=== PATIENT | female | born 1945 | race Caucasian/White ===

== ENCOUNTER 2017-06-09 19:03 | Emergency (ER) | payer MEDICARE, OTHER ==
[~2017-06-09] VITALS: Ht 162.6 cm; Wt 57.6 kg
[~2017-06-09 19:03] MED LIST: ALBU8.5H6 INH; ASPI325T8 PO; ATOR40TA59 PO; BUSP30TA PO; CLOP75TA PO; FLUT1DIS3 IH; GABA-586 PO; INSU100I11 SQ; INSU100I13 SQ; INSU100V8 SQ; METF-620 PO; SERT100T8 PO; TRAZ100T12 PO
[2017-06-09 19:24] LABS: BASO # 0.1 x10^3/uL (0.0-0.2); BASO % 1 % (0-3); EOS % 1 % (0-3); HEMATOCRIT 37.8 % (36.0-47.0); HEMOGLOBIN 11.9 g/dL (12.0-15.5); LYMPH # 1.3 x10^3/uL (1.0-4.8); LYMPH % 21 % (24-48); MEAN CORPUSCULAR HEMOGLOBIN 24 pg (25-35); MEAN CORPUSCULAR HGB CONC 31 g/dL (31-37); MEAN CORPUSCULAR VOLUME 76 fL (79-100); MONO % 6 % (0-9); NEUT % 72 % (31-73); PLATELET COUNT 207 x10^3/uL (140-400); RED CELL DISTRIBUTION WIDTH 15.9 % (11.5-14.5); WHITE BLOOD COUNT 6.2 x10^3/uL (4.0-11.0)
[2017-06-09 19:35] LABS: BILIRUBIN,URINE NEGATIVE (NEG); GLUCOSE,URINE 100 mg/dL (NEG); NITRITE,URINE NEGATIVE (NEG); PROTEIN,URINE NEGATIVE (NEG-TRACE); UROBILINOGEN,URINE 0.2 mg/dL (0.2 mg/dL)
[2017-06-09 19:42] LABS: BACTERIA,URINE MODERATE /HPF (0-FEW); RBC,URINE 0 /HPF (0-2); SQUAMOUS EPITHELIAL CELL,UR MOD /LPF
[2017-06-09 19:44] LABS: CALCIUM 8.9 mg/dL (8.5-10.1); CREATININE 1.1 mg/dL (0.6-1.0); GFR 49.2; POTASSIUM 4.2 mmol/L (3.5-5.1)
[2017-06-09 19:46] LABS: ALBUMIN 3.6 g/dL (3.4-5.0); ALBUMIN/GLOBULIN RATIO 0.9 (1.0-1.7); TOTAL BILIRUBIN 0.4 mg/dL (0.2-1.0); TOTAL PROTEIN 7.5 g/dL (6.4-8.2)
--- NOTE | 2017-06-09 20:28 | PHYS DOC ---
Past Medical History Past Medical History: Anxiety, COPD, Depression, Diabetes-Type II, High Cholesterol, RI, Migraines, Other Additional Past Medical Histor: neuropathy, and insomnia Past Surgical History: Cholecystectomy, , Hysterectomy, Other Additional Past Surgical Histo: CARDIAC STENTS Alcohol Use: None Drug Use: None Adult General Chief Complaint Chief Complaint: HIP PAIN [facility] HPI Patient is a 71 year old female presents with right pelvic pain 2 weeks. Pain is intermittent dull and cramping. It is worse with ambulation and leg movement. Patient denies repetitive strain injury or trauma. Denies lower abdominal pain. No nausea or vomiting. No fever chills or sweats. No flank pain. No other symptoms or complaints. Patient does ambulate with cane. Patient has not been evaluated for this complaint prior today's ED visit. Review of Systems Review of Systems ROS as per HPI. All other systems were reviewed and found to be within normal limits, except as documented in this note. Current Medications Current Medications Current Medications Medications (Trade) Dose Ordered Sig/Lashay Start Time Stop Time Status Last Admin Dose Admin Fentanyl Citrate (Fentanyl 2ml Vial) 50 mcg 1X ONCE 06/09/17 20:30 06/09/17 20:31 DC 06/09/17 20:38 50 MCG Iohexol (Omnipaque 300 Mg/ml) 75 ml 1X ONCE 06/09/17 20:30 06/09/17 20:31 DC 06/09/17 20:49 75 ML Ondansetron HCl (Zofran) 4 mg 1X ONCE 06/09/17 20:30 06/09/17 20:31 DC 06/09/17 20:38 4 MG Allergies Allergies Allergies Coded Allergies Type Severity Reaction Last Updated Verified Penicillins Allergy Intermediate 10/21/15 Yes Sulfa (Sulfonamide Antibiotics) Allergy Intermediate 10/21/15 Yes Physical Exam Physical Exam Constitutional: Well developed, well nourished, no acute distress, non-toxic appearance. [] HENT: Normocephalic, atraumatic, bilateral external ears normal, oropharynx moist, no oral exudates, nose normal. [] Eyes: PERRLA, EOMI, conjunctiva normal, no discharge. [] Neck: Normal range of motion, no tenderness, supple, no stridor. [] Cardiovascular:Heart rate regular rhythm, no murmur, femoral pulses 2+ and symmetric. [] Lungs & Thorax: Bilateral breath sounds clear to auscultation [] Abdomen: Bowel sounds normal, soft, non-tender, pelvic/thigh pain located over medial inguinal event. No hernias appreciated. [] Skin: Warm, dry, no erythema, no rash. [] Back: No tenderness, no CVA tenderness. [] Extremities: No tenderness, no cyanosis, no clubbing.[] Neurologic: Alert and oriented X 3, normal motor function, normal sensory function, no focal deficits noted. [] Psychologic: Affect normal, judgement normal, mood normal. [] Current Patient Data Vital Signs Vital Signs Date Time Temp Pulse Resp B/P (MAP) Pulse Ox O2 Delivery O2 Flow Rate FiO2 06/09/17 20:41 85 16 147/63 (91) 98 Room Air 06/09/17 19:05 98.2 98.2 Lab Values Laboratory Tests Test 06/09/17 19:15 06/09/17 19:25 White Blood Count 6.2 x10^3/uL (4.0-11.0) Red Blood Count 5.00 x10^6/uL (3.50-5.40) Hemoglobin 11.9 g/dL (12.0-15.5) L Hematocrit 37.8 % (36.0-47.0) Mean Corpuscular Volume 76 fL (79-100) L Mean Corpuscular Hemoglobin 24 pg (25-35) L Mean Corpuscular Hemoglobin Concent 31 g/dL (31-37) Red Cell Distribution Width 15.9 % (11.5-14.5) H Platelet Count 207 x10^3/uL (140-400) Neutrophils (%) (Auto) 72 % (31-73) Lymphocytes (%) (Auto) 21 % (24-48) L Monocytes (%) (Auto) 6 % (0-9) Eosinophils (%) (Auto) 1 % (0-3) Basophils (%) (Auto) 1 % (0-3) Neutrophils # (Auto) 4.5 x10^3uL (1.8-7.7) Lymphocytes # (Auto) 1.3 x10^3/uL (1.0-4.8) Monocytes # (Auto) 0.4 x10^3/uL (0.0-1.1) Eosinophils # (Auto) 0.0 x10^3/uL (0.0-0.7) Basophils # (Auto) 0.1 x10^3/uL (0.0-0.2) D-Dimer ([place]) 0.38 ug/mlFEU (0.00-0.50) Sodium Level 139 mmol/L (136-145) Potassium Level 4.2 mmol/L (3.5-5.1) Chloride Level 102 mmol/L (98-107) Carbon Dioxide Level 26 mmol/L (21-32) Anion Gap 11 (6-14) Blood Urea Nitrogen 13 mg/dL (7-20) Creatinine 1.1 mg/dL (0.6-1.0) H Estimated GFR (Cockcroft-Gault) 49.2 BUN/Creatinine Ratio 12 (6-20) Glucose Level 217 mg/dL (70-99) H Calcium Level 8.9 mg/dL (8.5-10.1) Total Bilirubin 0.4 mg/dL (0.2-1.0) Aspartate Amino Transferase (AST) 20 U/L (15-37) Alanine Aminotransferase (ALT) 14 U/L (14-59) Alkaline Phosphatase 60 U/L (46-116) Total Protein 7.5 g/dL (6.4-8.2) Albumin 3.6 g/dL (3.4-5.0) Albumin/Globulin Ratio 0.9 (1.0-1.7) L Urine Collection Type Unknown Urine Color Yellow Urine Clarity Cloudy Urine pH 6.0 Urine Specific [place] 1.015 Urine Protein Negative mg/dL (NEG-TRACE) Urine Glucose (UA) 100 mg/dL (NEG) Urine Ketones (Stick) Negative mg/dL (NEG) Urine Blood Negative (NEG) Urine Nitrite Negative (NEG) Urine Bilirubin Negative (NEG) Urine Urobilinogen Dipstick 0.2 mg/dL (0.2 mg/dL) Urine Leukocyte Esterase Small (NEG) Urine RBC 0 /HPF (0-2) Urine WBC 5-10 /HPF (0-4) Urine Squamous Epithelial Cells Mod /LPF Urine Bacteria Moderate /HPF (0-FEW) Laboratory Tests 06/09/17 19:15 Laboratory Tests 06/09/17 19:15 EKG EKG [] Radiology/Procedures Radiology/Procedures [CTA abdomen pelvis: No acute findings. Severe peripheral artery disease. R Lower extremity venous Doppler ultrasound: No findings of DVT.] Course & Med Decision Making Course & Med Decision Making Pertinent Labs and Imaging studies reviewed. (See chart for details) [No acute findings to explain patient's right groin pain. Recommend supportive care with PCP follow-up to review pertinent CT findings. This was discussed in detail with the patient understands the importance of reviewing these findings with her PCP for further management.] Dragon Disclaimer Dragon Disclaimer This electronic medical record was generated, in whole or in part, using a voice recognition dictation system. Departure Departure Impression: Primary Impression: Right groin pain Disposition: HOME, SELF-CARE Condition: GOOD Referrals: CARLOS VIDAL MD (PCP) LILLI BRITTON DO Jun 09, 2017 20:28
[2017-06-09] MEDS ORDERED: ONDANSETRON PF 4 MG/2 ML VIAL. IV ONE (20:30)
[2017-06-09] MEDS ORDERED: fentaNYL PF VIAL 100 MCG/2 ML VIAL IV ONE (20:30)
[2017-06-09] MEDS ORDERED: IOHEXOL 300 MG/ML 100ML VIAL. IV ONE (20:30)
[2017-06-09 20:41] VITALS: BP 147/63
--- NOTE | 2017-06-09 22:26 | RAD ---
EXAM: CT ANGIOGRAPHY OF THE ABDOMEN AND PELVIS WITH AND WITHOUT INTRAVENOUS CONTRAST. HISTORY: Right inguinal pain. Concern for aneurysm/dissection. TECHNIQUE: Computed tomographic angiography of the abdomen and pelvis was performed before and after the intravenous administration of 75 mL Omnipaque 300. 3-D maximum intensity projections were also performed. COMPARISON: May 11, 2014. FINDINGS: There is no abdominal aortic aneurysm. There is mild infrarenal abdominal aortic ectasia without aneurysmal dilatation. Maximum diameter is 2.6 cm. There is diffuse calcified and noncalcified plaquing throughout the aortoiliac systems. Stenosis is severe at the origin of the right common iliac artery. It is moderate to severe at the left origin. More distally, both common iliac arteries are patent. Both external iliac arteries are diffusely diseased with multifocal mild to moderate stenoses on the left greater than right. There are moderate to severe stenoses at the origins of both internal iliac arteries appear patent more distally. There is moderate to severe stenosis at the origin of the celiac axis. There is moderate stenosis at the superior mesenteric artery origin. The inferior mesenteric artery is severely stenotic at its origin but patent more distally. There is mild stenosis at the left renal artery origin. Images of the lung bases reveal moderate to severe centrilobular emphysema. There are superimposed interstitial changes in the right greater than left bases. There is a moderate to large hiatal hernia. Distal esophageal wall thickening is noted.. Bone windows reveal no suspicious lesions. The gallbladder is surgically absent. The common duct is mildly dilated at 8 mm. The spleen is mildly enlarged at 13 cm. The pancreas, adrenal glands and kidneys are unremarkable. There are no pathologically enlarged lymph nodes. The uterus is surgically absent. Sigmoid and left colonic diverticulosis are moderate to severe. It is moderate more proximally. There is no superimposed inflammation. The appendix is not inflamed. There is no obstruction. There is no right inguinal hernia. No inflammatory changes or other cause for pain or is seen at that site. IMPRESSION: 1. No cause for acute right inguinal pain is identified. 2. Severe stenosis at the right greater than left common iliac artery origins. 3. Multifocal mild to moderate stenosis within the external iliac arteries on the left greater than right. 4. Moderate to severe stenosis at the origin of the celiac axis. 5. Moderate stenosis at the superior mesenteric artery origin. 6. Severe stenosis at the inferior mesenteric artery origin. 7. Mild stenosis at the left renal artery origin. 8. Mild extrahepatic biliary dilatation status post cholecystectomy. Correlate for cholestasis to assess significance. 9. At least moderate centrilobular emphysema with superimposed interstitial lung disease in the right greater than left bases. 10. Large hiatal hernia. Correlate for distal esophagitis. 11. Mild splenomegaly. *One or more of the following individualized dose reduction techniques were utilized for this examination: 1. Automated exposure control. 2. Adjustment of the mA and/or kV according to patient size. 3. Use of iterative reconstruction technique. Electronically signed by: Nadine Arndt MD (06/09/2017 10:22 PM) [facility]
--- NOTE | 2017-06-09 23:47 | RAD ---
RIGHT LOWER EXTREMITY ULTRASOUND WITH DOPPLER 06/09/2017 11:24 PM Clinical Information: Right groin pain. Comparison: CT angiography 06/09/2017. Technique: Multiple grayscale, color Doppler, and spectral Doppler sonographic images of the lower extremity venous structures were obtained. Findings: The right common femoral, femoral, and popliteal veins exhibit normal compression, respiratory phasicity, and augmentation. No intraluminal thrombi are identified. Color Doppler flow is demonstrated in the right posterior tibial and greater saphenous veins. Impression: 1. No evidence of deep venous thrombosis. Electronically signed by: Gabrielle Bernstein MD (06/09/2017 11:44 PM) [facility]
--- NOTE | 2017-06-10 07:57 | RAD ---
EXAM: Pelvis and right hip, 2 views. HISTORY: Pain. COMPARISON: None. FINDINGS: A frontal view of the pelvis and frog-leg view the right hip are obtained. There is no fracture, dislocation or subluxation. There is minimal subchondral sclerosis involving the right hip. There is degenerative change at the lumbosacral junction. There are vascular calcifications. IMPRESSION: No acute osseous finding.
--- NOTE | 2017-06-11 16:27 | VNOTE ---
CALL BACK NOTE CALL BACK Microbiology 06/09/17 Urine Culture - Final, Complete 06/09/17 Urine Culture Result 1 (LEO) - Final, Complete 06/09/17 Antimicrobic Susceptibility - Final, Complete Patient returning to ED today. Currently on way right now. Plan to treat patient in ED upon arrival. Discussed case with charge nurseElsa. Agrees to pass information along to Doctor caring for patient. (Cipro or Levaquin susceptible). DELMA RICO Jun 11, 2017 16:27
[2017-06-11] MEDS ORDERED: NITR100C62 PO (20:27)
== END 2017-06-10 00:08 | disposition home or self-care (01) ==
LOC: ER 19:03
DX: R10.30 Lower abdominal pain, unspecified (principal); R10.2 Pelvic and perineal pain; E78.00 Pure hypercholesterolemia, unspecified; J44.9 Chronic obstructive pulmonary disease, unspecified; E11.40 Type 2 diabetes mellitus with diabetic neuropathy, unspecified; G43.909 Migraine, unspecified, not intractable, without status migrainosus; G47.00 Insomnia, unspecified; Z90.49 Acquired absence of other specified parts of digestive tract; Z95.5 Presence of coronary angioplasty implant and graft; Z90.710 Acquired absence of both cervix and uterus; I25.2 Old myocardial infarction; Z88.0 Allergy status to penicillin; Z88.2 Allergy status to sulfonamides
CPT/HCPCS: 36415; 73502; 74174; 80053; 81001; 85025; 85379; 87086; 87186; 93971; 96374; 96375; 99285; J2405; J3010; Q9967

== ENCOUNTER 2017-06-11 16:55 | Emergency (ER) | payer MEDICARE, OTHER ==
[~2017-06-11] VITALS: Ht 162.6 cm; Wt 54.4 kg
[2017-06-11 18:27] LABS: BILIRUBIN,URINE MODERATE (NEG); GLUCOSE,URINE >=1000 mg/dL (NEG); NITRITE,URINE POSITIVE (NEG); PROTEIN,URINE 100 mg/dL (NEG-TRACE)
[2017-06-11 18:41] LABS: BACTERIA,URINE MANY /HPF (0-FEW); SQUAMOUS EPITHELIAL CELL,UR MOD /LPF
--- NOTE | 2017-06-11 19:13 | PHYS DOC ---
Past Medical History Past Medical History: Anxiety, COPD, Depression, Diabetes-Type II, [place], Migraines, Other Additional Past Medical Histor: neuropathy, and insomnia Past Surgical History: Cholecystectomy, , Hysterectomy, Other Additional Past Surgical Histo: CARDIAC STENTS Alcohol Use: None Drug Use: None Adult General Chief Complaint Chief Complaint: DIZZY/LIGHT HEADED HPI HPI Patient is a 71 year old female who presents with old small complaints is a rather poor historian but appears to have complaints related to some back pain in the thoracic area she's been falling recently and some vague transient right- sided abdominal discomfort. Patient reports a history of type 2 diabetes some COPD that does not require treatment and coronary artery disease with stent placement. Denies being on blood thinners. Denies currently any chest pain cough or fever. Review of Systems Review of Systems Constitutional: Denies fever or chills [] Eyes: Denies change in visual acuity, redness, or eye pain [] HENT: Denies nasal congestion or sore throat [] Respiratory: Denies cough or shortness of breath [] Cardiovascular: No additional information not addressed in HPI [] GI: Denies abdominal pain, nausea, vomiting, bloody stools or diarrhea [] : Denies dysuria or hematuria [] Musculoskeletal: Denies back pain or joint pain [] Integument: Denies rash or skin lesions [] Neurologic: Denies headache, focal weakness or sensory changes [] Endocrine: Denies polyuria or polydipsia [] All other systems were reviewed and found to be within normal limits, except as documented in this note. Allergies Allergies Allergies Coded Allergies Type Severity Reaction Last Updated Verified Penicillins Allergy Intermediate 10/21/15 Yes Sulfa (Sulfonamide Antibiotics) Allergy Intermediate 10/21/15 Yes Physical Exam Physical Exam Constitutional: Well developed, well nourished, no acute distress, non-toxic appearance. [] HENT: Normocephalic, atraumatic, bilateral external ears normal, oropharynx moist, no oral exudates, nose normal. [] Eyes: PERRLA, EOMI, conjunctiva normal, no discharge. [] Neck: Normal range of motion, no tenderness, supple, no stridor. [] Cardiovascular:Heart rate regular rhythm, no murmur [] Lungs & Thorax: Bilateral breath sounds clear to auscultation [] Abdomen: Bowel sounds normal, soft, no tenderness, no masses, no pulsatile masses. [] Skin: Warm, dry, no erythema, no rash. [] Back: No tenderness, no CVA tenderness. [] Extremities: No tenderness, no cyanosis, no clubbing, ROM intact, no edema. [] Neurologic: Alert and oriented X 3, normal motor function, normal sensory function, no focal deficits noted. [] Psychologic: Affect normal, judgement normal, mood normal. [] Current Patient Data Vital Signs Vital Signs Date Time Temp Pulse Resp B/P (MAP) Pulse Ox O2 Delivery O2 Flow Rate FiO2 06/11/17 19:59 94 16 95 06/11/17 16:59 118/56 (76) Room Air Lab Values Laboratory Tests Test 06/11/17 18:13 06/11/17 19:09 Urine Collection Type Unknown Urine Color [place] Urine Clarity Clear Urine pH 6.0 Urine Specific [place] >=1.030 Urine Protein 100 mg/dL (NEG-TRACE) Urine Glucose (UA) >=1000 mg/dL (NEG) Urine Ketones (Stick) 40 mg/dL (NEG) Urine Blood Moderate (NEG) Urine Nitrite Positive (NEG) Urine Bilirubin Moderate (NEG) Urine Urobilinogen Dipstick 1.0 mg/dL (0.2 mg/dL) Urine Leukocyte Esterase Negative (NEG) Urine RBC 6-10 /HPF (0-2) Urine WBC 11-20 /HPF (0-4) Urine Squamous Epithelial Cells Mod /LPF Urine Bacteria Many /HPF (0-FEW) Urine Hyaline Casts Many /HPF Urine Mucus Marked /LPF White Blood Count 10.1 x10^3/uL (4.0-11.0) Red Blood Count 5.69 x10^6/uL (3.50-5.40) H Hemoglobin 13.5 g/dL (12.0-15.5) Hematocrit 42.0 % (36.0-47.0) Mean Corpuscular Volume 74 fL (79-100) L Mean Corpuscular Hemoglobin 24 pg (25-35) L Mean Corpuscular Hemoglobin Concent 32 g/dL (31-37) Red Cell Distribution Width 16.1 % (11.5-14.5) H Platelet Count 280 x10^3/uL (140-400) Neutrophils (%) (Auto) 78 % (31-73) H Lymphocytes (%) (Auto) 15 % (24-48) L Monocytes (%) (Auto) 7 % (0-9) Eosinophils (%) (Auto) 0 % (0-3) Basophils (%) (Auto) 1 % (0-3) Neutrophils # (Auto) 7.9 x10^3uL (1.8-7.7) H Lymphocytes # (Auto) 1.5 x10^3/uL (1.0-4.8) Monocytes # (Auto) 0.7 x10^3/uL (0.0-1.1) Eosinophils # (Auto) 0.0 x10^3/uL (0.0-0.7) Basophils # (Auto) 0.1 x10^3/uL (0.0-0.2) Sodium Level 135 mmol/L (136-145) L Potassium Level 3.8 mmol/L (3.5-5.1) Chloride Level 97 mmol/L (98-107) L Carbon Dioxide Level 27 mmol/L (21-32) Anion Gap 11 (6-14) Blood Urea Nitrogen 26 mg/dL (7-20) H Creatinine 1.2 mg/dL (0.6-1.0) H Estimated GFR (Cockcroft-Gault) 44.5 BUN/Creatinine Ratio 22 (6-20) H Glucose Level 263 mg/dL (70-99) H Calcium Level 9.5 mg/dL (8.5-10.1) Total Bilirubin 0.6 mg/dL (0.2-1.0) Aspartate Amino Transferase (AST) 27 U/L (15-37) Alanine Aminotransferase (ALT) 15 U/L (14-59) Alkaline Phosphatase 62 U/L (46-116) Troponin I Quantitative < 0.017 ng/mL (0.000-0.055) Total Protein 7.7 g/dL (6.4-8.2) Albumin 3.9 g/dL (3.4-5.0) Albumin/Globulin Ratio 1.0 (1.0-1.7) Laboratory Tests 06/11/17 19:09 Laboratory Tests 06/11/17 19:09 EKG EKG EKG sinus rhythm rate of 95 no STEMI QTC 453 my interpretation[] Radiology/Procedures Radiology/Procedures Chest x-ray and thoracic spine x-ray showed no acute fractures or acute cardiopulmonary disease processes my interpretation.[] Course & Med Decision Making Course & Med Decision Making Pertinent Labs and Imaging studies reviewed. (See chart for details) The patient was given IV fluids and on reexamination at 20 10 PM she feels improved and wants to go home. Labs unremarkable except for a UA which was consistent with UTI. Dragon Disclaimer Dragon Disclaimer This electronic medical record was generated, in whole or in part, using a voice recognition dictation system. Departure Departure Impression: Primary Impression: UTI (urinary tract infection) Additional Impression: Thoracic myofascial strain Disposition: 01 HOME, SELF-CARE Condition: STABLE Referrals: CARLOS VIDAL MD (PCP) Patient Instructions: Thoracic Strain, Knkt-ki-Hkpu, Urinary Tract Infection, Xpls-ob-Ismg Scripts Nitrofurantoin Monohyd/M-Cryst (MACROBID 100 MG CAPSULE) 100 Mg Capsule 1 CAP PO BID, #14 CAP Prov: JODI GIRALDO MD 06/11/17 Problem Qualifiers JODI GIRALDO MD Jun 11, 2017 19:13
[2017-06-11 19:19] LABS: BASO # 0.1 x10^3/uL (0.0-0.2); BASO % 1 % (0-3); EOS % 0 % (0-3); HEMOGLOBIN 13.5 g/dL (12.0-15.5); LYMPH # 1.5 x10^3/uL (1.0-4.8); LYMPH % 15 % (24-48); MEAN CORPUSCULAR HEMOGLOBIN 24 pg (25-35); MEAN CORPUSCULAR HGB CONC 32 g/dL (31-37); MEAN CORPUSCULAR VOLUME 74 fL (79-100); MONO % 7 % (0-9); NEUT % 78 % (31-73); PLATELET COUNT 280 x10^3/uL (140-400); RED BLOOD COUNT 5.69 x10^6/uL (3.50-5.40); RED CELL DISTRIBUTION WIDTH 16.1 % (11.5-14.5); WHITE BLOOD COUNT 10.1 x10^3/uL (4.0-11.0)
[2017-06-11 19:35] LABS: CALCIUM 9.5 mg/dL (8.5-10.1); CREATININE 1.2 mg/dL (0.6-1.0); GFR 44.5; POTASSIUM 3.8 mmol/L (3.5-5.1)
[2017-06-11 19:40] LABS: ALBUMIN 3.9 g/dL (3.4-5.0); TOTAL BILIRUBIN 0.6 mg/dL (0.2-1.0); TOTAL PROTEIN 7.7 g/dL (6.4-8.2)
[2017-06-11 19:59] VITALS: BP 126/58
[2017-06-11] MEDS ORDERED: NITR100C62 PO (20:27)
--- NOTE | 2017-06-12 07:04 | EKG ---
[facility] [address] [place] [id number] Test Date: 2017-06-11 Test Time: 19:11:12 Pat Name: ENRIKE CORNELIUS Department: Room: Gender: F Tobacco Curer: : [id number] Requested By: JODI GIRALDO Order Number: [id number] Reading MD: Ras Felder MD Measurements Intervals [place] Rate: 95 P: 16 [place]: 142 QRS: -51 QRSD: 84 T: 38 QT: 358 QTc: 453 Interpretive Statements SINUS RHYTHM ABNORMAL LEFT AXIS DEVIATION QRS(T) CONTOUR ABNORMALITY CONSISTENT WITH INFERIOR INFARCT PROBABLY OLD Electronically Signed On 06-12-2017 15:23:16 [employer] [facility] by Ras Felder MD
--- NOTE | 2017-06-12 08:23 | RAD ---
Thoracic spine, 3 views, 06/11/2017: History: Cough, back pain The bony structures are demineralized. No fracture or destructive bony lesion is seen. There are moderate scattered marginal spurs. The paraspinous soft tissues are unremarkable. IMPRESSION: 1. Demineralization. 2. Scattered marginal spurring. 3. No acute bony abnormality is detected. AP chest, 06/11/2017: Comparison is made to a study from 10/06/2015. The heart size and pulmonary vascularity are normal. There is calcific plaquing of the aorta. There is minimal basilar scarring. No acute infiltrates are seen. There is no evidence of pleural fluid. IMPRESSION: No acute abnormality is detected.
== END 2017-06-11 20:41 | disposition home or self-care (01) ==
LOC: ER 16:55
DX: S29.012A Strain of muscle and tendon of back wall of thorax, initial encounter (principal); N39.0 Urinary tract infection, site not specified; F41.9 Anxiety disorder, unspecified; J44.9 Chronic obstructive pulmonary disease, unspecified; F32.9 Major depressive disorder, single episode, unspecified; E11.40 Type 2 diabetes mellitus with diabetic neuropathy, unspecified; I25.2 Old myocardial infarction; G47.00 Insomnia, unspecified; G43.909 Migraine, unspecified, not intractable, without status migrainosus; Z88.0 Allergy status to penicillin; Z95.5 Presence of coronary angioplasty implant and graft; Z90.49 Acquired absence of other specified parts of digestive tract; Z90.710 Acquired absence of both cervix and uterus; Z88.2 Allergy status to sulfonamides; W18.39XA Other fall on same level, initial encounter; Y93.89 Activity, other specified; Y92.89 Other specified places as the place of occurrence of the external cause; Y99.8 Other external cause status
CPT/HCPCS: 36415; 71010; 72072; 80053; 81001; 84484; 85025; 87086; 87186; 93005; 99285-25

== ENCOUNTER 2020-06-10 17:27 | Emergency (ER) | payer MEDICARE, MEDICAID ==
[~2020-06-10] VITALS: Ht 162.6 cm; Wt 55.0 kg
[~2020-06-10 17:27] MED LIST changes: +ACET325T9 PO; +BUDE0.5A NEB; +CEPH-264 PO; +DOCU-153 PO; -GABA-586 PO; +GABA300C18 PO; +INSU100V35 SQ; +LACT1CAP19 PO; -METF-620 PO; +METF10007 PO; +MINE454C9 TP; +NITR100C62 PO; +PANT40TA77 PO; +PSYL3.4P PO; +TRAZ-123 PO; -TRAZ100T12 PO
[2020-06-10] MEDS ORDERED: ONDANSETRON PF 4 MG/2 ML VIAL. ONE (17:53)
[2020-06-10 17:57] LABS: BASO % 1 % (0-3); EOS % 0 % (0-3); HEMATOCRIT 37.5 % (36.0-47.0); HEMOGLOBIN 11.8 g/dL (12.0-15.5); LYMPH # 1.1 x10^3/uL (1.0-4.8); LYMPH % 16 % (24-48); MEAN CORPUSCULAR HEMOGLOBIN 23 pg (25-35); MEAN CORPUSCULAR HGB CONC 32 g/dL (31-37); MEAN CORPUSCULAR VOLUME 74 fL (79-100); MONO # 0.3 x10^3/uL (0.0-1.1); MONO % 5 % (0-9); NEUT # 5.2 x10^3/uL (1.8-7.7); NEUT % 78 % (31-73); PLATELET COUNT 237 x10^3/uL (140-400); RED BLOOD COUNT 5.08 x10^6/uL (3.50-5.40); RED CELL DISTRIBUTION WIDTH 17.1 % (11.5-14.5); WHITE BLOOD COUNT 6.6 x10^3/uL (4.0-11.0)
[2020-06-10] MEDS ORDERED: ONDANSETRON PF 4 MG/2 ML VIAL. IVP ONE (18:00)
[2020-06-10 18:08] LABS: CREATININE 1.2 mg/dL (0.6-1.0); GFR 44.2; POTASSIUM 4.4 mmol/L (3.5-5.1)
[2020-06-10 18:14] LABS: ALBUMIN 3.1 g/dL (3.4-5.0); ALBUMIN/GLOBULIN RATIO 0.8 (1.0-1.7); TOTAL BILIRUBIN 0.3 mg/dL (0.2-1.0); TOTAL PROTEIN 7.1 g/dL (6.4-8.2)
[2020-06-10] MEDS ORDERED: fentaNYL PF VIAL 100 MCG/2 ML VIAL ONE (18:23)
[2020-06-10] MEDS ORDERED: fentaNYL PF VIAL 100 MCG/2 ML VIAL IVP ONE (18:30)
--- NOTE | 2020-06-10 18:59 | RAD ---
CT scan of the abdomen and pelvis without contrast 06/10/2020 CLINICAL HISTORY: Abdominal pain. TECHNIQUE: Unenhanced contiguous, 5 mm axial sections were obtained through the abdomen and pelvis. One or more of the following individualized dose reduction techniques were utilized for this study: 1. Automated exposure control. 2. Adjustment of the mA and/or kV according to patient size. 3. Use of iterative reconstruction technique. FINDINGS: Comparison study is dated 05/01/2020. Images through the lung bases demonstrate moderate emphysematous changes bilaterally. There is a moderate sized sliding hiatal hernia. Extensive coronary artery calcifications are seen. The liver, spleen, pancreas, adrenal glands and kidneys are within normal limits. Atherosclerotic calcification abdominal aorta is seen. The abdominal aorta is ectatic, unchanged. Surgical clips are seen within the gallbladder fossa consistent with a cholecystectomy. No free fluid or free air is seen within the abdomen. There is no evidence of bowel obstruction. Multiple diverticula are seen involving the sigmoid colon. No inflammatory changes are in the seen in the adjacent fat. Images through the pelvis demonstrate the urinary bladder distended with urine. No free fluid is seen. 3 large screws are seen within the proximal left femur. The osseous structures are unchanged. IMPRESSION: No acute abnormality is seen. Electronically signed by: Jamaal Wei MD (06/10/2020 6:56 PM) [id number]
[2020-06-10 19:40] LABS: BILIRUBIN,URINE NEGATIVE (NEG); CLARITY,URINE CLEAR; COLOR,URINE YELLOW; NITRITE,URINE NEGATIVE (NEG); PH,URINE 7.5 (<5.0-8.0); PROTEIN,URINE NEGATIVE (NEG-TRACE); UROBILINOGEN,URINE 0.2 mg/dL (0.2 mg/dL)
--- NOTE | 2020-06-10 19:45 | RAD ---
Exam: Left knee 4 views INDICATION: Knee pain TECHNIQUE: Frontal, lateral and oblique views of the left knee Comparisons: None FINDINGS: Bone mineralization is normal. No acute or healed fractures. Joint spaces are well-maintained. Soft tissues are unremarkable. IMPRESSION: No acute osseous abnormality. Electronically signed by: Srikanth Whitehead MD (06/10/2020 7:42 PM) [facility]
[2020-06-10 20:01] LABS: BACTERIA,URINE FEW /HPF (0-FEW); RBC,URINE 0 /HPF (0-2); WBC,URINE OCC /HPF (0-4)
[2020-06-10] MEDS ORDERED: ONDA4TAB12 PO (20:33)
--- NOTE | 2020-06-10 20:34 | PHYS DOC ---
Past Medical History Past Medical History: Anxiety, COPD, Depression, Diabetes-Type II, [place], Migraines, Other Additional Past Medical Histor: neuropathy, and insomnia Past Surgical History: Cholecystectomy, , Hysterectomy, Other Additional Past Surgical Histo: CARDIAC STENTS Smoking Status: Former Smoker Alcohol Use: None Drug Use: None General Adult EDM: Chief Complaint: ABDOMINAL PAIN HPI: HPI: Patient is a 74 year old female with history of diabetes type 2, COPD, depression, possible dementia/chronic confusion, who presents to the ED co mplaining of 8 out of 10 sharp intermittent left lower quadrant abdominal pain with nausea vomiting that began today. Patient denies any diarrhea. Denies any hematemesis or melena. She appears slightly confused though nursing staff that spoke to the states this is normal baseline mentation for her. Patient denies anything specifically exacerbating or relieving the pain. Review of Systems: Review of Systems: Constitutional: Denies fever or chills. [] Eyes: Denies change in visual acuity. [] HENT: Denies nasal congestion or sore throat. [] Respiratory: Denies cough or shortness of breath. [] Cardiovascular: Denies chest pain or edema. [] GI: Reports left lower quadrant abdominal pain with nausea and vomiting, denies bloody stools or diarrhea. [] : Denies dysuria. [] Musculoskeletal: Denies back pain or joint pain. [] Integument: Denies rash. [] Neurologic: Denies headache, focal weakness or sensory changes. [] Psychiatric: Denies depression or anxiety. [] Heart Score: Risk Factors: Risk Factors: DM, Current or recent (<one month) smoker, HTN, HLP, family history of CAD, obesity. Risk Scores: Score 0 - 3: 2.5% MACE over next 6 weeks - Discharge Home Score 4 - 6: 20.3% MACE over next 6 weeks - Admit for Clinical Observation Score 7 - 10: 72.7% MACE over next 6 weeks - Early Invasive Strategies Current Medications: Current Medications Medications (Trade) Dose Ordered Sig/Lashay Start Time Stop Time Status Last Admin Dose Admin Fentanyl Citrate (Fentanyl 2ml Vial) 100 mcg STK-MED ONCE 06/10/20 18:23 06/10/20 18:24 DC Ondansetron HCl (Zofran) 4 mg 1X ONCE 06/10/20 18:00 06/10/20 18:01 DC 11/12/20 17:58 4 MG Allergies: Allergies: Allergies Coded Allergies Type Severity Reaction Last Updated Verified Penicillins Allergy Intermediate 10/21/15 Yes Sulfa (Sulfonamide Antibiotics) Allergy Intermediate 10/21/15 Yes Physical Exam: PE: Constitutional: Well developed, well nourished, no acute distress, non-toxic appearance. [] HENT: Normocephalic, atraumatic, bilateral external ears normal, oropharynx moist, no oral exudates, nose normal. [] Eyes: PERRLA, EOMI, conjunctiva normal, no discharge. [] Neck: Normal range of motion, no tenderness, supple, no stridor. [] Cardiovascular:Heart rate regular rhythm, no murmur [] Lungs & Thorax: Bilateral breath sounds clear to auscultation [] Abdomen: Bowel sounds normal, soft, diffuse tenderness throughout the abdomen, slight point tenderness to the left lower quadrant, no right lower quadrant point tenderness, no masses, no pulsatile masses. Negative psoas sign, negative obturator sign. Skin: Warm, dry, no erythema, no rash. [] Back: No tenderness, no CVA tenderness. [] Extremities: No tenderness, no cyanosis, no clubbing, ROM intact, no edema. [] Neurologic: Alert and oriented X 3, normal motor function, normal sensory function, no focal deficits noted. Cranial nerves II through XII intact Psychologic: Affect normal, judgement normal, mood normal. [] Current Patient Data: Labs: Laboratory Tests Test 06/10/20 17:38 06/10/20 19:20 White Blood Count 6.6 x10^3/uL (4.0-11.0) Red Blood Count 5.08 x10^6/uL (3.50-5.40) Hemoglobin 11.8 g/dL (12.0-15.5) L Hematocrit 37.5 % (36.0-47.0) Mean Corpuscular Volume 74 fL (79-100) L Mean Corpuscular Hemoglobin 23 pg (25-35) L Mean Corpuscular Hemoglobin Concent 32 g/dL (31-37) Red Cell Distribution Width 17.1 % (11.5-14.5) H Platelet Count 237 x10^3/uL (140-400) Neutrophils (%) (Auto) 78 % (31-73) H Lymphocytes (%) (Auto) 16 % (24-48) L Monocytes (%) (Auto) 5 % (0-9) Eosinophils (%) (Auto) 0 % (0-3) Basophils (%) (Auto) 1 % (0-3) Neutrophils # (Auto) 5.2 x10^3/uL (1.8-7.7) Lymphocytes # (Auto) 1.1 x10^3/uL (1.0-4.8) Monocytes # (Auto) 0.3 x10^3/uL (0.0-1.1) Eosinophils # (Auto) 0.0 x10^3/uL (0.0-0.7) Basophils # (Auto) 0.0 x10^3/uL (0.0-0.2) Sodium Level 141 mmol/L (136-145) Potassium Level 4.4 mmol/L (3.5-5.1) Chloride Level 103 mmol/L (98-107) Carbon Dioxide Level 29 mmol/L (21-32) Anion Gap 9 (6-14) Blood Urea Nitrogen 18 mg/dL (7-20) Creatinine 1.2 mg/dL (0.6-1.0) H Estimated GFR (Cockcroft-Gault) 44.2 BUN/Creatinine Ratio 15 (6-20) Glucose Level 195 mg/dL (70-99) H Calcium Level 9.0 mg/dL (8.5-10.1) Total Bilirubin 0.3 mg/dL (0.2-1.0) Aspartate Amino Transferase (AST) 14 U/L (15-37) L Alanine Aminotransferase (ALT) 13 U/L (14-59) L Alkaline Phosphatase 87 U/L (46-116) Total Protein 7.1 g/dL (6.4-8.2) Albumin 3.1 g/dL (3.4-5.0) L Albumin/Globulin Ratio 0.8 (1.0-1.7) L Lipase 96 U/L (73-393) Urine Collection Type U cath Urine Color Yellow Urine Clarity Clear Urine pH 7.5 (<5.0-8.0) Urine Specific [place] 1.015 (1.000-1.030) Urine Protein Negative mg/dL (NEG-TRACE) Urine Glucose (UA) 250 mg/dL (NEG) Urine Ketones (Stick) 40 mg/dL (NEG) Urine Blood Negative (NEG) Urine Nitrite Negative (NEG) Urine Bilirubin Negative (NEG) Urine Urobilinogen Dipstick 0.2 mg/dL (0.2 mg/dL) Urine Leukocyte Esterase Negative (NEG) Urine RBC 0 /HPF (0-2) Urine WBC Occ /HPF (0-4) Urine Squamous Epithelial Cells Few /LPF Urine Bacteria Few /HPF (0-FEW) Laboratory Tests 06/10/20 17:38 Laboratory Tests 06/10/20 17:38 Vital Signs: Vital Signs Date Time Temp Pulse Resp B/P (MAP) Pulse Ox O2 Delivery O2 Flow Rate FiO2 06/10/20 17:28 98.2 87 18 157/67 (97) 98 Room Air 98.2 EKG: EK interpreted by Dr. Sutherland sinus rhythm HR 89 no STEMI[] Radiology/Procedures: Radiology/Procedures: []PROCEDURE: KNEE LEFT 4V Exam: Left knee 4 views INDICATION: Knee pain TECHNIQUE: Frontal, lateral and oblique views of the left knee Comparisons: None FINDINGS: Bone mineralization is normal. No acute or healed fractures. Joint spaces are well-maintained. Soft tissues are unremarkable. IMPRESSION: No acute osseous abnormality. Electronically signed by: Srikanth Gagnon MD (06/10/2020 7:42 PM) [facility] DICTATED and SIGNED BY: SRIKANTH GAGNON MD DATE: 06/10/201941 PROCEDURE: CT ABDOMEN PELVIS WO CONTRAST CT scan of the abdomen and pelvis without contrast 06/10/2020 CLINICAL HISTORY: Abdominal pain. TECHNIQUE: Unenhanced contiguous, 5 mm axial sections were obtained through the abdomen and pelvis. One or more of the following individualized dose reduction techniques were utilized for this study: 1. Automated exposure control. 2. Adjustment of the mA and/or kV according to patient size. 3. Use of iterative reconstruction technique. FINDINGS: Comparison study is dated 05/01/2020. Images through the lung bases demonstrate moderate emphysematous changes bilaterally. There is a moderate sized sliding hiatal hernia. Extensive coronary artery calcifications are seen. The liver, spleen, pancreas, adrenal glands and kidneys are within normal limits. Atherosclerotic calcification abdominal aorta is seen. The abdominal aorta is ectatic, unchanged. Surgical clips are seen within the gallbladder fossa consistent with a cholecystectomy. No free fluid or free air is seen within the abdomen. There is no evidence of bowel obstruction. Multiple diverticula are seen involving the sigmoid colon. No inflammatory changes are in the seen in the adjacent fat. Images through the pelvis demonstrate the urinary bladder distended with urine. No free fluid is seen. 3 large screws are seen within the proximal left femur. The osseous structures are unchanged. IMPRESSION: No acute abnormality is seen. Electronically signed by: Jamaal Wei MD (06/10/2020 6:56 PM) [id number] DICTATED and SIGNED BY: JAMAAL WEI MD DATE: 06/10/201855 Course & Med Decision Making: Course & Med Decision Making Pertinent Labs and Imaging studies reviewed. (See chart for details) This is a 74-year-old female patient presenting to the ED today complaining of left lower quadrant abdominal pain with nausea vomiting that began today. Patient has chronic confusion she appears demented. CBC, CMP, UA-negative for any acute findings. CT of the abdomen and pelvic is negative. Patient complained of left knee pain in the ED. We did left knee x-rays which were negative for any acute findings. She was discharged to home. Follow-up with PCP Cindy Disclaimer: Cindy Disclaimer: This electronic medical record was generated, in whole or in part, using a voice recognition dictation system. Departure Departure Impression: Primary Impression: Abdominal pain Qualified Codes: R10.32 - Left lower quadrant pain Additional Impressions: Left knee pain Qualified Codes: M25.562 - Pain in left knee Nausea & vomiting Qualified Codes: R11.2 - Nausea with vomiting, unspecified Disposition: 01 DC HOME SELF CARE/HOMELESS Condition: STABLE Referrals: CARLOS VIDAL MD (PCP) follow up in one week Patient Instructions: Abdominal Pain, Knee Pain Additional Instructions: You were evaluated in the emergency room for abdominal pain, your CAT scan of the abdomen pelvis are negative for any acute findings, your lab work including urine was negative for any acute findings. Please follow-up with your own doctor in 1 to 2 weeks Scripts Ondansetron (ONDANSETRON ODT) 4 Mg Tab.rapdis 1 TAB PO PRN Q6-8HRS, #16 TAB Prov: VASILE WILSON GERIATRIC NURSE ASSISTANT 06/10/20 VASILE WILSON GERIATRIC NURSE ASSISTANT Jun 10, 2020 20:33
[2020-06-10 22:00] VITALS: BP 158/66
--- NOTE | 2020-06-13 14:02 | EKG ---
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
== END 2020-06-10 22:04 | disposition home or self-care (01) ==
LOC: ER 17:27
DX: R10.32 Left lower quadrant pain (principal); R11.2 Nausea with vomiting, unspecified; M25.562 Pain in left knee; J44.9 Chronic obstructive pulmonary disease, unspecified; F41.9 Anxiety disorder, unspecified; F32.9 Major depressive disorder, single episode, unspecified; G43.909 Migraine, unspecified, not intractable, without status migrainosus; E11.40 Type 2 diabetes mellitus with diabetic neuropathy, unspecified; I25.2 Old myocardial infarction; Z87.891 Personal history of nicotine dependence; Z90.710 Acquired absence of both cervix and uterus; Z90.49 Acquired absence of other specified parts of digestive tract; Z95.5 Presence of coronary angioplasty implant and graft; Z88.0 Allergy status to penicillin; Z88.2 Allergy status to sulfonamides
CPT/HCPCS: 36415; 73564; 74176; 80053; 81001; 83690; 85025; 93005; 96374; 96375; 99285; J2405; J3010; P9612

== ENCOUNTER 2020-11-29 18:22 | Inpatient (IN) | payer MEDICARE, MEDICAID ==
[~2020-11-29] VITALS: Ht 160 cm; Wt 54.8 kg
[~2020-11-29 18:22] MED LIST changes: +ONDA4TAB12 PO; +ONDA4TAB7 PO; +SERT-268 PO; -SERT100T8 PO
[2020-11-29 18:55] LABS: BASO % 1 % (0-3); EOS % 0 % (0-3); HEMATOCRIT 39.6 % (36.0-47.0); HEMOGLOBIN 12.5 g/dL (12.0-15.5); LYMPH # 0.6 x10^3/uL (1.0-4.8); LYMPH % 7 % (24-48); MEAN CORPUSCULAR HEMOGLOBIN 22 pg (25-35); MEAN CORPUSCULAR HGB CONC 32 g/dL (31-37); MEAN CORPUSCULAR VOLUME 71 fL (79-100); MONO # 0.2 x10^3/uL (0.0-1.1); MONO % 2 % (0-9); NEUT # 8.3 x10^3/uL (1.8-7.7); NEUT % 91 % (31-73); PLATELET COUNT 185 x10^3/uL (140-400); RED CELL DISTRIBUTION WIDTH 16.7 % (11.5-14.5); WHITE BLOOD COUNT 9.2 x10^3/uL (4.0-11.0)
[2020-11-29 19:05] LABS: CALCIUM 8.9 mg/dL (8.5-10.1); GFR 54.3; POTASSIUM 4.4 mmol/L (3.5-5.1)
[2020-11-29 19:11] LABS: MAGNESIUM 1.6 mg/dL (1.8-2.4); TOTAL BILIRUBIN 0.5 mg/dL (0.2-1.0); TOTAL PROTEIN 8.1 g/dL (6.4-8.2)
--- NOTE | 2020-11-29 19:18 | PHYS DOC ---
Past Medical History Past Medical History: Anxiety, COPD, Depression, Diabetes-Type II, [place], Migraines, Other Additional Past Medical Histor: neuropathy, and insomnia Past Surgical History: Cholecystectomy, , Hysterectomy, Other Additional Past Surgical Histo: CARDIAC STENTS Smoking Status: Former Smoker Alcohol Use: None Drug Use: None General Adult EDM: Chief Complaint: CHEST PAIN HPI: HPI: Patient is a 75 year old female who presented to ER for evaluation of epigastric abdominal pain for 3 weeks. Patient also complains of nausea and vomiting, no cough, no fever, no trouble breathing. Patient denies any recent travel or operation. Patient also complains of chest pain for a few week. When asked why she decided to come in today, patient said she is in pain but appeared in no discomfort. Patient was brought here by EMS, very poor historian. Patient says he has history of diabetic, hypertension, coronary disease in the past. Review of Systems: Review of Systems: Constitutional: Denies fever or chills. [] Eyes: Denies change in visual acuity. [] HENT: Denies nasal congestion or sore throat. [] Respiratory: Denies cough or shortness of breath. [] Cardiovascular: Positive for chest pain, no edema. [] GI: positive for abdominal pain, nausea, vomiting, no bloody stools or diarrhea. [] : Denies dysuria. [] Musculoskeletal: Denies back pain or joint pain. [] Integument: Denies rash. [] Neurologic: Denies headache, focal weakness or sensory changes. [] Endocrine: Denies polyuria or polydipsia. [] Lymphatic: Denies swollen glands. [] Psychiatric: Denies depression or anxiety. [] Heart Score: C/O Chest Pain: Yes HEART Score for Chest Pain: HEART Score for Chest Pain Response (Comments) Value History Slighlty/Non-Suspicious 0 ECG Normal 0 Age > 65 2 Risk Factors >3 Risk Factors or Hx CAD 2 Troponin < Normal Limit 0 Total 4 Risk Factors: Risk Factors: DM, Current or recent (<one month) smoker, HTN, HLP, family history of CAD, obesity. Risk Scores: Score 0 - 3: 2.5% MACE over next 6 weeks - Discharge Home Score 4 - 6: 20.3% MACE over next 6 weeks - Admit for Clinical Observation Score 7 - 10: 72.7% MACE over next 6 weeks - Early Invasive Strategies Allergies: Allergies: Allergies Coded Allergies Type Severity Reaction Last Updated Verified Penicillins Allergy Intermediate 10/21/15 Yes Sulfa (Sulfonamide Antibiotics) Allergy Intermediate 10/21/15 Yes Physical Exam: PE: Constitutional: Well developed, well nourished, no acute distress, non-toxic appearance. [] HENT: Normocephalic, atraumatic, bilateral external ears normal, oropharynx moist, no oral exudates, nose normal. [] Eyes: PERRLA, EOMI, conjunctiva normal, no discharge. [] Neck: Normal range of motion, no tenderness, supple, no stridor. [] Cardiovascular:Heart rate regular rhythm, no murmur [] Lungs & Thorax: Bilateral breath sounds clear to auscultation [] Abdomen: Bowel sounds normal, soft, There is tenderness to palpation in epigastric area, no masses, no pulsatile masses. [] Skin: Warm, dry, no erythema, no rash. [] Back: No tenderness, no CVA tenderness. [] Extremities: No tenderness, no cyanosis, no clubbing, ROM intact, no edema. [] Neurologic: Alert and oriented X 3, normal motor function, normal sensory function, no focal deficits noted. [] Psychologic: Affect normal, judgement normal, mood normal. [] Current Patient Data: Labs: Laboratory Tests Test 11/29/20 18:45 White Blood Count 9.2 x10^3/uL (4.0-11.0) Red Blood Count 5.60 x10^6/uL (3.50-5.40) H Hemoglobin 12.5 g/dL (12.0-15.5) Hematocrit 39.6 % (36.0-47.0) Mean Corpuscular Volume 71 fL (79-100) L Mean Corpuscular Hemoglobin 22 pg (25-35) L Mean Corpuscular Hemoglobin Concent 32 g/dL (31-37) Red Cell Distribution Width 16.7 % (11.5-14.5) H Platelet Count 185 x10^3/uL (140-400) Neutrophils (%) (Auto) 91 % (31-73) H Lymphocytes (%) (Auto) 7 % (24-48) L Monocytes (%) (Auto) 2 % (0-9) Eosinophils (%) (Auto) 0 % (0-3) Basophils (%) (Auto) 1 % (0-3) Neutrophils # (Auto) 8.3 x10^3/uL (1.8-7.7) H Lymphocytes # (Auto) 0.6 x10^3/uL (1.0-4.8) L Monocytes # (Auto) 0.2 x10^3/uL (0.0-1.1) Eosinophils # (Auto) 0.0 x10^3/uL (0.0-0.7) Basophils # (Auto) 0.0 x10^3/uL (0.0-0.2) Platelet Estimate Pending Sodium Level 135 mmol/L (136-145) L Potassium Level 4.4 mmol/L (3.5-5.1) Chloride Level 97 mmol/L (98-107) L Carbon Dioxide Level 24 mmol/L (21-32) Anion Gap 14 (6-14) Blood Urea Nitrogen 17 mg/dL (7-20) Creatinine 1.0 mg/dL (0.6-1.0) Estimated GFR (Cockcroft-Gault) 54.3 BUN/Creatinine Ratio 17 (6-20) Glucose Level 268 mg/dL (70-99) H Calcium Level 8.9 mg/dL (8.5-10.1) Magnesium Level 1.6 mg/dL (1.8-2.4) L Total Bilirubin 0.5 mg/dL (0.2-1.0) Aspartate Amino Transferase (AST) 20 U/L (15-37) Alanine Aminotransferase (ALT) 13 U/L (14-59) L Alkaline Phosphatase 104 U/L (46-116) Troponin I Quantitative < 0.017 ng/mL (0.000-0.055) Total Protein 8.1 g/dL (6.4-8.2) Albumin 4.0 g/dL (3.4-5.0) Albumin/Globulin Ratio 1.0 (1.0-1.7) Lipase 106 U/L (73-393) Laboratory Tests 11/29/20 18:45 Laboratory Tests 11/29/20 18:45 Vital Signs: Vital Signs Date Time Temp Pulse Resp B/P (MAP) Pulse Ox O2 Delivery O2 Flow Rate FiO2 11/29/20 18:25 88 16 131/61 (84) 94 Room Air EKG: EKG: EKG was done at 1829, heart rate 85 bpm, no ST segment elevation. Left axis deviation. Radiology/Procedures: Radiology/Procedures: [][facility] [address] [place] [address] IMAGING REPORT Signed PATIENT: ENRIKE CORNELIUS ACCOUNT: [id number] : 1945 LOCATION: ER AGE: 75 SEX: F EXAM STATUS: REG ER ORD. PHYSICIAN: JUDIT MATA DO REASON: chest pain PROCEDURE: PORTABLE CHEST 1V Exam: Chest one view INDICATION: Chest pain TECHNIQUE: Frontal view of the chest Comparisons: 05/01/2020 FINDINGS: The cardiomediastinal silhouette and pulmonary vessels are within normal limits. The lung and pleural spaces are clear. IMPRESSION: No acute cardiopulmonary process. Electronically signed by: Srikanth Gagnon MD (11/29/2020 7:50 PM) [facility] DICTATED and SIGNED BY: SRIKANTH GAGNON MD DATE: 11/29/20 [id number] [facility] [address] [place] [address] IMAGING REPORT Signed PATIENT: ENRIKE CORNELIUS ACCOUNT: [id number] : 1945 LOCATION: ER AGE: 75 SEX: F EXAM STATUS: REG ER ORD. PHYSICIAN: JUDIT MATA DO REASON: ABDOMINAL PAIN PROCEDURE: CT ABD PELV W/ IV CONTRST ONLY Exam: CT of abdomen and pelvis with contrast INDICATION: Abdominal pain TECHNIQUE: Sequential axial images through the abdomen and pelvis obtained following the administration of 60 mL of Omni 300 IV contrast. Sagittal and coronal reformatted images were reconstructed from the axial data and reviewed. Exposure: One or more of the following in the visualized dose reduction techniques were utilized for this examination: 1. Automated exposure control 2. Adjustment of the MA and/or KV according to patient size 3. Use of iterative of reconstructive technique Comparisons: 06/20/2020 FINDINGS: Heart size is normal. No pericardial moderate centrilobular emphysematous change noted at the lung bases. No pleural effusion. Liver, spleen, pancreas and adrenals are unremarkable. Gallbladder surgically absent. Kidneys demonstrate symmetric enhancement. No perinephric inflammation or hydronephrosis. Nonobstructing right renal calculi are identified. No ureteral calculi are identified. Bladder is distended and not well evaluated. Uterus is absent. No abnormal adnexal mass. Diverticulosis noted at the colon, with wall thickening at the sigmoid colon. The remainder of the large and small bowel are unremarkable. Appendix is sue dentified. No free intra-abdominal air or fluid. No obstruction. Abdominal aorta has a normal course and caliber. Abdominal vasculature is patent. No enlarged intra-abdominal lymph nodes are identified. No suspicious osseous lesions or acute fractures. IMPRESSION: 1. Extensive diverticulosis, with some mild wall thickening noted at the sigmoid colon, may represent mild diverticulitis. 2. No evidence for perforation or adjacent abscess. Electronically signed by: rSikanth Gagnon MD (11/29/2020 9:27 PM) [facility] DICTATED and SIGNED BY: SRIKANTH GAGNON MD DATE: 11/29/200937IIA5 0 Course & Med Decision Making: Course & Med Decision Making Pertinent Labs and Imaging studies reviewed. (See chart for details) Patient is a 74-year-old female who presented to ER due to abdominal pain and chest pain. Symptom is not very specific, patient is a poor historian. CT scan of her abdomen pelvis show evidence of mild case of diverticulitis. Patient will be admitted to hospital for further evaluation and treatment due to her risk factors. Discussed with Dr. Pan who agrees to admit the patient [place] Disclaimer: Cindy Disclaimer: This electronic medical record was generated, in whole or in part, using a voice recognition dictation system. Departure Departure Impression: Primary Impression: Chest pain Additional Impressions: Hypomagnesemia Diverticulitis Disposition: ADMITTED INPATIENT Admitting Physician: ERICA () Condition: STABLE Referrals: CARLOS VIDAL MD (PCP) JUDIT MATA DO November 29, 2020 19:18
--- NOTE | 2020-11-29 19:27 | EKG ---
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
[2020-11-29 19:29] LABS: % BANDS 9 % (0-9); % LYMPHS 4 % (24-48); % MONOS 1 % (0-10); % SEGS 86 % (35-66)
[2020-11-29 19:30] LABS: HYPOCHROMIA SLIGHT; OVALOCYTES FEW; PLT ESTIMATE ADEQUATE (ADEQUATE)
--- NOTE | 2020-11-29 19:52 | RAD ---
Exam: Chest one view INDICATION: Chest pain TECHNIQUE: Frontal view of the chest Comparisons: 05/01/2020 FINDINGS: The cardiomediastinal silhouette and pulmonary vessels are within normal limits. The lung and pleural spaces are clear. IMPRESSION: No acute cardiopulmonary process. Electronically signed by: Srikanth Whitehead MD (11/29/2020 7:50 PM) [facility]
--- NOTE | 2020-11-29 19:58 | EKG ---
[facility] [address] [place] [address] Test Date: 2020-11-29 Test Time: 19:41:11 Pat Name: ENRIKE CORNELIUS Department: Room: Gender: F Patient Appointment Coordinator: : 1945 Requested By: JUDIT MATA Order Number: [id number] Reading MD: Measurements Intervals [place] Rate: 84 P: 21 IA: 156 QRS: -42 QRSD: 80 T: 9 QT: 392 QTc: 467 Interpretive Statements SINUS RHYTHM ABNORMAL LEFT AXIS DEVIATION QRS(T) CONTOUR ABNORMALITY CONSISTENT WITH INFERIOR INFARCT PROBABLY OLD ABNORMAL ECG RI6.01 No previous ECG available for comparison
[2020-11-29] MEDS ORDERED: MAGNESIUM SULFATE 2GM 50 ML IV ONE (20:30)
[2020-11-29] MEDS ORDERED: IOHEXOL 300 MG/ML 100ML VIAL. IV ONE (21:00)
[2020-11-29] MEDS ORDERED: CONTRAST GIVEN. MC PRN (21:00)
--- NOTE | 2020-11-29 21:29 | RAD ---
Exam: CT of abdomen and pelvis with contrast INDICATION: Abdominal pain TECHNIQUE: Sequential axial images through the abdomen and pelvis obtained following the administrati on of 60 mL of Omni 300 IV contrast. Sagittal and coronal reformatted images were reconstructed from the axial data and reviewed. Exposure: One or more of the following in the visualized dose reduction techniques were utilized for this examination: 1. Automated exposure control 2. Adjustment of the MA and/or KV according to patient size 3. Use of iterative of reconstructive technique Comparisons: 06/20/2020 FINDINGS: Heart size is normal. No pericardial moderate centrilobular emphysematous change noted at the lung ba ses. No pleural effusion. Liver, spleen, pancreas and adrenals are unremarkable. Gallbladder surgically absent. Kidneys demonstrate symmetric enhancement. No perinephric inflammation or hydronephrosis. Nonobstruct ing right renal calculi are identified. No ureteral calculi are identified. Bladder is distended and not well evaluated. Uterus is absent. No abnormal adnexal mass. Diverticulosis noted at the colon, with wall thickening at the sigmoid colon. The remainder of the la rge and small bowel are unremarkable. Appendix is nonidentified. No free intra-abdominal air or fluid . No obstruction. Abdominal aorta has a normal course and caliber. Abdominal vasculature is patent. No enlarged intra-abdominal lymph nodes are identified. No suspicious osseous lesions or acute fractures. IMPRESSION: 1. Extensive diverticulosis, with some mild wall thickening noted at the sigmoid colon, may represen t mild diverticulitis. 2. No evidence for perforation or adjacent abscess. Electronically signed by: Srikanth Whitehead MD (11/29/2020 9:27 PM) [facility]
[2020-11-29] MEDS ORDERED: MORPHINE SULFATE 2 MG/ML VIAL. IV PRN (21:45)
[2020-11-29] MEDS ORDERED: ONDANSETRON PF 4 MG/2 ML VIAL. IV PRN (21:45)
[2020-11-29] MEDS: IV NORMAL SALINE 1000ML BAG 1,000 ML IV SCH (22:47)
[2020-11-29 22:50] VITALS: BP 107/79
--- NOTE | 2020-11-29 22:50 | NUR ---
Pt here from Er. Ambulated to room with 2 assist. Monitor on. VSS. Admission assessment complete. Medications verified with Alexis mcdonald . Bed down, bed alarm on, call light within reach. Will continue to monitor.
[2020-11-29] MEDS ORDERED: ESOM40CA PO (23:10)
[2020-11-29] MEDS ORDERED: GABA600T7 PO (23:10)
[2020-11-29] MEDS ORDERED: SERT100T PO (23:10)
[2020-11-29] MEDS ORDERED: INSU100I13 SQ (23:10)
[2020-11-29] MEDS ORDERED: RISP0.5T62 PO (23:13)
[2020-11-29] MEDS ORDERED: INSU100C4 SQ (23:13)
[2020-11-29] MEDS ORDERED: traZODone 100 MG TABLET. PO ONE (23:45)
[2020-11-29] MEDS ORDERED: risperiDONE 0.25 MG TABLET. PO PRN (23:45)
[2020-11-30 02:40] VITALS: BP 149/56
[2020-11-30 07:41] VITALS: BP 112/41
--- NOTE | 2020-11-30 07:49 | PDOC1 ---
History and Physical Date of Service: DOS: DATE: 11/30/20 TIME: 07:45 Chief Complaint: Chief Complain: Abdominal pain History of Present Illness: HPI: History obtained from chart review 75 year old female who presented to ER for evaluation of epigastric abdominal pain for 3 weeks. Patient also complains of nausea and vomiting, no cough, no fever, no trouble breathing. Patient denies any recent travel or operation. Patient also complains of chest pain for a few week. When asked why she decided to come in today, patient said she is in pain but appeared in no discomfort. Patient was brought here by EMS, very poor historian. Patient says he has history of diabetic, hypertension, coronary disease in the past. Past Medical/Surgical History: PMH/PSH: Past Medical History: Anxiety, COPD, Depression, Diabetes-Type II, NM, Migraines, neuropathy, and insomnia Past Surgical History: Cholecystectomy, , Hysterectomy, CARDIAC STENTS Allergies: Allergies: Coded Allergies: Penicillins (Verified Allergy, Intermediate, tolerates Ancef, Rocephin, 11/30/20) Sulfa (Sulfonamide Antibiotics) (Verified Allergy, Intermediate, 10/21/15) Family History: Family History: Reviewed with no relevant findings Social History: Social History: Smoking Status: Former Smoker Alcohol Use: None Drug Use: None Current Medications: Current Medications Current Medications Magnesium Sulfate 50 ml @ 25 mls/hr 1X ONCE IV Last administered on 11/29/20at 20:53; Start 11/29/20 at 20:30; Stop 11/29/20 at 22:29; Status DC Iohexol (Omnipaque 300 Mg/ml) 60 ml 1X ONCE IV Last administered on 11/29/20at 21:14; Start 11/29/20 at 21:00; Stop 11/29/20 at 21:01; Status DC Info (CONTRAST GIVEN -- Rx MONITORING) 1 each PRN DAILY PRN MC SEE COMMENTS; Start 11/29/20 at 21:00; Stop 12/01/20 at 20:59 Ondansetron HCl (Zofran) 4 mg PRN Q8HRS PRN IV NAUSEA/VOMITING; Start 11/29/20 at 21:45; Stop 11/30/20 at 21:44 Morphine Sulfate (Morphine Sulfate) 2 mg PRN Q2HR PRN IV PAIN; Start 11/29/20 at 21:45; Stop 11/30/20 at 21:44 Sodium Chloride 1,000 ml @ 75 mls/hr [id number] IV Last administered on 11/29/20at 22:47; Start 11/29/20 at 21:45; Stop 11/30/20 at 21:44 Metronidazole 100 ml @ 100 mls/hr Q8HRS IV Last administered on 11/30/20at 05:30; Start 11/30/20 at 06:00 Metronidazole 100 ml @ 100 mls/hr ONCE ONCE IV Last administered on 11/29/20at 22:36; Start 11/29/20 at 21:45; Stop 11/29/20 at 22:44; Status DC Trazodone HCl (Desyrel) 100 mg 1X ONCE PO Last administered on 11/29/20at 23:48; Start 11/29/20 at 23:45; Stop 11/29/20 at 23:46; Status DC Risperidone (RisperDAL) 0.25 mg 1X PRN PO ANXIETY / AGITATION; Start 11/29/20 at 23:45 Active Scripts Active Metamucil Fiber Singles Packet (Psyllium Husk/Aspartame) 3.4 Gm Powd.pack 1 Pkt PO DAILY16 30 Days Dok (Docusate Sodium) 100 Mg Capsule 100 Mg PO PRN BID PRN 30 Days Tylenol (Acetaminophen) 325 Mg Tablet 650 Mg PO PRN Q4HRS PRN 30 Days Reported Risperidone 0.5 Mg Tablet 0.25 Mg PO PRN QHS PRN Novolog (Insulin Aspart) 100 Unit/1 Ml Cartridge 10 Unit SQ TIDWMEALS Zoloft (Sertraline Hcl) 100 Mg Tablet 100 Mg PO DAILY Nexium Capsule (Esomeprazole Magnesium) 40 Mg Capsule.dr 40 Mg PO DAILYAC Lantus Solostar (Insulin Glargine,Hum.rec.anlog) 100 Unit/1 Ml Insuln.pen 25 Unit SQ QAM Gabapentin 600 Mg Tablet 600 Mg PO TID Atorvastatin Calcium 40 Mg Tablet 40 Mg PO HS Clopidogrel (Clopidogrel Bisulfate) 75 Mg Tablet 75 Mg PO DAILY Trazodone Hcl 100 Mg Tablet 200 Mg PO HS ROS: Review of Systems Review of System REVIEW OF SYSTEMS: GENERAL: Denies weakness SKIN: No bruising, hair changes or rashes. EYES: No blurred, double or loss of vision. NOSE AND THROAT: No history of nosebleeds, hoarseness or sore throat. HEART: No history of palpitations, chest pain or shortness of breath on exertion. LUNGS: Denies cough, hemoptysis, wheezing or shortness of breath. GASTROINTESTINAL: Denies changes in appetite, nausea, vomiting, diarrhea or constipation. GENITOURINARY: No history of frequency, urgency, hesitancy or nocturia. NEUROLOGIC: Denies history of numbness, tingling, or tremor. PSYCHIATRIC: No history of panic, anxiety or depression. ENDOCRINE: No history of heat or cold intolerance, polyuria or polydipsia. EXTREMITIES: Denies joint pain, pain on walking or stiffness. Physical Exam: Vital Signs: Vital Signs Date Time Temp Pulse Resp B/P (MAP) Pulse Ox O2 Delivery O2 Flow Rate FiO2 11/30/20 02:40 98.8 82 16 149/56 (87) 93 Room Air 98.8 Physcial Exam: GEN: No apparent distress. Alert and oriented HEENT: Normal cephalic, atraumatic, external auditory canals are patent EYES: Extraocular muscles are intact, pupil are equally round and reactive to light and accommodation MUSCULOSKELETAL: Well developed , well nourished, good range of motion ENDOCRINE: No thyromegaly was palpated LYMPHATICS: No cervical chain or axillary nodes were noted HEMATOPOIETIC: No bruising NECK: Supple, no JVD, no thyromegaly was noted LUNGS: Clear to auscultation in all lung dunlap without rhonchi or wheezing HEART: RRR, S!, S2 present. Peripheral pulses intact, no obvious murmurs not ed ABDOMEN: Soft, nontender. Positive bowel sounds, no organomegaly, normal bowel sounds EXTREMITIES: Without clubbing, cyanosis, or edema. Pedal pulses intact. Negative Homans sign NEUROLOGIC: Normal speech and tone. A&O x 3, moves all extremities, no obvious focal deficits PSYCHIATRIC: Normal affect, normal mood. Stable SKIN: No ulcerations or rashes, good skin turgor, no jaundice VASCULAR: Good capillary refill, neurovascular bundle appears to be intact Labs: Labs: Laboratory Tests Test 11/29/20 18:45 11/29/20 22:28 11/30/20 00:53 White Blood Count 9.2 x10^3/uL (4.0-11.0) Red Blood Count 5.60 x10^6/uL (3.50-5.40) Hemoglobin 12.5 g/dL (12.0-15.5) Hematocrit 39.6 % (36.0-47.0) Mean Corpuscular Volume 71 fL (79-100) Mean Corpuscular Hemoglobin 22 pg (25-35) Mean Corpuscular Hemoglobin Concent 32 g/dL (31-37) Red Cell Distribution Width 16.7 % (11.5-14.5) Platelet Count 185 x10^3/uL (140-400) Neutrophils (%) (Auto) 91 % (31-73) Lymphocytes (%) (Auto) 7 % (24-48) Monocytes (%) (Auto) 2 % (0-9) Eosinophils (%) (Auto) 0 % (0-3) Basophils (%) (Auto) 1 % (0-3) Neutrophils # (Auto) 8.3 x10^3/uL (1.8-7.7) Lymphocytes # (Auto) 0.6 x10^3/uL (1.0-4.8) Monocytes # (Auto) 0.2 x10^3/uL (0.0-1.1) Eosinophils # (Auto) 0.0 x10^3/uL (0.0-0.7) Basophils # (Auto) 0.0 x10^3/uL (0.0-0.2) Segmented Neutrophils % 86 % (35-66) Band Neutrophils % 9 % (0-9) Lymphocytes % 4 % (24-48) Monocytes % 1 % (0-10) Platelet Estimate Adequate (ADEQUATE) Hypochromasia Slight Ovalocytes Few Sodium Level 135 mmol/L (136-145) Potassium Level 4.4 mmol/L (3.5-5.1) Chloride Level 97 mmol/L (98-107) Carbon Dioxide Level 24 mmol/L (21-32) Anion Gap 14 (6-14) Blood Urea Nitrogen 17 mg/dL (7-20) Creatinine 1.0 mg/dL (0.6-1.0) Estimated GFR (Cockcroft-Gault) 54.3 BUN/Creatinine Ratio 17 (6-20) Glucose Level 268 mg/dL (70-99) Calcium Level 8.9 mg/dL (8.5-10.1) Magnesium Level 1.6 mg/dL (1.8-2.4) Total Bilirubin 0.5 mg/dL (0.2-1.0) Aspartate Amino Transf (AST/SGOT) 20 U/L (15-37) Alanine Aminotransferase (ALT/SGPT) 13 U/L (14-59) Alkaline Phosphatase 104 U/L (46-116) Troponin I Quantitative < 0.017 ng/mL (0.000-0.055) < 0.017 ng/mL (0.000-0.055) < 0.017 ng/mL (0.000-0.055) ZS-Mra-Z-Type Natriuretic Peptide 469 pg/mL (0-124) Total Protein 8.1 g/dL (6.4-8.2) Albumin 4.0 g/dL (3.4-5.0) Albumin/Globulin Ratio 1.0 (1.0-1.7) Lipase 106 U/L (73-393) Laboratory Tests Test 11/29/20 18:45 11/29/20 22:28 11/30/20 00:53 White Blood Count 9.2 x10^3/uL (4.0-11.0) Red Blood Count 5.60 x10^6/uL (3.50-5.40) Hemoglobin 12.5 g/dL (12.0-15.5) Hematocrit 39.6 % (36.0-47.0) Mean Corpuscular Volume 71 fL (79-100) Mean Corpuscular Hemoglobin 22 pg (25-35) Mean Corpuscular Hemoglobin Concent 32 g/dL (31-37) Red Cell Distribution Width 16.7 % (11.5-14.5) Platelet Count 185 x10^3/uL (140-400) Neutrophils (%) (Auto) 91 % (31-73) Lymphocytes (%) (Auto) 7 % (24-48) Monocytes (%) (Auto) 2 % (0-9) Eosinophils (%) (Auto) 0 % (0-3) Basophils (%) (Auto) 1 % (0-3) Neutrophils # (Auto) 8.3 x10^3/uL (1.8-7.7) Lymphocytes # (Auto) 0.6 x10^3/uL (1.0-4.8) Monocytes # (Auto) 0.2 x10^3/uL (0.0-1.1) Eosinophils # (Auto) 0.0 x10^3/uL (0.0-0.7) Basophils # (Auto) 0.0 x10^3/uL (0.0-0.2) Segmented Neutrophils % 86 % (35-66) Band Neutrophils % 9 % (0-9) Lymphocytes % 4 % (24-48) Monocytes % 1 % (0-10) Platelet Estimate Adequate (ADEQUATE) Hypochromasia Slight Ovalocytes Few Sodium Level 135 mmol/L (136-145) Potassium Level 4.4 mmol/L (3.5-5.1) Chloride Level 97 mmol/L (98-107) Carbon Dioxide Level 24 mmol/L (21-32) Anion Gap 14 (6-14) Blood Urea Nitrogen 17 mg/dL (7-20) Creatinine 1.0 mg/dL (0.6-1.0) Estimated GFR (Cockcroft-Gault) 54.3 BUN/Creatinine Ratio 17 (6-20) Glucose Level 268 mg/dL (70-99) Calcium Level 8.9 mg/dL (8.5-10.1) Magnesium Level 1.6 mg/dL (1.8-2.4) Total Bilirubin 0.5 mg/dL (0.2-1.0) Aspartate Amino Transf (AST/SGOT) 20 U/L (15-37) Alanine Aminotransferase (ALT/SGPT) 13 U/L (14-59) Alkaline Phosphatase 104 U/L (46-116) Troponin I Quantitative < 0.017 ng/mL (0.000-0.055) < 0.017 ng/mL (0.000-0.055) < 0.017 ng/mL (0.000-0.055) KQ-Dfq-A-Type Natriuretic Peptide 469 pg/mL (0-124) Total Protein 8.1 g/dL (6.4-8.2) Albumin 4.0 g/dL (3.4-5.0) Albumin/Globulin Ratio 1.0 (1.0-1.7) Lipase 106 U/L (73-393) Images: Images CT ABD/PELVIS IMPRESSION: 1. Extensive diverticulosis, with some mild wall thickening noted at the sigmoid colon, may represent mild diverticulitis. 2. No evidence for perforation or adjacent abscess. CXR Impression: 1. No acute cardiopulmonary process. Assessment/Plan Assessment/Plan Acute abdominal pain due to mild colitis Acute electrolyte derangement suggestive of volume depletionhyponatremia, hypochloremia, hypomagnesemia Admit to medicine for further management Continue empiric IV Flagyl Continue IV fluids Electrolyte replacement as needed Lovenox for DVT prophylaxis Protonix GI prophylaxis Advance diet as tolerated Full code Discussed with RN and SW Disposition inpatient management as above Surrogate decision maker is Cass Bennett Justifications for Admission Other Justification UTI, AUNDREA, dehydration CASS LEY MD November 30, 2020 07:49
[2020-11-30 10:08] VITALS: BP 120/58
--- NOTE | 2020-11-30 10:43 | NUR ---
SS following for discharge planning. SS reviewed pt chart and discussed with pt RN. Pt is from home with spouse and is currently on room air. Pt has Diverticulitis and is currently on IV Flagyl Q8HR. SS will continue to follow for discharge planning.
[2020-11-30] MEDS ORDERED: risperiDONE 0.25 MG TABLET. PO PRN (11:00)
[2020-11-30] MEDS: CLOPIDOGREL BISULFATE 75 MG TABLET PO SCH (12:08)
[2020-11-30] MEDS: SERTRALINE 50 MG TABLET. PO SCH (12:08)
[2020-11-30] MEDS: PANTOPRAZOLE 40 MG TABLET.DR. PO SCH (12:08)
[2020-11-30] MEDS: IV NORMAL SALINE 1000ML BAG 1,000 ML IV SCH (12:09)
[2020-11-30] MEDS: INSULIN GLARGINE SYRINGE. SQ SCH (12:13)
[2020-11-30] MEDS: INSULIN LISPRO 300 UNITS/3 ML VIAL. SQ SCH ×2 (12:32→17:12)
[2020-11-30] MEDS: GABAPENTIN 300 MG CAPSULE. PO SCH ×2 (13:25→20:11)
[2020-11-30 14:02] VITALS: BP 136/59
[2020-11-30 19:00] VITALS: BP 105/50
[2020-11-30] MEDS: LACTOBACILLUS RHAMNOSUS GG 1 CAPSULE. PO SCH (20:11)
[2020-11-30] MEDS ORDERED: ATORVASTATIN CALCIUM 40 MG TABLET. PO SCH (21:00)
[2020-11-30] MEDS ORDERED: traZODone 100 MG TABLET. PO SCH (21:00)
[2020-11-30 22:49] VITALS: BP 106/55
[2020-12-01 02:42] VITALS: BP 107/51
[2020-12-01 07:09] VITALS: BP 115/59
[2020-12-01 08:28] LABS: GFR 54.3; MAGNESIUM 2.2 mg/dL (1.8-2.4)
[2020-12-01] MEDS: LACTOBACILLUS RHAMNOSUS GG 1 CAPSULE. PO SCH (09:10)
[2020-12-01] MEDS: SERTRALINE 50 MG TABLET. PO SCH (09:10)
[2020-12-01] MEDS: GABAPENTIN 300 MG CAPSULE. PO SCH ×2 (09:11→14:00)
[2020-12-01] MEDS: CLOPIDOGREL BISULFATE 75 MG TABLET PO SCH (09:11)
[2020-12-01] MEDS: PANTOPRAZOLE 40 MG TABLET.DR. PO SCH (09:11)
[2020-12-01] MEDS: INSULIN GLARGINE SYRINGE. SQ SCH (09:13)
[2020-12-01] MEDS: INSULIN LISPRO 300 UNITS/3 ML VIAL. SQ SCH ×2 (09:13→12:28)
[2020-12-01] MEDS ORDERED: ACETAMINOPHEN 325 MG TABLET. PO PRN (09:45)
[2020-12-01 10:53] VITALS: BP 111/55
--- NOTE | 2020-12-01 11:06 | SNU/HH DC ---
DISCHARGE ORDERS DISCHARGE INFORMATION: DISCHARGE DATE: December 01, 2020 FINAL DIAGNOSIS Problems Medical Problems: (1) Chest pain Status: Acute (2) Diverticulitis Status: Acute CONDITION ON DISCHARGE: Stable CODE STATUS: Code Status: Full POST DISCHARGE ORDERS: ACTIVITY ORDERS: Activity as tolerated WEIGHT BEARING STATUS: No restrictions BATHING ORDERS: Shower-keep dressing dry DIET AFTER DISCHARGE: ADA CHECKS AFTER DISCHARGE: CHECKS AFTER DISCHARGE: Check blood sugar, ac/hs FOLLOW-UP: PHYSICIAN FOLLOW-UP: PCP within 2 weeks of discharge TREATMENT/EQUIPMENT ORDERS: ADAPTIVE EQUIPMENT NEEDED: None Physical Therapy For: Evalulation/Treatment Occupational Therapy For: Evaluation/Treatment Speech Language Pathology For: Evaluation/Treatment DISCHARGE MEDICATIONS: Home Meds Active Scripts Psyllium Husk/Aspartame (METAMUCIL FIBER SINGLES PACKET) 3.4 Gm Powd.pack, 1 PKT PO DAILY16 for STOOLS for 30 Days, #30 PKT Prov:KELLI EMMANUEL MD 05/04/20 Docusate Sodium (DOK) 100 Mg Capsule, 100 MG PO PRN BID PRN for HARD STOOLS for 30 Days, #60 CAP Prov:KELLI EMMANUEL MD 05/04/20 Acetaminophen (TYLENOL) 325 Mg Tablet, 650 MG PO PRN Q4HRS PRN for TEMP OVER 100.4F for 30 Days, #100 TAB Prov:KELLI EMMANUEL MD 05/04/20 Reported Medications Risperidone (RISPERIDONE) 0.5 Mg Tablet, 0.25 MG PO PRN QHS PRN for ANXIETY / AGITATION, TAB 11/29/20 Insulin Aspart (NOVOLOG) 100 Unit/1 Ml Cartridge, 10 UNIT SQ TIDWMEALS for , EACH 11/29/20 Sertraline Hcl (ZOLOFT) 100 Mg Tablet, 100 MG PO DAILY for ANTI-DEPRESSANT, TAB 0 Refills 11/29/20 Esomeprazole Magnesium (NEXIUM CAPSULE) 40 Mg Capsule.dr, 40 MG PO DAILYAC for , #30 CAP 0 Refills 11/29/20 Insulin Glargine,Hum.rec.anlog (LANTUS SOLOSTAR) 100 Unit/1 Ml Insuln.pen, 25 UNIT SQ QAM for , #15 ML 5 Refills 11/29/20 Gabapentin (GABAPENTIN) 600 Mg Tablet, 600 MG PO TID for NEUROGENIC PAIN, TAB 11/29/20 Atorvastatin Calcium (ATORVASTATIN CALCIUM) 40 Mg Tablet, 40 MG PO HS for FOR CHOLESTEROL, #30 TAB 0 Refills 02/28/14 Clopidogrel Bisulfate (CLOPIDOGREL) 75 Mg Tablet, 75 MG PO DAILY for TO PREVENT BLOOD CLOTS, #30 TAB 0 Refills 02/28/14 Trazodone Hcl (TRAZODONE HCL) 100 Mg Tablet, 200 MG PO HS, TAB 02/28/14 Discontinued Reported Medications Albuterol Sulfate (ALBUTEROL SULFATE HFA INHALER) 8.5 Gm Hfa.aer.ad, 2 PUFF INH QID for FOR ASTHMA, INHALER 0 Refills 02/28/14 CASS LEY MD December 01, 2020 11:06
--- NOTE | 2020-12-01 12:54 | NUR ---
SS following up with discharge planning. SS reviewed pt chart and discussed with pt RN. Pt is currently on room air. Discharge order on the chart for home with self care. Pt requesting transportation for home. [facility] transport unavailable at this time. Pt will discharge today and return to home via [email or web address] transportation, , between 1600 and 1630. Pt, pt's spouse, and pt's RN notified.
[2020-12-01 14:17] VITALS: BP 117/62
--- NOTE | 2020-12-01 16:43 | NUR ---
Discharge Note: ENRIKE CORNELIUS [address] Discharge instructions and discharge home medications reviewed with Patient and a copy given. All questions have been answered and understanding verbalized. The following instructions and handouts were given: Dehydration, diverticulitis, abdominal pain Patient discharged to home with via [facility]. IV out, monitor off and placed at nursing station. Phoned Alexis to let him know patient had discharged and was heading home.
--- NOTE | 2020-12-02 18:07 | PDOC3 ---
[facility]-Discharge Summary Date of Admission: Date of Admission: November 29, 2020 Date of Discharge: Date of Discharge: December 01, 2020 Discharge Diagnosis: Discharge Diagnosis: Acute abdominal pain due to mild colitis, possible enteritis Acute electrolyte derangement suggestive of volume depletionhyponatremia, hypochloremia, hypomagnesemia Hospital Course: Hospital Course: 75 year old female who presented to ER for evaluation of epigastric abdominal pain for 3 weeks. Patient also complains of nausea and vomiting, no cough, no fever, no trouble breathing. Patient denies any recent travel or operation. Patient also complains of chest pain for a few week. When asked why she decided to come in today, patient said she is in pain but appeared in no discomfort. Patient was brought here by EMS, very poor historian. Patient says he has history of diabetic, hypertension, coronary disease in the past. By day of discharge, pt was clinically stable and ready for discharge. I suspect she had some dehydration and mild gastroenteritis. Rest of hospital course was uneventful Activity: Activity: Resume previous activity Diet: Diet: Cardiac Medications: Home Meds Active Scripts Psyllium Husk/Aspartame (METAMUCIL FIBER SINGLES PACKET) 3.4 Gm Powd.pack, 1 PKT PO DAILY16 for STOOLS for 30 Days, #30 PKT Prov:KELLI EMMANUEL MD 05/04/20 Docusate Sodium (DOK) 100 Mg Capsule, 100 MG PO PRN BID PRN for HARD STOOLS for 30 Days, #60 CAP Prov:KELLI EMMANUEL MD 05/04/20 Acetaminophen (TYLENOL) 325 Mg Tablet, 650 MG PO PRN Q4HRS PRN for TEMP OVER 100.4F for 30 Days, #100 TAB Prov:KELLI EMMANUEL MD 05/04/20 Reported Medications Risperidone (RISPERIDONE) 0.5 Mg Tablet, 0.25 MG PO PRN QHS PRN for ANXIETY / AGITATION, TAB 11/29/20 Insulin Aspart (NOVOLOG) 100 Unit/1 Ml Cartridge, 10 UNIT SQ TIDWMEALS for , EACH 11/29/20 Sertraline Hcl (ZOLOFT) 100 Mg Tablet, 100 MG PO DAILY for ANTI-DEPRESSANT, TAB 0 Refills 11/29/20 Esomeprazole Magnesium (NEXIUM CAPSULE) 40 Mg Capsule.dr, 40 MG PO DAILYAC for , #30 CAP 0 Refills 11/29/20 Insulin Glargine,Hum.rec.anlog (LANTUS SOLOSTAR) 100 Unit/1 Ml Insuln.pen, 25 UNIT SQ QAM for , #15 ML 5 Refills 11/29/20 Gabapentin (GABAPENTIN) 600 Mg Tablet, 600 MG PO TID for NEUROGENIC PAIN, TAB 11/29/20 Atorvastatin Calcium (ATORVASTATIN CALCIUM) 40 Mg Tablet, 40 MG PO HS for FOR CHOLESTEROL, #30 TAB 0 Refills 02/28/14 Clopidogrel Bisulfate (CLOPIDOGREL) 75 Mg Tablet, 75 MG PO DAILY for TO PREVENT BLOOD CLOTS, #30 TAB 0 Refills 02/28/14 Trazodone Hcl (TRAZODONE HCL) 100 Mg Tablet, 200 MG PO HS, TAB 02/28/14 Discontinued Reported Medications Albuterol Sulfate (ALBUTEROL SULFATE HFA INHALER) 8.5 Gm Hfa.aer.ad, 2 PUFF INH QID for FOR ASTHMA, INHALER 0 Refills 02/28/14 Scheduled Atorvastatin Calcium (Atorvastatin Calcium), 40 MG PO HS, (Reported) Clopidogrel Bisulfate (Clopidogrel), 75 MG PO DAILY, (Reported) Esomeprazole Magnesium (Nexium Capsule), 40 MG PO DAILYAC, (Reported) Gabapentin (Gabapentin), 600 MG PO TID, (Reported) Insulin Aspart (Novolog), 10 UNIT SQ TIDWMEALS, (Reported) Insulin Glargine,Hum.rec.anlog (Lantus Solostar), 25 UNIT SQ QAM, (Reported) Psyllium Husk/Aspartame (Metamucil Fiber Singles Packet), 1 PKT PO DAILY16 Sertraline Hcl (Zoloft), 100 MG PO DAILY, (Reported) Trazodone Hcl (Trazodone Hcl), 200 MG PO HS, (Reported) Scheduled PRN Acetaminophen (Tylenol), 650 MG PO PRN Q4HRS PRN for TEMP OVER 100.4F Docusate Sodium (Dok), 100 MG PO PRN BID PRN for HARD STOOLS Risperidone (Risperidone), 0.25 MG PO PRN QHS PRN for ANXIETY / AGITATION, (Reported) Discontinued Medications Albuterol Sulfate (Albuterol Sulfate Hfa Inhaler), 2 PUFF INH QID, (Reported) Total Time: Total Time: Total time spent was 31 minutes in preparing scripts, discharge planning with SW and RN, and preparing this discharge summary. Patient seen and examined on day of discharge. Justicifation of Admission Dx: Justifications for Admission: Justification of Admission Dx: Yes Acute Renal Failure: 75% Reduction in GFR Altered Mental Status: Altered Mental Status CASS LEY MD December 02, 2020 18:07
== END 2020-12-01 16:27 | disposition home or self-care (01) | DRG 392 ==
LOC: ER 18:22 → 2 NORTH 21:12
PROVIDERS: ADMIT Internal Medicine; ATTEND Internal Medicine
DX: K52.9 Noninfective gastroenteritis and colitis, unspecified (principal); K57.32 Diverticulitis of large intestine without perforation or abscess without bleeding; E11.40 Type 2 diabetes mellitus with diabetic neuropathy, unspecified; E83.42 Hypomagnesemia; E86.0 Dehydration; J44.9 Chronic obstructive pulmonary disease, unspecified; F32.9 Major depressive disorder, single episode, unspecified; R07.9 Chest pain, unspecified; F41.9 Anxiety disorder, unspecified; G43.909 Migraine, unspecified, not intractable, without status migrainosus; G47.00 Insomnia, unspecified; E87.8 Other disorders of electrolyte and fluid balance, not elsewhere classified; E86.9 Volume depletion, unspecified; I10 Essential (primary) hypertension; I25.2 Old myocardial infarction; Z87.891 Personal history of nicotine dependence; Z90.710 Acquired absence of both cervix and uterus; Z95.5 Presence of coronary angioplasty implant and graft; Z90.49 Acquired absence of other specified parts of digestive tract; Z88.0 Allergy status to penicillin; Z88.2 Allergy status to sulfonamides
CPT/HCPCS: 36415; 71045; 74177; 80048; 80053; 82962; 83690; 83735; 83880; 84484; 85007; 85025; 93005; 96365; 96367; J1815; J3475; J3490; J7030; Q9967; 99285-25; G0378

== ENCOUNTER 2020-12-04 09:41 | Emergency (ER) | payer MEDICARE, MEDICAID ==
[~2020-12-04] VITALS: Ht 157.5 cm; Wt 57.7 kg
[~2020-12-04 09:41] MED LIST changes: +ESOM40CA PO; +GABA600T7 PO; +INSU100C4 SQ; +RISP0.5T62 PO; +SERT100T PO
[2020-12-04] MEDS ORDERED: IV NORMAL SALINE 1000ML BAG 1,000 ML IV ONE (10:30)
[2020-12-04] MEDS ORDERED: MORPHINE SULFATE 2 MG/ML VIAL. IV/SQ PRN (10:30)
--- NOTE | 2020-12-04 10:42 | PHYS DOC ---
Past Medical History Past Medical History: Anxiety, COPD, Dementia, Depression, Diabetes-Type II, Diverticulitis, [place], Migraines, Other Additional Past Medical Histor: neuropathy, and insomnia (VASILE WILSON ) Past Surgical History: Cholecystectomy, , Hysterectomy, Other Additional Past Surgical Histo: CARDIAC STENTS (VASILE WILSON ) Smoking Status: Former Smoker Alcohol Use: None Drug Use: None (VASILE WILSON ) General Adult EDM: Chief Complaint: ALTERED MENTAL STATUS HPI: HPI: Patient is a 75 year old female with history of diabetes type 2, COPD, anxiety, dementia who presents to the ED today from home. Patient's reports patient has been confused more than normal for her dementia. He noted symptoms since patient was discharged from the hospital on Sunday. Patient had been admitted for diverticulitis. Patient denies any fever. Denies any nausea vomiting. Reports mild intermittent generalized abdominal pain, denies any diarrhea. (VASILE WILSON ) Review of Systems: Review of Systems: Constitutional: Denies fever or chills. [] Eyes: Denies change in visual acuity. [] HENT: Denies nasal congestion or sore throat. [] Respiratory: Denies cough or shortness of breath. [] Cardiovascular: Denies chest pain or edema. [] GI: Patient reports generalized abdominal pain, denies nausea, vomiting, bloody stools or diarrhea. [] : Denies dysuria. [] Musculoskeletal: Denies back pain or joint pain. [] Integument: Denies rash. [] Neurologic: state patient has altered mental status. Denies headache, focal weakness or sensory changes. [] Psychiatric: Denies depression or anxiety. [] (VASILE WILSON RISK ASSESSMENT ANALYST) Heart Score: C/O Chest Pain: N/A Risk Factors: Risk Factors: DM, Current or recent (<one month) smoker, HTN, HLP, family history of CAD, obesity. Risk Scores: Score 0 - 3: 2.5% MACE over next 6 weeks - Discharge Home Score 4 - 6: 20.3% MACE over next 6 weeks - Admit for Clinical Observation Score 7 - 10: 72.7% MACE over next 6 weeks - Early Invasive Strategies (VASILE WILSON ) Current Medications: Current Medications Medications (Trade) Dose Ordered Sig/Lashay Start Time Stop Time Status Last Admin Dose Admin Morphine Sulfate (Morphine Sulfate) 2 mg PRN Q15MIN PRN 12/04/20 10:30 12/05/20 10:29 Sodium Chloride 1,000 ml @ 1,000 mls/hr 1X ONCE 12/04/20 10:30 12/04/20 11:29 (VASILE WILSON Lucho RISK ASSESSMENT ANALYST) Allergies: Allergies: Allergies Coded Allergies Type Severity Reaction Last Updated Verified Penicillins Allergy Intermediate tolerates Ancef, Rocephin 11/30/20 Yes Sulfa (Sulfonamide Antibiotics) Allergy Intermediate 10/21/15 Yes (KATIEVASILE Lucho RISK ASSESSMENT ANALYST) Physical Exam: PE: Constitutional: Well developed, well nourished, no acute distress, non-toxic appearance. [] HENT: Normocephalic, atraumatic, bilateral external ears normal, oropharynx moist, no oral exudates, nose normal. [] Eyes: PERRLA, EOMI, conjunctiva normal, no discharge. [] Neck: Normal range of motion, no tenderness, supple, no stridor. [] Cardiovascular:Heart rate regular rhythm, no murmur [] Lungs & Thorax: Bilateral breath sounds clear to auscultation [] Abdomen: Bowel sounds normal, soft, no tenderness, no masses, no pulsatile masses. [] Skin: Warm, dry, no erythema, no rash. [] Back: No tenderness, no CVA tenderness. [] Extremities: No tenderness, no cyanosis, no clubbing, ROM intact, no edema. [] Neurologic: Alert and oriented X 3, normal motor function, normal sensory function, no focal deficits noted. Cranial nerves II through XII intact Psychologic: Affect normal, judgement normal, mood normal. [] (KATIEVASILE Lucho RISK ASSESSMENT ANALYST) Current Patient Data: Vital Signs: Vital Signs Date Time Temp Pulse Resp B/P (MAP) Pulse Ox O2 Delivery O2 Flow Rate FiO2 12/04/20 09:41 98.2 79 16 127/58 (81) 99 Room Air 98.2 (VASILE WILSON Lucho RISK ASSESSMENT ANALYST) EKG: EK interpreted by Dr. Mata sinus rhythm heart rate 83 no STEMI [] (KARMENVASILE Herrera RISK ASSESSMENT ANALYST) Radiology/Procedures: Radiology/Procedures: []PROCEDURE: CT HEAD WO CONTRAST EXAM: Head CT without contrast. HISTORY: Altered mental status. TECHNIQUE: Computed tomographic images of the head were obtained without contrast. *One or more of the following individualized dose reduction techniques were u tilized for this examination: 1. Automated exposure control. 2. Adjustment of the mA and/or kV according to patient size. 3. Use of iterative reconstruction technique. COMPARISON: None. FINDINGS: There is no hemorrhage. There is no mass effect or midline shift. There is ventricular enlargement due to cerebral volume loss. There is no hydrocephalus. There are areas of decreased attenuation within the cerebral white matter, nonspecific and likely related to chronic small vessel disease. There is a right mustapha bullosa. There is ethmoid and maxillary sinus mucosal thickening. The orbits are unremarkable. There is fluid within the left mastoid air cells. IMPRESSION: 1. No acute intracranial finding. Note is made that MRI is more sensitive for acute infarction. 2. Bilateral cerebral white matter changes, likely due to chronic small vessel disease. 3. Cerebral volume loss with compensatory enlargement of the ventricles. 4. Left mastoid fluid. Electronically signed by: Denise Stanton MD (12/04/2020 10:59 AM) [facility] DICTATED and SIGNED BY: DENISE STANTON MD DATE: 12/04/20 [id number] 0 PROCEDURE: PORTABLE CHEST 1V EXAM: Chest, single view. HISTORY: Altered mental status. COMPARISON: 11/29/2020. FINDINGS: A frontal view of the chest is obtained. There is emphysema with superimposed chronic interstitial changes and right lower lobe pleural parenchymal scarring. There is no consolidation, protrusion or pneumothorax. The heart is normal in size. IMPRESSION: Emphysema and chronic interstitial changes with right lower lobe pleural parenchymal scarring. Electronically signed by: Denise Stanton MD (12/04/2020 11:06 AM) [facility] DICTATED and SIGNED BY: DENISE STANTON MD DATE: 12/04/20 [id number] 0 (VASILE WILSON APRN) Course & Med Decision Making: Course & Med Decision Making Pertinent Labs and Imaging studies reviewed. (See chart for details) This is a 75-year-old female patient presenting to the ED today with complaints of generalized abdominal pain and altered mental status. Patient was discharged from the hospital on Sunday for diverticulitis. Patient has history of dementia. She is alert oriented x3 in the ED. CT of the head is negative, chest x-ray is negative, EKG is negative, labs are negative for any acute findings. Given IV fluids, discharge to home (VASILE WILSON APRN) Dragon Disclaimer: Dragon Disclaimer: This electronic medical record was generated, in whole or in part, using a voice recognition dictation system. (VASILE WILSON APRN) Departure Departure Impression: Primary Impression: Abdominal pain Qualified Codes: R10.9 - Unspecified abdominal pain Disposition: HOME / SELF CARE / HOMELESS Condition: STABLE Referrals: CARLOS VIDAL MD (PCP) follow up with your doctor next week Patient Instructions: Abdominal Pain (Nonspecific) Additional Instructions: You were evaluated in the emergency room, you had a CT of the head, chest x-ray, and lab work which were negative for any acute findings. We encourage you to push fluids. Follow-up with your doctor next week. Come back to the ED at any point symptoms worsen Attending Signature Attending Signature I have participated in the care of this patient and I have reviewed and agree with all pertinent clinical information above including history, exam, and recommendations. (JUDIT MATA DO) VASILE WILSON APRN December 04, 2020 10:42 JUDIT MATA DO December 04, 2020 17:42
[2020-12-04 10:43] LABS: BASO # 0.1 x10^3/uL (0.0-0.2); BASO % 1 % (0-3); EOS % 1 % (0-3); HEMATOCRIT 33.4 % (36.0-47.0); HEMOGLOBIN 10.3 g/dL (12.0-15.5); LYMPH # 1.3 x10^3/uL (1.0-4.8); LYMPH % 16 % (24-48); MEAN CORPUSCULAR HEMOGLOBIN 22 pg (25-35); MEAN CORPUSCULAR HGB CONC 31 g/dL (31-37); MEAN CORPUSCULAR VOLUME 72 fL (79-100); MONO # 0.5 x10^3/uL (0.0-1.1); MONO % 6 % (0-9); NEUT # 6.7 x10^3/uL (1.8-7.7); NEUT % 77 % (31-73); PLATELET COUNT 201 x10^3/uL (140-400); RED BLOOD COUNT 4.65 x10^6/uL (3.50-5.40); WHITE BLOOD COUNT 8.6 x10^3/uL (4.0-11.0)
--- NOTE | 2020-12-04 10:49 | EKG ---
[facility] [address] [place] [address] Test Date: 2020-12-04 Test Time: 09:43:19 Pat Name: ENRIKE CORNELIUS Department: Room: Gender: F [employer] G[employer]: : 1945 Requested By: VASILE WILSON Order Number: [id number] Reading MD: Measurements Intervals [place] Rate: 83 P: 55 WY: 146 QRS: -47 QRSD: 74 T: 22 QT: 378 QTc: 445 Interpretive Statements SINUS RHYTHM ABNORMAL LEFT AXIS DEVIATION QRS(T) CONTOUR ABNORMALITY CONSISTENT WITH INFERIOR INFARCT PROBABLY OLD ABNORMAL ECG RI6.02 No previous ECG available for comparison
[2020-12-04 10:59] LABS: CALCIUM 8.7 mg/dL (8.5-10.1); GFR 54.3; POTASSIUM 4.4 mmol/L (3.5-5.1)
--- NOTE | 2020-12-04 11:01 | RAD ---
EXAM: Head CT without contrast. HISTORY: Altered mental status. TECHNIQUE: Computed tomographic images of the head were obtained without contrast. *One or more of the following individualized dose reduction techniques were utilized for this examina tion: 1. Automated exposure control. 2. Adjustment of the mA and/or kV according to patient size. 3. Use of iterative reconstruction technique. COMPARISON: None. FINDINGS: There is no hemorrhage. There is no mass effect or midline shift. There is ventricular enla rgement due to cerebral volume loss. There is no hydrocephalus. There are areas of decreased attenuation within the cerebral white matter, nonspecific and likely rel ated to chronic small vessel disease. There is a right mustapha bullosa. There is ethmoid and maxillary sinus mucosal thickening. The orbits are unremarkable. There is fluid within the left mastoid air cells. IMPRESSION: 1. No acute intracranial finding. Note is made that MRI is more sensitive for acute infarction. 2. Bilateral cerebral white matter changes, likely due to chronic small vessel disease. 3. Cerebral volume loss with compensatory enlargement of the ventricles. 4. Left mastoid fluid. Electronically signed by: Kina Mackay MD (12/04/2020 10:59 AM) [facility]
[2020-12-04 11:04] LABS: ALBUMIN 3.2 g/dL (3.4-5.0); ALBUMIN/GLOBULIN RATIO 0.9 (1.0-1.7); TOTAL BILIRUBIN 0.3 mg/dL (0.2-1.0); TOTAL PROTEIN 6.7 g/dL (6.4-8.2)
--- NOTE | 2020-12-04 11:08 | RAD ---
EXAM: Chest, single view. HISTORY: Altered mental status. COMPARISON: 11/29/2020. FINDINGS: A frontal view of the chest is obtained. There is emphysema with superimposed chronic inter stitial changes and right lower lobe pleural parenchymal scarring. There is no consolidation, protrus ion or pneumothorax. The heart is normal in size. IMPRESSION: Emphysema and chronic interstitial changes with right lower lobe pleural parenchymal scar ring. Electronically signed by: Kina Mackay MD (12/04/2020 11:06 AM) [facility]
[2020-12-04 13:40] LABS: BILIRUBIN,URINE NEGATIVE (NEG); CLARITY,URINE CLEAR; COLOR,URINE YELLOW; NITRITE,URINE NEGATIVE (NEG); PH,URINE 6.5 (<5.0-8.0); PROTEIN,URINE NEGATIVE (NEG-TRACE); UROBILINOGEN,URINE 0.2 mg/dL (0.2 mg/dL)
[2020-12-04 13:49] LABS: BARBITURATES NEG (NEG); BENZODIAZEPINES NEG (NEG); CANNABINOIDS NEG (NEG); COCAINE NEG (NEG); METHADONE NEG (NEG); OPIATES POS (NEG); PHENCYCLIDINE NEG (NEG)
[2020-12-04 13:50] LABS: AMPHETAMINE/METHAMPHETAMINE NEG (NEG)
[2020-12-04 13:52] LABS: BACTERIA,URINE 0 /HPF (0-FEW); RBC,URINE 0 /HPF (0-2); WBC,URINE RARE /HPF (0-4)
[2020-12-04 14:30] VITALS: BP 114/53
== END 2020-12-04 14:59 | disposition home or self-care (01) ==
LOC: ER 09:41
DX: R10.84 Generalized abdominal pain (principal); R41.82 Altered mental status, unspecified; F41.9 Anxiety disorder, unspecified; J44.9 Chronic obstructive pulmonary disease, unspecified; F03.90 Unspecified dementia, unspecified severity, without behavioral disturbance, psychotic disturbance, mood disturbance, and anxiety; F32.9 Major depressive disorder, single episode, unspecified; I25.2 Old myocardial infarction; G43.909 Migraine, unspecified, not intractable, without status migrainosus; E11.40 Type 2 diabetes mellitus with diabetic neuropathy, unspecified; Z88.0 Allergy status to penicillin; Z88.2 Allergy status to sulfonamides
CPT/HCPCS: 36415; 70450; 71045; 80053; 80307; 81001; 83605; 83690; 83735; 83880; 84145; 84484; 85025; 87040; 87086; 93005; 96361; 96374; 99285; J2270; J7030

== ENCOUNTER 2021-01-20 18:42 | Observation (INO) | payer MEDICARE, MEDICAID ==
[~2021-01-20] VITALS: Ht 162.6 cm; Wt 57.4 kg
[~2021-01-20 18:42] MED LIST changes: +ASCO100019 PO; +CIPR500T2 PO; +METR-34 PO; +POTA20TA4 PO; +THIA100T22 PO
--- NOTE | 2021-01-20 18:51 | PHYS DOC ---
Past Medical History Past Medical History: Anxiety, COPD, Dementia, Depression, Diabetes-Type II, Diverticulitis, [place], Migraines, Other Additional Past Medical Histor: neuropathy, and insomnia Past Surgical History: Cholecystectomy, , Hysterectomy, Other Additional Past Surgical Histo: CARDIAC STENTS Smoking Status: Former Smoker Alcohol Use: None Drug Use: None General Adult HPI: HPI: Patient is a 75 year old female with history of COPD, diabetes, coronary disease, depression presents emergency department for abdominal pain for 2 days. Pain started gradually yesterday. Located lower and upper abdomen. Is a diffuse cramping constant pain. Has had diverticulitis in the past and feels similar. Patient has had appendectomy. She has had nausea and vomiting. Unable to keep down food and fluids. No diarrhea. No blood in her vomit or stool. Patient denies chest pain shortness of breath cough cold fever chills numbness weakness syncope headache neck pain. Patient denies urinary symptoms. She is a smoker. Denies drugs or alcohol. Lives at home with and son. Review of Systems: Review of Systems: Review of Systems: Constitutional: Denies fever or chills Eyes: Denies redness or eye pain HENT: Denies nasal congestion or sore throat Respiratory: Denies cough or shortness of breath Cardiovascular: Denies chest pain or palpitations GI: Positive abdominal pain and vomiting., denies diarrhea : Denies dysuria or hematuria Musculoskeletal: Denies back pain or joint pain Integument: Denies rash or skin lesions Neurologic: Denies headache, focal weakness or sensory changes Heart Score: C/O Chest Pain: No Allergies: Allergies: Allergies Coded Allergies Type Severity Reaction Last Updated Verified Penicillins Allergy Intermediate tolerates Ancef, Rocephin 11/30/20 Yes Sulfa (Sulfonamide Antibiotics) Allergy Intermediate 10/21/15 Yes Physical Exam: PE: *GENERAL APPEARANCE: Awake and alert. Cooperative. No acute distress. Non toxic appearing. HEAD: Normocephalic. Atraumatic. EYES: EOM's grossly intact. Sclera anicteric. Conjunctiva clear ENT:. Airway patent. Mucous membranes moist. No trismus. Tolerating secretions. NECK: Supple. Trachea midline. HEART: Regular rate and rhythm. Radial pulses 2+. Good capillary refill. LUNGS: Respirations unlabored. Clear to auscultation bilaterally. No rales, rhonchi, wheezing or retractions. ABDOMEN: Soft. Diffuse abdominal tenderness. No guarding or rebound. No CVA tenderness. No palpable or pulsatile mass. EXTREMITIES: No acute deformities. No edema, erythema or calf tenderness. SKIN: Warm and dry. No rash. NEUROLOGICAL: Alert and oriented x3. No gross neurological deficits. Moves all 4 extremities spontaneously. PSYCHIATRIC: Normal mood. EKG: EKG: EKG interpretation shows normal sinus rhythm with ventricular rate of 80 bpm. IL interval 150 ms. QRS duration 82 ms. QTc [address] segment elevations. Radiology/Procedures: Radiology/Procedures: PATIENT: ENRIKE CORNELIUS ACCOUNT: [id number] : 1945 LOCATION: ER AGE: 75 SEX: F EXAM STATUS: REG ER ORD. PHYSICIAN: SHAYE WHITAKER DO REASON: abdominal pain, OMNI 300 60 ML IV PROCEDURE: CT ABD PELV W/ IV CONTRST ONLY CT ABDOMEN+PELVIS W History: Reason: abdominal pain, OMNI 300 60 ML IV / Spl. Instructions: / History: Technique: After the administration of intravenous contrast, CT imaging was performed of the abdomen and pelvis. Multiplanar images are reviewed. Exposure: One or more of the following individualized dose reduction techniques were utilized for this examination: 1. Automated exposure control 2. Adjustment of the mA and/or kV according to patient size 3. Use of iterative reconstruction technique. Comparison: December 14, 2020 Findings: Lower chest: Pulmonary emphysema. Moderate hiatal hernia. Abdomen and pelvis: The liver, spleen, adrenal glands, and pancreas are unremarkable. Prior cholecystectomy. No biliary ductal dilatation. Patent portal vein. Renal vascular calcifications. No hydronephrosis. Small left posterior renal hypodensity, too small to further characterize, unchanged. Normal appearance of the urinary bladder. Extensive colonic diverticulosis. Chronic sigmoid colonic wall thickening. Normal appendix. No evidence of bowel obstruction. No pathologic lymphadenopathy. No ascites. Prior hysterectomy. Extensive atheromatous plaque throughout the aorta and branch vessels. Ectatic infrarenal abdominal aorta measures 2.8 cm, unchanged. Multifocal narrowing of the iliacs, common femoral and superficial femoral arteries. Bones: Internal fixation left proximal femur. Chronic L1 compression fracture. Multilevel lumbar spondylosis most prominent L5-S1. Impression: 1. Extensive colonic diverticulosis with chronic sigmoid colonic wall thickening. 2. Moderate hiatal hernia. 3. Extensive atheromatous plaque with multifocal narrowing. Electronically signed by: Melvin Wiggins DO (01/20/2021 8:10 PM) [facility] DICTATED and SIGNED BY: MELVIN WIGGINS DO DATE: 01/20/[id number] 0 Course & Med Decision Making: Course & Med Decision Making Medical decision making: This is a 75-year-old female presents emergency department for abdominal pain nausea and vomiting for 2 days. Here in the emergency department patient appears nontoxic. Diffuse abdominal tenderness. EKG showed no acute ST segment elevations. Patient's blood pressure was persistently elevated in the emergency department. Does have history of high blood pressure. Patient is not tachycardic. Afebrile. Laboratory evaluation shows no leukocytosis. Glucose elevated 279. Lipase normal. Patient was given fluids slight improvement of glucose. Urine does not appear infected. Patient was given multiple doses of antiemetics as well as pain medication. She did continue to have some vomiting. However on repeat evaluation she was resting comfortably watching TV in bed. She continues to feel nauseous. At this time based on patient's symptoms and findings will admit to the hospital for further observation and evaluation. Spoke with patient. Agreeable to admission. They are aware of all labs and imaging. All questions answered and patient stable at time of admission. I have spoken to the patient and/or caregivers. I have explained the patient's condition, diagnoses and treatment plan based on the information available to me at this time. I have answered the patient's and/or caregiver's questions and addressed my concerns. The patient and/or caregivers has a good understanding of the patient's diagnosis, condition and treatment plan as can be expected at this point. The patient has been stabilized within the capability of the emergency department. The patient will be transported for further care and management or will be moved to an observation or inpatient service. I have communicated with the staff or medical practitioner taking over this patient's care. Admitting physician: Mari Accepts admission: Yes Accepted time: 529 Accepted date: January 21, 2021 Condition: Stable Call information: Will see patient, agrees with evaluation and agrees with plan. Cindy Disclaimer: Cindy Disclaimer: This electronic medical record was generated, in whole or in part, using a voice recognition dictation system. Departure Departure Impression: Primary Impression: Abdominal pain Additional Impressions: Nausea & vomiting Hyperglycemia Disposition: 09 ADMITTED INPATIENT Admitting Physician: ERICA Condition: GOOD Referrals: CARLOS VIDAL MD (PCP) SHAYE WHITAKER DO Jan 20, 2021 18:51
[2021-01-20 19:14] LABS: BASO # 0.1 x10^3/uL (0.0-0.2); BASO % 1 % (0-3); EOS % 0 % (0-3); HEMATOCRIT 36.8 % (36.0-47.0); HEMOGLOBIN 11.5 g/dL (12.0-15.5); LYMPH # 0.6 x10^3/uL (1.0-4.8); LYMPH % 7 % (24-48); MEAN CORPUSCULAR HEMOGLOBIN 21 pg (25-35); MEAN CORPUSCULAR HGB CONC 31 g/dL (31-37); MEAN CORPUSCULAR VOLUME 69 fL (79-100); MONO # 0.1 x10^3/uL (0.0-1.1); MONO % 1 % (0-9); NEUT # 8.1 x10^3/uL (1.8-7.7); NEUT % 91 % (31-73); PLATELET COUNT 221 x10^3/uL (140-400); RED BLOOD COUNT 5.37 x10^6/uL (3.50-5.40); RED CELL DISTRIBUTION WIDTH 17.1 % (11.5-14.5); WHITE BLOOD COUNT 8.9 x10^3/uL (4.0-11.0)
[2021-01-20 19:22] LABS: GFR 54.3; POTASSIUM 4.3 mmol/L (3.5-5.1)
[2021-01-20] MEDS ORDERED: ONDANSETRON PF 4 MG/2 ML VIAL. ONE (19:23)
[2021-01-20 19:28] LABS: ALBUMIN 4.1 g/dL (3.4-5.0); ALBUMIN/GLOBULIN RATIO 0.9 (1.0-1.7); TOTAL BILIRUBIN 0.6 mg/dL (0.2-1.0); TOTAL PROTEIN 8.5 g/dL (6.4-8.2)
[2021-01-20] MEDS ORDERED: IV NORMAL SALINE 500ML BAG 500 ML IV ONE ×2 (19:30→22:45)
[2021-01-20] MEDS ORDERED: METOCLOPRAMIDE HCL 10 MG/2 ML VIAL. IVP ONE (19:30)
[2021-01-20] MEDS ORDERED: CONTRAST GIVEN. MC PRN (19:45)
[2021-01-20] MEDS ORDERED: IOHEXOL 300 MG/ML 100ML VIAL. IV ONE (20:00)
[2021-01-20 20:05] LABS: % LYMPHS 7 % (24-48); % MONOS 1 % (0-10); % SEGS 92 % (35-66)
[2021-01-20 20:07] LABS: MICROCYTOSIS MOD; PLT ESTIMATE ADEQUATE (ADEQUATE)
[2021-01-20 20:08] LABS: HYPOCHROMIA SLIGHT
--- NOTE | 2021-01-20 20:12 | RAD ---
CT ABDOMEN+PELVIS W History: Reason: abdominal pain, OMNI 300 60 ML IV / Spl. Instructions: / History: Technique: After the administration of intravenous contrast, CT imaging was performed of the abdomen and pelvis. Multiplanar images are reviewed. Exposure: One or more of the following individualized dose reduction techniques were utilized for thi s examination: 1. Automated exposure control 2. Adjustment of the mA and/or kV according to patient size 3. Use of iterative reconstruction technique. Comparison: December 14, 2020 Findings: Lower chest: Pulmonary emphysema. Moderate hiatal hernia. Abdomen and pelvis: The liver, spleen, adrenal glands, and pancreas are unremarkable. Prior cholecyst ectomy. No biliary ductal dilatation. Patent portal vein. Renal vascular calcifications. No hydronephrosis. Small left posterior renal hypodensity, too small t o further characterize, unchanged. Normal appearance of the urinary bladder. Extensive colonic diverticulosis. Chronic sigmoid colonic wall thickening. Normal appendix. No eviden ce of bowel obstruction. No pathologic lymphadenopathy. No ascites. Prior hysterectomy. Extensive ath eromatous plaque throughout the aorta and branch vessels. Ectatic infrarenal abdominal aorta measures 2.8 cm, unchanged. Multifocal narrowing of the iliacs, common femoral and superficial femoral arteri es. Bones: Internal fixation left proximal femur. Chronic L1 compression fracture. Multilevel lumbar spon dylosis most prominent L5-S1. Impression: 1. Extensive colonic diverticulosis with chronic sigmoid colonic wall thickening. 2. Moderate hiatal hernia. 3. Extensive atheromatous plaque with multifocal narrowing. Electronically signed by: Melvin Wiggins DO (01/20/2021 8:10 PM) [facility]
[2021-01-20] MEDS ORDERED: ONDANSETRON PF 4 MG/2 ML VIAL. IM ONE (22:00)
[2021-01-20] MEDS ORDERED: MORPHINE SULFATE 2 MG/ML VIAL. IM ONE (22:00)
[2021-01-20 22:41] LABS: BILIRUBIN,URINE NEGATIVE (NEG); CLARITY,URINE CLEAR; COLOR,URINE YELLOW; NITRITE,URINE NEGATIVE (NEG); PH,URINE 7.5 (<5.0-8.0); PROTEIN,URINE >=300 mg/dL (NEG-TRACE); UROBILINOGEN,URINE 0.2 mg/dL (0.2 mg/dL)
[2021-01-20 22:54] LABS: BACTERIA,URINE 0 /HPF (0-FEW)
[2021-01-21 03:00] LABS: CALCIUM 8.4 mg/dL (8.5-10.1); CREATININE 0.8 mg/dL (0.6-1.0); GFR 70.3
[2021-01-21 04:00] VITALS: BP 121/56
[2021-01-21 07:00] VITALS: BP 121/57
--- NOTE | 2021-01-21 09:37 | NUR ---
PO following. Discussed with RN, pt from home with , room air, clear liquid diet. Dr. Guerra plans on discharging pt home today. BRITTANY advised no SW needs. Addendum: 01/21/21 at [address] Guerra ordering home health. PO met with pt, pt agreeable, does not have preference of provider. Choice form signed. Fidelia Daniels RN notified of referral. RN notified. Addendum: 01/21/21 at 1315 by CORNELIUS FONTENOT Pt needed transportation home. Transportation arranged with [facility] for between [id number]. [facility] van is being fixed. RN notified. No further SW needs. Addendum: 01/21/21 at 1320 by CORNELIUS PIERRE SW Pt current with [facility].
--- NOTE | 2021-01-21 10:47 | PDOC1 ---
History and Physical Date of Admission Date of Admission DATE: 01/21/21 TIME: 10:30 Identification/Chief Complaint Chief Complaint Intractable nausea and vomiting Source Source: Chart review, Patient History of Present Illness History of Present Illness Patient is 75-year-old female with past medical history COPD, DM2, CAD, diverticulitis, depression, who presents to the ED with complaints of nausea and vomiting for a "few days". She reports some associated cramping abdominal pain. She denies any associated diarrhea, hematochezia, melena, or hematemesis. She lives at home with her and son. At the time of my evaluation states her nausea is improved, she has had no further vomiting today. Labs on admission showed CBG 279, lipase 58, hemoglobin 11.5, hematocrit 36.8, MCV 69. CT abdomen/pelvis showed extensive colonic diverticulosis with chronic sigmoid colo sonido wall thickening with moderate hiatal hernia. She does admit to some cramping pain in her back or extremities that has been present for weeks, denies any injury.Patient was admitted for observation overnight. Past Medical History Cardiovascular: CAD, HTN, [place], Hyperlipidemia Pulmonary: Asthma, COPD, Pneumonia GI: Diverticulosis, Other Heme/Onc: Cancer Psych: Anxiety, Depression Renal/: Chronic renal failure Endocrine: Diabetes Past Surgical History Past Surgical History: Cholecystectomy, , Hysterectomy, Other Family History Family History: Coronary Artery Disease, Hypertension Social History Smoke: Quit ALCOHOL: none Drugs: None Current Problem List Problem List Problems Medical Problems: (1) Abdominal pain Status: Acute (2) Hyperglycemia Status: Acute (3) Nausea & vomiting Status: Acute Current Medications Current Medications Current Medications Metoclopramide HCl (Reglan Vial) 5 mg 1X ONCE IVP Last administered on 01/20/21at 19:29; Start 01/20/21 at 19:30; Stop 01/20/21 at 19:31; Status DC Sodium Chloride 500 ml @ 500 mls/hr 1X ONCE IV Last administered on 01/20/21at 19:31; Start 01/20/21 at 19:30; Stop 01/20/21 at 20:29; Status DC Iohexol (Omnipaque 300 Mg/ml) 60 ml 1X ONCE IV Last administered on 01/20/21at 19:53; Start 01/20/21 at 20:00; Stop 6/24/21 at 20:01; Status DC Info (CONTRAST GIVEN -- Rx MONITORING) 1 each PRN DAILY PRN MC SEE COMMENTS; Start 01/20/21 at 19:45; Stop 01/22/21 at 19:44 Ondansetron HCl (Zofran) 4 mg 1X ONCE IM Last administered on 01/20/21at 22:27; Start 01/20/21 at 22:00; Stop 01/20/21 at 22:01; Status DC Morphine Sulfate (Morphine Sulfate) 2 mg 1X ONCE IM Last administered on 01/20/21at 22:28; Start 01/20/21 at 22:00; Stop 01/20/21 at 22:01; Status DC Sodium Chloride 500 ml @ 500 mls/hr 1X ONCE IV Last administered on 01/20/21at 22:45; Start 01/20/21 at 22:45; Stop 01/20/21 at 23:44; Status DC Active Scripts Active Vitamin C (Ascorbic Acid) 1,000 Mg Tablet 1,000 Mg PO TIDWMEALS 30 Days Vitamin B-1 (Thiamine Mononitrate) 100 Mg Tablet 100 Mg PO DAILY 30 Days Culturelle (Lactobacillus Rhamnosus Gg) 1 Each Cap.sprink 1 Cap PO BID 30 Days Klor-Con M20 (Potassium Chloride) 20 Meq Tab.er.prt 20 Meq PO DAILYWBKFT 14 Days Metamucil Fiber Singles Packet (Psyllium Husk/Aspartame) 3.4 Gm Powd.pack 1 Pkt PO DAILY16 30 Days Dok (Docusate Sodium) 100 Mg Capsule 100 Mg PO PRN BID PRN 30 Days Tylenol (Acetaminophen) 325 Mg Tablet 650 Mg PO PRN Q4HRS PRN 30 Days Reported Risperidone 0.5 Mg Tablet 0.25 Mg PO PRN QHS PRN Novolog (Insulin Aspart) 100 Unit/1 Ml Cartridge 10 Unit SQ TIDWMEALS Zoloft (Sertraline Hcl) 100 Mg Tablet 100 Mg PO DAILY Nexium Capsule (Esomeprazole Magnesium) 40 Mg Capsule.dr 40 Mg PO DAILYAC Lantus Solostar (Insulin Glargine,Hum.rec.anlog) 100 Unit/1 Ml Insuln.pen 25 Unit SQ QAM Gabapentin 600 Mg Tablet 600 Mg PO TID Atorvastatin Calcium 40 Mg Tablet 40 Mg PO HS Clopidogrel (Clopidogrel Bisulfate) 75 Mg Tablet 75 Mg PO DAILY Trazodone Hcl 100 Mg Tablet 200 Mg PO HS Allergies Allergies: Coded Allergies: Penicillins (Verified Allergy, Intermediate, tolerates Ancef, Rocephin, 11/30/20) Sulfa (Sulfonamide Antibiotics) (Verified Allergy, Intermediate, 10/21/15) ROS Review of System GENERAL: No history of weight change, weakness or fevers. SKIN: No bruising, hair changes or rashes. EYES: No blurred, double or loss of vision. NOSE AND THROAT: No history of nosebleeds, hoarseness or sore throat. HEART: Denies chest pain, denies palpitations. LUNGS: Denies cough, hemoptysis, wheezing or shortness of breath. GASTROINTESTINAL: Nausea, vomiting, abdominal pain. GENITOURINARY: Denies dysuria, frequency, urgency, hematuria. NEUROLOGIC: Denies history of numbness, tingling, tremor or weakness. PSYCHIATRIC: Denies anxiety, denies depression. ENDOCRINE: No history of heat or cold intolerance, polyuria or polydipsia. EXTREMITIES: Bilateral lower extremity muscle stiffness. Denies muscle w eakness, or pain on walking. Physical Exam Physical Exam General: Alert, Oriented X3, Cooperative, No acute distress HEENT: PERRLA, EOMI Lungs: Clear to auscultation, Normal air movement Heart: RRR, no murmurs Cardiovascular: S1, S2 Abdomen: Normal bowel sounds, Soft, No tenderness Extremities: No clubbing, No cyanosis Skin: No rashes, No significant lesion Neuro: Normal speech, Normal tone, Sensation intact Psych/Mental Status: Mental status NL, Mood NL Vitals Vitals Vital Signs Date Time Temp Pulse Resp B/P (MAP) Pulse Ox O2 Delivery O2 Flow Rate FiO2 01/21/21 07:00 97.2 99 18 121/57 (78) 95 97.2 01/21/21 03:05 Room Air Labs Labs Laboratory Tests Test 01/20/21 19:01 01/20/21 22:32 01/21/21 02:40 White Blood Count 8.9 x10^3/uL (4.0-11.0) Red Blood Count 5.37 x10^6/uL (3.50-5.40) Hemoglobin 11.5 g/dL (12.0-15.5) Hematocrit 36.8 % (36.0-47.0) Mean Corpuscular Volume 69 fL (79-100) Mean Corpuscular Hemoglobin 21 pg (25-35) Mean Corpuscular Hemoglobin Concent 31 g/dL (31-37) Red Cell Distribution Width 17.1 % (11.5-14.5) Platelet Count 221 x10^3/uL (140-400) Neutrophils (%) (Auto) 91 % (31-73) Lymphocytes (%) (Auto) 7 % (24-48) Monocytes (%) (Auto) 1 % (0-9) Eosinophils (%) (Auto) 0 % (0-3) Basophils (%) (Auto) 1 % (0-3) Neutrophils # (Auto) 8.1 x10^3/uL (1.8-7.7) Lymphocytes # (Auto) 0.6 x10^3/uL (1.0-4.8) Monocytes # (Auto) 0.1 x10^3/uL (0.0-1.1) Eosinophils # (Auto) 0.0 x10^3/uL (0.0-0.7) Basophils # (Auto) 0.1 x10^3/uL (0.0-0.2) Segmented Neutrophils % 92 % (35-66) Lymphocytes % 7 % (24-48) Monocytes % 1 % (0-10) Platelet Estimate Adequate (ADEQUATE) Hypochromasia Slight Microcytosis Mod Sodium Level 136 mmol/L (136-145) 135 mmol/L (136-145) Potassium Level 4.3 mmol/L (3.5-5.1) 4.0 mmol/L (3.5-5.1) Chloride Level 97 mmol/L (98-107) 99 mmol/L (98-107) Carbon Dioxide Level 23 mmol/L (21-32) 24 mmol/L (21-32) Anion Gap 16 (6-14) 12 (6-14) Blood Urea Nitrogen 12 mg/dL (7-20) 10 mg/dL (7-20) Creatinine 1.0 mg/dL (0.6-1.0) 0.8 mg/dL (0.6-1.0) Estimated GFR (Cockcroft-Gault) 54.3 70.3 BUN/Creatinine Ratio 12 (6-20) Glucose Level 279 mg/dL (70-99) 251 mg/dL (70-99) Calcium Level 9.0 mg/dL (8.5-10.1) 8.4 mg/dL (8.5-10.1) Total Bilirubin 0.6 mg/dL (0.2-1.0) Aspartate Amino Transf (AST/SGOT) 19 U/L (15-37) Alanine Aminotransferase (ALT/SGPT) 12 U/L (14-59) Alkaline Phosphatase 102 U/L (46-116) Total Protein 8.5 g/dL (6.4-8.2) Albumin 4.1 g/dL (3.4-5.0) Albumin/Globulin Ratio 0.9 (1.0-1.7) Lipase 58 U/L (73-393) Urine Collection Type Unknown Urine Color Yellow Urine Clarity Clear Urine pH 7.5 (<5.0-8.0) Urine Specific [place] >=1.030 (1.000-1.030) Urine Protein >=300 mg/dL (NEG-TRACE) Urine Glucose (UA) >=1000 mg/dL (NEG) Urine Ketones (Stick) 40 mg/dL (NEG) Urine Blood Trace (NEG) Urine Nitrite Negative (NEG) Urine Bilirubin Negative (NEG) Urine Urobilinogen Dipstick 0.2 mg/dL (0.2 mg/dL) Urine Leukocyte Esterase Negative (NEG) Urine RBC 3-5 /HPF (0-2) Urine WBC 1-4 /HPF (0-4) Urine Squamous Epithelial Cells Few /LPF Urine Bacteria 0 /HPF (0-FEW) Laboratory Tests Test 01/20/21 19:01 01/20/21 22:32 01/21/21 02:40 White Blood Count 8.9 x10^3/uL (4.0-11.0) Red Blood Count 5.37 x10^6/uL (3.50-5.40) Hemoglobin 11.5 g/dL (12.0-15.5) Hematocrit 36.8 % (36.0-47.0) Mean Corpuscular Volume 69 fL (79-100) Mean Corpuscular Hemoglobin 21 pg (25-35) Mean Corpuscular Hemoglobin Concent 31 g/dL (31-37) Red Cell Distribution Width 17.1 % (11.5-14.5) Platelet Count 221 x10^3/uL (140-400) Neutrophils (%) (Auto) 91 % (31-73) Lymphocytes (%) (Auto) 7 % (24-48) Monocytes (%) (Auto) 1 % (0-9) Eosinophils (%) (Auto) 0 % (0-3) Basophils (%) (Auto) 1 % (0-3) Neutrophils # (Auto) 8.1 x10^3/uL (1.8-7.7) Lymphocytes # (Auto) 0.6 x10^3/uL (1.0-4.8) Monocytes # (Auto) 0.1 x10^3/uL (0.0-1.1) Eosinophils # (Auto) 0.0 x10^3/uL (0.0-0.7) Basophils # (Auto) 0.1 x10^3/uL (0.0-0.2) Segmented Neutrophils % 92 % (35-66) Lymphocytes % 7 % (24-48) Monocytes % 1 % (0-10) Platelet Estimate Adequate (ADEQUATE) Hypochromasia Slight Microcytosis Mod Sodium Level 136 mmol/L (136-145) 135 mmol/L (136-145) Potassium Level 4.3 mmol/L (3.5-5.1) 4.0 mmol/L (3.5-5.1) Chloride Level 97 mmol/L (98-107) 99 mmol/L (98-107) Carbon Dioxide Level 23 mmol/L (21-32) 24 mmol/L (21-32) Anion Gap 16 (6-14) 12 (6-14) Blood Urea Nitrogen 12 mg/dL (7-20) 10 mg/dL (7-20) Creatinine 1.0 mg/dL (0.6-1.0) 0.8 mg/dL (0.6-1.0) Estimated GFR (Cockcroft-Gault) 54.3 70.3 BUN/Creatinine Ratio 12 (6-20) Glucose Level 279 mg/dL (70-99) 251 mg/dL (70-99) Calcium Level 9.0 mg/dL (8.5-10.1) 8.4 mg/dL (8.5-10.1) Total Bilirubin 0.6 mg/dL (0.2-1.0) Aspartate Amino Transf (AST/SGOT) 19 U/L (15-37) Alanine Aminotransferase (ALT/SGPT) 12 U/L (14-59) Alkaline Phosphatase 102 U/L (46-116) Total Protein 8.5 g/dL (6.4-8.2) Albumin 4.1 g/dL (3.4-5.0) Albumin/Globulin Ratio 0.9 (1.0-1.7) Lipase 58 U/L (73-393) Urine Collection Type Unknown Urine Color Yellow Urine Clarity Clear Urine pH 7.5 (<5.0-8.0) Urine Specific [place] >=1.030 (1.000-1.030) Urine Protein >=300 mg/dL (NEG-TRACE) Urine Glucose (UA) >=1000 mg/dL (NEG) Urine Ketones (Stick) 40 mg/dL (NEG) Urine Blood Trace (NEG) Urine Nitrite Negative (NEG) Urine Bilirubin Negative (NEG) Urine Urobilinogen Dipstick 0.2 mg/dL (0.2 mg/dL) Urine Leukocyte Esterase Negative (NEG) Urine RBC 3-5 /HPF (0-2) Urine WBC 1-4 /HPF (0-4) Urine Squamous Epithelial Cells Few /LPF Urine Bacteria 0 /HPF (0-FEW) Images Images PATIENT: ENRIKE CORNELIUS ACCOUNT: [id number] : 1945 LOCATION: ER AGE: 75 SEX: F EXAM STATUS: REG ER ORD. PHYSICIAN: SHAYE WHITAKER DO REASON: abdominal pain, OMNI 300 60 ML IV PROCEDURE: CT ABD PELV W/ IV CONTRST ONLY CT ABDOMEN+PELVIS W History: Reason: abdominal pain, OMNI 300 60 ML IV / Spl. Instructions: / History: Technique: After the administration of intravenous contrast, CT imaging was performed of the abdomen and pelvis. Multiplanar images are reviewed. Exposure: One or more of the following individualized dose reduction techniques were utilized for this examination: 1. Automated exposure control 2. Adjustment of the mA and/or kV according to patient size 3. Use of iterative reconstruction technique. Comparison: December 14, 2020 Findings: Lower chest: Pulmonary emphysema. Moderate hiatal hernia. Abdomen and pelvis: The liver, spleen, adrenal glands, and pancreas are unremarkable. Prior cholecystectomy. No biliary ductal dilatation. Patent portal vein. Renal vascular calcifications. No hydronephrosis. Small left posterior renal hypodensity, too small to further characterize, unchanged. Normal appearance of the urinary bladder. Extensive colonic diverticulosis. Chronic sigmoid colonic wall thickening. Normal appendix. No evidence of bowel obstruction. No pathologic lymphadenopathy. No ascites. Prior hysterectomy. Extensive atheromatous plaque throughout the aorta and branch vessels. Ectatic infrarenal abdominal aorta measures 2.8 cm, unchanged. Multifocal narrowing of the iliacs, common femoral and superficial femoral arteries. Bones: Internal fixation left proximal femur. Chronic L1 compression fracture. Multilevel lumbar spondylosis most prominent L5-S1. Impression: 1. Extensive colonic diverticulosis with chronic sigmoid colonic wall thickening. 2. Moderate hiatal hernia. 3. Extensive atheromatous plaque with multifocal narrowing. VTE Prophylaxis Ordered VTE Prophylaxis Devices: Yes VTE Pharmacological Prophylaxi: No Assessment/Plan Assessment/Plan Intractable nausea and vomiting Diverticulosis with history of diverticulitis CAD HTN DM2 Plan: Resume home medications Nausea and vomiting appears to have resolved Will advance diet to GI soft and tolerating she will discharge today Will have PT ambulate with patient prior to discharge FEN - ADA diet PPX - SCDs FULL CODE Dispo - OBS for above Justifications for Admission Other Justification UTI, AUNDREA, dehydration RYAN AVILEZ MD Jan 21, 2021 10:47
[2021-01-21 11:00] VITALS: BP 141/54
[2021-01-21] MEDS ORDERED: MAG HYDROX/ALUMINUM HYD/SIMETH 30 ML ORAL.SUSP PO PRN (11:00)
[2021-01-21] MEDS ORDERED: CALCIUM CARBONATE 500 MG TAB.CHEW PO PRN (11:00)
[2021-01-21] MEDS ORDERED: ACETAMINOPHEN 325 MG TABLET. PO PRN (11:00)
[2021-01-21] MEDS ORDERED: MAGNESIUM HYDROXIDE 2,400 MG/30 ML ORAL.SUSP. PO PRN (11:00)
[2021-01-21] MEDS ORDERED: IV DEXTROSE 5% 250 ML BAG. IV PRN (11:00)
[2021-01-21] MEDS ORDERED: HYDROcodone/APAP 5/325MG 1 TAB TABLET PO PRN (11:00)
[2021-01-21] MEDS ORDERED: ONDANSETRON PF 4 MG/2 ML VIAL. IVP PRN (11:00)
[2021-01-21] MEDS ORDERED: DEXTROSE 50% 25 GM / 50ML DISP.SYRIN. IV PRN (11:00)
--- NOTE | 2021-01-21 11:00 | PDOC3 ---
Discharge Summary Visit Information Date of Admission: Jan 21, 2021 Date of Discharge: Jan 21, 2021 Final Diagnosis Problems Medical Problems: (1) Abdominal pain Status: Acute (2) Hyperglycemia Status: Acute (3) Nausea & vomiting Status: Acute Brief Hospital Course Allergies Allergies Coded Allergies Type Severity Reaction Last Updated Verified Penicillins Allergy Intermediate tolerates Ancef, Rocephin 11/30/20 Yes Sulfa (Sulfonamide Antibiotics) Allergy Intermediate 10/21/15 Yes Vital Signs Vital Signs Date Time Temp Pulse Resp B/P (MAP) Pulse Ox O2 Delivery O2 Flow Rate FiO2 01/21/21 07:00 97.2 99 18 121/57 (78) 95 97.2 01/21/21 03:05 Room Air Lab Results Laboratory Tests Test 01/20/21 19:01 01/20/21 22:32 01/21/21 02:40 White Blood Count 8.9 x10^3/uL (4.0-11.0) Red Blood Count 5.37 x10^6/uL (3.50-5.40) Hemoglobin 11.5 g/dL (12.0-15.5) Hematocrit 36.8 % (36.0-47.0) Mean Corpuscular Volume 69 fL (79-100) Mean Corpuscular Hemoglobin 21 pg (25-35) Mean Corpuscular Hemoglobin Concent 31 g/dL (31-37) Red Cell Distribution Width 17.1 % (11.5-14.5) Platelet Count 221 x10^3/uL (140-400) Neutrophils (%) (Auto) 91 % (31-73) Lymphocytes (%) (Auto) 7 % (24-48) Monocytes (%) (Auto) 1 % (0-9) Eosinophils (%) (Auto) 0 % (0-3) Basophils (%) (Auto) 1 % (0-3) Neutrophils # (Auto) 8.1 x10^3/uL (1.8-7.7) Lymphocytes # (Auto) 0.6 x10^3/uL (1.0-4.8) Monocytes # (Auto) 0.1 x10^3/uL (0.0-1.1) Eosinophils # (Auto) 0.0 x10^3/uL (0.0-0.7) Basophils # (Auto) 0.1 x10^3/uL (0.0-0.2) Segmented Neutrophils % 92 % (35-66) Lymphocytes % 7 % (24-48) Monocytes % 1 % (0-10) Platelet Estimate Adequate (ADEQUATE) Hypochromasia Slight Microcytosis Mod Sodium Level 136 mmol/L (136-145) 135 mmol/L (136-145) Potassium Level 4.3 mmol/L (3.5-5.1) 4.0 mmol/L (3.5-5.1) Chloride Level 97 mmol/L (98-107) 99 mmol/L (98-107) Carbon Dioxide Level 23 mmol/L (21-32) 24 mmol/L (21-32) Anion Gap 16 (6-14) 12 (6-14) Blood Urea Nitrogen 12 mg/dL (7-20) 10 mg/dL (7-20) Creatinine 1.0 mg/dL (0.6-1.0) 0.8 mg/dL (0.6-1.0) Estimated GFR (Cockcroft-Gault) 54.3 70.3 BUN/Creatinine Ratio 12 (6-20) Glucose Level 279 mg/dL (70-99) 251 mg/dL (70-99) Calcium Level 9.0 mg/dL (8.5-10.1) 8.4 mg/dL (8.5-10.1) Total Bilirubin 0.6 mg/dL (0.2-1.0) Aspartate Amino Transf (AST/SGOT) 19 U/L (15-37) Alanine Aminotransferase (ALT/SGPT) 12 U/L (14-59) Alkaline Phosphatase 102 U/L (46-116) Total Protein 8.5 g/dL (6.4-8.2) Albumin 4.1 g/dL (3.4-5.0) Albumin/Globulin Ratio 0.9 (1.0-1.7) Lipase 58 U/L (73-393) Urine Collection Type Unknown Urine Color Yellow Urine Clarity Clear Urine pH 7.5 (<5.0-8.0) Urine Specific [place] >=1.030 (1.000-1.030) Urine Protein >=300 mg/dL (NEG-TRACE) Urine Glucose (UA) >=1000 mg/dL (NEG) Urine Ketones (Stick) 40 mg/dL (NEG) Urine Blood Trace (NEG) Urine Nitrite Negative (NEG) Urine Bilirubin Negative (NEG) Urine Urobilinogen Dipstick 0.2 mg/dL (0.2 mg/dL) Urine Leukocyte Esterase Negative (NEG) Urine RBC 3-5 /HPF (0-2) Urine WBC 1-4 /HPF (0-4) Urine Squamous Epithelial Cells Few /LPF Urine Bacteria 0 /HPF (0-FEW) Laboratory Tests Test 01/20/21 19:01 01/20/21 22:32 01/21/21 02:40 White Blood Count 8.9 x10^3/uL (4.0-11.0) Red Blood Count 5.37 x10^6/uL (3.50-5.40) Hemoglobin 11.5 g/dL (12.0-15.5) Hematocrit 36.8 % (36.0-47.0) Mean Corpuscular Volume 69 fL (79-100) Mean Corpuscular Hemoglobin 21 pg (25-35) Mean Corpuscular Hemoglobin Concent 31 g/dL (31-37) Red Cell Distribution Width 17.1 % (11.5-14.5) Platelet Count 221 x10^3/uL (140-400) Neutrophils (%) (Auto) 91 % (31-73) Lymphocytes (%) (Auto) 7 % (24-48) Monocytes (%) (Auto) 1 % (0-9) Eosinophils (%) (Auto) 0 % (0-3) Basophils (%) (Auto) 1 % (0-3) Neutrophils # (Auto) 8.1 x10^3/uL (1.8-7.7) Lymphocytes # (Auto) 0.6 x10^3/uL (1.0-4.8) Monocytes # (Auto) 0.1 x10^3/uL (0.0-1.1) Eosinophils # (Auto) 0.0 x10^3/uL (0.0-0.7) Basophils # (Auto) 0.1 x10^3/uL (0.0-0.2) Segmented Neutrophils % 92 % (35-66) Lymphocytes % 7 % (24-48) Monocytes % 1 % (0-10) Platelet Estimate Adequate (ADEQUATE) Hypochromasia Slight Microcytosis Mod Sodium Level 136 mmol/L (136-145) 135 mmol/L (136-145) Potassium Level 4.3 mmol/L (3.5-5.1) 4.0 mmol/L (3.5-5.1) Chloride Level 97 mmol/L (98-107) 99 mmol/L (98-107) Carbon Dioxide Level 23 mmol/L (21-32) 24 mmol/L (21-32) Anion Gap 16 (6-14) 12 (6-14) Blood Urea Nitrogen 12 mg/dL (7-20) 10 mg/dL (7-20) Creatinine 1.0 mg/dL (0.6-1.0) 0.8 mg/dL (0.6-1.0) Estimated GFR (Cockcroft-Gault) 54.3 70.3 BUN/Creatinine Ratio 12 (6-20) Glucose Level 279 mg/dL (70-99) 251 mg/dL (70-99) Calcium Level 9.0 mg/dL (8.5-10.1) 8.4 mg/dL (8.5-10.1) Total Bilirubin 0.6 mg/dL (0.2-1.0) Aspartate Amino Transf (AST/SGOT) 19 U/L (15-37) Alanine Aminotransferase (ALT/SGPT) 12 U/L (14-59) Alkaline Phosphatase 102 U/L (46-116) Total Protein 8.5 g/dL (6.4-8.2) Albumin 4.1 g/dL (3.4-5.0) Albumin/Globulin Ratio 0.9 (1.0-1.7) Lipase 58 U/L (73-393) Urine Collection Type Unknown Urine Color Yellow Urine Clarity Clear Urine pH 7.5 (<5.0-8.0) Urine Specific [place] >=1.030 (1.000-1.030) Urine Protein >=300 mg/dL (NEG-TRACE) Urine Glucose (UA) >=1000 mg/dL (NEG) Urine Ketones (Stick) 40 mg/dL (NEG) Urine Blood Trace (NEG) Urine Nitrite Negative (NEG) Urine Bilirubin Negative (NEG) Urine Urobilinogen Dipstick 0.2 mg/dL (0.2 mg/dL) Urine Leukocyte Esterase Negative (NEG) Urine RBC 3-5 /HPF (0-2) Urine WBC 1-4 /HPF (0-4) Urine Squamous Epithelial Cells Few /LPF Urine Bacteria 0 /HPF (0-FEW) Brief Hospital Course Ms. Bennett is a 75 old female who presented with intractable nausea and vomiting. Associate abdominal pain. She had CT abdomen/pelvis that showed extensive colonic diverticulosis with chronic sigmoid colonic wall thickening and moderate hiatal hernia. She was treated with IV fluids, Reglan, and morphine. Patient notes improvement in her symptoms. She tolerated GI soft diet. She walked with physical therapy and was stable for discharge home with family care. Discharge Information Condition at Discharge: Improved Disposition/Orders: D/C to Home Scheduled Ascorbic Acid (Vitamin C) 1,000 Mg Tablet, 1,000 MG PO TIDWMEALS for SUPPLEMENT for 30 Days, #90 Prescribed by: KELLI EMMANUEL MD on 12/17/201357 Last Action: Continued on 01/21/211051 by RYAN AVILEZ MD Atorvastatin Calcium (Atorvastatin Calcium) 40 Mg Tablet, 40 MG PO HS for FOR CHOLESTEROL, #30 Ref 0 (Reported) Entered as Reported by: TOMMY ARRIOLA on 02/28/141355 Last Action: Continued on 01/21/211051 by RYAN AVILEZ MD Clopidogrel Bisulfate (Clopidogrel) 75 Mg Tablet, 75 MG PO DAILY for TO PREVENT BLOOD CLOTS, #30 Ref 0 (Reported) Entered as Reported by: TOMMY ARRIOLA on 02/28/141355 Last Action: Continued on 01/21/211051 by RYAN AVILEZ MD Esomeprazole Magnesium (Nexium Capsule) 40 Mg Capsule.dr, 40 MG PO DAILYAC for , #30 Ref 0 (Reported) Entered as Reported by: MYRIAM PETERSON RN on 11/29/202309 Last Action: Converted on 01/21/211051 by RYAN AVILEZ MD Gabapentin (Gabapentin) 600 Mg Tablet, 600 MG PO TID for NEUROGENIC PAIN, (Reported) Entered as Reported by: MYRIAM PETERSON RN on 11/29/202309 Last Action: Converted on 01/21/211051 by RYAN AVILEZ MD Insulin Aspart (Novolog) 100 Unit/1 Ml Cartridge, 10 UNIT SQ TIDWMEALS for , (Reported) Entered as Reported by: MYRIAM PETERSON RN on 11/29/202312 Last Action: Reviewed on 01/21/21742 by SHERRIE ENAMORADO Insulin Glargine,Hum.rec.anlog (Lantus Solostar) 100 Unit/1 Ml Insuln.pen, 25 UNIT SQ QAM for , #15 Ref 5 (Reported) Entered as Reported by: MYRIAM PETERSON RN on 11/29/202309 Last Action: Reviewed on 01/21/21742 by SHERRIE ENAMORADO Lactobacillus Rhamnosus Gg (Culturelle) 1 Each Cap.sprink, 1 CAP PO BID for SUPPLEMENT for 30 Days, #60 Prescribed by: KELLI EMMANUEL MD on 12/17/201357 Last Action: Continued on 01/21/211051 by RYAN AVILEZ MD Potassium Chloride (Klor-Con M20) 20 Meq Tab.er.prt, 20 MEQ PO DAILYWBKFT for SUPPLEMENT for 14 Days, #14 Prescribed by: KELLI EMMANUEL MD on 12/17/201357 Last Action: Reviewed on 01/21/21742 by SHERRIE ENAMORADO Psyllium Husk/Aspartame (Metamucil Fiber Singles Packet) 3.4 Gm Powd.pack, 1 PKT PO DAILY16 for STOOLS for 30 Days, #30 Prescribed by: KELLI EMMANUEL MD on 05/04/201041 Last Action: Reviewed on 01/21/21742 by SHERRIE ENAMORADO Sertraline Hcl (Zoloft) 100 Mg Tablet, 100 MG PO DAILY for ANTI-DEPRESSANT, Ref 0 (Reported) Entered as Reported by: MYRIAM PETERSON RN on 11/29/202309 Last Action: Converted on 01/21/211051 by RYAN AVILEZ MD Thiamine Mononitrate (Vitamin B-1) 100 Mg Tablet, 100 MG PO DAILY for SUPPLEMENT for 30 Days, #30 Prescribed by: KELLI EMMANUEL MD on 12/17/201357 Last Action: Continued on 01/21/211051 by RYAN AVILEZ MD Trazodone Hcl (Trazodone Hcl) 100 Mg Tablet, 200 MG PO HS, (Reported) Entered as Reported by: TOMMY ARRIOLA on 02/28/14 1347 Last Action: Continued on 01/21/211051 by RYAN AVILEZ MD Scheduled PRN Acetaminophen (Tylenol) 325 Mg Tablet, 650 MG PO PRN Q4HRS PRN for TEMP OVER 100.4F for 30 Days, #100 Prescribed by: KELLI EMMANUEL MD on 05/04/20 104 Last Action: HELD on 01/21/21 105 by RYAN AVILEZ MD Docusate Sodium (Dok) 100 Mg Capsule, 100 MG PO PRN BID PRN for HARD STOOLS for 30 Days, #60 Prescribed by: KELLI EMMANUEL MD on 05/04/20 104 Last Action: HELD on 01/21/21 105 by RYAN AVILEZ MD Risperidone (Risperidone) 0.5 Mg Tablet, 0.25 MG PO PRN QHS PRN for ANXIETY / AGITATION, (Reported) Entered as Reported by: MYRIAM PETERSON RN on 11/29/202312 Last Action: Converted on 01/21/211051 by RYAN AVILEZ MD Justicifation of Admission Dx: Justifications for Admission: Justification of Admission Dx: Yes Acute Renal Failure: 75% Reduction in GFR Altered Mental Status: Altered Mental Status RYAN AVILEZ MD Jan 21, 2021 11:00
[2021-01-21] MEDS ORDERED: HEPARIN for SUB-Q USE 5,000 UNIT/ML VIAL. SQ SCH (11:15)
[2021-01-21] MEDS ORDERED: risperiDONE 0.25 MG TABLET. PO PRN (11:30)
[2021-01-21] MEDS ORDERED: PANTOPRAZOLE 40 MG TABLET.DR. PO SCH (11:30)
[2021-01-21] MEDS ORDERED: SERTRALINE 50 MG TABLET. PO SCH (12:00)
[2021-01-21] MEDS ORDERED: INSULIN LISPRO 300 UNITS/3 ML VIAL. SQ SCH (12:00)
[2021-01-21] MEDS ORDERED: CLOPIDOGREL BISULFATE 75 MG TABLET PO SCH (12:00)
[2021-01-21] MEDS ORDERED: THIAMINE 100 MG TABLET. PO SCH (12:00)
[2021-01-21] MEDS ORDERED: ASCORBIC ACID 1,000 MG TABLET PO SCH (12:00)
[2021-01-21] MEDS ORDERED: LACTOBACILLUS RHAMNOSUS GG 1 CAPSULE. PO SCH (12:00)
[2021-01-21] MEDS ORDERED: GABAPENTIN 300 MG CAPSULE. PO SCH (14:00)
--- NOTE | 2021-01-21 14:08 | NUR ---
Discharge Note: Patient was discharged home with self care. Patients lives with spouse. Patient took out her own IV without any complications. Patients spouse aware of discharge plans and was aware of discharge instructions. Patient was given discharge summary/instructions, follow-ups, and educational material. Patient and spouse did not have any further questions or concerns. patient was transported home via wheelchair van with all personal belongings. Spouse awaiting for at home.
[2021-01-21] MEDS ORDERED: ATORVASTATIN CALCIUM 40 MG TABLET. PO SCH (21:00)
[2021-01-21] MEDS ORDERED: INSULIN GLARGINE SYRINGE. SQ SCH (21:00)
[2021-01-21] MEDS ORDERED: traZODone 100 MG TABLET. PO SCH (21:00)
== END 2021-01-21 14:11 | disposition home or self-care (01) ==
LOC: ER 18:42 → 6 SOUTH 01-21 02:00
PROVIDERS: ADMIT Family Medicine; ATTEND Family Medicine
DX: R10.9 Unspecified abdominal pain (principal); E11.65 Type 2 diabetes mellitus with hyperglycemia; R11.2 Nausea with vomiting, unspecified; I12.9 Hypertensive chronic kidney disease with stage 1 through stage 4 chronic kidney disease, or unspecified chronic kidney disease; N18.9 Chronic kidney disease, unspecified; E78.5 Hyperlipidemia, unspecified; F03.90 Unspecified dementia, unspecified severity, without behavioral disturbance, psychotic disturbance, mood disturbance, and anxiety; F41.9 Anxiety disorder, unspecified; I25.10 Atherosclerotic heart disease of native coronary artery without angina pectoris; J43.9 Emphysema, unspecified; K44.9 Diaphragmatic hernia without obstruction or gangrene; K57.30 Diverticulosis of large intestine without perforation or abscess without bleeding; M47.816 Spondylosis without myelopathy or radiculopathy, lumbar region; M48.56XA Collapsed vertebra, not elsewhere classified, lumbar region, initial encounter for fracture; N17.9 Acute kidney failure, unspecified; I25.2 Old myocardial infarction; F32.9 Major depressive disorder, single episode, unspecified; Z79.02 Long term (current) use of antithrombotics/antiplatelets; Z79.4 Long term (current) use of insulin; Z79.899 Other long term (current) drug therapy; Z87.891 Personal history of nicotine dependence; Z90.49 Acquired absence of other specified parts of digestive tract; Z90.710 Acquired absence of both cervix and uterus; Z95.5 Presence of coronary angioplasty implant and graft; Z98.891 History of uterine scar from previous surgery
CPT/HCPCS: 36415; 74177; 80048; 80053; 81001; 82962; 83690; 85007; 85025; 96372; 96374; 97162; 99285; G0378; J1815; J2270; J2405; J2765; J7040; Q9967; G0379

== ENCOUNTER 2021-02-15 11:27 | Emergency (ER) | payer MEDICARE, MEDICAID ==
[~2021-02-15] VITALS: Ht 165.1 cm; Wt 60.0 kg
[2021-02-15 12:20] LABS: BASO % 0 % (0-3); EOS # 0.1 x10^3/uL (0.0-0.7); EOS % 1 % (0-3); HEMATOCRIT 35.4 % (36.0-47.0); LYMPH # 1.3 x10^3/uL (1.0-4.8); LYMPH % 22 % (24-48); MEAN CORPUSCULAR HEMOGLOBIN 22 pg (25-35); MEAN CORPUSCULAR HGB CONC 31 g/dL (31-37); MEAN CORPUSCULAR VOLUME 69 fL (79-100); MONO # 0.3 x10^3/uL (0.0-1.1); MONO % 5 % (0-9); NEUT # 4.3 x10^3/uL (1.8-7.7); NEUT % 72 % (31-73); PLATELET COUNT 208 x10^3/uL (140-400); RED BLOOD COUNT 5.11 x10^6/uL (3.50-5.40); RED CELL DISTRIBUTION WIDTH 17.7 % (11.5-14.5)
--- NOTE | 2021-02-15 13:06 | RAD ---
XR CHEST 1V History: Reason: abd pain, shortness of breath, vomiting / Spl. Instructions: / History: Comparison: December 04, 2020 Findings: Patchy left basilar opacities. No pleural effusion. No pneumothorax. Hyperinflation with emphysematou s changes. Normal heart size. Impression: 1. Patchy bibasilar opacity, may represent atelectasis or developing consolidation. Electronically signed by: Melvin Wiggins DO (02/15/2021 1:04 PM) [id number]
[2021-02-15 13:24] LABS: BILIRUBIN,URINE NEGATIVE (NEG); CLARITY,URINE CLEAR; COLOR,URINE YELLOW; NITRITE,URINE NEGATIVE (NEG); PH,URINE 6.5 (<5.0-8.0); PROTEIN,URINE NEGATIVE (NEG-TRACE)
[2021-02-15 13:25] LABS: ANISOCYTOSIS SLIGHT; MICROCYTOSIS PRESENT; PLT ESTIMATE ADEQUATE (ADEQUATE)
[2021-02-15 13:35] LABS: BACTERIA,URINE 0 /HPF (0-FEW); RBC,URINE 0 /HPF (0-2)
[2021-02-15 13:47] LABS: CALCIUM 9.3 mg/dL (8.5-10.1); CREATININE 1.1 mg/dL (0.6-1.0); GFR 48.7; POTASSIUM 4.6 mmol/L (3.5-5.1)
[2021-02-15 13:53] LABS: ALBUMIN 3.5 g/dL (3.4-5.0); ALBUMIN/GLOBULIN RATIO 0.9 (1.0-1.7); TOTAL BILIRUBIN 0.4 mg/dL (0.2-1.0); TOTAL PROTEIN 7.6 g/dL (6.4-8.2)
--- NOTE | 2021-02-15 15:14 | ED.ADGEN ---
Past Medical History Past Medical History: Anxiety, COPD, Dementia, Depression, Diabetes-Type II, Diverticulitis, PR, Migraines, Other Additional Past Medical Histor: neuropathy, and insomnia Past Surgical History: Cholecystectomy, , Hysterectomy, Other Additional Past Surgical Histo: CARDIAC STENTS Smoking Status: Never Smoker Alcohol Use: None Drug Use: None General Adult EDM: Chief Complaint: NAUSEA/VOMITING/DIARRHEA HPI: HPI: Patient is a 75 year old [f__sex] who presents with [] Review of Systems: Review of Systems: Constitutional: Denies fever or chills. [] Eyes: Denies change in visual acuity. [] HENT: Denies nasal congestion or sore throat. [] Respiratory: Denies cough or shortness of breath. [] Cardiovascular: Denies chest pain or edema. [] GI: Denies abdominal pain, nausea, vomiting, bloody stools or diarrhea. [] : Denies dysuria. [] Musculoskeletal: Denies back pain or joint pain. [] Integument: Denies rash. [] Neurologic: Denies headache, focal weakness or sensory changes. [] Endocrine: Denies polyuria or polydipsia. [] Lymphatic: Denies swollen glands. [] Psychiatric: Denies depression or anxiety. [] Allergies: Allergies: Allergies Coded Allergies Type Severity Reaction Last Updated Verified Penicillins Allergy Intermediate tolerates Ancef, Rocephin 11/30/20 Yes Sulfa (Sulfonamide Antibiotics) Allergy Intermediate 10/21/15 Yes Physical Exam: PE: Constitutional: Well developed, well nourished, no acute distress, non-toxic appearance. [] HENT: Normocephalic, atraumatic, bilateral external ears normal, oropharynx moist, no oral exudates, nose normal. [] Eyes: PERRLA, EOMI, conjunctiva normal, no discharge. [] Neck: Normal range of motion, no tenderness, supple, no stridor. [] Cardiovascular:Heart rate regular rhythm, no murmur [] Lungs & Thorax: Bilateral breath sounds clear to auscultation [] Abdomen: Bowel sounds normal, soft, no tenderness, no masses, no pulsatile masses. [] Skin: Warm, dry, no erythema, no rash. [] Back: No tenderness, no CVA tenderness. [] Extremities: No tenderness, no cyanosis, no clubbing, ROM intact, no edema. [] Neurologic: Alert and oriented X 3, normal motor function, normal sensory function, no focal deficits noted. [] Psychologic: Affect normal, judgement normal, mood normal. [] Current Patient Data: Labs: Laboratory Tests Test 02/15/21 10:25 02/15/21 12:02 02/15/21 13:11 Sodium Level 141 mmol/L (136-145) Potassium Level 4.6 mmol/L (3.5-5.1) Chloride Level 104 mmol/L (98-107) Carbon Dioxide Level 29 mmol/L (21-32) Anion Gap 8 (6-14) Blood Urea Nitrogen 13 mg/dL (7-20) Creatinine 1.1 mg/dL (0.6-1.0) H Estimated GFR (Cockcroft-Gault) 48.7 BUN/Creatinine Ratio 12 (6-20) Glucose Level 142 mg/dL (70-99) H Calcium Level 9.3 mg/dL (8.5-10.1) Total Bilirubin 0.4 mg/dL (0.2-1.0) Aspartate Amino Transferase (AST) 14 U/L (15-37) L Alanine Aminotransferase (ALT) 14 U/L (14-59) Alkaline Phosphatase 93 U/L (46-116) Total Protein 7.6 g/dL (6.4-8.2) Albumin 3.5 g/dL (3.4-5.0) Albumin/Globulin Ratio 0.9 (1.0-1.7) L Lipase 93 U/L (73-393) White Blood Count 6.0 x10^3/uL (4.0-11.0) Red Blood Count 5.11 x10^6/uL (3.50-5.40) Hemoglobin 11.0 g/dL (12.0-15.5) L Hematocrit 35.4 % (36.0-47.0) L Mean Corpuscular Volume 69 fL (79-100) L Mean Corpuscular Hemoglobin 22 pg (25-35) L Mean Corpuscular Hemoglobin Concent 31 g/dL (31-37) Red Cell Distribution Width 17.7 % (11.5-14.5) H Platelet Count 208 x10^3/uL (140-400) Neutrophils (%) (Auto) 72 % (31-73) Lymphocytes (%) (Auto) 22 % (24-48) L Monocytes (%) (Auto) 5 % (0-9) Eosinophils (%) (Auto) 1 % (0-3) Basophils (%) (Auto) 0 % (0-3) Neutrophils # (Auto) 4.3 x10^3/uL (1.8-7.7) Lymphocytes # (Auto) 1.3 x10^3/uL (1.0-4.8) Monocytes # (Auto) 0.3 x10^3/uL (0.0-1.1) Eosinophils # (Auto) 0.1 x10^3/uL (0.0-0.7) Basophils # (Auto) 0.0 x10^3/uL (0.0-0.2) Platelet Estimate Adequate (ADEQUATE) Anisocytosis Slight Microcytosis Present Urine Collection Type U cath Urine Color Yellow Urine Clarity Clear Urine pH 6.5 (<5.0-8.0) Urine Specific Tower 1.015 (1.000-1.030) Urine Protein Negative mg/dL (NEG-TRACE) Urine Glucose (UA) Negative mg/dL (NEG) Urine Ketones (Stick) Negative mg/dL (NEG) Urine Blood Negative (NEG) Urine Nitrite Negative (NEG) Urine Bilirubin Negative (NEG) Urine Urobilinogen Dipstick 1.0 mg/dL (0.2 mg/dL) Urine Leukocyte Esterase Trace (NEG) Urine RBC 0 /HPF (0-2) Urine WBC 1-4 /HPF (0-4) Urine Squamous Epithelial Cells Occ /LPF Urine Bacteria 0 /HPF (0-FEW) Laboratory Tests 02/15/21 12:02 Laboratory Tests 02/15/21 10:25 Vital Signs: Vital Signs Date Time Temp Pulse Resp B/P (MAP) Pulse Ox O2 Delivery O2 Flow Rate FiO2 02/15/21 11:27 98.3 80 10 124/58 (83) 97 98.3 EKG: EKG: [] Heart Score: Risk Factors: Risk Factors: DM, Current or recent (<one month) smoker, HTN, HLP, family history of CAD, obesity. Risk Scores: Score 0 - 3: 2.5% MACE over next 6 weeks - Discharge Home Score 4 - 6: 20.3% MACE over next 6 weeks - Admit for Clinical Observation Score 7 - 10: 72.7% MACE over next 6 weeks - Early Invasive Strategies Radiology/Procedures: Radiology/Procedures: [] Course & Med Decision Making: Course & Med Decision Making Pertinent Labs and Imaging studies reviewed. (See chart for details) [] Dragon Disclaimer: Dragon Disclaimer: This electronic medical record was generated, in whole or in part, using a voice recognition dictation system. Departure Departure Impression: Primary Impression: Nausea & vomiting Additional Impression: Dementia Disposition: 01 HOME / SELF CARE / HOMELESS Condition: STABLE Referrals: CARLOS VIDAL MD (PCP) Patient Instructions: Nausea and Vomiting Problem Qualifiers MAUDE HIGGINS MD Feb 15, 2021 15:14
[2021-02-15 16:42] VITALS: BP 116/57
== END 2021-02-15 18:50 | disposition home or self-care (01) ==
LOC: ER 11:27
DX: R11.2 Nausea with vomiting, unspecified (principal); Z20.822 Contact with and (suspected) exposure to COVID-19; F03.90 Unspecified dementia, unspecified severity, without behavioral disturbance, psychotic disturbance, mood disturbance, and anxiety; J44.9 Chronic obstructive pulmonary disease, unspecified; E11.40 Type 2 diabetes mellitus with diabetic neuropathy, unspecified; I25.2 Old myocardial infarction; G43.909 Migraine, unspecified, not intractable, without status migrainosus; Z95.5 Presence of coronary angioplasty implant and graft; Z88.0 Allergy status to penicillin; Z88.2 Allergy status to sulfonamides
CPT/HCPCS: 36415; 71045; 80053; 81001; 83690; 85025; 87426; 99285-25

== ENCOUNTER 2021-03-09 03:33 | Inpatient (IN) | payer MEDICARE, MEDICAID ==
[~2021-03-09] VITALS: Ht 162.6 cm; Wt 59.0 kg
[~2021-03-09 03:33] MED LIST changes: +DOCU-148 PO; -DOCU-153 PO; +ENOX40DI3 SQ; +FLUC200T PO
[2021-03-09] MEDS ORDERED: ACETAMINOPHEN 325 MG TABLET. PO ONE (03:45)
[2021-03-09 04:03] LABS: BASO % 0 % (0-3); EOS % 0 % (0-3); HEMATOCRIT 28.4 % (36.0-47.0); HEMOGLOBIN 8.8 g/dL (12.0-15.5); LYMPH # 0.8 x10^3/uL (1.0-4.8); LYMPH % 6 % (24-48); MEAN CORPUSCULAR HEMOGLOBIN 22 pg (25-35); MEAN CORPUSCULAR HGB CONC 31 g/dL (31-37); MEAN CORPUSCULAR VOLUME 71 fL (79-100); MONO # 0.7 x10^3/uL (0.0-1.1); MONO % 5 % (0-9); NEUT # 11.2 x10^3/uL (1.8-7.7); NEUT % 88 % (31-73); PLATELET COUNT 277 x10^3/uL (140-400); RED BLOOD COUNT 4.01 x10^6/uL (3.50-5.40); RED CELL DISTRIBUTION WIDTH 20.3 % (11.5-14.5); WHITE BLOOD COUNT 12.8 x10^3/uL (4.0-11.0)
[2021-03-09 04:08] LABS: BILIRUBIN,URINE SMALL (NEG); CLARITY,URINE CLEAR; COLOR,URINE YELLOW; NITRITE,URINE NEGATIVE (NEG); PH,URINE 5.5 (<5.0-8.0); PROTEIN,URINE NEGATIVE (NEG-TRACE)
--- NOTE | 2021-03-09 04:10 | PHYS DOC ---
Past Medical History Past Medical History: Anxiety, COPD, Dementia, Depression, Diabetes-Type II, Diverticulitis, AR, Migraines, Other Additional Past Medical Histor: neuropathy, and insomnia Past Surgical History: Cholecystectomy, , Hysterectomy, Other Additional Past Surgical Histo: CARDIAC STENTS Smoking Status: Former Smoker Alcohol Use: None Drug Use: None General Adult EDM: Chief Complaint: HIP PAIN HPI: HPI: Patient is a 75 year old female with a past medical history of diabetes, copd, dementia presents via ems for evaluation of increased confusion and hip pain. On exam patient is alert but confused. Patient is unable to provide history. Per EMS report patient is post-operative hip. She is unable to states where the surgery was performed. On exam on right hip-- 3 small incision wounds. Dressing is clean and dry. Area is not work to the touch. Patients moves her left lower extremity without grimace. Patients vital signs are all stable. called 911--- unable to get ahold of him for more information. He did not present to the ER. Number on file is incorrect. Review of Systems: Review of Systems: Unable to obtain due to confusion Heart Score: C/O Chest Pain: N/A Risk Factors: Risk Factors: DM, Current or recent (<one month) smoker, HTN, HLP, family history of CAD, obesity. Risk Scores: Score 0 - 3: 2.5% MACE over next 6 weeks - Discharge Home Score 4 - 6: 20.3% MACE over next 6 weeks - Admit for Clinical Observation Score 7 - 10: 72.7% MACE over next 6 weeks - Early Invasive Strategies Current Medications: Current Medications Medications (Trade) Dose Ordered Sig/Lashay Start Time Stop Time Status Last Admin Dose Admin Acetaminophen (Tylenol) 650 mg 1X ONCE 03/09/21 03:45 03/09/21 03:46 DC Sodium Chloride 1,000 ml @ 1,000 mls/hr 1X ONCE 03/09/21 04:15 03/09/21 05:14 UNV Allergies: Allergies: Allergies Coded Allergies Type Severity Reaction Last Updated Verified Penicillins Allergy Intermediate tolerates Ancef, Rocephin 11/30/20 Yes Sulfa (Sulfonamide Antibiotics) Allergy Intermediate 10/21/15 Yes Physical Exam: PE: Constitutional: Well developed, well nourished, no acute distress, non-toxic appearance. [] HENT: Normocephalic, atraumatic, bilateral external ears normal, oropharynx moist, no oral exudates, nose normal. [] Eyes: PERRLA, EOMI, conjunctiva normal, no discharge. [] Neck: Normal range of motion, no tenderness, supple, no stridor. [] Cardiovascular:Heart rate regular rhythm, no murmur [] Lungs & Thorax: Bilateral breath sounds clear to auscultation [] Abdomen: Bowel sounds normal, soft, no tenderness, no masses, no pulsatile masses. [] Skin: Warm, dry, no erythema, no rash. [] Back: No tenderness, no CVA tenderness. [] Extremities: No tenderness, no cyanosis, no clubbing, ROM intact, no edema. [] Neurologic: Alert but confused, normal motor function, normal sensory function, no focal deficits noted. [] Psychologic: Affect normal, judgement normal, mood normal. [] Current Patient Data: Labs: Laboratory Tests Test 03/09/21 03:50 White Blood Count 12.8 x10^3/uL (4.0-11.0) H Red Blood Count 4.01 x10^6/uL (3.50-5.40) Hemoglobin 8.8 g/dL (12.0-15.5) L Hematocrit 28.4 % (36.0-47.0) L Mean Corpuscular Volume 71 fL (79-100) L Mean Corpuscular Hemoglobin 22 pg (25-35) L Mean Corpuscular Hemoglobin Concent 31 g/dL (31-37) Red Cell Distribution Width 20.3 % (11.5-14.5) H Platelet Count 277 x10^3/uL (140-400) Neutrophils (%) (Auto) 88 % (31-73) H Lymphocytes (%) (Auto) 6 % (24-48) L Monocytes (%) (Auto) 5 % (0-9) Eosinophils (%) (Auto) 0 % (0-3) Basophils (%) (Auto) 0 % (0-3) Neutrophils # (Auto) 11.2 x10^3/uL (1.8-7.7) H Lymphocytes # (Auto) 0.8 x10^3/uL (1.0-4.8) L Monocytes # (Auto) 0.7 x10^3/uL (0.0-1.1) Eosinophils # (Auto) 0.0 x10^3/uL (0.0-0.7) Basophils # (Auto) 0.0 x10^3/uL (0.0-0.2) Platelet Estimate Pending Laboratory Tests 03/09/21 03:50 EKG: EKG: [] Radiology/Procedures: Radiology/Procedures: [] Course & Med Decision Making: Course & Med Decision Making Pertinent Labs and Imaging studies reviewed. (See chart for details) []Urine with LE and WBC. will treated for UTI. Started on rocephin. Admitted to hospital. Dragon Disclaimer: Dragon Disclaimer: This electronic medical record was generated, in whole or in part, using a voice recognition dictation system. Departure Departure Impression: Primary Impression: Confusion Additional Impression: UTI (urinary tract infection) Referrals: CARLOS VIDAL MD (PCP) EVELYN ELI DO Mar 09, 2021 04:10
[2021-03-09 04:12] LABS: CALCIUM 8.5 mg/dL (8.5-10.1); CREATININE 1.1 mg/dL (0.6-1.0); GFR 48.7; POTASSIUM 4.3 mmol/L (3.5-5.1)
[2021-03-09 04:15] LABS: BACTERIA,URINE MODERATE /HPF (0-FEW); RBC,URINE OCC /HPF (0-2)
[2021-03-09] MEDS ORDERED: IV NORMAL SALINE 1000ML BAG 1,000 ML IV ONE (04:15)
[2021-03-09 04:18] LABS: ALBUMIN 2.1 g/dL (3.4-5.0); ALBUMIN/GLOBULIN RATIO 0.5 (1.0-1.7); TOTAL BILIRUBIN 0.4 mg/dL (0.2-1.0); TOTAL PROTEIN 6.2 g/dL (6.4-8.2)
[2021-03-09 04:28] LABS: % BANDS 1 % (0-9); % LYMPHS 7 % (24-48); % MONOS 1 % (0-10); % SEGS 91 % (35-66); PLT ESTIMATE ADEQUATE (ADEQUATE)
[2021-03-09 04:29] LABS: ANISOCYTOSIS MOD; HYPOCHROMIA MOD; MICROCYTOSIS MOD
--- NOTE | 2021-03-09 05:25 | RAD ---
Study: XR CHEST 1V Indication: Fever. Comparison: 02/25/2021 Findings: Emphysematous changes of the lungs. Localized reticulonodular densities at the right lung base are un changed. Favored summation artifact at the lateral aspect the left lung base and pleural thickening a s opposed to trace fluid at the left costophrenic angle. No lobar consolidation or pneumothorax. Unch anged cardiomediastinal silhouette and lani. Osteopenia. Vascular calcifications. Moderate-sized hiatal hernia. Impression: No acute radiographic abnormality of the chest. Multiple chronic observations as above. Electronically signed by: AMEENA WISDOM MD (03/09/2021 5:23 AM) [facility]
[2021-03-09] MEDS ORDERED: cefTRIAXone IV Push 1 GM VIAL. IVP ONE (05:30)
[2021-03-09 05:34] LABS: AMPHETAMINE/METHAMPHETAMINE NEG (NEG); BARBITURATES NEG (NEG); BENZODIAZEPINES NEG (NEG); CANNABINOIDS NEG (NEG); COCAINE NEG (NEG); METHADONE NEG (NEG); OPIATES POS (NEG); PHENCYCLIDINE NEG (NEG)
[2021-03-09 08:00] VITALS: BP 126/41
--- NOTE | 2021-03-09 09:17 | HP ---
ADMIT DATE: 03/09/2021 CHIEF COMPLAINT: Mental status change. HISTORY OF PRESENT ILLNESS: The patient is a pleasant elderly female well known to our service. She presents with mental status change. While in the ER, we noticed that she has a UTI. I discussed the case with ER physician. We are going to admit the patient, give her IV antibiotics and fluids. PAST MEDICAL HISTORY: Dementia, previous UTIs, depression, COPD, anxiety, diabetes, diverticulitis, migraines, myocardial infarction, neuropathy, insomnia, cholecystectomy, , hysterectomy, cardiac stents, previous tobacco abuse. ALLERGIES: PENICILLIN AND SULFA. FAMILY HISTORY: Hypertension. SOCIAL HISTORY: She quit smoking. No drinking. She is retired. MEDICATIONS: Reviewed, please refer to the MRAD. REVIEW OF SYSTEMS: Unable to obtain, she is too confused. PHYSICAL EXAMINATION: VITALS: Within normal limits and are stable. GENERAL: She is pleasantly confused. HEENT: Normal cephalic atraumatic, external auditory canals are patent. EYES: Extraocular muscles are intact, pupils are equally round and reactive to light and accommodation. MUSCULOSKELETAL: Well developed, well nourished, good range of motion. ENDOCRINE: No thyromegaly was palpated. LYMPHATICS: No cervical chain or axillary nodes were noted. HEMATOPOIETIC: No bruising. NECK: Supple, no JVD, no thyromegaly was noted. LUNGS: Clear to auscultation in all lung dunlap without rhonchi or wheezing. HEART: RRR, S1, S2 present. Peripheral pulses intact, no obvious murmurs were noted. ABDOMEN: Soft, nontender. Positive bowel sounds no organomegaly, normal bowel sounds. EXTREMITIES: Without any cyanosis, clubbing, or edema. Pedal pulses intact, Homans sign is negative. NEUROLOGIC: She is pleasantly confused. PSYCHIATRIC: She is pleasantly confused. SKIN: No ulcerations or rashes, good skin turgor, no jaundice. VASCULAR: Good capillary refill, neurovascular bundle appears to be intact. LABORATORY DATA: Urinalysis shows leukocyte esterase and white cells. ASSESSMENT AND PLAN: Metabolic encephalopathy secondary to urinary tract infection with leukocytosis with a white count of 12.8. The patient will be admitted. We will start IV antibiotics, IV fluids, home meds. DVT prophylaxis. Full code. Trend labs. ELENA/GENESIS DR: ELENA/aj TID: [id number]
[2021-03-09 11:00] VITALS: BP 96/26
[2021-03-09] MEDS: IV NORMAL SALINE 1000ML BAG 1,000 ML IV SCH ×2 (14:29→23:20)
[2021-03-09 15:00] VITALS: BP 113/35
--- NOTE | 2021-03-09 15:51 | NUR ---
Patient arrived to the floor around 0806 by the ED. She was oriented to the hospital and her room. , Alexis, spoken with over the phone in regards to the patients admission status. IV in RW present upon admission but patient pulled it out around 1100 stating she did not want it there anymore. Patient with very small/frail veins. IV finally started by monorail charger operatorBRITTANY Shearer around 1420 in which fluids were started and her antibiotic. Patient often reoriented to the hospital due to confusion/forgetfullness. Patient noncombative but does holler out at times. Oxygen running at 2L NC at this present time. Will continue to monitor.
[2021-03-09] MEDS: MORPHINE SULFATE 2 MG/ML INJ. IVP PRN ×2 (17:00→17:26)
--- NOTE | 2021-03-09 17:13 | NUR ---
During assessment patient was noted to have a wound on her right heel, boggy left heel, right upper buttock, and left upper buttock. Patient has refused this nurse multiple times from taking pictures of them. Wound assessment done. WC team consulted.
[2021-03-09 19:00] VITALS: BP 116/37
[2021-03-09] MEDS: LACTOBACILLUS RHAMNOSUS GG 1 CAPSULE. PO SCH (21:00)
[2021-03-09 23:00] VITALS: BP 112/35
[2021-03-10 03:00] VITALS: BP 120/43
[2021-03-10] MEDS: MORPHINE SULFATE 2 MG/ML INJ. IVP PRN ×5 (03:27→18:33)
[2021-03-10 07:00] VITALS: BP 125/34
[2021-03-10] MEDS: LACTOBACILLUS RHAMNOSUS GG 1 CAPSULE. PO SCH ×2 (08:04→20:23)
[2021-03-10 11:00] VITALS: BP 111/31
[2021-03-10] MEDS: IV NORMAL SALINE 1000ML BAG 1,000 ML IV SCH ×2 (12:00→23:41)
--- NOTE | 2021-03-10 12:43 | CONS ---
DATE OF CONSULTATION: 03/10/2021 REFERRING PHYSICIAN: Dr. Pan. REASON FOR CONSULTATION: Fever, UTI. HISTORY OF PRESENT ILLNESS: A 75-year-old female with history of dementia, recently discharged from [facility] after undergoing ORIF of right femoral fracture, was brought in because of mental status changes. She was febrile, white count was 12 K. UA showed 1-4 wbc's, trace leukocyte esterase. She was empirically started on Levaquin for possible UTI. Chest x-ray revealed no acute abnormality. Creatinine was 1.1, with lactate of 1.3, albumin of 2.3. SARS-COVID PCR was negative. ID consultation has been requested for antibiotic management. PAST MEDICAL HISTORY: Dementia, previous UTI with Proteus, depression, COPD, anxiety, diabetes, diverticulosis, migraine, myocardial infarction, neuropathy, insomnia, cholecystectomy, , hysterectomy, cardiac stent, previous tobacco use, right ORIF. ALLERGIES: PENICILLIN, has tolerated ceftriaxone. ALSO SULFA ALLERGY. FAMILY HISTORY: As per HPI. SOCIAL HISTORY: No smoking, no alcohol, retired. CURRENT MEDICATIONS: Reviewed in MRAD. REVIEW OF SYSTEMS: Unable to obtain. PHYSICAL EXAMINATION: VITAL SIGNS: Temperature 98.4, pulse 73, respiratory rate 18, blood pressure 125/34, oxygen saturation 94% on 2 liters O2 by nasal cannula. GENERAL: Alert, oriented, pleasantly confused female, lying in bed comfortably on room air. HEENT: Normocephalic, atraumatic. No thrush. Oral mucosa moist. NECK: Supple. LUNGS: Clear. HEART: S1, S2. ABDOMEN: Soft, nontender. No rebound or guarding. EXTREMITIES: No edema, no cyanosis. NEUROLOGIC: Pleasantly confused. PSYCHIATRIC: Pleasantly confused. DERMATOLOGIC: Warm, dry, no generalized rash. LABORATORY DATA: CBC reviewed. CMP reviewed. Lactate 1.3. UA 1-4 wbc's, leukocyte esterase trace. SARS COVID screen negative. DIAGNOSTIC STUDIES: Chest x-ray reviewed. IMPRESSION: 1. Fever. 2. Leukocytosis. 3. Altered mental status, encephalopathy, likely metabolic with underlying dementia. 4. History of dementia. 5. History of recent open reduction internal fixation for right hip fracture. 6. Anemia. 7. History of diverticulosis. RECOMMENDATIONS: 1. Discontinue Levaquin. 2. Start ceftriaxone. The patient has tolerated that well in the past. 3. Monitor labs and cultures. 4. Continue supportive care. Maintain aspiration precaution. Thank you, Dr. Pan, for consulting Infectious Disease to participate in this patient's care. If you have any questions, do not hesitate to contact me. ELLY EVANS: Brisa TID: [id number] JULIANNA
[2021-03-10] MEDS: cefTRIAXone IV Push 1 GM VIAL. IVP SCH (13:37)
[2021-03-10 15:00] VITALS: BP 135/51
--- NOTE | 2021-03-10 15:25 | NUR ---
Wound/Ostomy Care Wound Type/Assessment: Wound Care consult for multiple wounds. Pt has stage II PU on left buttock, Right buttock is red but blanchable, Right heel has large blood-filled blister/DFU, Left heel has small DTI/DFU. Cleansed, pictured, measured, assessed and redressed wounds. Treatment Recommendations/Plan: Left buttock- calazime BID and PRN, Right and left heels- skin prep and foam dressings change every 3 days. Education provided: WC POC and PU prevention Offloading surface/device: bilateral heel medix boots, P500, wedge, TQ2H Recommended Referrals/Tests: none Discharge Recommendations for dressings: see above
--- NOTE | 2021-03-10 15:27 | PDOC ---
[employer] PROGRESS NOTE Date of Service DOS: DATE: 03/10/21 TIME: 15:25 Chief Complaint Chief Complaint Acute metabolic encephalopathy Acute cystitis Dementia Multiple falls AUNDREA due to vasomotor nephropathy Severe protein malnutrition Anemia of chronic disease History of Present Illness History of Present Illness The patient is a pleasant elderly female well known to our service. She presents with mental status change. While in the ER, we noticed that she has a UTI. I discussed the case with ER physician. We are going to admit the patient, give her IV antibiotics and fluids. PAST MEDICAL HISTORY: Dementia, previous UTIs, depression, COPD, anxiety, diabetes, diverticulitis, migraines, myocardial infarction, neuropathy, insomnia, cholecystectomy, C-s 03/10/2021 No acute events overnight. Seen and examined bedside. No concerns nursing at this time. ID is consulted and recommended to continue with IV ceftriaxone. Pending urine cultures. Patient's chart, labs, images were reviewed and discussed with RN Vitals/I&O Vitals/I&O: Vital Signs Date Time Temp Pulse Resp B/P (MAP) Pulse Ox O2 Delivery O2 Flow Rate FiO2 03/10/21 14:33 Nasal Cannula 2.0 03/10/21 11:00 99.1 74 18 111/31 (57 88 99.1 Physical Exam General: Alert, Cooperative, No acute distress Heart: Regular rate Lungs: Clear Abdomen: Normal bowel sounds Extremities: No clubbing Skin: No significant lesion Assessment and Plan Assessmemt and Plan Problems Medical Problems: (1) Confusion Status: Acute Comment Review of Relevant I have reviewed the following items tammie (where applicable) has been applied. Medications: Current Medications Medications (Trade) Dose Ordered Sig/Lashay Route PRN Reason Start Time Stop Time Status Last Admin Dose Admin Lactobacillus Rhamnosus (Culturelle) 1 cap BID PO 03/09/21 21:00 03/10/21 08:04 Lorazepam (Ativan Inj) 0.5 mg PRN Q4HRS PRN IVP ANXIETY / AGITATION 03/09/21 17:00 03/09/21 17:43 Morphine Sulfate (Morphine Sulfate) 2 mg PRN Q2HR PRN IVP PAIN 03/09/21 17:00 03/10/21 13:36 Ceftriaxone Sodium (Rocephin) 1 gm Q24H IVP 03/10/21 13:00 03/10/21 13:37 Justifications for Admission Other Justification Femur fracture CASS LEY MD Mar 10, 2021 15:27
[2021-03-10] MEDS ORDERED: risperiDONE 0.25 MG TABLET. PO PRN (17:30)
[2021-03-10] MEDS ORDERED: DOCUSATE SODIUM 100 MG CAPSULE. PO PRN (17:30)
[2021-03-10] MEDS ORDERED: ACETAMINOPHEN 325 MG TABLET. PO PRN (17:30)
[2021-03-10] MEDS ORDERED: DEXTROSE 50% 25 GM / 50ML DISP.SYRIN. IV PRN (17:30)
[2021-03-10] MEDS: CLOPIDOGREL BISULFATE 75 MG TABLET PO SCH (18:32)
[2021-03-10] MEDS: THIAMINE 100 MG TABLET. PO SCH (18:32)
[2021-03-10] MEDS: SERTRALINE 50 MG TABLET. PO SCH (18:33)
[2021-03-10] MEDS: MULTIVITAMIN with MINERAL TABLET. PO SCH (18:33)
[2021-03-10] MEDS: PSYLLIUM HUSK (SUGAR FREE) 1 PKT PACKET PO SCH (18:33)
[2021-03-10] MEDS: ASCORBIC ACID 1,000 MG TABLET PO SCH (18:33)
[2021-03-10 19:00] VITALS: BP 132/48
[2021-03-10] MEDS: ATORVASTATIN CALCIUM 40 MG TABLET. PO SCH (20:23)
[2021-03-10] MEDS: GABAPENTIN 300 MG CAPSULE. PO SCH (20:23)
[2021-03-10] MEDS: traZODone 100 MG TABLET. PO SCH (20:23)
[2021-03-10] MEDS: INSULIN GLARGINE SYRINGE. SQ SCH (20:28)
[2021-03-10] MEDS ORDERED: LACTOBACILLUS RHAMNOSUS GG 1 CAPSULE. PO SCH (21:00)
[2021-03-10 23:00] VITALS: BP 134/54
[2021-03-11 03:00] VITALS: BP 142/48
[2021-03-11 06:10] VITALS: BP 117/57
--- NOTE | 2021-03-11 08:35 | PDOC ---
Infectious Disease Note Subjective: Subjective Pt says feels fine denies any complaints now on O2 by NC Vital Signs: Vital Signs Vital Signs Date Time Temp Pulse Resp B/P (MAP) Pulse Ox O2 Delivery O2 Flow Rate FiO2 03/11/21 06:10 77 16 117/57 (77) 97 Nasal Cannula 2.0 03/11/21 03:00 97.8 97.8 Physical Exam: PHYSICAL EXAM GENERAL: Alert, oriented, pleasantly confused female, lying in bed comfortably HEENT: Normocephalic, atraumatic. No thrush. Oral mucosa moist. NECK: Supple. LUNGS: Clear. HEART: S1, S2. ABDOMEN: Soft, nontender. No rebound or guarding. EXTREMITIES: No edema, no cyanosis. NEUROLOGIC: Pleasantly confused. PSYCHIATRIC: Pleasantly confused. DERMATOLOGIC: Warm, dry, no generalized rash. Medications: Inpatient Meds: Medications reviewed. Labs: Lab Laboratory Tests Test 03/10/21 20:25 03/11/21 08:05 Glucose (Fingerstick) 342 mg/dL (70-99) 170 mg/dL (70-99) Objective: Assessment: 1. Fever. Improved 2. Leukocytosis. 3. Altered mental status, encephalopathy, likely metabolic with underlying dementia. 4. History of dementia. 5. History of recent open reduction internal fixation for right hip fracture. 6. Anemia. 7. History of diverticulosis. Plan: Plan of Care cont ceftriaxone. Monitor labs and cultures. . Maintain aspiration precaution. Continue supportive care PERFECTO GAGNON MD Mar 11, 2021 08:35
[2021-03-11] MEDS: MULTIVITAMIN with MINERAL TABLET. PO SCH (09:25)
[2021-03-11] MEDS: CLOPIDOGREL BISULFATE 75 MG TABLET PO SCH (09:25)
[2021-03-11] MEDS: SERTRALINE 50 MG TABLET. PO SCH (09:25)
[2021-03-11] MEDS: THIAMINE 100 MG TABLET. PO SCH (09:25)
[2021-03-11] MEDS: LACTOBACILLUS RHAMNOSUS GG 1 CAPSULE. PO SCH ×2 (09:25→21:19)
[2021-03-11] MEDS: INSULIN LISPRO 300 UNITS/3 ML VIAL. SQ SCH ×4 (09:32→18:20)
[2021-03-11] MEDS: INSULIN GLARGINE SYRINGE. SQ SCH ×2 (09:33→21:23)
[2021-03-11] MEDS: ASCORBIC ACID 1,000 MG TABLET PO SCH ×3 (09:34→18:05)
[2021-03-11 11:00] VITALS: BP 130/43
--- NOTE | 2021-03-11 11:35 | PDOC ---
[facility] PROGRESS NOTE Date of Service DOS: DATE: 03/11/21 TIME: 11:34 Chief Complaint Chief Complaint Acute metabolic encephalopathy Acute cystitis Dementia Multiple falls AUNDREA due to vasomotor nephropathy Severe protein malnutrition Anemia of chronic disease History of Present Illness History of Present Illness The patient is a pleasant elderly female well known to our service. She presents with mental status change. While in the ER, we noticed that she has a UTI. I discussed the case with ER physician. We are going to admit the patient, give her IV antibiotics and fluids. PAST MEDICAL HISTORY: Dementia, previous UTIs, depression, COPD, anxiety, diabetes, diverticulitis, migraines, myocardial infarction, neuropathy, insomnia, cholecystectomy, C-s 03/10/2021 No acute events overnight. Seen and examined bedside. No concerns nursing at this time. ID is consulted and recommended to continue with IV ceftriaxone. Pending urine cultures. Patient's chart, labs, images were reviewed and discussed with RN 03/11/2021 No acute events overnight. Patient seen and examined bedside. Patient appears to be doing better without any acute agitative episodes. Some slight confusion with her baseline dementia. Tolerating breakfast. PT OT evaluation ordered. Patient's chart, labs, images were reviewed and discussed with RN In addition to my E/M visit, advance care planning done with A total time of 20 minutes was spent from 1050 to 1110 face to face in discussion with the regarding their goals of care, CODE STATUS. Vitals/I&O Vitals/I&O: Vital Signs Date Time Temp Pulse Resp B/P (MAP) Pulse Ox O2 Delivery O2 Flow Rate FiO2 03/11/21 06:10 77 16 117/57 (77) 97 Nasal Cannula 2.0 03/11/21 03:00 97.8 97.8 I & O 03/10/21 03/10/21 03/11/21 15:00 23:00 07:00 Intake Total 60 ml 1378 ml Balance 60 ml 1378 ml Physical Exam Physical Exam: GENERAL: Alert, oriented, pleasantly confused female, lying in bed comfortably HEENT: Normocephalic, atraumatic. No thrush. Oral mucosa moist. NECK: Supple. LUNGS: Clear. HEART: S1, S2. ABDOMEN: Soft, nontender. No rebound or guarding. EXTREMITIES: No edema, no cyanosis. NEUROLOGIC: Pleasantly confused. PSYCHIATRIC: Pleasantly confused. DERMATOLOGIC: Warm, dry, no generalized rash. General: Alert, Cooperative, No acute distress Heart: Regular rate Lungs: Clear Abdomen: Normal bowel sounds Extremities: No clubbing Skin: No significant lesion Labs Labs: Laboratory Tests Test 03/10/21 20:25 03/11/21 08:05 Glucose (Fingerstick) 342 mg/dL (70-99) 170 mg/dL (70-99) Assessment and Plan Assessmemt and Plan Problems Medical Problems: (1) Confusion Status: Acute Comment Review of Relevant I have reviewed the following items tammie (where applicable) has been applied. Medications: Current Medications Medications (Trade) Dose Ordered Sig/Lashay Route PRN Reason Start Time Stop Time Status Last Admin Dose Admin Ceftriaxone Sodium (Rocephin) 1 gm Q24H IVP 03/10/21 13:00 03/10/21 13:37 Insulin Human Lispro (HumaLOG) 0-7 UNITS TIDWMEALS SQ 03/11/21 08:00 03/11/21 09:32 Insulin Glargine (Lantus Syringe) 10 unit BID SQ 03/10/21 21:00 03/11/21 09:33 Ascorbic Acid (Vitamin C) 1,000 mg TIDWMEALS PO 03/10/21 17:00 03/11/21 09:34 Atorvastatin Calcium (Lipitor) 40 mg HS PO 03/10/21 21:00 03/10/21 20:23 Clopidogrel Bisulfate (Plavix) 75 mg DAILY PO 03/10/21 18:00 03/11/21 09:25 Gabapentin (Neurontin) 300 mg QHS PO 03/10/21 21:00 03/10/21 20:23 Thiamine Mononitrate (Vitamin B-1) 100 mg DAILY PO 03/10/21 18:00 03/11/21 09:25 Trazodone HCl (Desyrel) 200 mg HS PO 03/10/21 21:00 03/10/21 20:23 Sertraline HCl (Zoloft) 100 mg DAILY PO 03/10/21 18:00 03/11/21 09:25 Multivitamins (Thera M Plus) 1 tab DAILY PO 03/10/21 18:00 03/11/21 09:25 Justifications for Admission Other Justification Femur fracture CASS LEY MD Mar 11, 2021 11:35
[2021-03-11] MEDS: cefTRIAXone IV Push 1 GM VIAL. IVP SCH (13:14)
[2021-03-11] MEDS: IV NORMAL SALINE 1000ML BAG 1,000 ML IV SCH (13:14)
[2021-03-11 15:00] VITALS: BP 143/52
[2021-03-11] MEDS: PSYLLIUM HUSK (SUGAR FREE) 1 PKT PACKET PO SCH (18:05)
[2021-03-11 19:00] VITALS: BP 139/45
[2021-03-11] MEDS: GABAPENTIN 300 MG CAPSULE. PO SCH (21:19)
[2021-03-11] MEDS: traZODone 100 MG TABLET. PO SCH (21:19)
[2021-03-11] MEDS: ATORVASTATIN CALCIUM 40 MG TABLET. PO SCH (21:19)
[2021-03-11] MEDS: MORPHINE SULFATE 2 MG/ML INJ. IVP PRN (21:25)
[2021-03-11 23:00] VITALS: BP 133/50
[2021-03-12] MEDS: IV NORMAL SALINE 1000ML BAG 1,000 ML IV SCH ×2 (02:01→17:55)
[2021-03-12 03:00] VITALS: BP 123/47
[2021-03-12 07:00] VITALS: BP 142/45
[2021-03-12] MEDS: INSULIN LISPRO 300 UNITS/3 ML VIAL. SQ SCH ×6 (08:00→17:00)
[2021-03-12] MEDS: THIAMINE 100 MG TABLET. PO SCH (10:00)
[2021-03-12] MEDS: CLOPIDOGREL BISULFATE 75 MG TABLET PO SCH (10:00)
[2021-03-12] MEDS: ASCORBIC ACID 1,000 MG TABLET PO SCH ×3 (10:01→16:51)
[2021-03-12] MEDS: SERTRALINE 50 MG TABLET. PO SCH (10:01)
[2021-03-12] MEDS: MULTIVITAMIN with MINERAL TABLET. PO SCH (10:01)
[2021-03-12] MEDS: LACTOBACILLUS RHAMNOSUS GG 1 CAPSULE. PO SCH ×2 (10:01→20:56)
[2021-03-12] MEDS: INSULIN GLARGINE SYRINGE. SQ SCH ×2 (10:06→22:00)
--- NOTE | 2021-03-12 10:56 | PDOC ---
Infectious Disease Note Subjective: Subjective Pt denies any complaints on O2 by NC Says feels' hungry' Vital Signs: Vital Signs Vital Signs Date Time Temp Pulse Resp B/P (MAP) Pulse Ox O2 Delivery O2 Flow Rate FiO2 03/12/21 07:00 98.4 65 20 142/45 (77) 97 Nasal Cannula 2.0 98.4 Physical Exam: PHYSICAL EXAM GENERAL: Alert, oriented, pleasantly confused female, lying in bed comfortably HEENT: Normocephalic, atraumatic. No thrush. Oral mucosa moist. NECK: Supple. LUNGS: Clear. HEART: S1, S2. ABDOMEN: Soft, nontender. No rebound or guarding. EXTREMITIES: No edema, no cyanosis. NEUROLOGIC: Pleasantly confused. PSYCHIATRIC: Pleasantly confused. DERMATOLOGIC: Warm, dry, no generalized rash. Medications: Inpatient Meds: Medications reviewed. Labs: Lab Laboratory Tests Test 03/11/21 11:54 03/11/21 17:19 03/11/21 20:14 03/12/21 07:19 Glucose (Fingerstick) 301 mg/dL (70-99) 128 mg/dL (70-99) 90 mg/dL (70-99) 116 mg/dL (70-99) Objective: Assessment: 1. Fever. Improved 2. Leukocytosis. 3. Altered mental status, encephalopathy, likely metabolic with underlying dementia. 4. History of dementia. 5. History of recent open reduction internal fixation for right hip fracture. 6. Anemia. 7. History of diverticulosis. Plan: Plan of Care DC ceftriaxone Cefdinir for 5 days Monitor labs and cultures. . Maintain aspiration precaution. Continue supportive care PT T and OT as tolerated Discussed with nursing staff PERFECTO GAGNON MD Mar 12, 2021 10:56
[2021-03-12] MEDS: MORPHINE SULFATE 2 MG/ML INJ. IVP PRN (10:58)
[2021-03-12 11:00] VITALS: BP 140/58
[2021-03-12 11:49] LABS: BASO % 1 % (0-3); CALCIUM 7.9 mg/dL (8.5-10.1); CREATININE 0.7 mg/dL (0.6-1.0); EOS # 0.1 x10^3/uL (0.0-0.7); EOS % 1 % (0-3); HEMATOCRIT 26.6 % (36.0-47.0); HEMOGLOBIN 8.2 g/dL (12.0-15.5); LYMPH # 1.3 x10^3/uL (1.0-4.8); LYMPH % 21 % (24-48); MAGNESIUM 1.9 mg/dL (1.8-2.4); MEAN CORPUSCULAR HEMOGLOBIN 22 pg (25-35); MEAN CORPUSCULAR HGB CONC 31 g/dL (31-37); MEAN CORPUSCULAR VOLUME 71 fL (79-100); MONO # 0.3 x10^3/uL (0.0-1.1); MONO % 4 % (0-9); NEUT # 4.3 x10^3/uL (1.8-7.7); NEUT % 72 % (31-73); PHOSPHORUS 2.6 mg/dL (2.6-4.7); PLATELET COUNT 303 x10^3/uL (140-400); RED BLOOD COUNT 3.74 x10^6/uL (3.50-5.40); RED CELL DISTRIBUTION WIDTH 19.8 % (11.5-14.5); WHITE BLOOD COUNT 5.9 x10^3/uL (4.0-11.0)
[2021-03-12] MEDS: cefTRIAXone IV Push 1 GM VIAL. IVP SCH (12:27)
--- NOTE | 2021-03-12 13:57 | PDOC ---
[facility] PROGRESS NOTE Date of Service DOS: DATE: 03/12/21 TIME: 13:57 Chief Complaint Chief Complaint Acute metabolic encephalopathy Acute cystitis Dementia Multiple falls AUNDREA due to vasomotor nephropathy Severe protein malnutrition Anemia of chronic disease History of Present Illness History of Present Illness The patient is a pleasant elderly female well known to our service. She presents with mental status change. While in the ER, we noticed that she has a UTI. I discussed the case with ER physician. We are going to admit the patient, give her IV antibiotics and fluids. PAST MEDICAL HISTORY: Dementia, previous UTIs, depression, COPD, anxiety, diabetes, diverticulitis, migraines, myocardial infarction, neuropathy, insomnia, cholecystectomy, C-s 03/10/2021 No acute events overnight. Seen and examined bedside. No concerns nursing at this time. ID is consulted and recommended to continue with IV ceftriaxone. Pending urine cultures. Patient's chart, labs, images were reviewed and discussed with RN 03/11/2021 No acute events overnight. Patient seen and examined bedside. Patient appears to be doing better without any acute agitative episodes. Some slight confusion with her baseline dementia. Tolerating breakfast. PT OT evaluation ordered. Patient's chart, labs, images were reviewed and discussed with RN In addition to my E/M visit, advance care planning done with A total time of 20 minutes was spent from 1050 to 1110 face to face in discussion with the regarding their goals of care, CODE STATUS. 03/12/2021 No acute events overnight. Patient seen and examined bedside. Patient is at her baseline with her dementia. PT OT evaluated and recommended long-term facility. IV antibiotics wishes to p.o. cefdinir for 5 days. Per ID and appreciate the recommendations. Patient's chart, labs, images were reviewed and discussed with RN Vitals/I&O Vitals/I&O: Vital Signs Date Time Temp Pulse Resp B/P (MAP) Pulse Ox O2 Delivery O2 Flow Rate FiO2 03/12/21 11:30 19 93 Nasal Cannula 03/12/21 11:00 98.1 60 140/58 (85) 2.0 98.1 I & O 03/11/21 03/11/21 03/12/21 15:00 23:00 07:00 Intake Total 200 ml 100 ml 1268 ml Balance 200 ml 100 ml 1268 ml Physical Exam Physical Exam: GENERAL: Alert, oriented, pleasantly confused female, lying in bed comfortably HEENT: Normocephalic, atraumatic. No thrush. Oral mucosa moist. NECK: Supple. LUNGS: Clear. HEART: S1, S2. ABDOMEN: Soft, nontender. No rebound or guarding. EXTREMITIES: No edema, no cyanosis. NEUROLOGIC: Pleasantly confused. PSYCHIATRIC: Pleasantly confused. DERMATOLOGIC: Warm, dry, no generalized rash. General: Alert, Cooperative, No acute distress Heart: Regular rate Lungs: Clear Abdomen: Normal bowel sounds Extremities: No clubbing Skin: No significant lesion Labs Labs: Laboratory Tests Test 03/11/21 17:19 03/11/21 20:14 03/12/21 07:19 03/12/21 10:50 Glucose (Fingerstick) 128 mg/dL (70-99) 90 mg/dL (70-99) 116 mg/dL (70-99) White Blood Count 5.9 x10^3/uL (4.0-11.0) Red Blood Count 3.74 x10^6/uL (3.50-5.40) Hemoglobin 8.2 g/dL (12.0-15.5) Hematocrit 26.6 % (36.0-47.0) Mean Corpuscular Volume 71 fL (79-100) Mean Corpuscular Hemoglobin 22 pg (25-35) Mean Corpuscular Hemoglobin Concent 31 g/dL (31-37) Red Cell Distribution Width 19.8 % (11.5-14.5) Platelet Count 303 x10^3/uL (140-400) Neutrophils (%) (Auto) 72 % (31-73) Lymphocytes (%) (Auto) 21 % (24-48) Monocytes (%) (Auto) 4 % (0-9) Eosinophils (%) (Auto) 1 % (0-3) Basophils (%) (Auto) 1 % (0-3) Neutrophils # (Auto) 4.3 x10^3/uL (1.8-7.7) Lymphocytes # (Auto) 1.3 x10^3/uL (1.0-4.8) Monocytes # (Auto) 0.3 x10^3/uL (0.0-1.1) Eosinophils # (Auto) 0.1 x10^3/uL (0.0-0.7) Basophils # (Auto) 0.0 x10^3/uL (0.0-0.2) Sodium Level 143 mmol/L (136-145) Potassium Level 3.0 mmol/L (3.5-5.1) Chloride Level 108 mmol/L (98-107) Carbon Dioxide Level 24 mmol/L (21-32) Anion Gap 11 (6-14) Blood Urea Nitrogen 4 mg/dL (7-20) Creatinine 0.7 mg/dL (0.6-1.0) Estimated GFR (Cockcroft-Gault) 82.0 Glucose Level 172 mg/dL (70-99) Calcium Level 7.9 mg/dL (8.5-10.1) Phosphorus Level 2.6 mg/dL (2.6-4.7) Magnesium Level 1.9 mg/dL (1.8-2.4) Test 03/12/21 11:40 Glucose (Fingerstick) 102 mg/dL (70-99) Assessment and Plan Assessmemt and Plan Problems Medical Problems: (1) Confusion Status: Acute Comment Review of Relevant I have reviewed the following items tammie (where applicable) has been applied. Medications: Current Medications Medications (Trade) Dose Ordered Sig/Lashay Route PRN Reason Start Time Stop Time Status Last Admin Dose Admin Insulin Human Lispro (HumaLOG) 10 units TIDWMEALS SQ 03/11/21 17:00 03/12/21 12:38 Justifications for Admission Other Justification Femur fracture CASS LEY MD Mar 12, 2021 13:57
[2021-03-12 15:00] VITALS: BP 157/59
[2021-03-12] MEDS ORDERED: POTASSIUM CHLORIDE 20 MEQ TABLET.ER. PO ONE (16:30)
[2021-03-12] MEDS: PSYLLIUM HUSK (SUGAR FREE) 1 PKT PACKET PO SCH (16:52)
[2021-03-12 19:00] VITALS: BP 149/53
[2021-03-12] MEDS: traZODone 100 MG TABLET. PO SCH (20:56)
[2021-03-12] MEDS: ATORVASTATIN CALCIUM 40 MG TABLET. PO SCH (20:56)
[2021-03-12] MEDS: CEFDINIR 300 MG CAPSULE PO SCH (20:56)
[2021-03-12] MEDS: GABAPENTIN 300 MG CAPSULE. PO SCH (20:56)
[2021-03-12 23:00] VITALS: BP 152/46
[2021-03-13 03:00] VITALS: BP 137/45
[2021-03-13 06:51] VITALS: BP 143/43
[2021-03-13] MEDS: INSULIN LISPRO 300 UNITS/3 ML VIAL. SQ SCH ×6 (08:00→17:35)
[2021-03-13] MEDS: IV NORMAL SALINE 1000ML BAG 1,000 ML IV SCH ×2 (08:28→21:20)
[2021-03-13] MEDS: CEFDINIR 300 MG CAPSULE PO SCH ×2 (08:28→21:20)
[2021-03-13] MEDS: MULTIVITAMIN with MINERAL TABLET. PO SCH (08:29)
[2021-03-13] MEDS: THIAMINE 100 MG TABLET. PO SCH (08:29)
[2021-03-13] MEDS: SERTRALINE 50 MG TABLET. PO SCH (08:29)
[2021-03-13] MEDS: CLOPIDOGREL BISULFATE 75 MG TABLET PO SCH (08:29)
[2021-03-13] MEDS: LACTOBACILLUS RHAMNOSUS GG 1 CAPSULE. PO SCH ×2 (08:29→21:20)
[2021-03-13] MEDS: ASCORBIC ACID 1,000 MG TABLET PO SCH ×3 (09:08→17:28)
[2021-03-13] MEDS: INSULIN GLARGINE SYRINGE. SQ SCH ×2 (09:10→21:00)
[2021-03-13] MEDS: MORPHINE SULFATE 2 MG/ML INJ. IVP PRN (09:38)
[2021-03-13 11:00] VITALS: BP 132/42
--- NOTE | 2021-03-13 11:34 | PDOC ---
[facility] PROGRESS NOTE Date of Service DOS: DATE: 03/13/21 TIME: 11:32 Chief Complaint Chief Complaint Acute metabolic encephalopathy Acute cystitis Dementia Multiple falls AUNDREA due to vasomotor nephropathy Severe protein malnutrition Anemia of chronic disease History of Present Illness History of Present Illness The patient is a pleasant elderly female well known to our service. She presents with mental status change. While in the ER, we noticed that she has a UTI. I discussed the case with ER physician. We are going to admit the patient, give her IV antibiotics and fluids. PAST MEDICAL HISTORY: Dementia, previous UTIs, depression, COPD, anxiety, diabetes, diverticulitis, migraines, myocardial infarction, neuropathy, insomnia, cholecystectomy, C-s 03/10/2021 No acute events overnight. Seen and examined bedside. No concerns nursing at this time. ID is consulted and recommended to continue with IV ceftriaxone. Pending urine cultures. Patient's chart, labs, images were reviewed and discussed with RN 03/11/2021 No acute events overnight. Patient seen and examined bedside. Patient appears to be doing better without any acute agitative episodes. Some slight confusion with her baseline dementia. Tolerating breakfast. PT OT evaluation ordered. Patient's chart, labs, images were reviewed and discussed with RN In addition to my E/M visit, advance care planning done with A total time of 20 minutes was spent from 1050 to 1110 face to face in discussion with the regarding their goals of care, CODE STATUS. 03/12/2021 No acute events overnight. Patient seen and examined bedside. Patient is at her baseline with her dementia. PT OT evaluated and [facility]. IV antibiotics wishes to p.o. cefdinir for 5 days. Per ID and appreciate the recommendations. Patient's chart, labs, images were reviewed and discussed with RN 03/13/2021 No acute events overnight. Patient seen examined bedside. Pleasantly confused. Pending SNF placement. Continue cefdinir. Patient's chart, labs, images were reviewed and discussed with RN Vitals/I&O Vitals/I&O: Vital Signs Date Time Temp Pulse Resp B/P (MAP) Pulse Ox O2 Delivery O2 Flow Rate FiO2 03/13/21 10:08 16 97 Nasal Cannula 2.0 03/13/21 06:51 98.5 67 143/43 (76) 98.5 I & O 803/12/21 03/13/21 15:00 23:00 07:00 Intake Total 400 ml 200 ml 900 ml Output Total 1 ml Balance 400 ml 200 ml 899 ml Physical Exam Physical Exam: GENERAL: Alert, oriented, pleasantly confused female, lying in bed comfortably HEENT: Normocephalic, atraumatic. No thrush. Oral mucosa moist. NECK: Supple. LUNGS: Clear. HEART: S1, S2. ABDOMEN: Soft, nontender. No rebound or guarding. EXTREMITIES: No edema, no cyanosis. NEUROLOGIC: Pleasantly confused. PSYCHIATRIC: Pleasantly confused. DERMATOLOGIC: Warm, dry, no generalized rash. General: Alert, Cooperative, No acute distress Heart: Regular rate Lungs: Clear Abdomen: Normal bowel sounds Extremities: No clubbing Skin: No significant lesion Labs Labs: Laboratory Tests Test 03/12/21 11:40 03/12/21 16:36 03/12/21 20:21 03/13/21 07:41 Glucose (Fingerstick) 102 mg/dL (70-99) 79 mg/dL (70-99) 158 mg/dL (70-99) 108 mg/dL (70-99) Assessment and Plan Assessmemt and Plan Problems Medical Problems: (1) Confusion Status: Acute Comment Review of Relevant I have reviewed the following items tammie (where applicable) has been applied. Medications: Current Medications Medications (Trade) Dose Ordered Sig/Lashay Route PRN Reason Start Time Stop Time Status Last Admin Dose Admin Cefdinir (Omnicef) 300 mg BID PO 03/12/21 21:00 03/13/21 08:28 Potassium Chloride (Klor-Con) 40 meq 1X ONCE PO 03/12/21 16:30 03/12/21 16:31 DC 03/12/21 16:52 Justifications for Admission Other Justification Femur fracture CASS LEY MD Mar 13, 2021 11:34
--- NOTE | 2021-03-13 12:23 | PDOC ---
Infectious Disease Note Subjective: Subjective Pt denies any complaints Vital Signs: Vital Signs Vital Signs Date Time Temp Pulse Resp B/P (MAP) Pulse Ox O2 Delivery O2 Flow Rate FiO2 03/13/21 11:00 97.8 71 18 132/42 (72) 92 Nasal Cannula 2.0 97.8 Physical Exam: PHYSICAL EXAM GENERAL: Alert, oriented, pleasantly confused female, lying in bed comfortably HEENT: Normocephalic, atraumatic. No thrush. Oral mucosa moist. NECK: Supple. LUNGS: Clear. HEART: S1, S2. ABDOMEN: Soft, nontender. No rebound or guarding. EXTREMITIES: No edema, no cyanosis. NEUROLOGIC: Pleasantly confused. PSYCHIATRIC: Pleasantly confused. DERMATOLOGIC: Warm, dry, no generalized rash. Medications: Inpatient Meds: Medications reviewed. Labs: Lab Laboratory Tests Test 03/12/21 16:36 03/12/21 20:21 03/13/21 07:41 03/13/21 11:28 Glucose (Fingerstick) 79 mg/dL (70-99) 158 mg/dL (70-99) 108 mg/dL (70-99) 86 mg/dL (70-99) Objective: Assessment: 1. Fever. Improved 2. Leukocytosis. Resolved 3. Altered mental status, encephalopathy, likely metabolic with underlying dementia. 4. History of dementia. 5. History of recent open reduction internal fixation for right hip fracture. 6. Anemia. 7. History of diverticulosis. Plan: Plan of Care Cefdinir for total of 5 days Monitor labs and cultures. Maintain aspiration precaution. Continue supportive care PT and OT as tolerated PERFECTO GAGNON MD Mar 13, 2021 12:23
[2021-03-13 15:00] VITALS: BP 140/46
[2021-03-13] MEDS: PSYLLIUM HUSK (SUGAR FREE) 1 PKT PACKET PO SCH (17:28)
[2021-03-13 19:00] VITALS: BP 152/45
[2021-03-13] MEDS: ATORVASTATIN CALCIUM 40 MG TABLET. PO SCH (21:20)
[2021-03-13] MEDS: GABAPENTIN 300 MG CAPSULE. PO SCH (21:20)
[2021-03-13] MEDS: traZODone 100 MG TABLET. PO SCH (21:20)
[2021-03-13 23:00] VITALS: BP 149/53
[2021-03-14 03:20] VITALS: BP 154/60
[2021-03-14] MEDS: MORPHINE SULFATE 2 MG/ML INJ. IVP PRN (04:48)
[2021-03-14 05:34] LABS: CREATININE 0.8 mg/dL (0.6-1.0); GFR 70.3; MAGNESIUM 1.7 mg/dL (1.8-2.4); PHOSPHORUS 3.8 mg/dL (2.6-4.7); POTASSIUM 3.1 mmol/L (3.5-5.1)
[2021-03-14 07:00] VITALS: BP 139/39
[2021-03-14] MEDS: INSULIN LISPRO 300 UNITS/3 ML VIAL. SQ SCH ×3 (08:00→12:35)
--- NOTE | 2021-03-14 09:02 | PDOC ---
Infectious Disease Note Subjective: Subjective Pt denies any complaints Vital Signs: Vital Signs Vital Signs Date Time Temp Pulse Resp B/P (MAP) Pulse Ox O2 Delivery O2 Flow Rate FiO2 03/14/21 05:35 18 92 Nasal Cannula 2.0 03/14/21 03:20 97.9 72 154/60 (91) 97.9 Physical Exam: PHYSICAL EXAM GENERAL: Alert, oriented, pleasantly confused female, lying in bed comfortably HEENT: Normocephalic, atraumatic. No thrush. Oral mucosa moist. NECK: Supple. LUNGS: Clear. HEART: S1, S2. ABDOMEN: Soft, nontender. No rebound or guarding. EXTREMITIES: No edema, no cyanosis. NEUROLOGIC: Pleasantly confused. PSYCHIATRIC: Pleasantly confused. DERMATOLOGIC: Warm, dry, no generalized rash. Medications: Inpatient Meds: Medications reviewed. Labs: Lab Laboratory Tests Test 03/13/21 11:28 03/13/21 16:40 03/13/21 20:45 03/14/21 04:20 Glucose (Fingerstick) 86 mg/dL (70-99) 161 mg/dL (70-99) 65 mg/dL (70-99) Sodium Level 149 mmol/L (136-145) Potassium Level 3.1 mmol/L (3.5-5.1) Chloride Level 111 mmol/L (98-107) Carbon Dioxide Level 28 mmol/L (21-32) Anion Gap 10 (6-14) Blood Urea Nitrogen 3 mg/dL (7-20) Creatinine 0.8 mg/dL (0.6-1.0) Estimated GFR (Cockcroft-Gault) 70.3 Glucose Level 77 mg/dL (70-99) Calcium Level 8.0 mg/dL (8.5-10.1) Phosphorus Level 3.8 mg/dL (2.6-4.7) Magnesium Level 1.7 mg/dL (1.8-2.4) Test 03/14/21 08:20 Glucose (Fingerstick) 89 mg/dL (70-99) Objective: Assessment: 1. Fever. Improved 2. Leukocytosis. Resolved 3. Altered mental status, encephalopathy, likely metabolic with underlying dementia. 4. History of dementia. 5. History of recent open reduction internal fixation for right hip fracture. 6. Anemia. 7. History of diverticulosis. Plan: Plan of Care Complete cefdinir as planned for a total of 5 days Monitor labs and cultures. Maintain aspiration precaution. Continue supportive care PT and OT as tolerated PERFECTO GAGNON MD Mar 14, 2021 09:02
[2021-03-14] MEDS: SERTRALINE 50 MG TABLET. PO SCH (09:03)
[2021-03-14] MEDS: CLOPIDOGREL BISULFATE 75 MG TABLET PO SCH (09:03)
[2021-03-14] MEDS: LACTOBACILLUS RHAMNOSUS GG 1 CAPSULE. PO SCH (09:03)
[2021-03-14] MEDS: CEFDINIR 300 MG CAPSULE PO SCH (09:03)
[2021-03-14] MEDS: ASCORBIC ACID 1,000 MG TABLET PO SCH ×2 (09:03→12:28)
[2021-03-14] MEDS: THIAMINE 100 MG TABLET. PO SCH (09:03)
[2021-03-14] MEDS: MULTIVITAMIN with MINERAL TABLET. PO SCH (09:03)
[2021-03-14] MEDS: INSULIN GLARGINE SYRINGE. SQ SCH (09:04)
[2021-03-14] MEDS ORDERED: POTASSIUM BICARB 20 MEQ EFFERVESCENT TABLET. PO ONE ×2 (10:15→12:15)
[2021-03-14] MEDS ORDERED: traMADol 50 MG TABLET PO PRN (10:15)
--- NOTE | 2021-03-14 10:17 | PDOC ---
[facility] PROGRESS NOTE Date of Service DOS: DATE: 03/14/21 TIME: 10:14 Chief Complaint Chief Complaint Acute metabolic encephalopathy Acute cystitis Dementia Multiple falls AUNDREA due to vasomotor nephropathy Severe protein malnutrition Anemia of chronic disease Multiple wounds -left buttock stage II, right buttock stage I, right heel blister.. Left heel small ulcer. History of Present Illness History of Present Illness Ms Bennett is a 75yo F w/ PMHx depression, dementia, COPD, anxiety, DM2, migraines who presents from home with mental status change. Found with abnormal UA, admitted the patient, give her IV antibiotics and fluids. 03/10: No acute events overnight. Seen and examined bedside. No concerns nursing at this time. ID is consulted and recommended to continue with IV ceftriaxone. Pending urine cultures. Patient's chart, labs, images were reviewed and discussed with RN 03/11: No acute events overnight. Patient seen and examined bedside. Patient appears to be doing better without any acute agitative episodes. Some slight confusion with her baseline dementia. Tolerating breakfast. PT OT evaluation ordered. 03/12: No acute events overnight. Patient seen and examined bedside. Patient is at her baseline with her dementia. PT OT evaluated and recommended skilled n ursing facility. IV antibiotics wishes to p.o. cefdinir for 5 days. Per ID and appreciate the recommendations. 03/13: No acute events overnight. Patient seen examined bedside. Pleasantly confused. Pending SNF placement. Continue cefdinir. Patient's chart, labs, images were reviewed and discussed with RN Complain of some pain in her right heel today otherwise tolerating therapy reasonably well on p.o. antibiotics. Family wishes for patient to come home with home health. Vitals/I&O Vitals/I&O: Vital Signs Date Time Temp Pulse Resp B/P (MAP) Pulse Ox O2 Delivery O2 Flow Rate FiO2 03/14/21 08:30 Nasal Cannula 2.0 03/14/21 07:00 98.0 65 18 139/39 (72) 94 98.0 I & O 03/13/21 03/13/21 03/14/21 15:00 23:00 07:00 Intake Total 640 ml 240 ml Balance 640 ml 240 ml Physical Exam Physical Exam: GENERAL: Alert, oriented, pleasantly confused female, lying in bed comfortably HEENT: Normocephalic, atraumatic. No thrush. Oral mucosa moist. NECK: Supple. LUNGS: Clear. HEART: S1, S2. ABDOMEN: Soft, nontender. No rebound or guarding. EXTREMITIES: No edema, no cyanosis. NEUROLOGIC: Pleasantly confused. PSYCHIATRIC: Pleasantly confused. DERMATOLOGIC: Warm, dry, no generalized rash. General: Alert, Cooperative, No acute distress Heart: Regular rate Lungs: Clear Abdomen: Normal bowel sounds Extremities: No clubbing Skin: No significant lesion Labs Labs: Laboratory Tests Test 03/13/21 11:28 03/13/21 16:40 03/13/21 20:45 03/14/21 04:20 Glucose (Fingerstick) 86 mg/dL (70-99) 161 mg/dL (70-99) 65 mg/dL (70-99) Sodium Level 149 mmol/L (136-145) Potassium Level 3.1 mmol/L (3.5-5.1) Chloride Level 111 mmol/L (98-107) Carbon Dioxide Level 28 mmol/L (21-32) Anion Gap 10 (6-14) Blood Urea Nitrogen 3 mg/dL (7-20) Creatinine 0.8 mg/dL (0.6-1.0) Estimated GFR (Cockcroft-Gault) 70.3 Glucose Level 77 mg/dL (70-99) Calcium Level 8.0 mg/dL (8.5-10.1) Phosphorus Level 3.8 mg/dL (2.6-4.7) Magnesium Level 1.7 mg/dL (1.8-2.4) Test 03/14/21 08:20 Glucose (Fingerstick) 89 mg/dL (70-99) Assessment and Plan Assessmemt and Plan Problems Medical Problems: (1) Confusion Status: Acute Comment Review of Relevant I have reviewed the following items tammie (where applicable) has been applied. Justifications for Admission Other Justification Femur fracture AWAIS PLEITEZ MD Mar 14, 2021 10:17
[2021-03-14] MEDS ORDERED: MAGNESIUM SULFATE 2GM 50 ML IV ONE (10:30)
[2021-03-14 11:00] VITALS: BP 135/45
[2021-03-14] MEDS ORDERED: INSULIN LISPRO 300 UNITS/3 ML VIAL. SQ SCH (12:00)
[2021-03-14] MEDS ORDERED: INSU100I13 SQ (13:30)
[2021-03-14] MEDS ORDERED: TRAM50TA PO (13:30)
[2021-03-14] MEDS ORDERED: CEFD300C PO (13:30)
--- NOTE | 2021-03-14 13:35 | SNU/HH DC ---
DISCHARGE WITH HOME HEALTH DISCHARGE INFORMATION: Discharge Date: Mar 14, 2021 Final Diagnosis: Problems Medical Problems: (1) Confusion Status: Acute Condition on Discharge: Stable CODE STATUS: Code Status: Full HOME HEALTH: Face to Face: I certify this patient is under my care and that I, or a nurse practitioner or physician's assistant finance director working with me, had a face to face encounter that meets the physician face to face encounter requirements with this patient on 03/14/2021. Medical Complications: Dementia, Falls, FX, HTN Usp For: Medication Management, Pain Management, certified caregiver For Eval/Treatment: Yes Physical Therapy For: Evalulation/Treatment Occupational Therapy For: Evaluation/Treatment Home Health Aide For: Self-care Pt Meets Homebound Status: Unsteady balance w/ amb,, Frequent falls w/ injury, Limited distance walking, Poor cognition POST DISCHARGE ORDERS: Activity Instructions for Disc: Activity as tolerated, Progressive ambulation Weight Bearing Status after Di: As tolerated Bathing Instructions: Shower-keep dressing dry DIET AFTER DISCHARGE: ADA Wound/Incision Care: Do not change dressing CHECKS AFTER DISCHARGE: Checks after discharge: Check blood press - daily, Check blood sugar, ac/hs FOLLOW-UP: PCP to follow Home Health: Dr. Sammy Crawley DC TO SNF LABS: CBC, CMP weekly TREATMENT/EQUIPMENT ORDERS: Adaptive Equipment Issued: None Discharge Respiratory Equipmen: Oxygen CERTIFICATION STATEMENT: Certification Statement: Certification Statement: Based on the above finding, I certify that this patient is confined to the home and needs intermittent intermediate care, physical therapy and/or speech therapy, or continues to need occupational therapy.~ This patient is under my care, and I have initiated the establishment of the plan of care.~ This patient will be followed by myself or a community physician who will periodically review the plan of care. Home Meds Active Scripts Cefdinir (CEFDINIR) 300 Mg Capsule, 300 MG PO BID for UTI for 5 Days, #10 CAP Prov:AWAIS PLEITEZ MD 03/14/21 Insulin Glargine,Hum.rec.anlog (LANTUS SOLOSTAR) 100 Unit/1 Ml Insuln.pen, 25 UNIT SQ QHS for DM2 for 30 Days, #15 ML 5 Refills Prov:AWAIS PLEITEZ MD 03/14/21 Enoxaparin Sodium (ENOXAPARIN SODIUM) 40 Mg/0.4 Ml Disp.syrin, 40 MG SQ Q24H for Hip fracture for 14 Days, #14 DIS.SYR 0 Refills Prov:RYAN AVILEZ MD 03/01/21 Gabapentin (GABAPENTIN) 300 Mg Capsule, 300 MG PO QHS for Neuropathy, #30 CAP 2 Refills Prov:RYAN AVILEZ MD 03/01/21 Ascorbic Acid (VITAMIN C) 1,000 Mg Tablet, 1000 MG PO TIDWMEALS for SUPPLEMENT for 30 Days, #90 TAB Prov:KELLI EMMANUEL MD 12/17/20 Thiamine Mononitrate (VITAMIN B-1) 100 Mg Tablet, 100 MG PO DAILY for SUPPLEMENT for 30 Days, #30 TAB Prov:KELLI EMMANUEL MD 12/17/20 Lactobacillus Rhamnosus Gg (CULTURELLE) 1 Each Cap.sprink, 1 CAP PO BID for SUPPLEMENT for 30 Days, #60 CAP Prov:KELLI EMMANUEL MD 12/17/20 Psyllium Husk/Aspartame (METAMUCIL FIBER SINGLES PACKET) 3.4 Gm Powd.pack, 1 PKT PO DAILY16 for STOOLS for 30 Days, #30 PKT Prov:KELLI EMMANUEL MD 05/04/20 Docusate Sodium (DOK) 100 Mg Capsule, 100 MG PO PRN BID PRN for HARD STOOLS for 30 Days, #60 CAP Prov:KELLI EMMANUEL MD 05/04/20 Acetaminophen (TYLENOL) 325 Mg Tablet, 650 MG PO PRN Q4HRS PRN for TEMP OVER 100.4F for 30 Days, #100 TAB Prov:KELLI EMMANUEL MD 05/04/20 Reported Medications Risperidone (RISPERIDONE) 0.5 Mg Tablet, 0.25 MG PO PRN QHS PRN for ANXIETY / AGITATION, TAB 11/29/20 Insulin Aspart (NOVOLOG) 100 Unit/1 Ml Cartridge, 10 UNIT SQ TIDWMEALS for , EACH 11/29/20 Sertraline Hcl (ZOLOFT) 100 Mg Tablet, 100 MG PO DAILY for ANTI-DEPRESSANT, TAB 0 Refills 11/29/20 Esomeprazole Magnesium (NEXIUM CAPSULE) 40 Mg Capsule.dr, 40 MG PO DAILYAC for , #30 CAP 0 Refills 11/29/20 Atorvastatin Calcium (ATORVASTATIN CALCIUM) 40 Mg Tablet, 40 MG PO HS for FOR CHOLESTEROL, #30 TAB 0 Refills 02/28/14 Clopidogrel Bisulfate (CLOPIDOGREL) 75 Mg Tablet, 75 MG PO DAILY for TO PREVENT BLOOD CLOTS, #30 TAB 0 Refills 02/28/14 Trazodone Hcl (TRAZODONE HCL) 100 Mg Tablet, 200 MG PO HS, TAB 02/28/14 Discontinued Scripts Fluconazole (DIFLUCAN) 200 Mg Tablet, 1 TAB PO DAILY for yeast UTI, #7 TAB Prov:CASS LEY MD 02/24/21 AWAIS PLEITEZ MD Mar 14, 2021 13:35
--- NOTE | 2021-03-14 13:36 | PDOC3 ---
Discharge Summary Visit Information Date of Admission: Mar 09, 2021 Date of Discharge: Mar 14, 2021 Final Diagnosis Problems Medical Problems: (1) Confusion Status: Acute Brief Hospital Course Allergies Allergies Coded Allergies Type Severity Reaction Last Updated Verified Penicillins Allergy Intermediate tolerates Ancef, Rocephin 11/30/20 Yes Sulfa (Sulfonamide Antibiotics) Allergy Intermediate 10/21/15 Yes Vital Signs Vital Signs Date Time Temp Pulse Resp B/P (MAP) Pulse Ox O2 Delivery O2 Flow Rate FiO2 03/14/21 08:30 Nasal Cannula 2.0 03/14/21 07:00 98.0 65 18 139/39 (72) 94 98.0 Lab Results Laboratory Tests Test 03/12/21 16:36 03/12/21 20:21 03/13/21 07:41 03/13/21 11:28 Glucose (Fingerstick) 79 mg/dL (70-99) 158 mg/dL (70-99) 108 mg/dL (70-99) 86 mg/dL (70-99) Test 03/13/21 16:40 03/13/21 20:45 03/14/21 04:20 03/14/21 08:20 Glucose (Fingerstick) 161 mg/dL (70-99) 65 mg/dL (70-99) 89 mg/dL (70-99) Sodium Level 149 mmol/L (136-145) Potassium Level 3.1 mmol/L (3.5-5.1) Chloride Level 111 mmol/L (98-107) Carbon Dioxide Level 28 mmol/L (21-32) Anion Gap 10 (6-14) Blood Urea Nitrogen 3 mg/dL (7-20) Creatinine 0.8 mg/dL (0.6-1.0) Estimated GFR (Cockcroft-Gault) 70.3 Glucose Level 77 mg/dL (70-99) Calcium Level 8.0 mg/dL (8.5-10.1) Phosphorus Level 3.8 mg/dL (2.6-4.7) Magnesium Level 1.7 mg/dL (1.8-2.4) Test 03/14/21 12:09 Glucose (Fingerstick) 179 mg/dL (70-99) Laboratory Tests Test 03/13/21 16:40 03/13/21 20:45 03/14/21 04:20 03/14/21 08:20 Glucose (Fingerstick) 161 mg/dL (70-99) 65 mg/dL (70-99) 89 mg/dL (70-99) Sodium Level 149 mmol/L (136-145) Potassium Level 3.1 mmol/L (3.5-5.1) Chloride Level 111 mmol/L (98-107) Carbon Dioxide Level 28 mmol/L (21-32) Anion Gap 10 (6-14) Blood Urea Nitrogen 3 mg/dL (7-20) Creatinine 0.8 mg/dL (0.6-1.0) Estimated GFR (Cockcroft-Gault) 70.3 Glucose Level 77 mg/dL (70-99) Calcium Level 8.0 mg/dL (8.5-10.1) Phosphorus Level 3.8 mg/dL (2.6-4.7) Magnesium Level 1.7 mg/dL (1.8-2.4) Test 03/14/21 12:09 Glucose (Fingerstick) 179 mg/dL (70-99) Brief Hospital Course Ms. Bennett is a 75 old [sex] who presented with [ ] Discharge Information Scheduled Ascorbic Acid (Vitamin C) 1,000 Mg Tablet, 1,000 MG PO TIDWMEALS for SUPPLEMENT for 30 Days, #90 Prescribed by: KELLI EMMANUEL MD on 12/17/20 1358 Last Action: Continued on 03/10/211719 by SHERRIE ENAMORADO Atorvastatin Calcium (Atorvastatin Calcium) 40 Mg Tablet, 40 MG PO HS for FOR CHOLESTEROL, #30 Ref 0 (Reported) Entered as Reported by: TOMMY ARRIOLA on 02/28/14 1356 Last Action: Continued on 03/10/211719 by SHERRIE ENAMORADO Cefdinir (Cefdinir) 300 Mg Capsule, 300 MG PO BID for UTI for 5 Days, #10 Prescribed by: AWAIS PLEITEZ MD on 03/14/21 1330 Clopidogrel Bisulfate (Clopidogrel) 75 Mg Tablet, 75 MG PO DAILY for TO PREVENT BLOOD CLOTS, #30 Ref 0 (Reported) Entered as Reported by: TOMMY ARRIOLA on 02/28/14 1356 Last Action: Continued on 03/10/211719 by SHERRIE ENAMORADO Enoxaparin Sodium (Enoxaparin Sodium) 40 Mg/0.4 Ml Disp.syrin, 40 MG SQ Q24H for Hip fracture for 14 Days, #14 Ref 0 Prescribed by: RYAN AVILEZ MD on 03/01/211104 Esomeprazole Magnesium (Nexium Capsule) 40 Mg Capsule.dr, 40 MG PO DAILYAC for , #30 Ref 0 (Reported) Entered as Reported by: MYRIAM PETERSON RN on 11/29/202309 Gabapentin (Gabapentin) 300 Mg Capsule, 300 MG PO QHS for Neuropathy, #30 Ref 2 Prescribed by: RYAN AVILEZ MD on 03/01/211102 Last Action: Continued on 03/10/211719 by SHERRIE ENAMORADO Insulin Aspart (Novolog) 100 Unit/1 Ml Cartridge, 10 UNIT SQ TIDWMEALS for , (Reported) Entered as Reported by: MYRIAM PETERSON RN on 11/29/202312 Insulin Glargine,Hum.rec.anlog (Lantus Solostar) 100 Unit/1 Ml Insuln.pen, 25 UNIT SQ QHS for DM2 for 30 Days, #15 Ref 5 Prescribed by: AWAIS PLEITEZ MD on 03/14/21 1330 Lactobacillus Rhamnosus Gg (Culturelle) 1 Each Cap.sprink, 1 CAP PO BID for SUPPLEMENT for 30 Days, #60 Prescribed by: KELLI EMMANUEL MD on 12/17/20 2530 Last Action: Continued on 03/10/211719 by SHERRIE ENAMORADO Psyllium Husk/Aspartame (Metamucil Fiber Singles Packet) 3.4 Gm Powd.pack, 1 PKT PO DAILY16 for STOOLS for 30 Days, #30 Prescribed by: KELLI EMMANUEL MD on 05/04/20 1042 Last Action: Continued on 03/10/211719 by SHERRIE ENAMORADO Sertraline Hcl (Zoloft) 100 Mg Tablet, 100 MG PO DAILY for ANTI-DEPRESSANT, Ref 0 (Reported) Entered as Reported by: MYRIAM PETERSON RN on 11/29/202309 Last Action: Converted on 03/10/211719 by SHERRIE ENAMORADO Thiamine Mononitrate (Vitamin B-1) 100 Mg Tablet, 100 MG PO DAILY for SUPPLEMENT for 30 Days, #30 Prescribed by: KELLI EMMANUEL MD on 12/17/20 1358 Last Action: Continued on 03/10/211719 by SHERRIE ENAMORADO Trazodone Hcl (Trazodone Hcl) 100 Mg Tablet, 200 MG PO HS, (Reported) Entered as Reported by: TOMMY ARRIOLA on 02/28/14 1347 Last Action: Continued on 03/10/211719 by SHERRIE ENAMORADO Scheduled PRN Acetaminophen (Tylenol) 325 Mg Tablet, 650 MG PO PRN Q4HRS PRN for TEMP OVER 100.4F for 30 Days, #100 Prescribed by: KELLI EMMANUEL MD on 05/04/20 1042 Last Action: Continued on 03/10/211719 by SHERRIE ENAMORADO Docusate Sodium (Dok) 100 Mg Capsule, 100 MG PO PRN BID PRN for HARD STOOLS for 30 Days, #60 Prescribed by: KELLI EMMANUEL MD on 05/04/20 1042 Last Action: Continued on 03/10/211719 by SHERRIE ENAMORADO Risperidone (Risperidone) 0.5 Mg Tablet, 0.25 MG PO PRN QHS PRN for ANXIETY / AGITATION, (Reported) Entered as Reported by: MYRIAM PETERSON RN on 11/29/20 2313 Last Action: Converted on 03/10/211719 by SHERRIE ENAMORADO Discontinued Medications Fluconazole (Diflucan) 200 Mg Tablet, 1 TAB PO DAILY for yeast UTI, #7 Prescribed by: CASS LEY MD on 02/24/21 0832 Justicifation of Admission Dx: Justifications for Admission: Justification of Admission Dx: Yes Acute Renal Failure: 75% Reduction in GFR Altered Mental Status: Altered Mental Status AWAIS PLEITEZ MD Mar 14, 2021 13:36
[2021-03-14 15:00] VITALS: BP 133/40
--- NOTE | 2021-03-14 15:37 | NUR ---
Pt refused this RN to change wound dressings or picture wounds.
[2021-03-14] MEDS: PSYLLIUM HUSK (SUGAR FREE) 1 PKT PACKET PO SCH (16:18)
--- NOTE | 2021-03-14 16:53 | NUR ---
Pt left unit by stretcher at approx 1650 via transportation. Pt's VSS, IV previously removed by the pt. Discharge paperwork and belongings sent with pt.
[2021-03-14] MEDS ORDERED: INSULIN GLARGINE SYRINGE. SQ SCH (21:00)
== END 2021-03-14 16:57 | disposition home health service (06) | DRG 871 ==
LOC: ER 03:33 → ED HOLD 05:27 → 5 NORTH 08:06 → OBSVTOIN 15:12
PROVIDERS: ADMIT Internal Medicine; ATTEND Internal Medicine
DX: A41.9 Sepsis, unspecified organism (principal); N17.0 Acute kidney failure with tubular necrosis; G93.41 Metabolic encephalopathy; E43 Unspecified severe protein-calorie malnutrition; B37.49 Other urogenital candidiasis; N30.00 Acute cystitis without hematuria; D53.9 Nutritional anemia, unspecified; D63.8 Anemia in other chronic diseases classified elsewhere; E11.40 Type 2 diabetes mellitus with diabetic neuropathy, unspecified; F03.90 Unspecified dementia, unspecified severity, without behavioral disturbance, psychotic disturbance, mood disturbance, and anxiety; F41.9 Anxiety disorder, unspecified; I25.2 Old myocardial infarction; J44.9 Chronic obstructive pulmonary disease, unspecified; R29.6 Repeated falls; S90.821A Blister (nonthermal), right foot, initial encounter; Z20.822 Contact with and (suspected) exposure to COVID-19; Z79.02 Long term (current) use of antithrombotics/antiplatelets; Z79.4 Long term (current) use of insulin; Z79.899 Other long term (current) drug therapy; Z82.49 Family history of ischemic heart disease and other diseases of the circulatory system; Z87.440 Personal history of urinary (tract) infections; Z87.891 Personal history of nicotine dependence; Z90.710 Acquired absence of both cervix and uterus; Z95.5 Presence of coronary angioplasty implant and graft; F32.9 Major depressive disorder, single episode, unspecified; G43.909 Migraine, unspecified, not intractable, without status migrainosus; Z88.0 Allergy status to penicillin; Z88.2 Allergy status to sulfonamides; Z68.22 Body mass index [BMI] 22.0-22.9, adult
CPT/HCPCS: 36415; 71045; 80048; 80053; 80307; 81001; 82962; 83605; 83735; 84100; 84484; 85007; 85025; 87040; 87086; 87426; 96360; 96361; 99284; G0378; G0379; G0480; J0696; J1815; J1956; J2060; J2270; J3475; J7030; U0003; U0005; 97110-GP; 97530-GP; 97535-GO

== ENCOUNTER 2021-05-07 13:14 | Inpatient (IN) | payer MEDICARE, MEDICAID ==
[~2021-05-07] VITALS: Ht 162.6 cm; Wt 51.6 kg
[~2021-05-07 13:14] MED LIST changes: +CEFD300C PO; +POTA-121 PO; +TRAM50TA PO
[2021-05-07] MEDS ORDERED: IV NORMAL SALINE 1000ML BAG 1,000 ML IV ONE (13:30)
[2021-05-07] MEDS ORDERED: PANTOPRAZOLE IV PUSH 40 MG VIAL. IVP ONE (13:30)
--- NOTE | 2021-05-07 13:34 | PHYS DOC ---
Past Medical History Past Medical History: Anxiety, CAD, COPD, Dementia, Depression, Diabetes-Type II, Diverticulitis, NV, Migraines, Other Additional Past Medical Histor: neuropathy/insomnia Past Surgical History: Cholecystectomy, , Hysterectomy, Other Additional Past Surgical Histo: CARDIAC STENTS,RIGHT HIP "SCREWS" PLACED Smoking Status: Former Smoker Alcohol Use: None Drug Use: None General Adult HPI: HPI: Patient is a 75 year old female history of DM, HTN, HLD, COPD, dementia, CAD s/p stents placed on Plavix who presents with fatigue and GI bleed. Has been feeling generally fatigued for several days. States that she has had epigastric pain for weeksmonths. Yesterday began having vomiting with bright red blood. States it was "a lot." She has difficulty further quantifying. She states that she has had at least 5 episodes of vomiting that have blood since then. Per EMS, stated that she had had black/tarry stool as well. Patient denies black/tarry stool. She states that her last stool was yesterday. She denies history of GI bleeding. Denies anticoagulants. Denies history of EGD. Denies history of liver disease. Review of Systems: Review of Systems: Constitutional: Reports generalized fatigue. Denies fever or chills. [] Eyes: Denies change in visual acuity. [] HENT: Denies nasal congestion or sore throat. [] Respiratory: Denies cough or shortness of breath. [] Cardiovascular: Denies chest pain or edema. [] GI: Reports abdominal pain, nausea, vomiting, hematemesis. ? Melena. : Denies dysuria. [] Musculoskeletal: Denies back pain or joint pain. [] Integument: Reports chronic heel wound Neurologic: Denies headache, focal weakness or sensory changes. [] Endocrine: Denies polyuria or polydipsia. [] Lymphatic: Denies swollen glands. [] Psychiatric: Denies depression or anxiety. [] Heart Score: C/O Chest Pain: No Risk Factors: Risk Factors: DM, Current or recent (<one month) smoker, HTN, HLP, family history of CAD, obesity. Risk Scores: Score 0 - 3: 2.5% MACE over next 6 weeks - Discharge Home Score 4 - 6: 20.3% MACE over next 6 weeks - Admit for Clinical Observation Score 7 - 10: 72.7% MACE over next 6 weeks - Early Invasive Strategies Allergies: Allergies: Allergies Coded Allergies Type Severity Reaction Last Updated Verified Penicillins Allergy Intermediate tolerates Ancef, Rocephin 11/30/20 Yes Sulfa (Sulfonamide Antibiotics) Allergy Intermediate 10/21/15 Yes Physical Exam: PE: Constitutional: Pale appearing. No acute distress. HENT: Normocephalic, atraumatic, bilateral external ears normal, oropharynx moist, no oral exudates, nose normal. [] Eyes: PERRLA, EOMI, conjunctiva normal, no discharge. [] Neck: Normal range of motion, no tenderness, supple, no stridor. [] Cardiovascular:Heart rate regular rhythm, no murmur [] Lungs & Thorax: Bilateral breath sounds clear to auscultation [] Abdomen: localized epigastric tenderness to palpation Rectal: Tried black stool around the rectum. No bright red blood return. Hemoccult sent. Skin: Warm, dry, no erythema, no rash. [] Back: No tenderness, no CVA tenderness. [] Extremities: No tenderness, no cyanosis, no clubbing, ROM intact, no edema. [] Neurologic: Alert and oriented X 3, normal motor function, normal sensory function, no focal deficits noted. [] Psychologic: Affect normal, judgement normal, mood normal. [] EKG: EKG: [] Radiology/Procedures: Radiology/Procedures: [] Course & Med Decision Making: Course & Med Decision Making Pertinent Labs and Imaging studies reviewed. (See chart for details) Patient is 75-year-old female with complex past medical history on Plavix who presents with upper GI bleeding/hematemesis. Epigastric tenderness to palpation on examination, which she states has been present for weeks to months. Denies liver history. This seems most consistent with peptic ulcer disease. Protonix 40 mg IV given. Attempted to place 2 large-bore peripheral IVs. Type and screen sent. We will hold off on ceftriaxone or octreotide, as she does not have history of liver disease or varices to my knowledge. Will require admission. Hemodynamically stable at this time, but appears dehydrated. Will give saline for now, but will have a low threshold to switch to blood for volume resuscitation. 1334 Hemoglobin stable. Vitals have remained stable. No further bleeding here in the ED. GI consultation order placed. We will discuss admission with hospitalist. [id number] Cindy Disclaimer: Cindy Disclaimer: This electronic medical record was generated, in whole or in part, using a voice recognition dictation system. Departure Departure Impression: Primary Impression: Upper GI bleed Additional Impression: Nonhealing wound of heel Disposition: ADMITTED INPATIENT Admitting Physician: ERICA MICHAUD) Condition: STABLE Referrals: CARLOS VIDAL MD (PCP) NILSON SHOOK MD May 07, 2021 13:34
[2021-05-07 13:43] LABS: FECAL OB PT POSITIVE (NEG)
[2021-05-07] MEDS ORDERED: ONDANSETRON PF 4 MG/2 ML VIAL. IVP ONE (13:45)
[2021-05-07 14:09] LABS: BASO % 1 % (0-3); EOS % 0 % (0-3); HEMATOCRIT 37.5 % (36.0-47.0); HEMOGLOBIN 11.7 g/dL (12.0-15.5); LYMPH # 1.2 x10^3/uL (1.0-4.8); LYMPH % 19 % (24-48); MEAN CORPUSCULAR HEMOGLOBIN 22 pg (25-35); MEAN CORPUSCULAR HGB CONC 31 g/dL (31-37); MEAN CORPUSCULAR VOLUME 69 fL (79-100); MONO # 0.2 x10^3/uL (0.0-1.1); MONO % 4 % (0-9); NEUT # 4.8 x10^3/uL (1.8-7.7); NEUT % 76 % (31-73); PLATELET COUNT 344 x10^3/uL (140-400); RED BLOOD COUNT 5.43 x10^6/uL (3.50-5.40); RED CELL DISTRIBUTION WIDTH 17.7 % (11.5-14.5); WHITE BLOOD COUNT 6.3 x10^3/uL (4.0-11.0)
[2021-05-07 14:16] LABS: CALCIUM 8.3 mg/dL (8.5-10.1); CREATININE 0.9 mg/dL (0.6-1.0); GFR 61.4; POTASSIUM 3.4 mmol/L (3.5-5.1)
[2021-05-07 14:22] LABS: ALBUMIN 2.9 g/dL (3.4-5.0); ALBUMIN/GLOBULIN RATIO 0.6 (1.0-1.7); TOTAL BILIRUBIN 0.3 mg/dL (0.2-1.0); TOTAL PROTEIN 7.6 g/dL (6.4-8.2)
[2021-05-07 14:32] LABS: PLT ESTIMATE ADEQUATE (ADEQUATE)
[2021-05-07 14:33] LABS: ANISOCYTOSIS SLIGHT; MICROCYTOSIS MOD; POLYCHROMASIA SLIGHT
--- NOTE | 2021-05-07 15:22 | PDOC1 ---
History and Physical Date of Service: DOS: DATE: 05/07/21 TIME: 15:21 Chief Complaint: Chief Complain: Abdominal pain History of Present Illness: HPI: History obtained from discussion with the ED physician and chart review: 75-year-old female with past medical history of diabetes mellitus type 2, hypertension, dyslipidemia, COPD, mild dementia, CAD status post stents currently on Plavix who presents with hematemesis that started today. She was actually admitted here 1 month ago for the same problem. For the past several days she has been fatigued she also has been having epigastric pain for the past weeks. She states that her vomiting of blood was quite a lot. Is been having 5 episodes of blood since then. also states that patient has black tarry stool as well.She states that her last stool was yesterday. Patient was actually admitted recently in March for the same issue. Her dis charge hemoglobin at that time was 10 Past Medical/Surgical History: PMH/PSH: Past Medical History: Anxiety, CAD, COPD, Dementia, Depression, Diabetes-Type II, Diverticulitis, CA, Migraines, neuropathy/insomnia Past Surgical History: Cholecystectomy, , Hysterectomy, CARDIAC ST ENTS,RIGHT HIP Arthoplasty Allergies: Allergies: Coded Allergies: Penicillins (Verified Allergy, Intermediate, tolerates Ancef, Rocephin, 11/30/20) Sulfa (Sulfonamide Antibiotics) (Verified Allergy, Intermediate, 10/21/15) Family History: Family History: Reviewed with no relevant findings Social History: Social History: Smoking Status: Former Smoker Alcohol Use: None Drug Use: None Current Medications: Current Medications Current Medications Pantoprazole Sodium (PROTONIX VIAL for IV PUSH) 40 mg 1X ONCE IVP Last administered on 05/07/21at 14:06; Start 05/07/21 at 13:30; Stop 05/07/21 at 13:31; Status DC Sodium Chloride 1,000 ml @ 1,000 mls/hr 1X ONCE IV Last administered on 05/07/21at 14:04; Start 05/07/21 at 13:30; Stop 05/07/21 at 14:29; Status DC Ondansetron HCl (Zofran) 4 mg 1X ONCE IVP Last administered on 05/07/21at 14:06; Start 05/07/21 at 13:45; Stop 10/9/21 at 13:46; Status DC Active Scripts Active Potassium Chloride (Potassium Chloride) 20 Meq Tablet.er 20 Meq PO DAILY 30 Days Cefdinir 300 Mg Capsule 300 Mg PO BID 5 Days Lantus Solostar (Insulin Glargine,Hum.rec.anlog) 100 Unit/1 Ml Insuln.pen 25 Unit SQ QHS 30 Days Enoxaparin Sodium 40 Mg/0.4 Ml Disp.syrin 40 Mg SQ Q24H 14 Days Gabapentin 300 Mg Capsule 300 Mg PO QHS Vitamin C (Ascorbic Acid) 1,000 Mg Tablet 1,000 Mg PO TIDWMEALS 30 Days Vitamin B-1 (Thiamine Mononitrate) 100 Mg Tablet 100 Mg PO DAILY 30 Days Culturelle (Lactobacillus Rhamnosus Gg) 1 Each Cap.sprink 1 Cap PO BID 30 Days Metamucil Fiber Singles Packet (Psyllium Husk/Aspartame) 3.4 Gm Powd.pack 1 Pkt PO DAILY16 30 Days Dok (Docusate Sodium) 100 Mg Capsule 100 Mg PO PRN BID PRN 30 Days Tylenol (Acetaminophen) 325 Mg Tablet 650 Mg PO PRN Q4HRS PRN 30 Days Reported Risperidone 0.5 Mg Tablet 0.25 Mg PO PRN QHS PRN Novolog (Insulin Aspart) 100 Unit/1 Ml Cartridge 10 Unit SQ TIDWMEALS Zoloft (Sertraline Hcl) 100 Mg Tablet 100 Mg PO DAILY Nexium Capsule (Esomeprazole Magnesium) 40 Mg Capsule.dr 40 Mg PO DAILYAC Atorvastatin Calcium 40 Mg Tablet 40 Mg PO HS Clopidogrel (Clopidogrel Bisulfate) 75 Mg Tablet 75 Mg PO DAILY Trazodone Hcl 100 Mg Tablet 200 Mg PO HS ROS: Review of Systems Review of System REVIEW OF SYSTEMS: GENERAL: Denies weakness SKIN: No bruising, hair changes or rashes. EYES: No blurred, double or loss of vision. NOSE AND THROAT: No history of nosebleeds, hoarseness or sore throat. HEART: No history of palpitations, chest pain or shortness of breath on exertion. LUNGS: Denies cough, hemoptysis, wheezing or shortness of breath. GASTROINTESTINAL: Positive for abdominal pain GENITOURINARY: No history of frequency, urgency, hesitancy or nocturia. NEUROLOGIC: Denies history of numbness, tingling, or tremor. PSYCHIATRIC: No history of panic, anxiety or depression. ENDOCRINE: No history of heat or cold intolerance, polyuria or polydipsia. EXTREMITIES: Denies joint pain, pain on walking or stiffness. Physical Exam: Vital Signs: Vital Signs Date Time Temp Pulse Resp B/P (MAP) Pulse Ox O2 Delivery O2 Flow Rate FiO2 05/07/21 13:15 98.6 71 18 196/82 (120) 98 Room Air 98.6 Physcial Exam: General: Well developed, well nourished, no acute distress, well appearing HEENT: Pupils equally round and reactive to light, EOMI, no discharge, normal conjunctiva Neck: Supple, no nuchal rigidity, no JVD, trachea midline, no tenderness Cardiac: RRR, no murmurs, no gallops, no rubs Chest/Lungs: CTAB, no wheeze, no rhonchi, no crackles Abdomen: soft, non-distended, no guarding, no peritoneal signs, epigastric tenderness Back: No tenderness Extremities: no edema, pulses intact, non-tender,capillary refill <3 sec bilateral upper and lower extremities, Neuro: Alert and oriented x 4, no focal deficits, normal speech Labs: Labs: Laboratory Tests Test 05/07/21 13:25 05/07/21 13:53 Stool Occult Blood Positive (NEG) White Blood Count 6.3 x10^3/uL (4.0-11.0) Red Blood Count 5.43 x10^6/uL (3.50-5.40) Hemoglobin 11.7 g/dL (12.0-15.5) Hematocrit 37.5 % (36.0-47.0) Mean Corpuscular Volume 69 fL (79-100) Mean Corpuscular Hemoglobin 22 pg (25-35) Mean Corpuscular Hemoglobin Concent 31 g/dL (31-37) Red Cell Distribution Width 17.7 % (11.5-14.5) Platelet Count 344 x10^3/uL (140-400) Neutrophils (%) (Auto) 76 % (31-73) Lymphocytes (%) (Auto) 19 % (24-48) Monocytes (%) (Auto) 4 % (0-9) Eosinophils (%) (Auto) 0 % (0-3) Basophils (%) (Auto) 1 % (0-3) Neutrophils # (Auto) 4.8 x10^3/uL (1.8-7.7) Lymphocytes # (Auto) 1.2 x10^3/uL (1.0-4.8) Monocytes # (Auto) 0.2 x10^3/uL (0.0-1.1) Eosinophils # (Auto) 0.0 x10^3/uL (0.0-0.7) Basophils # (Auto) 0.0 x10^3/uL (0.0-0.2) Platelet Estimate Adequate (ADEQUATE) Polychromasia Slight Anisocytosis Slight Microcytosis Mod Sodium Level 139 mmol/L (136-145) Potassium Level 3.4 mmol/L (3.5-5.1) Chloride Level 100 mmol/L (98-107) Carbon Dioxide Level 31 mmol/L (21-32) Anion Gap 8 (6-14) Blood Urea Nitrogen 9 mg/dL (7-20) Creatinine 0.9 mg/dL (0.6-1.0) Estimated GFR (Cockcroft-Gault) 61.4 BUN/Creatinine Ratio 10 (6-20) Glucose Level 224 mg/dL (70-99) Calcium Level 8.3 mg/dL (8.5-10.1) Total Bilirubin 0.3 mg/dL (0.2-1.0) Aspartate Amino Transf (AST/SGOT) 15 U/L (15-37) Alanine Aminotransferase (ALT/SGPT) 9 U/L (14-59) Alkaline Phosphatase 103 U/L (46-116) Total Protein 7.6 g/dL (6.4-8.2) Albumin 2.9 g/dL (3.4-5.0) Albumin/Globulin Ratio 0.6 (1.0-1.7) Laboratory Tests Test 05/07/21 13:25 05/07/21 13:53 Stool Occult Blood Positive (NEG) White Blood Count 6.3 x10^3/uL (4.0-11.0) Red Blood Count 5.43 x10^6/uL (3.50-5.40) Hemoglobin 11.7 g/dL (12.0-15.5) Hematocrit 37.5 % (36.0-47.0) Mean Corpuscular Volume 69 fL (79-100) Mean Corpuscular Hemoglobin 22 pg (25-35) Mean Corpuscular Hemoglobin Concent 31 g/dL (31-37) Red Cell Distribution Width 17.7 % (11.5-14.5) Platelet Count 344 x10^3/uL (140-400) Neutrophils (%) (Auto) 76 % (31-73) Lymphocytes (%) (Auto) 19 % (24-48) Monocytes (%) (Auto) 4 % (0-9) Eosinophils (%) (Auto) 0 % (0-3) Basophils (%) (Auto) 1 % (0-3) Neutrophils # (Auto) 4.8 x10^3/uL (1.8-7.7) Lymphocytes # (Auto) 1.2 x10^3/uL (1.0-4.8) Monocytes # (Auto) 0.2 x10^3/uL (0.0-1.1) Eosinophils # (Auto) 0.0 x10^3/uL (0.0-0.7) Basophils # (Auto) 0.0 x10^3/uL (0.0-0.2) Platelet Estimate Adequate (ADEQUATE) Polychromasia Slight Anisocytosis Slight Microcytosis Mod Sodium Level 139 mmol/L (136-145) Potassium Level 3.4 mmol/L (3.5-5.1) Chloride Level 100 mmol/L (98-107) Carbon Dioxide Level 31 mmol/L (21-32) Anion Gap 8 (6-14) Blood Urea Nitrogen 9 mg/dL (7-20) Creatinine 0.9 mg/dL (0.6-1.0) Estimated GFR (Cockcroft-Gault) 61.4 BUN/Creatinine Ratio 10 (6-20) Glucose Level 224 mg/dL (70-99) Calcium Level 8.3 mg/dL (8.5-10.1) Total Bilirubin 0.3 mg/dL (0.2-1.0) Aspartate Amino Transf (AST/SGOT) 15 U/L (15-37) Alanine Aminotransferase (ALT/SGPT) 9 U/L (14-59) Alkaline Phosphatase 103 U/L (46-116) Total Protein 7.6 g/dL (6.4-8.2) Albumin 2.9 g/dL (3.4-5.0) Albumin/Globulin Ratio 0.6 (1.0-1.7) Images: Images No recent images to review Assessment/Plan Assessment/Plan Acute abdominal pain secondary to GI bleed Anemia due to acute GI blood loss Microcytic anemia, likely due to combination of blood loss and iron deficiency anemia Mild hypokalemia Severe protein malnutrition History of diabetes mellitus type 2 History of diverticulosis History of COPD History of CAD on Plavix Admit to hospitalist service for further management GI consult Continue IV fluids Continue IV Protonix Hold aspirin and Plavix and other anticoagulants Contraindicated at this time for DVT prophylaxis Protonix GI prophylaxis ADA diet CODE STATUS full Discussed with RN and SW Disposition inpatient management as above DPOA: Justifications for Admission Other Justification Femur fracture CASS LEY MD May 07, 2021 15:22
[2021-05-07] MEDS ORDERED: DOCUSATE SODIUM 100 MG CAPSULE. PO PRN (15:45)
[2021-05-07] MEDS ORDERED: PROCHLORPERAZINE 10 MG/2 ML VIAL. IV PRN (15:45)
[2021-05-07] MEDS ORDERED: LORazepam 0.5 MG TABLET PO PRN (15:45)
[2021-05-07] MEDS ORDERED: risperiDONE 0.25 MG TABLET. PO PRN (15:45)
[2021-05-07] MEDS ORDERED: SENNOSIDES 8.6 MG TABLET PO PRN (15:45)
[2021-05-07] MEDS ORDERED: ONDANSETRON PF 4 MG/2 ML VIAL. IVP PRN (15:45)
[2021-05-07] MEDS ORDERED: DEXTROSE 50% 25 GM / 50ML DISP.SYRIN. IV PRN (15:45)
[2021-05-07] MEDS: PANTOPRAZOLE IV PUSH 40 MG VIAL. IVP SCH (16:00)
[2021-05-07 16:50] VITALS: BP 187/77
[2021-05-07] MEDS: IV NORMAL SALINE 1000ML BAG 1,000 ML IV SCH (19:20)
[2021-05-07 19:44] VITALS: BP 190/70
[2021-05-07] MEDS: GABAPENTIN 300 MG CAPSULE. PO SCH (23:12)
[2021-05-07] MEDS: ZOLPIDEM 5 MG TABLET. PO PRN (23:12)
[2021-05-07] MEDS: traZODone 100 MG TABLET. PO SCH (23:12)
[2021-05-07 23:48] VITALS: BP 180/67
[2021-05-08] MEDS ORDERED: LABETALOL 20 MG/4 ML DISP.SYRIN. IVP PRN (01:45)
[2021-05-08 03:38] VITALS: BP 137/62
[2021-05-08] MEDS: IV NORMAL SALINE 1000ML BAG 1,000 ML IV SCH ×2 (04:30→11:45)
[2021-05-08 07:00] VITALS: BP 100/35
[2021-05-08 09:06] LABS: BASO # 0.1 x10^3/uL (0.0-0.2); BASO % 1 % (0-3); EOS # 0.1 x10^3/uL (0.0-0.7); EOS % 1 % (0-3); HEMOGLOBIN 10.4 g/dL (12.0-15.5); LYMPH # 2.1 x10^3/uL (1.0-4.8); LYMPH % 28 % (24-48); MEAN CORPUSCULAR HEMOGLOBIN 21 pg (25-35); MEAN CORPUSCULAR HGB CONC 31 g/dL (31-37); MEAN CORPUSCULAR VOLUME 69 fL (79-100); MONO # 0.6 x10^3/uL (0.0-1.1); MONO % 8 % (0-9); NEUT # 4.8 x10^3/uL (1.8-7.7); NEUT % 63 % (31-73); PLATELET COUNT 334 x10^3/uL (140-400); RED BLOOD COUNT 4.93 x10^6/uL (3.50-5.40); RED CELL DISTRIBUTION WIDTH 17.5 % (11.5-14.5); WHITE BLOOD COUNT 7.6 x10^3/uL (4.0-11.0)
[2021-05-08 09:28] LABS: CREATININE 0.9 mg/dL (0.6-1.0); GFR 61.4; MAGNESIUM 1.9 mg/dL (1.8-2.4); PHOSPHORUS 3.8 mg/dL (2.6-4.7)
[2021-05-08 09:36] LABS: POTASSIUM 2.7 mmol/L (3.5-5.1)
[2021-05-08] MEDS: SERTRALINE 50 MG TABLET. PO SCH (10:18)
[2021-05-08] MEDS: THIAMINE 100 MG TABLET. PO SCH (10:18)
[2021-05-08] MEDS: PANTOPRAZOLE IV PUSH 40 MG VIAL. IVP SCH (10:19)
[2021-05-08] MEDS ORDERED: POTASSIUM BICARB 20 MEQ EFFERVESCENT TABLET. PO ONE ×3 (10:30→17:00)
[2021-05-08 11:00] VITALS: BP 108/49
--- NOTE | 2021-05-08 11:15 | PDOC ---
[facility] PROGRESS NOTE Date of Service DOS: DATE: 05/08/21 TIME: 11:14 Chief Complaint Chief Complaint Assessment/Plan Acute abdominal pain secondary to GI bleed Anemia due to acute GI blood loss Microcytic anemia, likely due to combination of blood loss and iron deficiency anemia Moderate acute hypokalemia Severe protein malnutrition History of diabetes mellitus type 2 History of diverticulosis History of COPD History of CAD on Plavix IV and p.o. electrolyte replacement for low potassium GI consult Continue IV fluids Continue IV Protonix Hold aspirin and Plavix and other anticoagulants Contraindicated at this time for DVT prophylaxis Protonix GI prophylaxis ADA diet CODE STATUS full Discussed with RN and SW Disposition inpatient management as above DPOA: History of Present Illness History of Present Illness 75-year-old female with past medical history of diabetes mellitus type 2, hyper tension, dyslipidemia, COPD, mild dementia, CAD status post stents currently on Plavix who presents with hematemesis that started today. She was actually admitted here 1 month ago for the same problem. For the past several days she has been fatigued she also has been having epigastric pain for the past weeks. She states that her vomiting of blood was quite a lot. Is been having 5 episodes of blood since then. also states that patient has black tarry stool as well.She states that her last stool was yesterday. Patient was actually admitted recently in March for the same issue. Her discharge hemoglobin at that time was 10 05/08/2021 No acute events overnight. Patient seen examined bedside. Resting comfortably. No more hematemesis since time of discharge. Tolerating diet. Pending GI evaluation. Continue IV fluids and IV Protonix. Hold all anticoagulants and antiplatelet medications still. Hemoglobin stable at 10.4. Patient's chart, labs, images were reviewed and discussed with RN Vitals/I&O Vitals/I&O: Vital Signs Date Time Temp Pulse Resp B/P (MAP) Pulse Ox O2 Delivery O2 Flow Rate FiO2 05/08/21 07:00 98.0 74 16 100/35 (56) 92 Room Air 98.0 I & O 05/07/21 05/07/21 05/08/21 15:00 23:00 07:00 Intake Total 903 ml Output Total 90 ml Balance -90 ml 903 ml Physical Exam General: Alert, Oriented X3, Cooperative Heart: Regular rate Lungs: Clear Abdomen: Normal bowel sounds Extremities: No clubbing Skin: No rashes Labs Labs: Laboratory Tests Test 05/07/21 13:25 05/07/21 13:53 05/07/21 16:55 05/07/21 20:21 Stool Occult Blood Positive (NEG) White Blood Count 6.3 x10^3/uL (4.0-11.0) Red Blood Count 5.43 x10^6/uL (3.50-5.40) Hemoglobin 11.7 g/dL (12.0-15.5) Hematocrit 37.5 % (36.0-47.0) Mean Corpuscular Volume 69 fL (79-100) Mean Corpuscular Hemoglobin 22 pg (25-35) Mean Corpuscular Hemoglobin Concent 31 g/dL (31-37) Red Cell Distribution Width 17.7 % (11.5-14.5) Platelet Count 344 x10^3/uL (140-400) Neutrophils (%) (Auto) 76 % (31-73) Lymphocytes (%) (Auto) 19 % (24-48) Monocytes (%) (Auto) 4 % (0-9) Eosinophils (%) (Auto) 0 % (0-3) Basophils (%) (Auto) 1 % (0-3) Neutrophils # (Auto) 4.8 x10^3/uL (1.8-7.7) Lymphocytes # (Auto) 1.2 x10^3/uL (1.0-4.8) Monocytes # (Auto) 0.2 x10^3/uL (0.0-1.1) Eosinophils # (Auto) 0.0 x10^3/uL (0.0-0.7) Basophils # (Auto) 0.0 x10^3/uL (0.0-0.2) Platelet Estimate Adequate (ADEQUATE) Polychromasia Slight Anisocytosis Slight Microcytosis Mod Sodium Level 139 mmol/L (136-145) Potassium Level 3.4 mmol/L (3.5-5.1) Chloride Level 100 mmol/L (98-107) Carbon Dioxide Level 31 mmol/L (21-32) Anion Gap 8 (6-14) Blood Urea Nitrogen 9 mg/dL (7-20) Creatinine 0.9 mg/dL (0.6-1.0) Estimated GFR (Cockcroft-Gault) 61.4 BUN/Creatinine Ratio 10 (6-20) Glucose Level 224 mg/dL (70-99) Calcium Level 8.3 mg/dL (8.5-10.1) Total Bilirubin 0.3 mg/dL (0.2-1.0) Aspartate Amino Transf (AST/SGOT) 15 U/L (15-37) Alanine Aminotransferase (ALT/SGPT) 9 U/L (14-59) Alkaline Phosphatase 103 U/L (46-116) Total Protein 7.6 g/dL (6.4-8.2) Albumin 2.9 g/dL (3.4-5.0) Albumin/Globulin Ratio 0.6 (1.0-1.7) Glucose (Fingerstick) 209 mg/dL (70-99) 246 mg/dL (70-99) Test 05/08/21 07:45 05/08/21 08:10 Glucose (Fingerstick) 148 mg/dL (70-99) White Blood Count 7.6 x10^3/uL (4.0-11.0) Red Blood Count 4.93 x10^6/uL (3.50-5.40) Hemoglobin 10.4 g/dL (12.0-15.5) Hematocrit 34.0 % (36.0-47.0) Mean Corpuscular Volume 69 fL (79-100) Mean Corpuscular Hemoglobin 21 pg (25-35) Mean Corpuscular Hemoglobin Concent 31 g/dL (31-37) Red Cell Distribution Width 17.5 % (11.5-14.5) Platelet Count 334 x10^3/uL (140-400) Neutrophils (%) (Auto) 63 % (31-73) Lymphocytes (%) (Auto) 28 % (24-48) Monocytes (%) (Auto) 8 % (0-9) Eosinophils (%) (Auto) 1 % (0-3) Basophils (%) (Auto) 1 % (0-3) Neutrophils # (Auto) 4.8 x10^3/uL (1.8-7.7) Lymphocytes # (Auto) 2.1 x10^3/uL (1.0-4.8) Monocytes # (Auto) 0.6 x10^3/uL (0.0-1.1) Eosinophils # (Auto) 0.1 x10^3/uL (0.0-0.7) Basophils # (Auto) 0.1 x10^3/uL (0.0-0.2) Sodium Level 141 mmol/L (136-145) Potassium Level 2.7 mmol/L (3.5-5.1) Chloride Level 102 mmol/L (98-107) Carbon Dioxide Level 34 mmol/L (21-32) Anion Gap 5 (6-14) Blood Urea Nitrogen 8 mg/dL (7-20) Creatinine 0.9 mg/dL (0.6-1.0) Estimated GFR (Cockcroft-Gault) 61.4 Glucose Level 137 mg/dL (70-99) Calcium Level 8.0 mg/dL (8.5-10.1) Phosphorus Level 3.8 mg/dL (2.6-4.7) Magnesium Level 1.9 mg/dL (1.8-2.4) Assessment and Plan Assessmemt and Plan Problems Medical Problems: (1) Nonhealing wound of heel Status: Acute (2) Upper GI bleed Status: Acute Comment Review of Relevant I have reviewed the following items tammie (where applicable) has been applied. Medications: Current Medications Medications (Trade) Dose Ordered Sig/Lashay Route PRN Reason Start Time Stop Time Status Last Admin Dose Admin Pantoprazole Sodium (PROTONIX VIAL for IV PUSH) 40 mg 1X ONCE IVP 05/07/21 13:30 05/07/21 13:31 DC 05/07/21 14:06 Sodium Chloride 1,000 ml @ 1,000 mls/hr 1X ONCE IV 05/07/21 13:30 05/07/21 14:29 DC 05/07/21 14:04 Ondansetron HCl (Zofran) 4 mg 1X ONCE IVP 05/07/21 13:45 05/07/21 13:46 DC 05/07/21 14:06 Gabapentin (Neurontin) 300 mg QHS PO 05/07/21 21:00 05/07/21 23:12 Thiamine Mononitrate (Vitamin B-1) 100 mg DAILY PO 05/08/21 09:00 05/08/21 10:18 Trazodone HCl (Desyrel) 200 mg HS PO 05/07/21 21:00 05/07/21 23:12 Sertraline HCl (Zoloft) 100 mg DAILY PO 05/08/21 09:00 05/08/21 10:18 Sodium Chloride 1,000 ml @ 100 mls/hr Q10H IV 05/07/21 15:45 05/08/21 04:30 Pantoprazole Sodium (PROTONIX VIAL for IV PUSH) 40 mg DAILYAC IVP 05/07/21 16:00 05/08/21 10:19 Prochlorperazine Edisylate (Compazine) 10 mg PRN Q6HRS PRN IV NAUSEA/VOMITING, 2ND CHOICE 05/07/21 15:45 05/07/21 16:16 Zolpidem Tartrate (Ambien) 2.5 mg PRN QHS PRN PO INSOMNIA 05/07/21 15:45 05/07/21 23:12 Potassium Bicarbonate (Potassium Effervescent Tablet) 40 meq 1X ONCE PO 05/08/21 10:30 05/08/21 10:31 DC 05/08/21 10:18 Justifications for Admission Other Justification Upper GI bleed CASS LEY MD May 08, 2021 11:15
[2021-05-08] MEDS ORDERED: DEXTROSE 50% 25 GM / 50ML DISP.SYRIN. IV ONE (12:15)
--- NOTE | 2021-05-08 13:22 | PDOC2 ---
CONSULT Date of Consult Date of Consult DATE: 05/08/21 TIME: 13:19 Reason for Consult Reason for Consult: ecurrent GI bleed Past Medical History Cardiovascular: CAD, HTN, IN, Hyperlipidemia Pulmonary: Asthma, COPD, Pneumonia CENTRAL NERVOUS SYSTEM: CVA, Dementia, Migraine, Periperal neuropathy GI: Diverticulosis, GERD, Hemorrhoids, Irritable bowel disease, Other Heme/Onc: Cancer Hepatobiliary: Cirrhosis Psych: Anxiety, Depression Musculoskeletal: Osteoarthritis Renal/: Chronic renal failure Endocrine: Diabetes Past Surgical History Past Surgical History: Cholecystectomy, , Hysterectomy Family History Family History: Chronic Bronchitis, Coronary Artery Disease, Heart Disease, Hypertension Social History ALCOHOL: none Drugs: None Lives: with Family Current Problem List Problem List Problems Medical Problems: (1) Nonhealing wound of heel Status: Acute (2) Upper GI bleed Status: Acute Current Medications Current Medications Current Medications Pantoprazole Sodium (PROTONIX VIAL for IV PUSH) 40 mg 1X ONCE IVP Last administered on 05/07/21at 14:06; Start 05/07/21 at 13:30; Stop 05/07/21 at 13:31; Status DC Sodium Chloride 1,000 ml @ 1,000 mls/hr 1X ONCE IV Last administered on 05/07/21at 14:04; Start 05/07/21 at 13:30; Stop 05/07/21 at 14:29; Status DC Ondansetron HCl (Zofran) 4 mg 1X ONCE IVP Last administered on 05/07/21at 14:06; Start 05/07/21 at 13:45; Stop 05/07/21 at 13:46; Status DC Gabapentin (Neurontin) 300 mg QHS PO Last administered on 05/07/21at 23:12; Start 05/07/21 at 21:00 Thiamine Mononitrate (Vitamin B-1) 100 mg DAILY PO Last administered on 05/08/21at 10:18; Start 05/08/21 at 09:00 Trazodone HCl (Desyrel) 200 mg HS PO Last administered on 05/07/21at 23:12; Start 05/07/21 at 21:00 Risperidone (RisperDAL) 0.25 mg PRN QHS PRN PO AGITATION; Start 05/07/21 at 15:45 Sertraline HCl (Zoloft) 100 mg DAILY PO Last administered on 05/08/21at 10:18; Start 05/08/21 at 09:00 Sennosides (Senna) 17.2 mg PRN BID PRN PO CONSTIPATION; Start 05/07/21 at 15:45 Docusate Sodium (Colace) 100 mg PRN DAILY PRN PO HARD STOOLS; Start 05/07/21 at 15:45 Ondansetron HCl (Zofran) 4 mg PRN Q6HRS PRN IVP NAUSEA/VOMITING, 1ST CHOICE; Start 05/07/21 at 15:45 Dextrose (Dextrose 50%-Water Syringe) 12.5 gm PRN Q15MIN PRN IV SEE COMMENTS; Start 05/07/21 at 15:45 Sodium Chloride 1,000 ml @ 100 mls/hr Q10H IV Last administered on 05/08/21at 04:30; Start 05/07/21 at 15:45 Acetaminophen (Tylenol) 650 mg PRN Q4HRS PRN PO TEMP OVER 100.4F OR MILD PAIN; Start 05/07/21 at 15:45 Lorazepam (Ativan) 0.5 mg PRN Q6HRS PRN PO ANXIETY; Start 05/07/21 at 15:45 Lorazepam (Ativan Inj) 0.25 mg PRN Q4HRS PRN IV ANXIETY / AGITATION; Start 05/07/21 at 15:45 Pantoprazole Sodium (PROTONIX VIAL for IV PUSH) 40 mg DAILYAC IVP Last administered on 05/08/21at 10:19; Start 05/07/21 at 16:00 Prochlorperazine Edisylate (Compazine) 10 mg PRN Q6HRS PRN IV NAUSEA/VOMITING, 2ND CHOICE Last administered on 05/07/21at 16:16; Start 05/07/21 at 15:45 Zolpidem Tartrate (Ambien) 2.5 mg PRN QHS PRN PO INSOMNIA Last administered on 05/07/21at 23:12; Start 05/07/21 at 15:45 Amlodipine Besylate (Norvasc) 5 mg QHS PO ; Start 05/08/21 at 21:00 Labetalol HCl (Normodyne Iv Push) 10 mg PRN Q2HRS PRN IVP HYPERTENSION; Start 05/08/21 at 01:45 Potassium Bicarbonate (Potassium Effervescent Tablet) 40 meq 1X ONCE PO Last administered on 05/08/21at 10:18; Start 05/08/21 at 10:30; Stop 05/08/21 at 10:31; Status DC Potassium Bicarbonate (Potassium Effervescent Tablet) 40 meq 1X ONCE PO ; Start 05/08/21 at 12:00; Stop 05/08/21 at 12:01; Status DC Potassium Bicarbonate (Potassium Effervescent Tablet) 40 meq 1X ONCE PO ; Start 05/08/21 at 17:00; Stop 05/08/21 at 17:01 Active Scripts Active Potassium Chloride (Potassium Chloride) 20 Meq Tablet.er 20 Meq PO DAILY 30 Days Cefdinir 300 Mg Capsule 300 Mg PO BID 5 Days Lantus Solostar (Insulin Glargine,Hum.rec.anlog) 100 Unit/1 Ml Insuln.pen 25 Unit SQ QHS 30 Days Enoxaparin Sodium 40 Mg/0.4 Ml Disp.syrin 40 Mg SQ Q24H 14 Days Gabapentin 300 Mg Capsule 300 Mg PO QHS Vitamin C (Ascorbic Acid) 1,000 Mg Tablet 1,000 Mg PO TIDWMEALS 30 Days Vitamin B-1 (Thiamine Mononitrate) 100 Mg Tablet 100 Mg PO DAILY 30 Days Culturelle (Lactobacillus Rhamnosus Gg) 1 Each Cap.sprink 1 Cap PO BID 30 Days Metamucil Fiber Singles Packet (Psyllium Husk/Aspartame) 3.4 Gm Powd.pack 1 Pkt PO DAILY16 30 Days Dok (Docusate Sodium) 100 Mg Capsule 100 Mg PO PRN BID PRN 30 Days Tylenol (Acetaminophen) 325 Mg Tablet 650 Mg PO PRN Q4HRS PRN 30 Days Reported Risperidone 0.5 Mg Tablet 0.25 Mg PO PRN QHS PRN Novolog (Insulin Aspart) 100 Unit/1 Ml Cartridge 10 Unit SQ TIDWMEALS Zoloft (Sertraline Hcl) 100 Mg Tablet 100 Mg PO DAILY Nexium Capsule (Esomeprazole Magnesium) 40 Mg Capsule.dr 40 Mg PO DAILYAC Atorvastatin Calcium 40 Mg Tablet 40 Mg PO HS Clopidogrel (Clopidogrel Bisulfate) 75 Mg Tablet 75 Mg PO DAILY Trazodone Hcl 100 Mg Tablet 200 Mg PO HS Allergies Allergies: Coded Allergies: Penicillins (Verified Allergy, Intermediate, tolerates Ancef, Rocephin, 11/30/20) Sulfa (Sulfonamide Antibiotics) (Verified Allergy, Intermediate, 10/21/15) Vitals VITALS Vital Signs Date Time Temp Pulse Resp B/P (MAP) Pulse Ox O2 Delivery O2 Flow Rate FiO2 05/08/21 07:00 98.0 74 16 100/35 (56) 92 Room Air 98.0 Labs Labs Laboratory Tests Test 05/07/21 13:25 05/07/21 13:53 05/07/21 16:55 05/07/21 20:21 Stool Occult Blood Positive (NEG) White Blood Count 6.3 x10^3/uL (4.0-11.0) Red Blood Count 5.43 x10^6/uL (3.50-5.40) Hemoglobin 11.7 g/dL (12.0-15.5) Hematocrit 37.5 % (36.0-47.0) Mean Corpuscular Volume 69 fL (79-100) Mean Corpuscular Hemoglobin 22 pg (25-35) Mean Corpuscular Hemoglobin Concent 31 g/dL (31-37) Red Cell Distribution Width 17.7 % (11.5-14.5) Platelet Count 344 x10^3/uL (140-400) Neutrophils (%) (Auto) 76 % (31-73) Lymphocytes (%) (Auto) 19 % (24-48) Monocytes (%) (Auto) 4 % (0-9) Eosinophils (%) (Auto) 0 % (0-3) Basophils (%) (Auto) 1 % (0-3) Neutrophils # (Auto) 4.8 x10^3/uL (1.8-7.7) Lymphocytes # (Auto) 1.2 x10^3/uL (1.0-4.8) Monocytes # (Auto) 0.2 x10^3/uL (0.0-1.1) Eosinophils # (Auto) 0.0 x10^3/uL (0.0-0.7) Basophils # (Auto) 0.0 x10^3/uL (0.0-0.2) Platelet Estimate Adequate (ADEQUATE) Polychromasia Slight Anisocytosis Slight Microcytosis Mod Sodium Level 139 mmol/L (136-145) Potassium Level 3.4 mmol/L (3.5-5.1) Chloride Level 100 mmol/L (98-107) Carbon Dioxide Level 31 mmol/L (21-32) Anion Gap 8 (6-14) Blood Urea Nitrogen 9 mg/dL (7-20) Creatinine 0.9 mg/dL (0.6-1.0) Estimated GFR (Cockcroft-Gault) 61.4 BUN/Creatinine Ratio 10 (6-20) Glucose Level 224 mg/dL (70-99) Calcium Level 8.3 mg/dL (8.5-10.1) Total Bilirubin 0.3 mg/dL (0.2-1.0) Aspartate Amino Transf (AST/SGOT) 15 U/L (15-37) Alanine Aminotransferase (ALT/SGPT) 9 U/L (14-59) Alkaline Phosphatase 103 U/L (46-116) Total Protein 7.6 g/dL (6.4-8.2) Albumin 2.9 g/dL (3.4-5.0) Albumin/Globulin Ratio 0.6 (1.0-1.7) Glucose (Fingerstick) 209 mg/dL (70-99) 246 mg/dL (70-99) Test 05/08/21 07:45 05/08/21 08:10 05/08/21 11:33 Glucose (Fingerstick) 148 mg/dL (70-99) 186 mg/dL (70-99) White Blood Count 7.6 x10^3/uL (4.0-11.0) Red Blood Count 4.93 x10^6/uL (3.50-5.40) Hemoglobin 10.4 g/dL (12.0-15.5) Hematocrit 34.0 % (36.0-47.0) Mean Corpuscular Volume 69 fL (79-100) Mean Corpuscular Hemoglobin 21 pg (25-35) Mean Corpuscular Hemoglobin Concent 31 g/dL (31-37) Red Cell Distribution Width 17.5 % (11.5-14.5) Platelet Count 334 x10^3/uL (140-400) Neutrophils (%) (Auto) 63 % (31-73) Lymphocytes (%) (Auto) 28 % (24-48) Monocytes (%) (Auto) 8 % (0-9) Eosinophils (%) (Auto) 1 % (0-3) Basophils (%) (Auto) 1 % (0-3) Neutrophils # (Auto) 4.8 x10^3/uL (1.8-7.7) Lymphocytes # (Auto) 2.1 x10^3/uL (1.0-4.8) Monocytes # (Auto) 0.6 x10^3/uL (0.0-1.1) Eosinophils # (Auto) 0.1 x10^3/uL (0.0-0.7) Basophils # (Auto) 0.1 x10^3/uL (0.0-0.2) Sodium Level 141 mmol/L (136-145) Potassium Level 2.7 mmol/L (3.5-5.1) Chloride Level 102 mmol/L (98-107) Carbon Dioxide Level 34 mmol/L (21-32) Anion Gap 5 (6-14) Blood Urea Nitrogen 8 mg/dL (7-20) Creatinine 0.9 mg/dL (0.6-1.0) Estimated GFR (Cockcroft-Gault) 61.4 Glucose Level 137 mg/dL (70-99) Calcium Level 8.0 mg/dL (8.5-10.1) Phosphorus Level 3.8 mg/dL (2.6-4.7) Magnesium Level 1.9 mg/dL (1.8-2.4) Laboratory Tests Test 05/07/21 13:25 05/07/21 13:53 05/07/21 16:55 05/07/21 20:21 Stool Occult Blood Positive (NEG) White Blood Count 6.3 x10^3/uL (4.0-11.0) Red Blood Count 5.43 x10^6/uL (3.50-5.40) Hemoglobin 11.7 g/dL (12.0-15.5) Hematocrit 37.5 % (36.0-47.0) Mean Corpuscular Volume 69 fL (79-100) Mean Corpuscular Hemoglobin 22 pg (25-35) Mean Corpuscular Hemoglobin Concent 31 g/dL (31-37) Red Cell Distribution Width 17.7 % (11.5-14.5) Platelet Count 344 x10^3/uL (140-400) Neutrophils (%) (Auto) 76 % (31-73) Lymphocytes (%) (Auto) 19 % (24-48) Monocytes (%) (Auto) 4 % (0-9) Eosinophils (%) (Auto) 0 % (0-3) Basophils (%) (Auto) 1 % (0-3) Neutrophils # (Auto) 4.8 x10^3/uL (1.8-7.7) Lymphocytes # (Auto) 1.2 x10^3/uL (1.0-4.8) Monocytes # (Auto) 0.2 x10^3/uL (0.0-1.1) Eosinophils # (Auto) 0.0 x10^3/uL (0.0-0.7) Basophils # (Auto) 0.0 x10^3/uL (0.0-0.2) Platelet Estimate Adequate (ADEQUATE) Polychromasia Slight Anisocytosis Slight Microcytosis Mod Sodium Level 139 mmol/L (136-145) Potassium Level 3.4 mmol/L (3.5-5.1) Chloride Level 100 mmol/L (98-107) Carbon Dioxide Level 31 mmol/L (21-32) Anion Gap 8 (6-14) Blood Urea Nitrogen 9 mg/dL (7-20) Creatinine 0.9 mg/dL (0.6-1.0) Estimated GFR (Cockcroft-Gault) 61.4 BUN/Creatinine Ratio 10 (6-20) Glucose Level 224 mg/dL (70-99) Calcium Level 8.3 mg/dL (8.5-10.1) Total Bilirubin 0.3 mg/dL (0.2-1.0) Aspartate Amino Transf (AST/SGOT) 15 U/L (15-37) Alanine Aminotransferase (ALT/SGPT) 9 U/L (14-59) Alkaline Phosphatase 103 U/L (46-116) Total Protein 7.6 g/dL (6.4-8.2) Albumin 2.9 g/dL (3.4-5.0) Albumin/Globulin Ratio 0.6 (1.0-1.7) Glucose (Fingerstick) 209 mg/dL (70-99) 246 mg/dL (70-99) Test 05/08/21 07:45 05/08/21 08:10 05/08/21 11:33 Glucose (Fingerstick) 148 mg/dL (70-99) 186 mg/dL (70-99) White Blood Count 7.6 x10^3/uL (4.0-11.0) Red Blood Count 4.93 x10^6/uL (3.50-5.40) Hemoglobin 10.4 g/dL (12.0-15.5) Hematocrit 34.0 % (36.0-47.0) Mean Corpuscular Volume 69 fL (79-100) Mean Corpuscular Hemoglobin 21 pg (25-35) Mean Corpuscular Hemoglobin Concent 31 g/dL (31-37) Red Cell Distribution Width 17.5 % (11.5-14.5) Platelet Count 334 x10^3/uL (140-400) Neutrophils (%) (Auto) 63 % (31-73) Lymphocytes (%) (Auto) 28 % (24-48) Monocytes (%) (Auto) 8 % (0-9) Eosinophils (%) (Auto) 1 % (0-3) Basophils (%) (Auto) 1 % (0-3) Neutrophils # (Auto) 4.8 x10^3/uL (1.8-7.7) Lymphocytes # (Auto) 2.1 x10^3/uL (1.0-4.8) Monocytes # (Auto) 0.6 x10^3/uL (0.0-1.1) Eosinophils # (Auto) 0.1 x10^3/uL (0.0-0.7) Basophils # (Auto) 0.1 x10^3/uL (0.0-0.2) Sodium Level 141 mmol/L (136-145) Potassium Level 2.7 mmol/L (3.5-5.1) Chloride Level 102 mmol/L (98-107) Carbon Dioxide Level 34 mmol/L (21-32) Anion Gap 5 (6-14) Blood Urea Nitrogen 8 mg/dL (7-20) Creatinine 0.9 mg/dL (0.6-1.0) Estimated GFR (Cockcroft-Gault) 61.4 Glucose Level 137 mg/dL (70-99) Calcium Level 8.0 mg/dL (8.5-10.1) Phosphorus Level 3.8 mg/dL (2.6-4.7) Magnesium Level 1.9 mg/dL (1.8-2.4) Assessment/Plan Assessment/Plan Acute blood loss anemia- with anticoagulation and hematemesis. UGI source likely. Plavix induced PUD leads differential. Malignancy, varices, [place]- so tear, and/or erosive GERD possible as well Plan serial CBC PPI therapy discusssion with family/POA to determine extent of further work-up with continued issues-i.e. endoscopy, imaging, and/or surgery pending findings inview of dementia Full note dictated LETICIA DANIELS MD May 08, 2021 13:22
[2021-05-08 15:00] VITALS: BP 128/47
[2021-05-08 19:50] VITALS: BP 99/40
[2021-05-08] MEDS: GABAPENTIN 300 MG CAPSULE. PO SCH (20:47)
[2021-05-08] MEDS: traZODone 100 MG TABLET. PO SCH (20:47)
[2021-05-08] MEDS: ZOLPIDEM 5 MG TABLET. PO PRN (20:47)
--- NOTE | 2021-05-08 23:17 | CONS ---
DATE OF CONSULTATION: 05/08/2021 REASON FOR CONSULTATION: Recurrent upper GI bleeding. HISTORY OF PRESENT ILLNESS: A 75-year-old female with past medical history significant for organic heart disease, CAD, COPD, dementia, depression, diabetes, diverticulitis, history of migraines, who is seen for recurrent anemia. She apparently has had hematemesis and is on Plavix. She otherwise can relate no additional information at this time. Denies any dysphagia or odynophagia. Denies any pain. She states that she has had ulcers in the past and is here shortly more than a month out with similar symptoms. The patient is otherwise unable to give additional history. No family is present to discuss further. PAST MEDICAL HISTORY: Anxiety, CAD, COPD, dementia, depression, diabetes, diverticulitis, migraines. ALLERGIES: PENICILLIN, SULFA. PAST SURGICAL HISTORY: Status post cholecystectomy, , hysterectomy. She is also status post cardiac stenting. SOCIAL HISTORY: Former smoker and drinker. MEDICATIONS ON ADMISSION: Included amlodipine, potassium, sertraline, thiamine, labetalol, trazodone, gabapentin, pantoprazole, Plavix. REVIEW OF SYSTEMS: Per records, not obtainable due to dementia. PHYSICAL EXAMINATION: GENERAL: Reveals a thin, pale female. VITAL SIGNS: Temperature 98, pulse 74, respiratory rate 16, blood pressure 100/75. HEENT: Reveals normocephalic, atraumatic head. Pupils and extraocular muscles not tested. Sclerae are anicteric. NECK: Supple. LUNGS: Clear. CARDIOVASCULAR: Reveals an S1, S2, without S3, S4 or appreciable murmur. ABDOMEN: Reveals a soft abdomen, normal bowel sounds, no appreciable hepatosplenomegaly. EXTREMITIES: Reveal no cyanosis, clubbing or edema. LABORATORY STUDIES: Sodium 141, potassium 3.7, chloride 102, bicarbonate is 34, BUN is 8, creatinine 0.9, glucose 137, phosphorus is 3.8, calcium is 8.0, magnesium is 1.9, total bilirubin is 0.3. Hemoglobin on admission is 11.7, now is 10.4, white count is 7.6, platelet count is 334. IMPRESSION: Recurrent upper gastrointestinal bleed with acute blood loss anemia, hematemesis, most likely secondary to Plavix-induced ulcer. Recommend PPI therapy, serial blood counts. We will have further discussions with the patient's family and power of attorney lawyer to determine extent evaluation including endoscopy imaging or possibly surgery depending on the findings in view of the patient's dementia. I would like to thank Dr. Wells for allowing us to consult and participate in this patient's care. ELIZABETH/YARED/MARGE DR: Haritha TID: [id number] CC: AWAIS WELLS MD
[2021-05-08 23:23] VITALS: BP 112/93
[2021-05-09] MEDS: IV NORMAL SALINE 1000ML BAG 1,000 ML IV SCH ×3 (00:36→22:34)
[2021-05-09 03:53] VITALS: BP 145/49
[2021-05-09 07:00] VITALS: BP 149/56
[2021-05-09 09:00] LABS: BASO # 0.1 x10^3/uL (0.0-0.2); BASO % 1 % (0-3); EOS # 0.1 x10^3/uL (0.0-0.7); EOS % 1 % (0-3); HEMOGLOBIN 10.8 g/dL (12.0-15.5); LYMPH # 1.9 x10^3/uL (1.0-4.8); LYMPH % 30 % (24-48); MEAN CORPUSCULAR HEMOGLOBIN 21 pg (25-35); MEAN CORPUSCULAR HGB CONC 31 g/dL (31-37); MEAN CORPUSCULAR VOLUME 70 fL (79-100); MONO # 0.3 x10^3/uL (0.0-1.1); MONO % 5 % (0-9); NEUT % 64 % (31-73); PLATELET COUNT 341 x10^3/uL (140-400); RED BLOOD COUNT 5.03 x10^6/uL (3.50-5.40); RED CELL DISTRIBUTION WIDTH 17.5 % (11.5-14.5); WHITE BLOOD COUNT 6.3 x10^3/uL (4.0-11.0)
[2021-05-09 09:18] LABS: CALCIUM 7.7 mg/dL (8.5-10.1); CREATININE 0.8 mg/dL (0.6-1.0); GFR 70.3; MAGNESIUM 1.8 mg/dL (1.8-2.4); POTASSIUM 3.7 mmol/L (3.5-5.1)
[2021-05-09] MEDS: THIAMINE 100 MG TABLET. PO SCH (09:54)
[2021-05-09] MEDS: SERTRALINE 50 MG TABLET. PO SCH (09:55)
[2021-05-09] MEDS: PANTOPRAZOLE IV PUSH 40 MG VIAL. IVP SCH (09:55)
--- NOTE | 2021-05-09 12:21 | PDOC ---
Date of Service: DATE: 05/09/21 TIME: 12:04 Subjective: Subjective: I saw her earlier this morning - she was on the commode and had some retching into trashcan - spit out some saliva. Told me she didn't know how she was doing. Objective: Objective: Has clear liquid diet ordered, also IV PPI. D/w nurse - NO BLEEDING. Nausea w/o vomiting, better w/ anti-emetic. Tolerated clears yesterday. From past GI encounter: Eight A/P CTs here since 2013 - 7 of these performed since 04/2020 (and last done in 01/2021). Have noted hiatal hernia, mild splenomegaly, diverticulosis, diverticulitis (on 11/29 and 12/14/20),chronic sigmoid thickening, and possible early cirrhosis (mentioned last in 11/2020). Vital Signs: Vital Signs Date Time Temp Pulse Resp B/P (MAP) Pulse Ox O2 Delivery O2 Flow Rate FiO2 05/09/21 07:00 98.0 82 16 149/56 (87) 94 Room Air 98.0 Labs: Laboratory Tests Test 05/08/21 16:37 05/08/21 20:56 05/09/21 07:57 05/09/21 08:15 Glucose (Fingerstick) 174 mg/dL 210 mg/dL 158 mg/dL White Blood Count 6.3 x10^3/uL Red Blood Count 5.03 x10^6/uL Hemoglobin 10.8 g/dL Hematocrit 35.0 % Mean Corpuscular Volume 70 fL Mean Corpuscular Hemoglobin 21 pg Mean Corpuscular Hemoglobin Concent 31 g/dL Red Cell Distribution Width 17.5 % Platelet Count 341 x10^3/uL Neutrophils (%) (Auto) 64 % Lymphocytes (%) (Auto) 30 % Monocytes (%) (Auto) 5 % Eosinophils (%) (Auto) 1 % Basophils (%) (Auto) 1 % Neutrophils # (Auto) 4.0 x10^3/uL Lymphocytes # (Auto) 1.9 x10^3/uL Monocytes # (Auto) 0.3 x10^3/uL Eosinophils # (Auto) 0.1 x10^3/uL Basophils # (Auto) 0.1 x10^3/uL Sodium Level 140 mmol/L Potassium Level 3.7 mmol/L Chloride Level 105 mmol/L Carbon Dioxide Level 28 mmol/L Anion Gap 7 Blood Urea Nitrogen 6 mg/dL Creatinine 0.8 mg/dL Estimated GFR (Cockcroft-Gault) 70.3 Glucose Level 165 mg/dL Calcium Level 7.7 mg/dL Magnesium Level 1.8 mg/dL Test 05/09/21 11:48 Glucose (Fingerstick) 200 mg/dL Imaging: no imaging this admission PE: GEN: on commode, retching, alone in room LUNGS: room air HEART: RRR ABD: non-distended NEURO/PSYCH: awake and alert, forgetful A/P: ?hematemesis ?melena Chronic WICHO - Hgb stable ?GERD, hiatal hernia, h/o diverticular stricture (last BE 2015), s/p cholecystectomy - previously recommended GES, UGI, and/or EGD for what seems to be a recurrent vomiting issue H/o constipation 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 Continue PPI - IV for now. We've seen her several times recently. She's unable to provide meaningful history. Per Dr. Beckett's recommendations yesterday: "...further discussions with the patient's family and power of senior trial attorney to determine extent evaluation including endoscopy imaging or possibly surgery depending on the findings in view of the patient's dementia." Nurse provided number for Alexis who I will attempt to reach at some point - have been unable to call due to hospital phone glitch today. Justicifation of Admission Dx: Justifications for Admission: Justification of Admission Dx: Yes Acute Renal Failure: 75% Reduction in GFR Altered Mental Status: Altered Mental Status RENETTA SCHAFER May 09, 2021 12:21
--- NOTE | 2021-05-09 12:44 | PDOC ---
[employer] PROGRESS NOTE Date of Service DOS: DATE: 05/09/21 TIME: 12:42 Chief Complaint Chief Complaint Assessment/Plan Acute abdominal pain secondary to GI bleed Anemia due to acute GI blood loss Microcytic anemia, likely due to combination of blood loss and iron deficiency anemia Moderate acute hypokalemia Severe protein malnutrition History of diabetes mellitus type 2 History of diverticulosis History of COPD History of CAD on Plavix IV and p.o. electrolyte replacement for low potassium GI consult Continue IV fluids Continue IV Protonix Hold aspirin and Plavix and other anticoagulants Contraindicated at this time for DVT prophylaxis Protonix GI prophylaxis ADA diet CODE STATUS full Discussed with RN and SW Disposition inpatient management as above DPOA: History of Present Illness History of Present Illness 75-year-old female with past medical history of diabetes mellitus type 2, hyper tension, dyslipidemia, COPD, mild dementia, CAD status post stents currently on Plavix who presents with hematemesis that started today. She was actually admitted here 1 month ago for the same problem. For the past several days she has been fatigued she also has been having epigastric pain for the past weeks. She states that her vomiting of blood was quite a lot. Is been having 5 episodes of blood since then. also states that patient has black tarry stool as well.She states that her last stool was yesterday. Patient was actually admitted recently in March for the same issue. Her discharge hemoglobin at that time was 10 10/10: No acute events overnight. Patient seen examined bedside. Resting comfortably. No more hematemesis since time of discharge. Tolerating diet. Pending GI evaluation. Continue IV fluids and IV Protonix. Hold all anticoagulants and antiplatelet medications still. Hemoglobin stable at 10.4. Hb 10.8. Had some nausea and dry heaves this morning. Hemoccult positive. Acute abdominal series with no obstruction, moderate stool content. Vitals/I&O Vitals/I&O: Vital Signs Date Time Temp Pulse Resp B/P (MAP) Pulse Ox O2 Delivery O2 Flow Rate FiO2 05/09/21 07:00 98.0 82 16 149/56 (87) 94 Room Air 98.0 I & O 05/08/21 05/08/21 05/09/21 15:00 23:00 07:00 Intake Total 180 ml 0 ml Balance 180 ml 0 ml Physical Exam General: Alert, Oriented X3, Cooperative Heart: Regular rate Lungs: Clear Abdomen: Normal bowel sounds Extremities: No clubbing Skin: No rashes Labs Labs: Laboratory Tests Test 05/08/21 16:37 05/08/21 20:56 05/09/21 07:57 05/09/21 08:15 Glucose (Fingerstick) 174 mg/dL (70-99) 210 mg/dL (70-99) 158 mg/dL (70-99) White Blood Count 6.3 x10^3/uL (4.0-11.0) Red Blood Count 5.03 x10^6/uL (3.50-5.40) Hemoglobin 10.8 g/dL (12.0-15.5) Hematocrit 35.0 % (36.0-47.0) Mean Corpuscular Volume 70 fL (79-100) Mean Corpuscular Hemoglobin 21 pg (25-35) Mean Corpuscular Hemoglobin Concent 31 g/dL (31-37) Red Cell Distribution Width 17.5 % (11.5-14.5) Platelet Count 341 x10^3/uL (140-400) Neutrophils (%) (Auto) 64 % (31-73) Lymphocytes (%) (Auto) 30 % (24-48) Monocytes (%) (Auto) 5 % (0-9) Eosinophils (%) (Auto) 1 % (0-3) Basophils (%) (Auto) 1 % (0-3) Neutrophils # (Auto) 4.0 x10^3/uL (1.8-7.7) Lymphocytes # (Auto) 1.9 x10^3/uL (1.0-4.8) Monocytes # (Auto) 0.3 x10^3/uL (0.0-1.1) Eosinophils # (Auto) 0.1 x10^3/uL (0.0-0.7) Basophils # (Auto) 0.1 x10^3/uL (0.0-0.2) Sodium Level 140 mmol/L (136-145) Potassium Level 3.7 mmol/L (3.5-5.1) Chloride Level 105 mmol/L (98-107) Carbon Dioxide Level 28 mmol/L (21-32) Anion Gap 7 (6-14) Blood Urea Nitrogen 6 mg/dL (7-20) Creatinine 0.8 mg/dL (0.6-1.0) Estimated GFR (Cockcroft-Gault) 70.3 Glucose Level 165 mg/dL (70-99) Calcium Level 7.7 mg/dL (8.5-10.1) Magnesium Level 1.8 mg/dL (1.8-2.4) Test 05/09/21 11:48 Glucose (Fingerstick) 200 mg/dL (70-99) Assessment and Plan Assessmemt and Plan Problems Medical Problems: (1) Nonhealing wound of heel Status: Acute (2) Upper GI bleed Status: Acute Comment Review of Relevant I have reviewed the following items tammie (where applicable) has been applied. Medications: Current Medications Medications (Trade) Dose Ordered Sig/Lashay Route PRN Reason Start Time Stop Time Status Last Admin Dose Admin Potassium Bicarbonate (Potassium Effervescent Tablet) 40 meq 1X ONCE PO 05/08/21 17:00 05/08/21 17:01 DC 05/08/21 17:00 Images: Historic admission information Ms Bennett is a 75yo F w/ PMHx depression, dementia, COPD, anxiety, DM2, migraines who presents from home with GI bleed. She was recently discharged from [facility] after undergoing ORIF of right femoral fracture on 03/01 to SNF and apparently left SNF early per due to concerns for her memory, was brought in because of mental status changes.: Acute metabolic encephalopathy Acute cystitis Dementia Multiple falls AUNDREA due to vasomotor nephropathy Severe protein malnutrition Anemia of chronic disease Multiple wounds -left buttock stage II, right buttock stage I, right heel blister.. Left heel small ulcer. Justifications for Admission Other Justification Upper GI bleed AWAIS PLEITEZ MD May 09, 2021 12:44
[2021-05-09] MEDS ORDERED: MAGNESIUM SULFATE 2GM 50 ML IV ONE (13:00)
--- NOTE | 2021-05-09 13:04 | NUR ---
SW following. Discussed with RN, pt from home with , room air, clear liquid diet. Discharged home last admission with [facility]. Pt's consistently declines SNF. GI following. SW will continue to follow.
--- NOTE | 2021-05-09 14:50 | RAD ---
EXAM: Frontal view of the chest, AP views of the abdomen in upright and supine positions. CLINICAL INDICATION: Reason: vomiting, h/o constipation / Spl. Instructions: / History: COMPARISON: None. FINDINGS and IMPRESSION: The heart is not enlarged. Mediastinal and hilar contours are normal. Interstitial prominence bilater al lung bases, possibly chronic interstitial lung disease although atypical infectious or inflammator y process could have this appearance. No pleural effusion or pneumothorax. Vascular calcifications ar e seen. Cholecystectomy clips are seen. No abnormal small or large bowel dilatation. Moderate colonic stool content. No abnormal soft tissu e mass effect. No suspicious calcifications are seen. No free intraperitoneal gas. Electronically signed by: Casey Garrison MD (05/09/2021 2:48 PM) [id number]
[2021-05-09 15:00] VITALS: BP 137/61
[2021-05-09] MEDS ORDERED: ONDANSETRON ODT 4 MG TAB.RAPDIS. PO PRN (15:00)
[2021-05-09] MEDS: POLYETHYLENE GLYCOL 3350 17 GM PACKET. PO SCH (15:00)
[2021-05-09 19:00] VITALS: BP 157/67
[2021-05-09] MEDS: PSYLLIUM HUSK (SUGAR FREE) 1 PKT PACKET PO SCH (21:00)
[2021-05-09] MEDS: GABAPENTIN 300 MG CAPSULE. PO SCH (21:27)
[2021-05-09] MEDS: traZODone 100 MG TABLET. PO SCH (21:27)
[2021-05-09 23:00] VITALS: BP 147/51
[2021-05-10 01:08] LABS: HEMOGLOBIN A1C 7.7 % (4.8-5.6)
[2021-05-10 03:00] VITALS: BP_SYST 137; BP_SYST 145; BP_DIAS 56; BP_DIAS 80
[2021-05-10] MEDS: IV NORMAL SALINE 1000ML BAG 1,000 ML IV SCH ×3 (03:45→17:54)
[2021-05-10 07:00] VITALS: BP 172/59
--- NOTE | 2021-05-10 07:25 | PDOC ---
[facility] PROGRESS NOTE Date of Service DOS: DATE: 05/10/21 TIME: 07:25 Chief Complaint Chief Complaint Assessment/Plan Acute abdominal pain secondary to GI bleed Anemia due to acute GI blood loss Microcytic anemia, likely due to combination of blood loss and iron deficiency anemia Moderate acute hypokalemia Severe protein malnutrition History of diabetes mellitus type 2 - A1c 7.7 History of diverticulosis History of COPD History of CAD on Plavix IV and p.o. electrolyte replacement for low potassium GI consult Continue IV fluids Continue IV Protonix Hold aspirin and Plavix and other anticoagulants Contraindicated at this time for DVT prophylaxis Protonix GI prophylaxis ADA diet CODE STATUS full Discussed with RN and SW Disposition inpatient management as above DPOA: Alexis 32 MIN PT exam, chart review, > 50% of time spent with exam, chart review, pt care coordination. History of Present Illness History of Present Illness 75-year-old female with past medical history of diabetes mellitus type 2, hypertension, dyslipidemia, COPD, mild dementia, CAD status post stents currently on Plavix who presents with hematemesis that started today. She was actually admitted here 1 month ago for the same problem. For the past several days she has been fatigued she also has been having epigastric pain for the past weeks. She states that her vomiting of blood was quite a lot. Is been having 5 episodes of blood since then. also states that patient has black tarry stool as well.She states that her last stool was yesterday. On colonoscopy in 2015 had Patient was actually admitted recently in March for the same issue. Her discharge hemoglobin at that time was 10 10/10: No acute events overnight. Patient seen examined bedside. Resting comfortably. No more hematemesis since time of discharge. Tolerating diet. Pending GI evaluation. Continue IV fluids and IV Protonix. Hold all anticoagulants and antiplatelet medications still. Hb stable at 10.4. 05/09: Hb 10.8. Had some nausea and dry heaves this morning. Hemoccult positive. Acute abdominal series with no obstruction, moderate stool content. Hb 10. Nausea improved back pain improved. Had 2 BMs yesterday. PT recommending SNF. D/w , he consents to EGD. He says he is unable to bring her outpatient for colonoscopy and previously strictures prevented complete colonoscopy and he cannot bring her in for capsule endoscopy. Vitals/I&O Vitals/I&O: Vital Signs Date Time Temp Pulse Resp B/P (MAP) Pulse Ox O2 Delivery O2 Flow Rate FiO2 05/10/21 03:00 98.2 83 16 137/56 (83) 97 Room Air 98.2 I & O 05/09/21 05/09/21 05/10/21 15:00 23:00 07:00 Intake Total 100 ml 100 ml 0 ml Balance 100 ml 100 ml 0 ml Physical Exam General: Alert, Oriented X3, Cooperative Heart: Regular rate Lungs: Clear Abdomen: Normal bowel sounds Extremities: No clubbing Skin: No rashes Labs Labs: Laboratory Tests Test 05/09/21 07:57 05/09/21 08:15 05/09/21 11:48 05/09/21 17:02 Glucose (Fingerstick) 158 mg/dL (70-99) 200 mg/dL (70-99) 222 mg/dL (70-99) White Blood Count 6.3 x10^3/uL (4.0-11.0) Red Blood Count 5.03 x10^6/uL (3.50-5.40) Hemoglobin 10.8 g/dL (12.0-15.5) Hematocrit 35.0 % (36.0-47.0) Mean Corpuscular Volume 70 fL (79-100) Mean Corpuscular Hemoglobin 21 pg (25-35) Mean Corpuscular Hemoglobin Concent 31 g/dL (31-37) Red Cell Distribution Width 17.5 % (11.5-14.5) Platelet Count 341 x10^3/uL (140-400) Neutrophils (%) (Auto) 64 % (31-73) Lymphocytes (%) (Auto) 30 % (24-48) Monocytes (%) (Auto) 5 % (0-9) Eosinophils (%) (Auto) 1 % (0-3) Basophils (%) (Auto) 1 % (0-3) Neutrophils # (Auto) 4.0 x10^3/uL (1.8-7.7) Lymphocytes # (Auto) 1.9 x10^3/uL (1.0-4.8) Monocytes # (Auto) 0.3 x10^3/uL (0.0-1.1) Eosinophils # (Auto) 0.1 x10^3/uL (0.0-0.7) Basophils # (Auto) 0.1 x10^3/uL (0.0-0.2) Sodium Level 140 mmol/L (136-145) Potassium Level 3.7 mmol/L (3.5-5.1) Chloride Level 105 mmol/L (98-107) Carbon Dioxide Level 28 mmol/L (21-32) Anion Gap 7 (6-14) Blood Urea Nitrogen 6 mg/dL (7-20) Creatinine 0.8 mg/dL (0.6-1.0) Estimated GFR (Cockcroft-Gault) 70.3 Glucose Level 165 mg/dL (70-99) Hemoglobin A1c 7.7 % (4.8-5.6) Calcium Level 7.7 mg/dL (8.5-10.1) Magnesium Level 1.8 mg/dL (1.8-2.4) Iron Level 17 ug/dL (50-170) Total Iron Binding Capacity 311 ug/dL (250-450) Iron Saturation 5 % (15-34) Test 05/09/21 21:05 Glucose (Fingerstick) 224 mg/dL (70-99) Assessment and Plan Assessmemt and Plan Problems Medical Problems: (1) Nonhealing wound of heel Status: Acute (2) Upper GI bleed Status: Acute Comment Review of Relevant I have reviewed the following items tammie (where applicable) has been applied. Medications: Current Medications Medications (Trade) Dose Ordered Sig/Lashay Route PRN Reason Start Time Stop Time Status Last Admin Dose Admin Magnesium Sulfate 50 ml @ 25 mls/hr 1X ONCE IV 05/09/21 13:00 05/09/21 14:59 DC 05/09/21 13:00 Ondansetron HCl (Zofran Odt) 4 mg PRN Q4HRS PRN PO NAUSEA 05/09/21 15:00 05/09/21 21:28 Justifications for Admission Other Justification Upper GI bleed AWAIS PLEITEZ MD May 10, 2021 07:25
[2021-05-10 08:25] LABS: BASO # 0.1 x10^3/uL (0.0-0.2); BASO % 1 % (0-3); EOS % 0 % (0-3); HEMATOCRIT 32.4 % (36.0-47.0); LYMPH # 1.5 x10^3/uL (1.0-4.8); LYMPH % 22 % (24-48); MEAN CORPUSCULAR HEMOGLOBIN 21 pg (25-35); MEAN CORPUSCULAR HGB CONC 31 g/dL (31-37); MEAN CORPUSCULAR VOLUME 69 fL (79-100); MONO # 0.4 x10^3/uL (0.0-1.1); MONO % 6 % (0-9); NEUT # 4.9 x10^3/uL (1.8-7.7); NEUT % 70 % (31-73); PLATELET COUNT 352 x10^3/uL (140-400); RED BLOOD COUNT 4.71 x10^6/uL (3.50-5.40); RED CELL DISTRIBUTION WIDTH 17.4 % (11.5-14.5); WHITE BLOOD COUNT 6.9 x10^3/uL (4.0-11.0)
[2021-05-10] MEDS: PANTOPRAZOLE IV PUSH 40 MG VIAL. IVP SCH (08:36)
[2021-05-10 09:16] LABS: CALCIUM 7.8 mg/dL (8.5-10.1); CREATININE 0.7 mg/dL (0.6-1.0); MAGNESIUM 2.3 mg/dL (1.8-2.4); POTASSIUM 3.2 mmol/L (3.5-5.1)
[2021-05-10 10:41] VITALS: BP 116/41
--- NOTE | 2021-05-10 12:34 | PDOC ---
Date of Service: DATE: 05/10/21 TIME: 12:27 Subjective: Subjective: "I guess I'm okay." Objective: Objective: D/w nurse - c/o nausea, no bleeding. Has had COVID vaccines x 2. D/w Dr. Albarran and pt's Alexis via phone who would like to proceed w/ EGD. Describes recurrent "brown-black" vomiting episodes at home. She's not taking Plavix - he stopped that himself awhile ago because she was vomiting blood. Takes Nexium. Mentions how difficult it is to get her anywhere to follow-up w/ a doctor in a clinic. Vital Signs: Vital Signs Date Time Temp Pulse Resp B/P (MAP) Pulse Ox O2 Delivery O2 Flow Rate FiO2 05/10/21 10:41 98.2 84 18 116/41 (66) 95 Room Air 98.2 05/10/21 03:00 Labs: Laboratory Tests Test 05/09/21 17:02 05/09/21 21:05 05/10/21 07:25 05/10/21 08:03 Glucose (Fingerstick) 222 mg/dL 224 mg/dL 153 mg/dL White Blood Count 6.9 x10^3/uL Red Blood Count 4.71 x10^6/uL Hemoglobin 10.0 g/dL Hematocrit 32.4 % Mean Corpuscular Volume 69 fL Mean Corpuscular Hemoglobin 21 pg Mean Corpuscular Hemoglobin Concent 31 g/dL Red Cell Distribution Width 17.4 % Platelet Count 352 x10^3/uL Neutrophils (%) (Auto) 70 % Lymphocytes (%) (Auto) 22 % Monocytes (%) (Auto) 6 % Eosinophils (%) (Auto) 0 % Basophils (%) (Auto) 1 % Neutrophils # (Auto) 4.9 x10^3/uL Lymphocytes # (Auto) 1.5 x10^3/uL Monocytes # (Auto) 0.4 x10^3/uL Eosinophils # (Auto) 0.0 x10^3/uL Basophils # (Auto) 0.1 x10^3/uL Sodium Level 137 mmol/L Potassium Level 3.2 mmol/L Chloride Level 101 mmol/L Carbon Dioxide Level 27 mmol/L Anion Gap 9 Blood Urea Nitrogen 5 mg/dL Creatinine 0.7 mg/dL Estimated GFR (Cockcroft-Gault) 82.0 Glucose Level 151 mg/dL Calcium Level 7.8 mg/dL Magnesium Level 2.3 mg/dL Test 05/10/21 11:40 Glucose (Fingerstick) 173 mg/dL Imaging: AAS 05/09 The heart is not enlarged. Mediastinal and hilar contours are normal. Interstitial prominence bilateral lung bases, possibly chronic interstitial lung disease although atypical infectious or inflammatory process could have this appearance. No pleural effusion or pneumothorax. Vascular calcifications are seen. Cholecystectomy clips are seen. No abnormal small or large bowel dilatation. Moderate colonic stool content. No abnormal soft tissue mass effect. No suspicious calcifications are seen. No free intraperitoneal gas. 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 Justicifation of Admission Dx: Justifications for Admission: Justification of Admission Dx: Yes Acute Renal Failure: 75% Reduction in GFR Altered Mental Status: Altered Mental Status RENETTA SCHAFER May 10, 2021 12:34
[2021-05-10 15:00] VITALS: BP 134/57
[2021-05-10] MEDS: SERTRALINE 50 MG TABLET. PO SCH (15:22)
[2021-05-10] MEDS: THIAMINE 100 MG TABLET. PO SCH (15:23)
[2021-05-10] MEDS: POLYETHYLENE GLYCOL 3350 17 GM PACKET. PO SCH (15:23)
[2021-05-10] MEDS: POTASSIUM CHLORIDE 10MEQ 100 ML IV SCH ×4 (15:31→19:53)
[2021-05-10 19:00] VITALS: BP 126/53
[2021-05-10] MEDS: GABAPENTIN 300 MG CAPSULE. PO SCH (19:56)
[2021-05-10] MEDS: ACETAMINOPHEN 325 MG TABLET. PO PRN (19:56)
[2021-05-10] MEDS: traZODone 100 MG TABLET. PO SCH (19:58)
[2021-05-10] MEDS: PSYLLIUM HUSK (SUGAR FREE) 1 PKT PACKET PO SCH (21:00)
[2021-05-10 23:07] VITALS: BP 117/46
[2021-05-11] VITALS (7 sets, daily range): BP systolic 116–158; BP diastolic 36–72
[2021-05-11] MEDS: IV NORMAL SALINE 1000ML BAG 1,000 ML IV SCH ×2 (04:03→21:02)
--- NOTE | 2021-05-11 04:38 | NUR ---
Pt complaining of pain in right heel during the noc. Pt encouraged to wear rooke boot to help with some of her symptoms. Pt verbalized understanding. Pt also given tylenol for pain. Pt with foam dressing over wound. Noted picture taken when pt admitted. Will consult wound care at this time. No further complaints noted.
[2021-05-11] MEDS ORDERED: PROPOFOL 10 MG/ML (20ML) VIAL. IV ONE (06:56)
--- NOTE | 2021-05-11 06:56 | PDOC ---
[facility] [facility] PROGRESS NOTE Date of Service DOS: DATE: 05/11/21 TIME: 06:55 Chief Complaint Chief Complaint Assessment/Plan Acute abdominal pain secondary to GI bleed Anemia due to acute GI blood loss Microcytic anemia, likely due to combination of blood loss and iron deficiency anemia Moderate acute hypokalemia Severe protein malnutrition History of diabetes mellitus type 2 - A1c 7.7 History of diverticulosis History of COPD History of CAD on Plavix IV and p.o. electrolyte replacement for low potassium GI consult Continue IV fluids Continue IV Protonix Hold aspirin and Plavix and other anticoagulants Contraindicated at this time for DVT prophylaxis Protonix GI prophylaxis ADA diet CODE STATUS full Discussed with RN and SW Disposition inpatient management as above DPOA: Alexis 32 MIN PT exam, chart review, > 50% of time spent with exam, chart review, pt care coordination. History of Present Illness History of Present Illness 75-year-old female with past medical history of diabetes mellitus type 2, hypertension, dyslipidemia, COPD, mild dementia, CAD status post stents currently on Plavix who presents with hematemesis that started today. She was actually admitted here 1 month ago for the same problem. For the past several days she has been fatigued she also has been having epigastric pain for the past weeks. She states that her vomiting of blood was quite a lot. Is been having 5 episodes of blood since then. also states that patient has black tarry stool as well.She states that her last stool was yesterday. On colonoscopy in 2015 had Patient was actually admitted recently in March for the same issue. Her discharge hemoglobin at that time was 10 10/10: No acute events overnight. Patient seen examined bedside. Resting comfortably. No more hematemesis since time of discharge. Tolerating diet. Pending GI evaluation. Continue IV fluids and IV Protonix. Hold all anticoagulants and antiplatelet medications still. Hb stable at 10.4. 05/09: Hb 10.8. Had some nausea and dry heaves this morning. Hemoccult positive. Acute abdominal series with no obstruction, moderate stool content. 05/10: Hb 10. Nausea improved back pain improved. Had 2 BMs yesterday. PT recommending SNF. D/w , he consents to EGD. He is unable to bring her for colonoscopy and previously strictures prevented complete colonoscopy and he cannot bring her in for capsule endoscopy. Afebrile. Hb stable. To EGD with gastritis. no active bleeding. K 3.1. Eating late breakfast, complaining about food. D/w bedside he prefers home with home health rather than SNF. Vitals/I&O Vitals/I&O: Vital Signs Date Time Temp Pulse Resp B/P (MAP) Pulse Ox O2 Delivery O2 Flow Rate FiO2 05/11/21 03:10 98.3 78 20 116/44 (68) 94 Room Air 98.3 I & O 05/10/21 05/10/21 05/11/21 15:00 23:00 07:00 Intake Total 1480 ml 1415 ml Balance 1480 ml 1415 ml Physical Exam General: Alert, Cooperative Heart: Regular rate Lungs: Clear Abdomen: Normal bowel sounds Extremities: No clubbing Skin: No rashes Labs Labs: Laboratory Tests Test 05/10/21 07:25 05/10/21 08:03 05/10/21 11:40 05/10/21 16:44 White Blood Count 6.9 x10^3/uL (4.0-11.0) Red Blood Count 4.71 x10^6/uL (3.50-5.40) Hemoglobin 10.0 g/dL (12.0-15.5) Hematocrit 32.4 % (36.0-47.0) Mean Corpuscular Volume 69 fL (79-100) Mean Corpuscular Hemoglobin 21 pg (25-35) Mean Corpuscular Hemoglobin Concent 31 g/dL (31-37) Red Cell Distribution Width 17.4 % (11.5-14.5) Platelet Count 352 x10^3/uL (140-400) Neutrophils (%) (Auto) 70 % (31-73) Lymphocytes (%) (Auto) 22 % (24-48) Monocytes (%) (Auto) 6 % (0-9) Eosinophils (%) (Auto) 0 % (0-3) Basophils (%) (Auto) 1 % (0-3) Neutrophils # (Auto) 4.9 x10^3/uL (1.8-7.7) Lymphocytes # (Auto) 1.5 x10^3/uL (1.0-4.8) Monocytes # (Auto) 0.4 x10^3/uL (0.0-1.1) Eosinophils # (Auto) 0.0 x10^3/uL (0.0-0.7) Basophils # (Auto) 0.1 x10^3/uL (0.0-0.2) Sodium Level 137 mmol/L (136-145) Potassium Level 3.2 mmol/L (3.5-5.1) Chloride Level 101 mmol/L (98-107) Carbon Dioxide Level 27 mmol/L (21-32) Anion Gap 9 (6-14) Blood Urea Nitrogen 5 mg/dL (7-20) Creatinine 0.7 mg/dL (0.6-1.0) Estimated GFR (Cockcroft-Gault) 82.0 Glucose Level 151 mg/dL (70-99) Calcium Level 7.8 mg/dL (8.5-10.1) Magnesium Level 2.3 mg/dL (1.8-2.4) Glucose (Fingerstick) 153 mg/dL (70-99) 173 mg/dL (70-99) 144 mg/dL (70-99) Test 05/10/21 20:30 Glucose (Fingerstick) 154 mg/dL (70-99) Assessment and Plan Assessmemt and Plan Problems Medical Problems: (1) Nonhealing wound of heel Status: Acute (2) Upper GI bleed Status: Acute Comment Review of Relevant I have reviewed the following items tammie (where applicable) has been applied. Medications: Current Medications Medications (Trade) Dose Ordered Sig/Lashay Route PRN Reason Start Time Stop Time Status Last Admin Dose Admin Potassium Chloride/Water 100 ml @ 100 mls/hr Q1H IV 05/10/21 15:00 05/10/21 18:59 DC 05/10/21 19:53 Justifications for Admission Other Justification Upper GI bleed AWAIS PLEITEZ MD May 11, 2021 06:55
[2021-05-11] MEDS ORDERED: IV RINGERS,LACTATED 1000ML 1,000 ML IV SCH (07:00)
--- NOTE | 2021-05-11 08:55 | PDOC4 ---
Operative Note Operative Note EGD with biopsies Meds Propofol per anesthesia Pre-op dx Chronic blood loss anemia/coffee ground emesis Post-op dx non-erosive gastritis s/p bx Plan resume meds and diet serial blood counts LETICIA DANIELS MD May 11, 2021 08:55
[2021-05-11] MEDS: POLYETHYLENE GLYCOL 3350 17 GM PACKET. PO SCH (10:27)
[2021-05-11] MEDS: SERTRALINE 50 MG TABLET. PO SCH (10:27)
[2021-05-11] MEDS: THIAMINE 100 MG TABLET. PO SCH (10:27)
[2021-05-11] MEDS: PANTOPRAZOLE IV PUSH 40 MG VIAL. IVP SCH (10:27)
[2021-05-11 11:04] LABS: HEMATOCRIT 34.3 % (36.0-47.0); HEMOGLOBIN 10.5 g/dL (12.0-15.5); RED BLOOD COUNT 4.94 x10^6/uL (3.50-5.40); RED CELL DISTRIBUTION WIDTH 17.5 % (11.5-14.5)
[2021-05-11 11:18] LABS: CALCIUM 7.9 mg/dL (8.5-10.1); CREATININE 0.7 mg/dL (0.6-1.0); POTASSIUM 3.1 mmol/L (3.5-5.1)
[2021-05-11] MEDS ORDERED: POTASSIUM BICARB 20 MEQ EFFERVESCENT TABLET. PO ONE (12:00)
[2021-05-11] MEDS: POTASSIUM CHLORIDE 10MEQ 100 ML IV SCH ×4 (12:21→14:58)
[2021-05-11] MEDS: ACETAMINOPHEN 325 MG TABLET. PO PRN (12:23)
[2021-05-11] MEDS ORDERED: POTASSIUM CHLORIDE 20 MEQ TABLET.ER. PO ONE (14:00)
--- NOTE | 2021-05-11 14:19 | NUR ---
Wound/Ostomy Care Wound Type/Assessment: Patient seen for wound care consult of right heel DFU, pt known to wound care team from previous admissions. See wound assessment. R heel wound has eschar and slough with redness around. Wound cleansed, measured and assessed. Left heel is red but blanchable, Rooke boots in room and applied. Coccyx/sacrum pink and irritated, pt had loose stool during assessment and incontinent of urine, pt was changed and calazime cream applied, no open wounds noted there. Treatment Recommendations/Plan: Cleanse wound and pat dry. Right heel: skin prep to periwound, cover with honey alginate and foam, change on Sunday. Education provided: Patient educated on dressing changes and POC. Patient is confused at times and needs reinforcement. Offloading surface/device: Patient repositioned to the left side using purple wedge. Rooke boots applied to bilateral feet. Recommended Referrals/Tests: N/A Discharge Recommendations for dressings: Same as above. Dressing change instructions left in room.
[2021-05-11] MEDS: traZODone 100 MG TABLET. PO SCH (20:57)
[2021-05-11] MEDS: PSYLLIUM HUSK (SUGAR FREE) 1 PKT PACKET PO SCH (20:58)
[2021-05-11] MEDS: GABAPENTIN 300 MG CAPSULE. PO SCH (20:58)
[2021-05-12 03:41] VITALS: BP 138/59
[2021-05-12] MEDS: IV NORMAL SALINE 1000ML BAG 1,000 ML IV SCH (05:28)
[2021-05-12 07:00] VITALS: BP 128/55
[2021-05-12 08:44] LABS: HEMOGLOBIN 10.3 g/dL (12.0-15.5); RED BLOOD COUNT 4.81 x10^6/uL (3.50-5.40); WHITE BLOOD COUNT 5.7 x10^3/uL (4.0-11.0)
[2021-05-12 09:17] LABS: CREATININE 0.8 mg/dL (0.6-1.0); GFR 70.3; POTASSIUM 3.9 mmol/L (3.5-5.1)
--- NOTE | 2021-05-12 09:56 | PDOC ---
[facility] PROGRESS NOTE Date of Service DOS: DATE: 05/12/21 TIME: 09:54 Chief Complaint Chief Complaint Assessment/Plan Acute abdominal pain secondary to GI bleed Anemia due to acute GI blood loss Microcytic anemia, likely due to combination of blood loss and iron deficiency anemia Moderate acute hypokalemia Severe protein malnutrition Right heel ulcer - chronic, present on admission. Wound care with daily dressing changes History of diabetes mellitus type 2 - A1c 7.7 History of diverticulosis History of COPD History of CAD on Plavix IV and p.o. electrolyte replacement for low potassium GI consult Continue IV fluids Continue IV Protonix Hold aspirin and Plavix and other anticoagulants Contraindicated at this time for DVT prophylaxis Protonix GI prophylaxis ADA diet CODE STATUS full Discussed with RN and SW Disposition inpatient management as above DPOA: Alexis 32 MIN PT exam, chart review, > 50% of time spent with exam, chart review, pt care coordination. History of Present Illness History of Present Illness 75-year-old female with past medical history of diabetes mellitus type 2, hypertension, dyslipidemia, COPD, mild dementia, CAD status post stents currently on Plavix who presents with hematemesis that started today. She was actually admitted here 1 month ago for the same problem. For the past several days she has been fatigued she also has been having epigastric pain for the past weeks. She states that her vomiting of blood was quite a lot. Is been having 5 episodes of blood since then. also states that patient has black tarry stool as well.She states that her last stool was yesterday. On colonoscopy in 2015 had Patient was actually admitted recently in March for the same issue. Her discharge hemoglobin at that time was 10 10/10: No acute events overnight. Patient seen examined bedside. Resting comfortably. No more hematemesis since time of discharge. Tolerating diet. Pending GI evaluation. Continue IV fluids and IV Protonix. Hold all anticoagulants and antiplatelet medications still. Hb stable at 10.4. 05/09: Hb 10.8. Had some nausea and dry heaves this morning. Hemoccult positive. Acute abdominal series with no obstruction, moderate stool content. 05/10: Hb 10. Nausea improved back pain improved. Had 2 BMs yesterday. PT recommending SNF. D/w , he consents to EGD. He is unable to bring her for colonoscopy and previously strictures prevented complete colonoscopy and he cannot bring her in for capsule endoscopy. 05/11: Afebrile. Hb stable. To EGD with gastritis. no active bleeding. K 3.1. Eating late breakfast, complaining about food. D/w bedside he prefers home with home health rather than SNF. Hb 10.3, K3.9. Right heel bothers a little bit more today. Otherwise no significant complaints. Baseline confusion. Vitals/I&O Vitals/I&O: Vital Signs Date Time Temp Pulse Resp B/P (MAP) Pulse Ox O2 Delivery O2 Flow Rate FiO2 05/12/21 07:00 98.5 70 18 128/55 (79) 95 Room Air 98.5 05/11/21 08:55 2 I & O 05/11/21 05/11/21 05/12/21 15:00 23:00 07:00 Intake Total 950 ml 250 ml 120 ml Balance 950 ml 250 ml 120 ml Physical Exam General: Alert, Cooperative Heart: Regular rate Lungs: Clear Abdomen: Normal bowel sounds Extremities: No clubbing Skin: No rashes Labs Labs: Laboratory Tests Test 05/11/21 10:10 05/11/21 11:44 05/11/21 16:55 05/11/21 19:27 White Blood Count 5.0 x10^3/uL (4.0-11.0) Red Blood Count 4.94 x10^6/uL (3.50-5.40) Hemoglobin 10.5 g/dL (12.0-15.5) Hematocrit 34.3 % (36.0-47.0) Mean Corpuscular Volume 69 fL (79-100) Mean Corpuscular Hemoglobin 21 pg (25-35) Mean Corpuscular Hemoglobin Concent 31 g/dL (31-37) Red Cell Distribution Width 17.5 % (11.5-14.5) Platelet Count 299 x10^3/uL (140-400) Sodium Level 140 mmol/L (136-145) Potassium Level 3.1 mmol/L (3.5-5.1) Chloride Level 106 mmol/L (98-107) Carbon Dioxide Level 27 mmol/L (21-32) Anion Gap 7 (6-14) Blood Urea Nitrogen 4 mg/dL (7-20) Creatinine 0.7 mg/dL (0.6-1.0) Estimated GFR (Cockcroft-Gault) 82.0 Glucose Level 115 mg/dL (70-99) Calcium Level 7.9 mg/dL (8.5-10.1) Glucose (Fingerstick) 144 mg/dL (70-99) 177 mg/dL (70-99) 197 mg/dL (70-99) Test 05/12/21 07:10 05/12/21 07:17 White Blood Count 5.7 x10^3/uL (4.0-11.0) Red Blood Count 4.81 x10^6/uL (3.50-5.40) Hemoglobin 10.3 g/dL (12.0-15.5) Hematocrit 33.0 % (36.0-47.0) Mean Corpuscular Volume 69 fL (79-100) Mean Corpuscular Hemoglobin 21 pg (25-35) Mean Corpuscular Hemoglobin Concent 31 g/dL (31-37) Red Cell Distribution Width 17.0 % (11.5-14.5) Platelet Count 281 x10^3/uL (140-400) Sodium Level 138 mmol/L (136-145) Potassium Level 3.9 mmol/L (3.5-5.1) Chloride Level 104 mmol/L (98-107) Carbon Dioxide Level 28 mmol/L (21-32) Anion Gap 6 (6-14) Blood Urea Nitrogen 8 mg/dL (7-20) Creatinine 0.8 mg/dL (0.6-1.0) Estimated GFR (Cockcroft-Gault) 70.3 Glucose Level 149 mg/dL (70-99) Calcium Level 8.0 mg/dL (8.5-10.1) Glucose (Fingerstick) 161 mg/dL (70-99) Assessment and Plan Assessmemt and Plan Problems Medical Problems: (1) Nonhealing wound of heel Status: Acute (2) Upper GI bleed Status: Acute Comment Review of Relevant I have reviewed the following items tammie (where applicable) has been applied. Medications: Current Medications Medications (Trade) Dose Ordered Sig/Lashay Route PRN Reason Start Time Stop Time Status Last Admin Dose Admin Potassium Bicarbonate (Potassium Effervescent Tablet) 40 meq 1X ONCE PO 05/11/21 12:00 05/11/21 12:01 DC 05/11/21 12:18 Potassium Chloride/Water 100 ml @ 100 mls/hr Q1H IV 05/11/21 12:30 05/11/21 16:29 DC 05/11/21 12:21 Potassium Chloride (Klor-Con) 40 meq 1X ONCE PO 05/11/21 14:00 05/11/21 14:01 DC 05/11/21 14:06 Justifications for Admission Other Justification Upper GI bleed AWAIS PLEITEZ MD May 12, 2021 09:56
--- NOTE | 2021-05-12 09:59 | SNU/HH DC ---
DISCHARGE WITH HOME HEALTH DISCHARGE INFORMATION: Discharge Date: May 12, 2021 Final Diagnosis: Problems Medical Problems: (1) Nonhealing wound of heel Status: Acute (2) Upper GI bleed Status: Acute Condition on Discharge: Stable CODE STATUS: Code Status: Full HOME HEALTH: Face to Face: I certify this patient is under my care and that I, or a nurse practitioner or physician's administrative assistant office manager working with me, had a face to face encounter that meets the physician face to face encounter requirements with this patient on 05/12/2021. 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 For Eval/Treatment: Yes Physical Therapy For: Evalulation/Treatment Occupational Therapy For: Evaluation/Treatment Pt Meets Homebound Status: Fatigue w/ amb., Limited distance walking, Poor cognition POST DISCHARGE ORDERS: Activity Instructions for Disc: Activity as tolerated Weight Bearing Status after Di: As tolerated Bathing Instructions: Shower-keep dressing dry DIET AFTER DISCHARGE: Cardiac Wound/Incision Care: No wound care needed CHECKS AFTER DISCHARGE: Checks after discharge: Check blood press - daily, Check blood sugar, ac/hs FOLLOW-UP: DC TO SNF LABS: CBC, CMP weekly Additional Instructions: Right heel DFU, pt known to wound care team from previous admissions. R heel wound has eschar and slough with redness around. Wound cleansed, measured and assessed. Left heel is red but blanchable, Rooke boots in room and applied. Coccyx/sacrum pink and irritated Treatment Recommendations/Plan: Cleanse wound and pat dry. Right heel: skin prep to periwound, cover with honey alginate and foam, change on Sunday. Offloading surface/device: Patient repositioned to the left side using purple wedge. Rooke boots applied to bilateral feet. TREATMENT/EQUIPMENT ORDERS: Adaptive Equipment Issued: None Discharge Respiratory Equipmen: Oxygen CERTIFICATION STATEMENT: Certification Statement: Certification Statement: Based on the above finding, I certify that this patient is confined to the home and needs intermittent [facility] care, physical therapy and/or speech therapy, or continues to need occupational therapy.~ This patient is under my care, and I have initiated the establishment of the plan of care.~ This patient will be followed by myself or a community physician who will periodically review the plan of care. Home Meds Active Scripts Potassium Chloride (POTASSIUM CHLORIDE ) 20 Meq Tablet.er, 20 MEQ PO DAILY for SUPPLEMENT for 30 Days, #30 TAB.SR Prov:CASTLE,NIAL K III DO 04/01/21 Gabapentin (GABAPENTIN) 300 Mg Capsule, 300 MG PO QHS for Neuropathy, #30 CAP 2 Refills Prov:RYAN AVILEZ MD 03/01/21 Ascorbic Acid (VITAMIN C) 1,000 Mg Tablet, 1000 MG PO TIDWMEALS for SUPPLEMENT for 30 Days, #90 TAB Prov:KELLI EMMANUEL MD 12/17/20 Thiamine Mononitrate (VITAMIN B-1) 100 Mg Tablet, 100 MG PO DAILY for SUPPLEMENT for 30 Days, #30 TAB Prov:KELLI EMMANUEL MD 12/17/20 Lactobacillus Rhamnosus Gg (CULTURELLE) 1 Each Cap.sprink, 1 CAP PO BID for SUPPLEMENT for 30 Days, #60 CAP Prov:KELLI EMMANUEL MD 12/17/20 Psyllium Husk/Aspartame (METAMUCIL FIBER SINGLES PACKET) 3.4 Gm Powd.pack, 1 PKT PO DAILY16 for STOOLS for 30 Days, #30 PKT Prov:KELLI EMMANUEL MD 05/04/20 Docusate Sodium (DOK) 100 Mg Capsule, 100 MG PO PRN BID PRN for HARD STOOLS for 30 Days, #60 CAP Prov:KELLI EMMANUEL MD 05/04/20 Acetaminophen (TYLENOL) 325 Mg Tablet, 650 MG PO PRN Q4HRS PRN for TEMP OVER 100.4F for 30 Days, #100 TAB Prov:KELLI EMMANUEL MD 05/04/20 Reported Medications Risperidone (RISPERIDONE) 0.5 Mg Tablet, 0.25 MG PO PRN QHS PRN for ANXIETY / AGITATION, TAB 11/29/20 Sertraline Hcl (ZOLOFT) 100 Mg Tablet, 100 MG PO DAILY for ANTI-DEPRESSANT, TAB 0 Refills 11/29/20 Esomeprazole Magnesium (NEXIUM CAPSULE) 40 Mg Capsule.dr, 40 MG PO DAILYAC for , #30 CAP 0 Refills 11/29/20 Atorvastatin Calcium (ATORVASTATIN CALCIUM) 40 Mg Tablet, 40 MG PO HS for FOR CHOLESTEROL, #30 TAB 0 Refills 02/28/14 Trazodone Hcl (TRAZODONE HCL) 100 Mg Tablet, 200 MG PO HS, TAB 02/28/14 Discontinued Reported Medications Insulin Aspart (NOVOLOG) 100 Unit/1 Ml Cartridge, 10 UNIT SQ TIDWMEALS for , EACH 11/29/20 Clopidogrel Bisulfate (CLOPIDOGREL) 75 Mg Tablet, 75 MG PO DAILY for TO PREVENT BLOOD CLOTS, #30 TAB 0 Refills 02/28/14 Discontinued Scripts Cefdinir (CEFDINIR) 300 Mg Capsule, 300 MG PO BID for UTI for 5 Days, #10 CAP Prov:AWAIS PLEITEZ MD 03/14/21 Insulin Glargine,Hum.rec.anlog (LANTUS SOLOSTAR) 100 Unit/1 Ml Insuln.pen, 25 UNIT SQ QHS for DM2 for 30 Days, #15 ML 5 Refills Prov:AWAIS PLEITEZ MD 03/14/21 Enoxaparin Sodium (ENOXAPARIN SODIUM) 40 Mg/0.4 Ml Disp.syrin, 40 MG SQ Q24H for Hip fracture for 14 Days, #14 DIS.SYR 0 Refills Prov:RYAN AVILEZ MD 03/01/21 AWAIS PLEITEZ MD May 12, 2021 09:59
--- NOTE | 2021-05-12 10:01 | PDOC3 ---
Discharge Summary Visit Information Date of Admission: May 07, 2021 Date of Discharge: May 12, 2021 Admitting Diagnosis: UGIB Final Diagnosis Problems Medical Problems: (1) Nonhealing wound of heel Status: Acute (2) Upper GI bleed Status: Acute Brief Hospital Course Allergies Allergies Coded Allergies Type Severity Reaction Last Updated Verified Penicillins Allergy Intermediate tolerates Ancef, Rocephin 05/11/21 Yes Sulfa (Sulfonamide Antibiotics) Allergy Intermediate 05/11/21 Yes Vital Signs Vital Signs Date Time Temp Pulse Resp B/P (MAP) Pulse Ox O2 Delivery O2 Flow Rate FiO2 05/12/21 07:00 98.5 70 18 128/55 (79) 95 Room Air 98.5 05/11/21 08:55 2 Lab Results Laboratory Tests Test 05/10/21 11:40 05/10/21 16:44 05/10/21 20:30 05/11/21 07:33 Glucose (Fingerstick) 173 mg/dL (70-99) 144 mg/dL (70-99) 154 mg/dL (70-99) 148 mg/dL (70-99) Test 05/11/21 10:10 05/11/21 11:44 05/11/21 16:55 05/11/21 19:27 White Blood Count 5.0 x10^3/uL (4.0-11.0) Red Blood Count 4.94 x10^6/uL (3.50-5.40) Hemoglobin 10.5 g/dL (12.0-15.5) Hematocrit 34.3 % (36.0-47.0) Mean Corpuscular Volume 69 fL (79-100) Mean Corpuscular Hemoglobin 21 pg (25-35) Mean Corpuscular Hemoglobin Concent 31 g/dL (31-37) Red Cell Distribution Width 17.5 % (11.5-14.5) Platelet Count 299 x10^3/uL (140-400) Sodium Level 140 mmol/L (136-145) Potassium Level 3.1 mmol/L (3.5-5.1) Chloride Level 106 mmol/L (98-107) Carbon Dioxide Level 27 mmol/L (21-32) Anion Gap 7 (6-14) Blood Urea Nitrogen 4 mg/dL (7-20) Creatinine 0.7 mg/dL (0.6-1.0) Estimated GFR (Cockcroft-Gault) 82.0 Glucose Level 115 mg/dL (70-99) Calcium Level 7.9 mg/dL (8.5-10.1) Glucose (Fingerstick) 144 mg/dL (70-99) 177 mg/dL (70-99) 197 mg/dL (70-99) Test 05/12/21 07:10 05/12/21 07:17 White Blood Count 5.7 x10^3/uL (4.0-11.0) Red Blood Count 4.81 x10^6/uL (3.50-5.40) Hemoglobin 10.3 g/dL (12.0-15.5) Hematocrit 33.0 % (36.0-47.0) Mean Corpuscular Volume 69 fL (79-100) Mean Corpuscular Hemoglobin 21 pg (25-35) Mean Corpuscular Hemoglobin Concent 31 g/dL (31-37) Red Cell Distribution Width 17.0 % (11.5-14.5) Platelet Count 281 x10^3/uL (140-400) Sodium Level 138 mmol/L (136-145) Potassium Level 3.9 mmol/L (3.5-5.1) Chloride Level 104 mmol/L (98-107) Carbon Dioxide Level 28 mmol/L (21-32) Anion Gap 6 (6-14) Blood Urea Nitrogen 8 mg/dL (7-20) Creatinine 0.8 mg/dL (0.6-1.0) Estimated GFR (Cockcroft-Gault) 70.3 Glucose Level 149 mg/dL (70-99) Calcium Level 8.0 mg/dL (8.5-10.1) Glucose (Fingerstick) 161 mg/dL (70-99) Laboratory Tests Test 05/11/21 10:10 05/11/21 11:44 05/11/21 16:55 05/11/21 19:27 White Blood Count 5.0 x10^3/uL (4.0-11.0) Red Blood Count 4.94 x10^6/uL (3.50-5.40) Hemoglobin 10.5 g/dL (12.0-15.5) Hematocrit 34.3 % (36.0-47.0) Mean Corpuscular Volume 69 fL (79-100) Mean Corpuscular Hemoglobin 21 pg (25-35) Mean Corpuscular Hemoglobin Concent 31 g/dL (31-37) Red Cell Distribution Width 17.5 % (11.5-14.5) Platelet Count 299 x10^3/uL (140-400) Sodium Level 140 mmol/L (136-145) Potassium Level 3.1 mmol/L (3.5-5.1) Chloride Level 106 mmol/L (98-107) Carbon Dioxide Level 27 mmol/L (21-32) Anion Gap 7 (6-14) Blood Urea Nitrogen 4 mg/dL (7-20) Creatinine 0.7 mg/dL (0.6-1.0) Estimated GFR (Cockcroft-Gault) 82.0 Glucose Level 115 mg/dL (70-99) Calcium Level 7.9 mg/dL (8.5-10.1) Glucose (Fingerstick) 144 mg/dL (70-99) 177 mg/dL (70-99) 197 mg/dL (70-99) Test 05/12/21 07:10 05/12/21 07:17 White Blood Count 5.7 x10^3/uL (4.0-11.0) Red Blood Count 4.81 x10^6/uL (3.50-5.40) Hemoglobin 10.3 g/dL (12.0-15.5) Hematocrit 33.0 % (36.0-47.0) Mean Corpuscular Volume 69 fL (79-100) Mean Corpuscular Hemoglobin 21 pg (25-35) Mean Corpuscular Hemoglobin Concent 31 g/dL (31-37) Red Cell Distribution Width 17.0 % (11.5-14.5) Platelet Count 281 x10^3/uL (140-400) Sodium Level 138 mmol/L (136-145) Potassium Level 3.9 mmol/L (3.5-5.1) Chloride Level 104 mmol/L (98-107) Carbon Dioxide Level 28 mmol/L (21-32) Anion Gap 6 (6-14) Blood Urea Nitrogen 8 mg/dL (7-20) Creatinine 0.8 mg/dL (0.6-1.0) Estimated GFR (Cockcroft-Gault) 70.3 Glucose Level 149 mg/dL (70-99) Calcium Level 8.0 mg/dL (8.5-10.1) Glucose (Fingerstick) 161 mg/dL (70-99) Brief Hospital Course 75-year-old female with past medical history of diabetes mellitus type 2, hypertension, dyslipidemia, COPD, mild dementia, CAD status post stents currently on Plavix who presents with hematemesis that started today. She was actually admitted here 1 month ago for the same problem. For the past several days she has been fatigued she also has been having epigastric pain for the past weeks. She states that her vomiting of blood was quite a lot. Is been having 5 episodes of blood since then. also states that patient has black tarry stool as well.She states that her last stool was yesterday. On colonoscopy in 2015 had strictures Patient was actually admitted recently in March for the same issue. Her discharge hemoglobin at that time was 10 05/08: No acute events overnight. Patient seen examined bedside. Resting comfortably. No more hematemesis since time of discharge. Tolerating diet. Pending GI evaluation. Continue IV fluids and IV Protonix. Hold all anticoagulants and antiplatelet medications still. Hb stable at 10.4. 05/09: Hb 10.8. Had some nausea and dry heaves this morning. Hemoccult positive. Acute abdominal series with no obstruction, moderate stool content. 05/10: Hb 10. Nausea improved back pain improved. Had 2 BMs yesterday. PT recommending SNF. D/w , he consents to EGD. He is unable to bring her for colonoscopy and previously strictures prevented complete colonoscopy and he can not bring her in for capsule endoscopy. 05/11: Afebrile. Hb stable. To EGD with gastritis. no active bleeding. K 3.1. Eating late breakfast, complaining about food. D/w bedside he prefers home with home health rather than SNF. Hb 10.3, K3.9. Right heel bothers a little bit more today. Otherwise no significant complaints. Baseline confusion. Consults: GI, wound care. Problem list: Acute abdominal pain secondary to GI bleed Anemia due to acute GI blood loss Microcytic anemia, likely due to combination of blood loss and iron deficiency anemia Moderate acute hypokalemia Severe protein malnutrition Right heel ulcer - chronic, present on admission. Wound care with daily dressing changes History of diabetes mellitus type 2 - A1c 7.7 History of diverticulosis History of COPD History of CAD on Plavix Hold aspirin and Plavix and other anticoagulants Protonix GI prophylaxis ADA diet CODE STATUS full DPOA: [place] Greater than 30 minutes spent on d/c home with home health Discharge Information Condition at Discharge: Improved Follow Up: Weeks (1) Disposition/Orders: D/C to Home w/ HH Scheduled Ascorbic Acid (Vitamin C) 1,000 Mg Tablet, 1,000 MG PO TIDWMEALS for SUPPLEMENT for 30 Days, #90 Prescribed by: KELLI EMMANUEL MD on 12/17/20 1358 Atorvastatin Calcium (Atorvastatin Calcium) 40 Mg Tablet, 40 MG PO HS for FOR CHOLESTEROL, #30 Ref 0 (Reported) Entered as Reported by: TOMMY ARRIOLA on 02/28/14 1356 Esomeprazole Magnesium (Nexium Capsule) 40 Mg Capsule.dr, 40 MG PO DAILYAC for , #30 Ref 0 (Reported) Entered as Reported by: MYRIAM PETERSON RN on 11/29/200 Gabapentin (Gabapentin) 300 Mg Capsule, 300 MG PO QHS for Neuropathy, #30 Ref 2 Prescribed by: RYAN AVILEZ MD on 03/01/21 1103 Last Action: Continued on 05/07/211536 by CASS LEY MD Lactobacillus Rhamnosus Gg (Culturelle) 1 Each Cap.sprink, 1 CAP PO BID for SUPPLEMENT for 30 Days, #60 Prescribed by: KELLI EMMANUEL MD on 12/17/20 1358 Potassium Chloride (Potassium Chloride ) 20 Meq Tablet.er, 20 MEQ PO DAILY for SUPPLEMENT for 30 Days, #30 Prescribed by: IFTIKHAR FRANCO on 04/01/21 1315 Psyllium Husk/Aspartame (Metamucil Fiber Singles Packet) 3.4 Gm Powd.pack, 1 PKT PO DAILY16 for STOOLS for 30 Days, #30 Prescribed by: KELLI EMMANUEL MD on 05/04/20 1042 Sertraline Hcl (Zoloft) 100 Mg Tablet, 100 MG PO DAILY for ANTI-DEPRESSANT, Ref 0 (Reported) Entered as Reported by: MYRIAM PETERSON RN on 11/29/20 2310 Last Action: Converted on 05/07/211536 by CASS LEY MD Thiamine Mononitrate (Vitamin B-1) 100 Mg Tablet, 100 MG PO DAILY for SUPPLEMENT for 30 Days, #30 Prescribed by: KELLI EMMANUEL MD on 12/17/20 1358 Last Action: Continued on 05/07/211536 by CASS LEY MD Trazodone Hcl (Trazodone Hcl) 100 Mg Tablet, 200 MG PO HS, (Reported) Entered as Reported by: TOMMY ARRIOLA on 02/28/14 1347 Last Action: Continued on 05/07/211536 by CASS LEY MD Scheduled PRN Acetaminophen (Tylenol) 325 Mg Tablet, 650 MG PO PRN Q4HRS PRN for TEMP OVER 100.4F for 30 Days, #100 Prescribed by: KELLI EMMANUEL MD on 05/04/20 1042 Docusate Sodium (Dok) 100 Mg Capsule, 100 MG PO PRN BID PRN for HARD STOOLS for 30 Days, #60 Prescribed by: KELLI EMMANUEL MD on 05/04/20 1042 Risperidone (Risperidone) 0.5 Mg Tablet, 0.25 MG PO PRN QHS PRN for ANXIETY / AGITATION, (Reported) Entered as Reported by: MYRIAM PETERSON RN on 11/29/202312 Last Action: Converted on 05/07/211536 by CASS LEY MD Discontinued Medications Cefdinir (Cefdinir) 300 Mg Capsule, 300 MG PO BID for UTI for 5 Days, #10 Prescribed by: AWAIS PLEITEZ MD on 03/14/21 1330 Clopidogrel Bisulfate (Clopidogrel) 75 Mg Tablet, 75 MG PO DAILY for TO PREVENT BLOOD CLOTS, #30 Ref 0 (Reported) Entered as Reported by: TOMMY ARRIOLA on 02/28/14 1356 Enoxaparin Sodium (Enoxaparin Sodium) 40 Mg/0.4 Ml Disp.syrin, 40 MG SQ Q24H for Hip fracture for 14 Days, #14 Ref 0 Prescribed by: RYAN AVILEZ MD on 03/01/21 1105 Insulin Aspart (Novolog) 100 Unit/1 Ml Cartridge, 10 UNIT SQ TIDWMEALS for , (Reported) Entered as Reported by: MYRIAM PETERSON RN on 11/29/203 Insulin Glargine,Hum.rec.anlog (Lantus Solostar) 100 Unit/1 Ml Insuln.pen, 25 UNIT SQ QHS for DM2 for 30 Days, #15 Ref 5 Prescribed by: AWAIS PLEITEZ MD on 03/14/21 1330 Justicifation of Admission Dx: Justifications for Admission: Justification of Admission Dx: Yes Acute Renal Failure: 75% Reduction in GFR Altered Mental Status: Altered Mental Status AWAIS PLEITEZ MD May 12, 2021 10:01
[2021-05-12] MEDS: SERTRALINE 50 MG TABLET. PO SCH (10:55)
[2021-05-12] MEDS: PANTOPRAZOLE IV PUSH 40 MG VIAL. IVP SCH (10:55)
[2021-05-12] MEDS: THIAMINE 100 MG TABLET. PO SCH (10:55)
[2021-05-12 11:00] VITALS: BP 135/54
--- NOTE | 2021-05-12 11:32 | PDOC ---
Date of Service: DATE: 05/12/21 TIME: 11:29 Subjective: Subjective: Says eating and stooling without issue, no bleeding or abd pain. Objective: Vital Signs: Vital Signs Date Time Temp Pulse Resp B/P (MAP) Pulse Ox O2 Delivery O2 Flow Rate FiO2 05/12/21 07:00 98.5 70 18 128/55 (79) 95 Room Air 98.5 05/11/21 08:55 2 Labs: Laboratory Tests Test 05/11/21 11:44 05/11/21 16:55 05/11/21 19:27 05/12/21 07:10 Glucose (Fingerstick) 144 mg/dL 177 mg/dL 197 mg/dL White Blood Count 5.7 x10^3/uL Red Blood Count 4.81 x10^6/uL Hemoglobin 10.3 g/dL Hematocrit 33.0 % Mean Corpuscular Volume 69 fL Mean Corpuscular Hemoglobin 21 pg Mean Corpuscular Hemoglobin Concent 31 g/dL Red Cell Distribution Width 17.0 % Platelet Count 281 x10^3/uL Sodium Level 138 mmol/L Potassium Level 3.9 mmol/L Chloride Level 104 mmol/L Carbon Dioxide Level 28 mmol/L Anion Gap 6 Blood Urea Nitrogen 8 mg/dL Creatinine 0.8 mg/dL Estimated GFR (Cockcroft-Gault) 70.3 Glucose Level 149 mg/dL Calcium Level 8.0 mg/dL Test 05/12/21 07:17 Glucose (Fingerstick) 161 mg/dL Imaging: EGD 05/11 Pre-op dx Chronic blood loss anemia/coffee ground emesis Post-op dx non-erosive gastritis s/p bx Plan resume meds and diet serial blood counts PE: GEN: NAD LUNGS: CTAB HEART: RRR ABD: S/ND/NT NEURO/PSYCH: talkative, probably confused A/P: ?hematemesis/recurrent vomiting - resolved - EGD unrevealing Chronic WICHO - Hgb stable - ?taking iron at home H/o diverticular stricture (last BE 2015) H/o constipation - stooling 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 Continue PPI and constipation treatment. Consider outpt GES. Justicifation of Admission Dx: Justifications for Admission: Justification of Admission Dx: Yes Acute Renal Failure: 75% Reduction in GFR Altered Mental Status: Altered Mental Status RENETTA SCHAFER May 12, 2021 11:32
--- NOTE | 2021-05-12 12:20 | NUR ---
patient keeps removing telemetry. will DC this afternoon.
[2021-05-12 15:09] VITALS: BP 117/56
--- NOTE | 2021-05-12 17:27 | NUR ---
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 patient very confused about this. thinks she is going to dinner with her brother and his . reoriented patient to the fact that she is going home to her . patient had already removed her own IV. discharge instructions printed and placed in her belongings bag w/ her dentures. patient had glasses on at time of dc.
--- NOTE | 2021-05-13 17:09 | PATHOLOGY ---
[facility] Accession Number: [id number] . 01 Material submitted: . stomach - GASTRIC ANTRUM BIOPSY . 01 Clinical history: . HEMATEMESIS, N/V UPPER GI BLEED EGD R/O GASTRIC METAPLASIA . 02 Diagnosis: Gastric biopsies, gastric antrum: - Congestion and minimal chronic inflammation. (JPM:alejandro; 05/13/2021) S 05/13/2021 0912 Local . 02 Comment: Sections of the gastric biopsy reveal segments of gastric antral and gastric body mucosa showing congestion and minimal chronic inflammation. A properly controlled immunoperoxidase stain for Helicobacter is negative for Helicobacter organisms. There is no evidence of intestinal metaplasia or malignancy. (JPM:alejandro; 05/13/2021) . . Special stain performed: Immunoperoxidase stain for Helicobacter . 02 Electronically signed: . Anthony Agustin MD, Pathologist NPI- [id number] . 01 Gross description: . The specimen is received in formalin, labeled "Hanny Bennett, gastric antrum BX". Received are 2 segments of pale armijo tissue ranging in size from 0.7 to 0.8 cm in maximum dimensions. The specimen is submitted entirely in cassette A1.([facility]; 05/12/2021) [facility] 05/12/2021 1131 Local . 02 Pathologist provided ICD-10: K29.50, K31.89 . 02 CPT . 234499, [id number] Specimen Comment: A courtesy copy of this report has been sent to [phone], [phone] Specimen Comment: 2230, Specimen Comment: Report sent to , DR SMART / DR LEY Specimen Comment: A duplicate report has been generated due to demographic updates. Performed at: 01 [facility] [address], [place] [id number] MD Sal Ireland MD Phone: [phone] Performed at: 02 [facility] [address] [place], [place] [id number] MD Anthony Agustin MD Phone: [phone]
== END 2021-05-12 17:00 | disposition home health service (06) | DRG 377 ==
LOC: ER 13:14 → 5 NORTH 14:38
PROVIDERS: ADMIT Internal Medicine; ATTEND Internal Medicine
PROC: 0DB68ZX Excision of Stomach, Via Natural or Artificial Opening Endoscopic, Diagnostic (ICD-10-PCS; principal; 2021-05-11 09:30)
DX: K29.71 Gastritis, unspecified, with bleeding (principal); E43 Unspecified severe protein-calorie malnutrition; D62 Acute posthemorrhagic anemia; L97.419 Non-pressure chronic ulcer of right heel and midfoot with unspecified severity; N17.9 Acute kidney failure, unspecified; E11.22 Type 2 diabetes mellitus with diabetic chronic kidney disease; E11.40 Type 2 diabetes mellitus with diabetic neuropathy, unspecified; E11.621 Type 2 diabetes mellitus with foot ulcer; E78.5 Hyperlipidemia, unspecified; E87.6 Hypokalemia; F03.90 Unspecified dementia, unspecified severity, without behavioral disturbance, psychotic disturbance, mood disturbance, and anxiety; I12.9 Hypertensive chronic kidney disease with stage 1 through stage 4 chronic kidney disease, or unspecified chronic kidney disease; I25.10 Atherosclerotic heart disease of native coronary artery without angina pectoris; J44.9 Chronic obstructive pulmonary disease, unspecified; K21.9 Gastro-esophageal reflux disease without esophagitis; K27.9 Peptic ulcer, site unspecified, unspecified as acute or chronic, without hemorrhage or perforation; K29.70 Gastritis, unspecified, without bleeding; K44.9 Diaphragmatic hernia without obstruction or gangrene; K59.00 Constipation, unspecified; K74.60 Unspecified cirrhosis of liver; N18.9 Chronic kidney disease, unspecified; Z82.49 Family history of ischemic heart disease and other diseases of the circulatory system; Z82.5 Family history of asthma and other chronic lower respiratory diseases; Z86.73 Personal history of transient ischemic attack (TIA), and cerebral infarction without residual deficits; Z87.891 Personal history of nicotine dependence; Z90.49 Acquired absence of other specified parts of digestive tract; Z90.710 Acquired absence of both cervix and uterus; Z95.5 Presence of coronary angioplasty implant and graft; F32.A Depression, unspecified; F41.9 Anxiety disorder, unspecified; G43.909 Migraine, unspecified, not intractable, without status migrainosus; M19.90 Unspecified osteoarthritis, unspecified site; Z79.02 Long term (current) use of antithrombotics/antiplatelets
CPT/HCPCS: 36415; 43239; 74022; 80048; 80053; 82274; 82962; 83036; 83540; 83550; 83735; 84100; 85025; 85027; 86850; 86900; 86901; 88305; 88342; 96361; 96374; 96375; C9113; J0780; J2060; J2405; J2704; J3475; J3480; J7030; 97530-GP; 97535-GO; 99285-25; G0378

== ENCOUNTER 2021-05-26 19:23 | Emergency (ER) | payer MEDICARE, MEDICAID ==
[~2021-05-26] VITALS: Ht 157.5 cm; Wt 50.0 kg
--- NOTE | 2021-05-26 19:41 | PHYS DOC ---
Past Medical History Past Medical History: Anxiety, CAD, COPD, Dementia, Depression, Diabetes-Type II, Diverticulitis, [place], Migraines, Other Additional Past Medical Histor: neuropathy/insomnia Past Surgical History: Cholecystectomy, , Hysterectomy, Other Additional Past Surgical Histo: CARDIAC STENTS,RIGHT HIP "SCREWS" PLACED Smoking Status: Former Smoker Alcohol Use: None Drug Use: None General Adult EDM: Chief Complaint: MULTIPLE COMPLAINTS HPI: HPI: Patient is a 75 year old female who arrives via EMS from home for report of nausea and vomiting and abdominal pain. She has not vomited here. She does report some persistent nausea. She reports having had abdominal pain at home, though she denies this currently. She has a history of constipation issues. Sh e cannot tell me when her last bowel movement occurred. No report of diarrhea. The patient has a known history of dementia, and supplemental history is obtained from her as well as EMS. No report of acute mental status changes today. She was recently hospitalized at [facility] for a right heel ulcer. She is reportedly taking an unknown antibiotic. The patient or the cannot articulate which antibiotic she might be taking. The had reported that he "tried to give her nausea medicine" but it "did not work." It is unknown which antiemetic attempted to be administered at home. There is a report that the patient had a tactile fever, no antipyretics given, and she is afebrile here. The patient reports feeling overall much better on arrival. She denies chest pain or dyspnea. She denies cough. She denies headache. She denies dizziness. She does have right heel pain when the foot and heel are manipulated only but not at rest. She denies calf pain. She denies any syncope or fall or acute injury today. Review of Systems: Review of Systems: Constitutional: Reported tactile fever at home today, no objective fever or measured fever. She denies chills or rigors. HENT: Denies nasal congestion or sore throat. [] Respiratory: Denies cough or shortness of breath. [] Cardiovascular: Denies chest pain or edema. [] GI: Reports constipation abdominal pain and nausea and vomiting. : Denies urinary symptoms. She does have chronic urinary incontinence. Musculoskeletal: Denies back pain currently. Integument: Has an ulcer on her right heel. No changes or worsening today reported. Neurologic: Denies headache or dizziness. No acute mental status changes reported. Psychiatric: No mood acute disturbances reported.] Heart Score: C/O Chest Pain: No Risk Factors: Risk Factors: DM, Current or recent (<one month) smoker, HTN, HLP, family history of CAD, obesity. Risk Scores: Score 0 - 3: 2.5% MACE over next 6 weeks - Discharge Home Score 4 - 6: 20.3% MACE over next 6 weeks - Admit for Clinical Observation Score 7 - 10: 72.7% MACE over next 6 weeks - Early Invasive Strategies Allergies: Allergies: Allergies Coded Allergies Type Severity Reaction Last Updated Verified Penicillins Allergy Intermediate tolerates Ancef, Rocephin 05/11/21 Yes Sulfa (Sulfonamide Antibiotics) Allergy Intermediate 05/11/21 Yes Physical Exam: PE: Constitutional: Well developed, well nourished, no acute distress, non-toxic appearance. She is frail and chronically ill-appearing. She is smiling and resting comfortably on the ED gurney. HENT: Normocephalic, atraumatic, mucous membranes are tacky. Oropharynx is patent and clear. Eyes: PERRL, EOMI, conjunctiva normal, no discharge. Sclera are clear and anicteric Neck: Normal range of motion, no tenderness, supple, no stridor. Trachea is midline. Cardiovascular:Heart rate regular rhythm, +2 radial and +2 dorsalis pedis pulses bilaterally. Lungs & Thorax: Bilateral breath sounds clear to auscultation [] Abdomen: Bowel sounds normal, soft, no tenderness, no masses, no pulsatile masses. Normal bowel sounds noted. Abdomen soft and nondistended. Skin: Warm, dry, no erythema, no rash. There is a healing ulcer on the posterior right heel. There is mild soft tissue tenderness. No dusky discoloration or evidence of necrosis. There is very minimal surrounding eryth bari. There is no purulent or thick drainage. Extremities: No tenderness, no cyanosis, no clubbing, ROM intact, no edema. [] Neurologic: She is awake, alert, and oriented to person and place, which is baseline for her. She follows commands. Her speech is clear and fluent. 5 out of 5 motor strength all four extremities. No facial asymmetry. She is mildly but pleasantly confused. Psychologic: Affect is pleasant EKG: EKG: [] Radiology/Procedures: Radiology/Procedures: IMAGING REPORT Signed PATIENT: ENRIKE CORNELIUS ACCOUNT: [id number] : 1945 LOCATION: ER AGE: 75 SEX: F EXAM STATUS: REG ER ORD. PHYSICIAN: JAEL CLEVELAND DO REASON: abdominal pain, vomiting;OMNI 300, 75ML PROCEDURE: CT ABD PELV W/ IV CONTRST ONLY CT ABDOMEN+PELVIS W History: abdominal pain, vomiting Comparison: None. Technique: After administration of intravenous contrast, helical CT of the abdomen and pelvis was performed from the lung bases through the ischial tuberosities. Coronal and sagittal reconstructions were obtained. 75 mL of Omnipaque 300 were used. One or more of the following dose reduction techniques were utilized: Automated exposure control (AEC), Adjustment of mA and/or kV according to patient size, Use of iterative reconstruction technique such as ASiR, CT scan done according to ALARA and image gently/image wisely Abdomen Findings: Emphysema. Moderate-sized hiatal hernia. The liver, pancreas, spleen, and bilateral adrenal glands are normal. Cholecystectomy. Symmetric renal enhancement. There is no hydronephrosis. The visualized loops of small bowel are normal. Extensive colonic diverticulosis There is no evidence of bowel obstruction. Appendix is normal. There is no free fluid. There is no mesenteric or retroperitoneal adenopathy. Diffuse aortoiliac atherosclerotic disease. Ectatic suprarenal abdominal aorta measuring 2.6 cm in diameter. Pelvis Findings: Urinary bladder is normal. No pelvic free fluid. There is no pelvic or inguinal adenopathy. Degenerative changes of the spine. Chronic L1 compression deformity. IMPRESSION: 1. No acute findings. 2. Extensive colonic diverticulosis. 3. Moderate-sized hiatal hernia. Electronically signed by: Kathy Flores MD (05/26/2021 9:21 PM) [facility] DICTATED and SIGNED BY: KATHY FLORES MD DATE: 05/26/[id number] 0 Course & Med Decision Making: Course & Med Decision Making Pertinent Labs and Imaging studies reviewed. (See chart for details) The patient is given IV fluid bolus. She is given a dose of IV Zofran. She has not vomited here. She continues to deny abdominal pain. She has no subjective abdominal pain, no objective abdominal tenderness, certainly no surgical abdominal exam findings. CT of the abdomen pelvis is unremarkable for any acute life-threatening or surgical process. The findings, differential diagnosis and plan of care discussed with the patient as well as with her , via phone. He is comfortable with her returning home. I prescribed p.o. Zofran to be used as needed for any nausea vomiting symptoms. It is starting recommended that she follow-up with her primary care physician as well as routine wound care for her right heel wound. It is possible that her nausea and vomiting symptoms are related to her current antibiotic use. It was recommended that she contact her PCP for further discussion regarding this as well. Return precautions are given. Dragon Disclaimer: Dragon Disclaimer: This electronic medical record was generated, in whole or in part, using a voice recognition dictation system. Departure Departure Impression: Primary Impression: Nausea and vomiting Disposition: 01 HOME / SELF CARE / HOMELESS Condition: STABLE Referrals: CARLOS VIDAL MD (PCP) Patient Instructions: Nausea and Vomiting Additional Instructions: Use the prescribed nausea medicine as needed. Eat a bland diet. Drink plenty of clear fluids. Return immediately for any uncontrolled vomiting associated with dehydration, vomiting blood, severe abdominal pain, chest pain, shortness of breath, fever 100.4 or higher or any other concerns. Please follow-up with your primary care physician. Scripts Ondansetron Hcl (ZOFRAN) 4 Mg Tablet 4 MG PO PRN TID PRN for VOMITING, #20 EA nausea/vomiting Prov: JAEL CLEVELAND DO 05/26/21 JAEL CLEVELAND DO May 26, 2021 19:41
[2021-05-26 19:57] LABS: BASO % 0 % (0-3); EOS # 0.1 x10^3/uL (0.0-0.7); EOS % 1 % (0-3); HEMATOCRIT 39.7 % (36.0-47.0); HEMOGLOBIN 12.1 g/dL (12.0-15.5); LYMPH # 1.6 x10^3/uL (1.0-4.8); LYMPH % 13 % (24-48); MEAN CORPUSCULAR HEMOGLOBIN 22 pg (25-35); MEAN CORPUSCULAR HGB CONC 30 g/dL (31-37); MEAN CORPUSCULAR VOLUME 73 fL (79-100); MONO # 0.6 x10^3/uL (0.0-1.1); MONO % 5 % (0-9); NEUT # 9.5 x10^3/uL (1.8-7.7); NEUT % 80 % (31-73); PLATELET COUNT 267 x10^3/uL (140-400); RED BLOOD COUNT 5.44 x10^6/uL (3.50-5.40); RED CELL DISTRIBUTION WIDTH 22.4 % (11.5-14.5); WHITE BLOOD COUNT 11.9 x10^3/uL (4.0-11.0)
[2021-05-26] MEDS ORDERED: IV NORMAL SALINE 1000ML BAG 1,000 ML IV ONE (20:00)
[2021-05-26] MEDS ORDERED: ONDANSETRON PF 4 MG/2 ML VIAL. IVP ONE (20:00)
[2021-05-26 20:07] LABS: CALCIUM 9.1 mg/dL (8.5-10.1); CREATININE 0.9 mg/dL (0.6-1.0); GFR 61.4
[2021-05-26 20:14] LABS: ALBUMIN 3.3 g/dL (3.4-5.0); ALBUMIN/GLOBULIN RATIO 0.8 (1.0-1.7); TOTAL BILIRUBIN 0.2 mg/dL (0.2-1.0); TOTAL PROTEIN 7.5 g/dL (6.4-8.2)
[2021-05-26] MEDS ORDERED: IOHEXOL 300 MG/ML 100ML VIAL. IV ONE (20:30)
[2021-05-26 20:31] LABS: ANISOCYTOSIS MOD; HYPOCHROMIA MOD; PLT ESTIMATE ADEQUATE (ADEQUATE); POIKILOCYTOSIS SLIGHT
[2021-05-26 20:35] LABS: MICROCYTOSIS SLIGHT
[2021-05-26 20:36] LABS: OVALOCYTES FEW
--- NOTE | 2021-05-26 21:24 | RAD ---
CT ABDOMEN+PELVIS W History: abdominal pain, vomiting Comparison: None. Technique: After administration of intravenous contrast, helical CT of the abdomen and pelvis was per formed from the lung bases through the ischial tuberosities. Coronal and sagittal reconstructions wer e obtained. 75 mL of Omnipaque 300 were used. One or more of the following dose reduction techniques were utilized: Automated exposure control (AEC), Adjustment of mA and/or kV according to patient size , Use of iterative reconstruction technique such as ASiR, CT scan done according to ALARA and image g ently/image wisely Abdomen Findings: Emphysema. Moderate-sized hiatal hernia. The liver, pancreas, spleen, and bilateral adrenal glands are normal. Cholecystectomy. Symmetric renal enhancement. There is no hydronephrosis. The visualized loops of small bowel are normal. Extensive colonic diverticulosis There is no evidence of bowel obstruction. Appendix is normal. There is no free fluid. There is no mesenteric or retroperitoneal adenopathy. Diffuse aortoiliac atherosclerotic disease. Ectatic suprarenal abdominal aorta measuring 2.6 cm in di ameter. Pelvis Findings: Urinary bladder is normal. No pelvic free fluid. There is no pelvic or inguinal adenopathy. Degenerative changes of the spine. Chronic L1 compression deformity. IMPRESSION: 1. No acute findings. 2. Extensive colonic diverticulosis. 3. Moderate-sized hiatal hernia. Electronically signed by: Chuck Flores MD (05/26/2021 9:21 PM) [facility]
[2021-05-26 22:35] LABS: BACTERIA,URINE 0 /HPF (0-FEW); BILIRUBIN,URINE NEGATIVE (NEG); CLARITY,URINE CLEAR; COLOR,URINE STRAW; NITRITE,URINE NEGATIVE (NEG); PH,URINE 6.5 (<5.0-8.0); PROTEIN,URINE NEGATIVE (NEG-TRACE); RBC,URINE OCC /HPF (0-2); UROBILINOGEN,URINE 0.2 mg/dL (0.2 mg/dL); WBC,URINE 0 /HPF (0-4)
[2021-05-26] MEDS ORDERED: ONDA4TAB7 PO (22:42)
[2021-05-26 22:54] VITALS: BP 131/85
== END 2021-05-27 00:29 | disposition home or self-care (01) ==
LOC: ER 19:23
DX: R11.2 Nausea with vomiting, unspecified (principal); R10.9 Unspecified abdominal pain; J44.9 Chronic obstructive pulmonary disease, unspecified; F03.90 Unspecified dementia, unspecified severity, without behavioral disturbance, psychotic disturbance, mood disturbance, and anxiety; G43.909 Migraine, unspecified, not intractable, without status migrainosus; I25.10 Atherosclerotic heart disease of native coronary artery without angina pectoris; I25.2 Old myocardial infarction; E11.40 Type 2 diabetes mellitus with diabetic neuropathy, unspecified; Z90.49 Acquired absence of other specified parts of digestive tract; Z90.710 Acquired absence of both cervix and uterus; Z87.891 Personal history of nicotine dependence; K57.30 Diverticulosis of large intestine without perforation or abscess without bleeding; K44.9 Diaphragmatic hernia without obstruction or gangrene; Z88.0 Allergy status to penicillin; Z88.2 Allergy status to sulfonamides
CPT/HCPCS: 36415; 74177; 80053; 81001; 83690; 85025; 96361; 96374; 99285; J2405; J7030; Q9967

== ENCOUNTER 2021-09-18 03:01 | Emergency (ER) | payer MEDICARE, MEDICAID ==
[~2021-09-18] VITALS: Ht 162.6 cm; Wt 53.0 kg
[~2021-09-18 03:01] MED LIST changes: +ASPI-886 PO
--- NOTE | 2021-09-18 03:35 | PHYS DOC ---
Past Medical History Past Medical History: Anxiety, CAD, COPD, Dementia, Depression, Diabetes-Type II, Diverticulitis, [place], Migraines, Other Additional Past Medical Histor: neuropathy/insomnia Past Surgical History: Cholecystectomy, , Hysterectomy, Other Additional Past Surgical Histo: CARDIAC STENTS,RIGHT HIP "SCREWS" PLACED, CELIAC STENT Smoking Status: Former Smoker Alcohol Use: None Drug Use: None General Adult EDM: Chief Complaint: MECHANICAL FALL HPI: HPI: 76-year-old female past medical history of dementia, COPD, dm, htn, hld, cad on plavix, abdominal pain secondary stenosis and diverticulitis, presents the ED with complaints of right hip pain after falling in bathroom just prior to ED arrival. Patient reports she denied her head or lose consciousness. Is not on anticoagulants. RN called to confirm that patient did not lose consciousness. EMS reported that patient has dementia and was unable to calm her prior to ED arrival. In ED patient calm and cooperative. Pt is a poor historian secondary to her dementia. Pt does not know why she has a PICC line in her right arm and how often she follows up for her wound VAC on her right ankle. Review of Systems: Review of Systems: Constitutional: Denies fever or chills. [] Eyes: Denies change in visual acuity. [] HENT: Denies nasal congestion or sore throat. [] Respiratory: Denies cough or shortness of breath. [] Cardiovascular: Denies chest pain or edema. [] GI: Denies nausea or vomiting : Denies incontinence or saddle anesthesia Musculoskeletal: Denies flank pain or joint pain. [] Integument: Denies rash diaphoresis Neurologic: Denies headache, neck pain, focal weakness or sensory changes. [] Endocrine: Denies polyuria or polydipsia. [] Lymphatic: Denies swollen glands. [] Psychiatric: Denies depression or anxiety. [] Heart Score: C/O Chest Pain: No Risk Factors: Risk Factors: DM, Current or recent (<one month) smoker, HTN, HLP, family history of CAD, obesity. Risk Scores: Score 0 - 3: 2.5% MACE over next 6 weeks - Discharge Home Score 4 - 6: 20.3% MACE over next 6 weeks - Admit for Clinical Observation Score 7 - 10: 72.7% MACE over next 6 weeks - Early Invasive Strategies Allergies: Allergies: Allergies Coded Allergies Type Severity Reaction Last Updated Verified Penicillins Allergy Intermediate tolerates Ancef, Rocephin 09/18/21 Yes Sulfa (Sulfonamide Antibiotics) Allergy Intermediate 09/18/21 Yes Physical Exam: PE: Constitutional: Well developed, well nourished, no acute distress, non-toxic appearance. HENT: Normocephalic, atraumatic, no signs of head trauma Eyes: EOMI, conjunctiva normal, no discharge. Neck: Normal range of motion, supple, no midline neck pain Cardiovascular: S1/2 present, regular rhythm Lungs & Thorax: Speaking in full sentences, bilateral equal chest rise, no tachypnea or increased work of breathing Abdomen: soft, no tenderness, no reproducible hip tenderness or deformity-sits upright without any grimace/distress or pain Skin: Warm, dry, no erythema, no rash. [] Back: No spinal step-offs or tenderness, no CVA tenderness. [] Extremities: No lower extremity edema, wound VAC applied to patient's right posterior ankle with no associated cellulitis, unable to lift her left leg in the area but reports pain in her right proximal femur when lifting right leg, dp/pt pulses intact Neurologic: Alert, normal motor function, normal sensory function, no focal deficits noted. [] Psychologic: Calm mood, no agitation, is very talkative EKG: EKG: [] Radiology/Procedures: Radiology/Procedures: IMAGING REPORT Signed PATIENT: ENRIKE CORNELIUS ACCOUNT: [id number] : 1945 LOCATION: ER AGE: 76 SEX: F EXAM STATUS: REG ER ORD. PHYSICIAN: CLAUDE LEIVA DO REASON: right hip pain, s/p fall from standing PROCEDURE: CT HEAD AND CERVICAL SPINE WO PQRS Compliance Statement: One or more of the following individualized dose reduction techniques were utilized for this examination: 1. Automated exposure control 2. Adjustment of the mA and/or kV according to patient size 3. Use of iterative reconstruction technique CT head and cervical spine without contrast 09/18/2021 3:41 AM INDICATION: Right hip pain. Fall from standing. COMPARISON: CT head 03/30/2021 TECHNIQUE: Multiple axial CT images of the head were obtained from skull base through the vertex without intravenous contrast. Multiple axial CT images of the cervical spine were obtained without intravenous contrast. Coronal and sagittal reformats are provided. FINDINGS: Head: Ventricles, sulci and basal cisterns are prominent compatible with mild to moderate generalized cerebral volume loss. Low-attenuation in the periventricular white matter is suggestive of chronic small vessel ischemic changes. There is no hydrocephalus. Vargas-white matter differentiation is normal. There is no acute intracranial hemorrhage. There is no mass, mass effect or midline shift. Posterior fossa is normal in appearance. Visualized portions of the orbits are normal. Paranasal sinuses are well aerated. Mastoid air cells are well aerated. Scalp and calvaria are normal. Cervical spine: Alignment of the cervical spine is normal. Skull base is intact. Craniocervical junction is normal in appearance. Atlantoaxial articulation is normal. Vertebral body heights are maintained without evidence for acute fracture. Moderate multilevel facet arthropathy and mild uncovertebral joint disease. No significant osseous neural foraminal stenosis. No significant osseous spinal canal stenosis. Transverse foramen are intact. There is no prevertebral soft tissue swelling. Thyroid gland is normal in appearance. Vascular calcifications are present involving the carotid vessels. Right apical pleural-parenchymal scarring is identified. IMPRESSION: 1. No acute intracranial hemorrhage. Moderate generalized cerebral volume loss. Low-attenuation in the periventricular white matter is suggestive of chronic small vessel ischemic changes. 2. No acute fracture or malalignment of the cervical spine. Mild cervical spo ndylosis. Electronically signed by: Angel Culp MD (09/18/2021 4:16 AM) [facility] IMAGING REPORT Signed PATIENT: ENRIKE CORNELIUS ACCOUNT: [id number] : 1945 LOCATION: ER AGE: 76 SEX: F EXAM STATUS: REG ER ORD. PHYSICIAN: CLAUDE LEIVA DO REASON: right hip pain PROCEDURE: PELVIS XR FEMUR_RIGHT, XR PELVIS 1-2V 09/18/2021 3:41 AM INDICATION: Right hip pain COMPARISON: None available. TECHNIQUE: AP view the pelvis and 4 views of the right femur are provided. 2 views of the right hip. FINDINGS/ IMPRESSION: There are 3 partially threaded screws transfixing the right femur. Alignment appears similar to prior examination. No new fracture identified. Superior and inferior pubic rami are intact. Vascular calcifications are identified. Biiliac stent graft noted. Left hip hardware is noted without surrounding lucency or evidence for failure. Distal right femur is intact. Vascular calcifications. Electronically signed by: Angel Culp MD (09/18/2021 4:36 AM) [facility] DICTATED and SIGNED BY: ANGEL CULP MD DATE: 09/18/21 [id number] IMAGING REPORT Signed PATIENT: ENRIKE CORNELIUS ACCOUNT: [id number] : 1945 LOCATION: ER AGE: 76 SEX: F EXAM STATUS: REG ER ORD. PHYSICIAN: CLAUDE LEIVA DO REASON: right hip pain PROCEDURE: CHEST AP ONLY XR CHEST 1V 09/18/2021 3:41 AM INDICATION: Right hip pain COMPARISON: 08/22/2021 TECHNIQUE: Portable frontal view of the chest is provided. FINDINGS/ IMPRESSION: The cardiomediastinal silhouette is within normal limits. Right upper extremity PICC is identified with the distal tip projecting over the distal superior vena cava. There is patchy interstitial changes identified the right lung base, stable. Pulmonary emphysema. There are no significant pleural effusions. There is no pulmonary vascular congestion. No pneumothorax. No suspicious osseous abnormality. Electronically signed by: Angel Culp MD (09/18/2021 4:35 AM) [facility] DICTATED and SIGNED BY: ANGEL CULP MD DATE: 09/18/21 [id number] 0 Course & Med Decision Making: Course & Med Decision Making Pertinent Labs and Imaging studies reviewed. (See chart for details) RN spoke to over the phone. Pt was attempting to get out of bed to use her bedside commode. called out to the son who lives with the and he assisted her to the bedside commode. Patient became agitated and difficult to manage at this time. Patient complained of right hip pain but never fell to the ground, never had any blunt head injury. reports patient was very difficult to de-escalate and called 911 knowing that she would most likely be discharged back home. Imaging not consistent with any trauma which correlates with physical exam that shows no active deformity, bruising or signs of trauma. I do suspect patient's agitation is dementia related. On reevaluation patient is able to move both extremities, is in no distress and resting comfortably. Will discharge home with strict ED return precautions were given for head injury, confusion, fever or falls. Encouraged urgent outpatient follow-up with PMD for routine care. Life-threatening processes were considered but are low suspicion at this time, given history, physical exam and ED workup. Pt was educated on all prescription medications and adverse effects. All patient's questions were answered and pt was stable at time of discharge. Life/limb-threatening differential includes but is not limited to, intracranial hemorrhage, diffuse axonal injury, spinal cord syndrome, unstable cervical fracture or SCIWORA, fractures or joint dislocations, neurovascular injuries, organ injury or laceration, pneumothorax, pneumoperitoneum, pericardial tamponade, unstable pelvic fracture, compartment syndrome, flail chest or respiratory distress, burn injury or asphyxiation I have spoken with the patient and/or caregivers. I explained the patient's condition, diagnoses and treatment plan based on the information available to me at this time. I have answered the patient and/or caregiver's questions and addressed any concerns. The patient and/or caregivers have a good understanding of patient's diagnosis, condition and treatment plan as can be expected at this point. Vital signs have been stable. Patient's condition is stable and appropriate for discharge from the emergency department. Patient will pursue further outpatient evaluation with primary care physician or other designated or consulting physician as outlined in the discharge i nstructions. The patient and/or caregivers are agreeable to this plan of care and follow-up instructions have been explained in detail. The patient and/or caregivers have received these instructions in written form and have expressed an understanding of the discharge instructions. The patient and/or caregivers are aware that any significant change of condition or worsening of symptoms should prompt immediate return to this or the closest emergency department or call to 911. Cindy Disclaimer: Cindy Disclaimer: This electronic medical record was generated, in whole or in part, using a voice recognition dictation system. Departure Departure Impression: Primary Impression: Right hip pain Additional Impression: Dementia Disposition: HOME / SELF CARE / HOMELESS Condition: STABLE Referrals: CARLOS VIDAL MD (PCP) Follow-up with your primary care physician in 24 to 48 hours OR FOLLOW UP WITH FAMILY MEDICINE: [address], [address] [place] [address] Patient Instructions: Dementia, Fall Prevention and Home Safety, Hip Pain Additional Instructions: EMERGENCY DEPARTMENT GENERAL DISCHARGE INSTRUCTIONS Thank you for coming to [facility] Emergency Department (ED) today and trusting us with you care. We trust that you had a positive experience in our Emergency Department. If you wish to speak to the department management, you may call the Director at [phone]. YOUR FOLLOW UP INSTRUCTIONS ARE FOLLOWS: 1. Do you have a private Doctor? If you do not have a private doctor, please ask for a resource list of physicians or clinics that may be able to assist you with follow up care. 2. The Emergency Physicain has interpreted your x-rays. The X-Ray specialist will also review them. If there is a change in the findings, you will be notified in 48 hours when at all possible. 3. A lab test or culture has been done, your results will be reviewed and you will be notified if you need a change in treatment. ADDITIONAL INSTRUCTIONS AND INFORMATION: 1. Your care today has been supervised by a physician who is specially trained in emergency care. Many problems require more than one evaluation for a complete diagnosis and treatment. We recommend that you schedule your follow up appointment as recommended to ensure complete treatment of you illness or injury. If you are unable to obtain follow up care and continue to have a problem, or if your condition worsens, we recommend that you return to the ED. 2. We are not able to safely determine your condition over the phone nor are we able to give sound medical advice over the phone. For these safety reasons, if you call for medical advice we will ask you to come to the ED for further evaluation. 3. If you have any questions regarding these discharge instructions please call the ED at [phone]. SAFETY INFORMATION: In the interest of safety, wellness, and injury prevention; we encourage you to wear your sealbelt, if you smoke; quite smoking, and we encourage family to use a protective helmet for bicycling and other sporting events that present an increased risk for head injury. IF YOUR SYMPTOMS WORSEN OR NEW SYMPTOMS DEVELOP, OR YOU HAVE CONCERNS ABOUT YOUR CONDITION; OR IF YOUR CONDITION WORSENS WHILE YOU ARE WAITING FOR YOUR FOLLOW UP APPOINTMENT; EITHER CONTACT YOUR PRIMARY CARE DOCTOR, THE PHYSICIAN WHOSE NAME AND NUMBER YOU WERE GIVEN, OR RETURN TO THE ED IMMEDIATELY. CLAUDE CHAVEZ DO Sep 18, 2021 03:35
--- NOTE | 2021-09-18 04:18 | RAD ---
PQRS Compliance Statement: One or more of the following individualized dose reduction techniques were utilized for this examinat ion: 1. Automated exposure control 2. Adjustment of the mA and/or kV according to patient size 3. Use of iterative reconstruction technique CT head and cervical spine without contrast 09/18/2021 3:41 AM INDICATION: Right hip pain. Fall from standing. COMPARISON: CT head 03/30/2021 TECHNIQUE: Multiple axial CT images of the head were obtained from skull base through the vertex with out intravenous contrast. Multiple axial CT images of the cervical spine were obtained without intrav enous contrast. Coronal and sagittal reformats are provided. FINDINGS: Head: Ventricles, sulci and basal cisterns are prominent compatible with mild to moderate generalized cereb ral volume loss. Low-attenuation in the periventricular white matter is suggestive of chronic small v essel ischemic changes. There is no hydrocephalus. Vargas-white matter differentiation is normal. There is no acute intracranial hemorrhage. There is no mass, mass effect or midline shift. Posterior fossa is normal in appearance. Visualized portions of the orbits are normal. Paranasal sinuses are well aerated. Mastoid air cells a re well aerated. Scalp and calvaria are normal. Cervical spine: Alignment of the cervical spine is normal. Skull base is intact. Craniocervical junction is normal in appearance. Atlantoaxial articulation is normal. Vertebral body heights are maintained without evidence for acute fracture. Moderate multilevel facet arthropathy and mild uncovertebral joint disease. No significant osseous ne ural foraminal stenosis. No significant osseous spinal canal stenosis. Transverse foramen are intact. There is no prevertebral soft tissue swelling. Thyroid gland is normal in appearance. Vascular calcif ications are present involving the carotid vessels. Right apical pleural-parenchymal scarring is iden tified. IMPRESSION: 1. No acute intracranial hemorrhage. Moderate generalized cerebral volume loss. Low-attenuation in th e periventricular white matter is suggestive of chronic small vessel ischemic changes. 2. No acute fracture or malalignment of the cervical spine. Mild cervical spondylosis. Electronically signed by: Gabrielle Bernstein MD (09/18/2021 4:16 AM) [facility]
--- NOTE | 2021-09-18 04:37 | RAD ---
XR CHEST 1V 09/18/2021 3:41 AM INDICATION: Right hip pain COMPARISON: 08/22/2021 TECHNIQUE: Portable frontal view of the chest is provided. FINDINGS/ IMPRESSION: The cardiomediastinal silhouette is within normal limits. Right upper extremity PICC is identified wi th the distal tip projecting over the distal superior vena cava. There is patchy interstitial changes identified the right lung base, stable. Pulmonary emphysema. There are no significant pleural effusions. There is no pulmonary vascular congestion. No pneumothora x. No suspicious osseous abnormality. Electronically signed by: Gabrielle Bernstein MD (09/18/2021 4:35 AM) [facility]
--- NOTE | 2021-09-18 04:38 | RAD ---
XR FEMUR_RIGHT, XR PELVIS 1-2V 09/18/2021 3:41 AM INDICATION: Right hip pain COMPARISON: None available. TECHNIQUE: AP view the pelvis and 4 views of the right femur are provided. 2 views of the right hip. FINDINGS/ IMPRESSION: There are 3 partially threaded screws transfixing the right femur. Alignment appears similar to prior examination. No new fracture identified. Superior and inferior pubic rami are intact. Vascular calci fications are identified. Biiliac stent graft noted. Left hip hardware is noted without surrounding l ucency or evidence for failure. Distal right femur is intact. Vascular calcifications. Electronically signed by: Gabrielle Bernstein MD (09/18/2021 4:36 AM) [facility]
[2021-09-18 05:20] VITALS: BP 110/52
== END 2021-09-18 05:28 | disposition home or self-care (01) ==
LOC: ER 03:01
DX: M25.551 Pain in right hip (principal); F03.90 Unspecified dementia, unspecified severity, without behavioral disturbance, psychotic disturbance, mood disturbance, and anxiety; R07.89 Other chest pain; J44.9 Chronic obstructive pulmonary disease, unspecified; E11.40 Type 2 diabetes mellitus with diabetic neuropathy, unspecified; I25.10 Atherosclerotic heart disease of native coronary artery without angina pectoris; I25.2 Old myocardial infarction; G43.909 Migraine, unspecified, not intractable, without status migrainosus; Z90.49 Acquired absence of other specified parts of digestive tract; Z90.710 Acquired absence of both cervix and uterus; Z87.891 Personal history of nicotine dependence; Z95.5 Presence of coronary angioplasty implant and graft
CPT/HCPCS: 70450; 71045; 72125; 72170; 73552; 99284-25

== ENCOUNTER 2021-09-21 10:42 | Inpatient (IN) | payer MEDICARE, MEDICAID ==
[~2021-09-21] VITALS: Ht 162.6 cm; Wt 51.7 kg
[2021-09-21] MEDS ORDERED: ACETAMINOPHEN 500 MG TABLET PO ONE (11:15)
--- NOTE | 2021-09-21 11:36 | RAD ---
EXAMINATION: US DPLX VENOUS EXTREMITY LOWER RT, 09/21/2021 11:11 AM CLINICAL INDICATION: Persistent hip pain after hip repair COMPARISON: DVT ultrasound 06/09/2017 PROCEDURE: Multiple grayscale, color Doppler and spectral Doppler sonographic images of the right low er extremity were obtained. FINDINGS: There is no evidence of deep venous thrombosis in the right lower extremity. The right comm on femoral, femoral and popliteal veins are echolucent with normal flow on color Doppler imaging. The veins are fully compressible and show normal phasicity and reaction to augmentation. Visualized calf veins are also normal in appearance. IMPRESSION: No evidence of deep venous thrombosis in the right lower extremity. Electronically signed by: Nereida Leblanc MD (09/21/2021 11:34 AM) [id number]
--- NOTE | 2021-09-21 11:48 | PHYS DOC ---
Past Medical History Past Medical History: Anxiety, CAD, COPD, Dementia, Depression, Diabetes-Type II, Diverticulitis, [place], Migraines, Other Additional Past Medical Histor: neuropathy/insomnia (MATI WILSON) Past Surgical History: Other Additional Past Surgical Histo: Aorta Bilateral bipass. right foot with wound vac (MATI WLISON) Smoking Status: Former Smoker Alcohol Use: None Drug Use: None (MATI WILSON) General Adult EDM: Chief Complaint: LOWER EXT PAIN HPI: HPI: Patient is a 76 year old female with past medical history of dementia who presents with right leg pain. Patient's dementia is worsening, so has been aids in providing history. states that the primary care provider had intention of admitting to hospital for rehab/nursing home placement. Recently, she has been "playing with her own feces" and is more confused than n ormal. She also constantly complains of right lower extremity pain to her . (MATI WILSON) Review of Systems: Review of Systems: Unable to obtain secondary to demented baseline status (MATI WILSON) Heart Score: C/O Chest Pain: No (MATI WISLON) Current Medications: Current Medications Medications (Trade) Dose Ordered Sig/Lashay Start Time Stop Time Status Last Admin Dose Admin Acetaminophen (Tylenol) 1,000 mg 1X ONCE 09/21/21 11:15 09/21/21 11:16 DC (MATI WILSON) Allergies: Allergies: Allergies Coded Allergies Type Severity Reaction Last Updated Verified Penicillins Allergy Intermediate tolerates Ancef, Rocephin 09/18/21 Yes Sulfa (Sulfonamide Antibiotics) Allergy Intermediate 09/18/21 Yes (MATI WILSON) Physical Exam: PE: Constitutional: Disheveled, no acute distress, chronically ill-appearing, fingernails are extremely dirty consistent with history noted above. HENT: Normocephalic, atraumatic, bilateral external ears normal, nose normal. Eyes: EOMI, conjunctiva normal, no discharge. Neck: Normal range of motion, no stridor. Skin: Warm, dry, no erythema, no rash. Extremities: No tenderness, no cyanosis, no clubbing, ROM intact, no edema. Drain noted to right lateral ankle. Neurologic: Alert and oriented to person, no focal deficits noted. (MATI WILSON) Current Patient Data: Vital Signs: Vital Signs Date Time Temp Pulse Resp B/P (MAP) Pulse Ox O2 Delivery O2 Flow Rate FiO2 09/21/21 11:00 97.4 88 18 131/63 (85) 97 Room Air 97.4 (MATI WILSON) Radiology/Procedures: Radiology/Procedures: PROCEDURE: VENOUS LOWER EXTREMITY RIGHT EXAMINATION: US DPLX VENOUS EXTREMITY LOWER RT, 09/21/2021 11:11 AM CLINICAL INDICATION: Persistent hip pain after hip repair COMPARISON: DVT ultrasound 06/09/2017 PROCEDURE: Multiple grayscale, color Doppler and spectral Doppler sonographic images of the right lower extremity were obtained. FINDINGS: There is no evidence of deep venous thrombosis in the right lower extremity. The right common femoral, femoral and popliteal veins are echolucent with normal flow on color Doppler imaging. The veins are fully compressible and show normal phasicity and reaction to augmentation. Visualized calf veins are also normal in appearance. IMPRESSION: No evidence of deep venous thrombosis in the right lower extremity. Electronically signed by: Nereida Leblanc MD (09/21/2021 11:34 AM) [id number] (MATI WILSON) Course & Med Decision Making: Course & Med Decision Making Pertinent Labs and Imaging studies reviewed. (See chart for details) Patient is a 76-year-old demented female who presents with what she claims is right lower extremity pain. Upon speaking to patient's , she is here for failure to thrive and progressive dementia, that progressed to the point he is unable to care for her at home. Patient has been reports that she plays with her own feces after defecating and has become more confused on a daily basis. She has frequent complaints of right lower extremity pain, however no complications have been found since her repair. She has not experienced any falls since her last visit here in the emergency department. Dr. Ottoniel jordan accepts patient for admission. Patient will have consults with PT/OT, social work. Goal will be to place patient in nursing home facility. (MATI WILSON) Dragon Disclaimer: Dragon Disclaimer: This electronic medical record was generated, in whole or in part, using a voice recognition dictation system. (MATI WILSON) Departure Departure Impression: Primary Impression: Advanced dementia Additional Impressions: Right leg pain Chronic pain following surgery or procedure Dementia, unspecified, with behavioral disturbance Disposition: 09 ADMITTED INPATIENT Admitting Physician: ERICA Meneses) (MATI WILSON) Condition: STABLE Referrals: CARLOS VIDAL MD (PCP) Attending Co-Sign The patient was seen and interviewed as well as examined at the bedside. The chart was reviewed. The case was discussed. Agree with the plan of care. (SHANNAN FUNES DO) MATI WILSON Sep 21, 2021 11:48 SHANNAN FUNES DO Sep 21, 2021 18:06
[2021-09-21 13:18] LABS: BASO % 1 % (0-3); EOS # 0.1 x10^3/uL (0.0-0.7); EOS % 2 % (0-3); HEMATOCRIT 32.3 % (36.0-47.0); HEMOGLOBIN 10.1 g/dL (12.0-15.5); LYMPH # 0.9 x10^3/uL (1.0-4.8); LYMPH % 12 % (24-48); MEAN CORPUSCULAR HEMOGLOBIN 26 pg (25-35); MEAN CORPUSCULAR HGB CONC 31 g/dL (31-37); MEAN CORPUSCULAR VOLUME 82 fL (79-100); MONO # 0.3 x10^3/uL (0.0-1.1); MONO % 4 % (0-9); NEUT # 5.7 x10^3/uL (1.8-7.7); NEUT % 81 % (31-73); PLATELET COUNT 238 x10^3/uL (140-400); RED BLOOD COUNT 3.94 x10^6/uL (3.50-5.40); RED CELL DISTRIBUTION WIDTH 15.8 % (11.5-14.5)
[2021-09-21 13:25] LABS: CALCIUM 8.4 mg/dL (8.5-10.1); CREATININE 0.9 mg/dL (0.6-1.0); GFR 61.2; POTASSIUM 4.3 mmol/L (3.5-5.1)
[2021-09-21 13:31] LABS: ALBUMIN 2.8 g/dL (3.4-5.0); ALBUMIN/GLOBULIN RATIO 0.7 (1.0-1.7); TOTAL BILIRUBIN 0.3 mg/dL (0.2-1.0); TOTAL PROTEIN 6.7 g/dL (6.4-8.2)
[2021-09-21 16:49] LABS: BILIRUBIN,URINE NEGATIVE (NEG); CLARITY,URINE CLEAR; COLOR,URINE YELLOW; NITRITE,URINE NEGATIVE (NEG); PH,URINE 6.5 (<5.0-8.0); PROTEIN,URINE 30 mg/dL (NEG-TRACE); UROBILINOGEN,URINE 0.2 mg/dL (0.2 mg/dL)
[2021-09-21 17:22] LABS: AMORPHOUS SEDIMENT,UR PRESENT /HPF; YEAST,URINE PRESENT /HPF
[2021-09-21 17:24] LABS: BACTERIA,URINE 0 /HPF (0-FEW); HYALINE CASTS, URINE OCCASIONAL /HPF; RBC,URINE RARE /HPF (0-2)
--- NOTE | 2021-09-21 19:06 | PDOC1 ---
History and Physical Date of Admission Date of Admission DATE: 09/21/21 TIME: 19:04 Source Source: Chart review, Patient History of Present Illness History of Present Illness Ms Bennett, is a 76 year old female with past medical history of dementia who presents with right leg pain. Patient's dementia is worsening, so has been aids in providing history. states that the primary care provider had intention of admitting to hospital for rehab/[facility] placement. Recently, she has been "playing with her own feces" and is more confused than normal. She also constantly complains of right lower extremity pain to her . Past Medical History Cardiovascular: CAD, HTN, [place], Hyperlipidemia Pulmonary: Asthma, COPD, Pneumonia CENTRAL NERVOUS SYSTEM: CVA, Dementia, Migraine, Periperal neuropathy GI: Diverticulosis, GERD, Hemorrhoids, Irritable bowel disease, Other Heme/Onc: Cancer Hepatobiliary: Cirrhosis Psych: Anxiety, Depression Musculoskeletal: Osteoarthritis Renal/: Chronic renal failure Endocrine: Diabetes Past Surgical History Past Surgical History: Cholecystectomy, , Hysterectomy Family History Family History: Chronic Bronchitis, Coronary Artery Disease, Heart Disease, Hypertension Social History ALCOHOL: none Drugs: None Current Problem List Problem List Problems Medical Problems: (1) Advanced dementia Status: Acute (2) Chronic pain following surgery or procedure Status: Acute (3) Dementia, unspecified, with behavioral disturbance Status: Acute (4) Right leg pain Status: Acute Current Medications Current Medications Current Medications Acetaminophen (Tylenol) 1,000 mg 1X ONCE PO Last administered on 09/21/21at 12:12; Start 09/21/21 at 11:15; Stop 09/21/21 at 11:16; Status DC Active Scripts Active Aspirin Ec (Aspirin) 81 Mg Tablet. 81 Mg PO DAILYWBKFT 30 Days Clopidogrel (Clopidogrel Bisulfate) 75 Mg Tablet 75 Mg PO DAILYWBKFT 30 Days Zofran (Ondansetron Hcl) 4 Mg Tablet 4 Mg PO PRN TID PRN nausea/vomiting Potassium Chloride (Potassium Chloride) 20 Meq Tablet.er 20 Meq PO DAILY 30 Days Gabapentin 300 Mg Capsule 300 Mg PO QHS Vitamin C (Ascorbic Acid) 1,000 Mg Tablet 1,000 Mg PO TIDWMEALS 30 Days Vitamin B-1 (Thiamine Mononitrate) 100 Mg Tablet 100 Mg PO DAILY 30 Days Culturelle (Lactobacillus Rhamnosus Gg) 1 Each Cap.sprink 1 Cap PO BID 30 Days Metamucil Fiber Singles Packet (Psyllium Husk/Aspartame) 3.4 Gm Powd.pack 1 Pkt PO DAILY16 30 Days Dok (Docusate Sodium) 100 Mg Capsule 100 Mg PO PRN BID PRN 30 Days Tylenol (Acetaminophen) 325 Mg Tablet 650 Mg PO PRN Q4HRS PRN 30 Days Reported Risperidone 0.5 Mg Tablet 0.25 Mg PO PRN QHS PRN Zoloft (Sertraline Hcl) 100 Mg Tablet 100 Mg PO DAILY Nexium Capsule (Esomeprazole Magnesium) 40 Mg Capsule.dr 40 Mg PO DAILYAC Atorvastatin Calcium 40 Mg Tablet 40 Mg PO HS Trazodone Hcl 100 Mg Tablet 200 Mg PO HS Allergies Allergies: Coded Allergies: Penicillins (Verified Allergy, Intermediate, tolerates Ancef, Rocephin, 09/18/21) Sulfa (Sulfonamide Antibiotics) (Verified Allergy, Intermediate, 09/18/21) ROS General: YES: Chills, Fatigue, Malaise PSYCHOLOGICAL ROS: No: Anxiety, Behavioral Disorder, Concentration difficultie, Decreased libido, Depression, Disorientation, Hallucinations, Hostility, Irritablity, Memory difficulties, Mood Swings, Obsessive thoughts, Physical abuse, Sexual abuse, Sleep disturbances, Suicidal ideation, Other Eyes: No Blurry vision, No Decreased vision, No Double vision, No Dry eyes, No Excessive tearing, No Eye Pain, No Itchy Eyes, No Loss of vision, No Photophobia, No Scotomata, No Uses contacts, No Uses glasses, No Other HEENT: No: Heacaches, Visual Changes, Hearing change, Nasal congestion, Nasal discharge, Oral lesions, Sinus pain, Sore Throat, Epistaxis, Sneezing, Snoring, Tinnitus, Vertigo, Vocal changes, Other Respiratory: No: Cough, Hemoptysis, Orthopnea, Pleuritic Pain, Shortness of breath, SOB with excertion, Sputum Changes, Stridor, Tachypnea, Wheezing, Other Cardiovascular: No Chest Pain, No Palpitations, No Orthopnea, No Paroxysmal Noc. Dyspnea, No Edema, No Lt Headedness, No Other Gastrointestinal: No Nausea, No Vomiting, No Abdominal Pain, No Diarrhea, No Constipation, No Melena, No Hematochezia, No Other Genitourinary: No Dysuria, No Frequency, No Incontinence, No Hematuria, No Retention, No Discharge, No Urgency, No Pain, No Flank Pain, No Other, No , No , No , No , No , No , No Musculoskeletal: Yes Joint Pain, Yes Joint Stiffness, Yes Joint Swelling; No Muscle Pain, No Muscular Weakness, No Pain In:, No Swelling In:, No Other Neurological: Yes Gait Disturbance; No Behavorial Changes, No Bowel/Bladder ControlChng, No Confusion, No Dizziness, No Headaches, No Impaired Coord/balance, No Memory Loss, No Numbness/Tingling, No Seizures, No Speech Problems, No Tremors, No Visual Changes, No Weakness, No Other Skin: Yes Dry Skin, Yes Rash, Yes Skin Lesion Changes, Yes Other Physical Exam General: Cooperative, mild distress, Other (not oriented) HEENT: Atraumatic, PERRLA Extremities: No cyanosis Skin: No breakdown, Other (thigh wound) Psych/Mental Status: Mood NL Vitals Vitals Vital Signs Date Time Temp Pulse Resp B/P (MAP) Pulse Ox O2 Delivery O2 Flow Rate FiO2 09/21/21 18:03 88 22 157/57 (90) 97 Room Air 09/21/21 16:00 98.0 98.0 Labs Labs Laboratory Tests Test 09/21/21 11:05 09/21/21 16:20 White Blood Count 7.0 x10^3/uL (4.0-11.0) Red Blood Count 3.94 x10^6/uL (3.50-5.40) Hemoglobin 10.1 g/dL (12.0-15.5) Hematocrit 32.3 % (36.0-47.0) Mean Corpuscular Volume 82 fL (79-100) Mean Corpuscular Hemoglobin 26 pg (25-35) Mean Corpuscular Hemoglobin Concent 31 g/dL (31-37) Red Cell Distribution Width 15.8 % (11.5-14.5) Platelet Count 238 x10^3/uL (140-400) Neutrophils (%) (Auto) 81 % (31-73) Lymphocytes (%) (Auto) 12 % (24-48) Monocytes (%) (Auto) 4 % (0-9) Eosinophils (%) (Auto) 2 % (0-3) Basophils (%) (Auto) 1 % (0-3) Neutrophils # (Auto) 5.7 x10^3/uL (1.8-7.7) Lymphocytes # (Auto) 0.9 x10^3/uL (1.0-4.8) Monocytes # (Auto) 0.3 x10^3/uL (0.0-1.1) Eosinophils # (Auto) 0.1 x10^3/uL (0.0-0.7) Basophils # (Auto) 0.0 x10^3/uL (0.0-0.2) Sodium Level 142 mmol/L (136-145) Potassium Level 4.3 mmol/L (3.5-5.1) Chloride Level 105 mmol/L (98-107) Carbon Dioxide Level 26 mmol/L (21-32) Anion Gap 11 (6-14) Blood Urea Nitrogen 22 mg/dL (7-20) Creatinine 0.9 mg/dL (0.6-1.0) Estimated GFR (Cockcroft-Gault) 61.2 BUN/Creatinine Ratio 24 (6-20) Glucose Level 260 mg/dL (70-99) Calcium Level 8.4 mg/dL (8.5-10.1) Total Bilirubin 0.3 mg/dL (0.2-1.0) Aspartate Amino Transf (AST/SGOT) 10 U/L (15-37) Alanine Aminotransferase (ALT/SGPT) 10 U/L (14-59) Alkaline Phosphatase 95 U/L (46-116) Total Protein 6.7 g/dL (6.4-8.2) Albumin 2.8 g/dL (3.4-5.0) Albumin/Globulin Ratio 0.7 (1.0-1.7) Urine Color Yellow Urine Clarity Clear Urine pH 6.5 (<5.0-8.0) Urine Specific Percy 1.020 (1.000-1.030) Urine Protein 30 mg/dL (NEG-TRACE) Urine Glucose (UA) Negative mg/dL (NEG) Urine Ketones (Stick) Negative mg/dL (NEG) Urine Blood Negative (NEG) Urine Nitrite Negative (NEG) Urine Bilirubin Negative (NEG) Urine Urobilinogen Dipstick 0.2 mg/dL (0.2 mg/dL) Urine Leukocyte Esterase Small (NEG) Urine RBC Rare /HPF (0-2) Urine WBC 11-20 /HPF (0-4) Urine Squamous Epithelial Cells Mod /LPF Urine Amorphous Sediment Present /HPF Urine Bacteria 0 /HPF (0-FEW) Urine Hyaline Casts Occasional /HPF Urine Mucus Slight /LPF Urine Yeast Present /HPF Laboratory Tests Test 09/21/21 11:05 09/21/21 16:20 White Blood Count 7.0 x10^3/uL (4.0-11.0) Red Blood Count 3.94 x10^6/uL (3.50-5.40) Hemoglobin 10.1 g/dL (12.0-15.5) Hematocrit 32.3 % (36.0-47.0) Mean Corpuscular Volume 82 fL (79-100) Mean Corpuscular Hemoglobin 26 pg (25-35) Mean Corpuscular Hemoglobin Concent 31 g/dL (31-37) Red Cell Distribution Width 15.8 % (11.5-14.5) Platelet Count 238 x10^3/uL (140-400) Neutrophils (%) (Auto) 81 % (31-73) Lymphocytes (%) (Auto) 12 % (24-48) Monocytes (%) (Auto) 4 % (0-9) Eosinophils (%) (Auto) 2 % (0-3) Basophils (%) (Auto) 1 % (0-3) Neutrophils # (Auto) 5.7 x10^3/uL (1.8-7.7) Lymphocytes # (Auto) 0.9 x10^3/uL (1.0-4.8) Monocytes # (Auto) 0.3 x10^3/uL (0.0-1.1) Eosinophils # (Auto) 0.1 x10^3/uL (0.0-0.7) Basophils # (Auto) 0.0 x10^3/uL (0.0-0.2) Sodium Level 142 mmol/L (136-145) Potassium Level 4.3 mmol/L (3.5-5.1) Chloride Level 105 mmol/L (98-107) Carbon Dioxide Level 26 mmol/L (21-32) Anion Gap 11 (6-14) Blood Urea Nitrogen 22 mg/dL (7-20) Creatinine 0.9 mg/dL (0.6-1.0) Estimated GFR (Cockcroft-Gault) 61.2 BUN/Creatinine Ratio 24 (6-20) Glucose Level 260 mg/dL (70-99) Calcium Level 8.4 mg/dL (8.5-10.1) Total Bilirubin 0.3 mg/dL (0.2-1.0) Aspartate Amino Transf (AST/SGOT) 10 U/L (15-37) Alanine Aminotransferase (ALT/SGPT) 10 U/L (14-59) Alkaline Phosphatase 95 U/L (46-116) Total Protein 6.7 g/dL (6.4-8.2) Albumin 2.8 g/dL (3.4-5.0) Albumin/Globulin Ratio 0.7 (1.0-1.7) Urine Color Yellow Urine Clarity Clear Urine pH 6.5 (<5.0-8.0) Urine Specific Percy 1.020 (1.000-1.030) Urine Protein 30 mg/dL (NEG-TRACE) Urine Glucose (UA) Negative mg/dL (NEG) Urine Ketones (Stick) Negative mg/dL (NEG) Urine Blood Negative (NEG) Urine Nitrite Negative (NEG) Urine Bilirubin Negative (NEG) Urine Urobilinogen Dipstick 0.2 mg/dL (0.2 mg/dL) Urine Leukocyte Esterase Small (NEG) Urine RBC Rare /HPF (0-2) Urine WBC 11-20 /HPF (0-4) Urine Squamous Epithelial Cells Mod /LPF Urine Amorphous Sediment Present /HPF Urine Bacteria 0 /HPF (0-FEW) Urine Hyaline Casts Occasional /HPF Urine Mucus Slight /LPF Urine Yeast Present /HPF VTE Prophylaxis Ordered VTE Prophylaxis Devices: Yes VTE Pharmacological Prophylaxi: No Assessment/Plan Assessment/Plan leg wound, consult wound care weakness, debility, consult PT, OT dementia, depression and insomnia CAD, Htn adnmit Justifications for Admission Other Justification Upper GI bleed MICHAEL RAY MD Sep 21, 2021 19:06
[2021-09-21] MEDS ORDERED: DOCUSATE SODIUM 100 MG CAPSULE. PO PRN (19:15)
[2021-09-21 19:30] VITALS: BP 122/42
[2021-09-21] MEDS: GABAPENTIN 300 MG CAPSULE. PO SCH (21:01)
[2021-09-21] MEDS: ATORVASTATIN CALCIUM 40 MG TABLET. PO SCH (21:02)
[2021-09-21] MEDS: ACETAMINOPHEN 325 MG TABLET. PO PRN (21:02)
[2021-09-21] MEDS: traZODone 100 MG TABLET. PO SCH (21:02)
[2021-09-21] MEDS: LACTOBACILLUS RHAMNOSUS GG 1 CAPSULE. PO SCH (21:02)
[2021-09-21 23:09] VITALS: BP 111/41
[2021-09-22] VITALS (7 sets, daily range): BP systolic 79–124; BP diastolic 42–51
[2021-09-22] MEDS ORDERED: INFLUENZA VAX SCREEN BY RX. MC PRN
[2021-09-22] MEDS ORDERED: C.DIFF MED SCREEN BY RX. MC ONE
[2021-09-22] MEDS: ACETAMINOPHEN 325 MG TABLET. PO PRN ×2 (03:16→21:05)
[2021-09-22] MEDS: ASPIRIN ENTERIC COATED 81 MG TABLET.DR. PO SCH (08:05)
[2021-09-22] MEDS: CLOPIDOGREL BISULFATE 75 MG TABLET PO SCH (08:05)
[2021-09-22] MEDS: POTASSIUM CHLORIDE 20 MEQ TABLET.ER. PO SCH (08:06)
[2021-09-22] MEDS: PANTOPRAZOLE 40 MG TABLET.DR. PO SCH (08:06)
[2021-09-22] MEDS: THIAMINE 100 MG TABLET. PO SCH (08:06)
[2021-09-22] MEDS: ASCORBIC ACID 1,000 MG TABLET PO SCH (08:07)
[2021-09-22] MEDS: LACTOBACILLUS RHAMNOSUS GG 1 CAPSULE. PO SCH ×2 (08:09→21:04)
--- NOTE | 2021-09-22 10:45 | NUR ---
SW following. Discussed with RN, pt from home with , room air, regular diet. PT/OT ordered. SW requested COVID PCR for possible placement. SW will continue to follow.
--- NOTE | 2021-09-22 10:59 | PDOC ---
[employer] PROGRESS NOTE Date of Service DOS: DATE: 09/22/21 TIME: 10:57 Chief Complaint Chief Complaint Probable failure to thrive Progression of dementia CAD, HTN, NC, Hyperlipidemia Asthma, COPD, Pneumonia CVA, Dementia, Migraine, Periperal neuropathy Diverticulosis, GERD, Hemorrhoids, Irritable bowel disease, Othe Cancer Cirrhosis Anxiety, Depression Osteoarthritis Chronic renal failure Diabetes Cholecystectomy, , Hysterectomy History of Present Illness History of Present Illness 09/22/2021 Patient seen and examined She seems to know what year it is but then she could not remember what I told her over and over again? Was yelling out help Chart review Discussed with RN Discussed with case management We hope to get her to a fdc unit in a couple days Vitals/I&O Vitals/I&O: Vital Signs Date Time Temp Pulse Resp B/P (MAP) Pulse Ox O2 Delivery O2 Flow Rate FiO2 09/22/21 08:00 Room Air 09/22/21 07:00 97.4 78 18 124/49 (74) 93 97.4 I & O 09/21/21 09/21/21 09/22/21 15:00 23:00 07:00 Intake Total 240 ml Balance 240 ml Physical Exam General: Cooperative, mild distress, Other (Pleasantly confused) Lungs: Clear Extremities: No cyanosis Skin: No breakdown, Other (thigh wound) Labs Labs: Laboratory Tests Test 09/21/21 11:05 09/21/21 16:20 White Blood Count 7.0 x10^3/uL (4.0-11.0) Red Blood Count 3.94 x10^6/uL (3.50-5.40) Hemoglobin 10.1 g/dL (12.0-15.5) Hematocrit 32.3 % (36.0-47.0) Mean Corpuscular Volume 82 fL (79-100) Mean Corpuscular Hemoglobin 26 pg (25-35) Mean Corpuscular Hemoglobin Concent 31 g/dL (31-37) Red Cell Distribution Width 15.8 % (11.5-14.5) Platelet Count 238 x10^3/uL (140-400) Neutrophils (%) (Auto) 81 % (31-73) Lymphocytes (%) (Auto) 12 % (24-48) Monocytes (%) (Auto) 4 % (0-9) Eosinophils (%) (Auto) 2 % (0-3) Basophils (%) (Auto) 1 % (0-3) Neutrophils # (Auto) 5.7 x10^3/uL (1.8-7.7) Lymphocytes # (Auto) 0.9 x10^3/uL (1.0-4.8) Monocytes # (Auto) 0.3 x10^3/uL (0.0-1.1) Eosinophils # (Auto) 0.1 x10^3/uL (0.0-0.7) Basophils # (Auto) 0.0 x10^3/uL (0.0-0.2) Sodium Level 142 mmol/L (136-145) Potassium Level 4.3 mmol/L (3.5-5.1) Chloride Level 105 mmol/L (98-107) Carbon Dioxide Level 26 mmol/L (21-32) Anion Gap 11 (6-14) Blood Urea Nitrogen 22 mg/dL (7-20) Creatinine 0.9 mg/dL (0.6-1.0) Estimated GFR (Cockcroft-Gault) 61.2 BUN/Creatinine Ratio 24 (6-20) Glucose Level 260 mg/dL (70-99) Calcium Level 8.4 mg/dL (8.5-10.1) Total Bilirubin 0.3 mg/dL (0.2-1.0) Aspartate Amino Transf (AST/SGOT) 10 U/L (15-37) Alanine Aminotransferase (ALT/SGPT) 10 U/L (14-59) Alkaline Phosphatase 95 U/L (46-116) Total Protein 6.7 g/dL (6.4-8.2) Albumin 2.8 g/dL (3.4-5.0) Albumin/Globulin Ratio 0.7 (1.0-1.7) Urine Color Yellow Urine Clarity Clear Urine pH 6.5 (<5.0-8.0) Urine Specific Amity 1.020 (1.000-1.030) Urine Protein 30 mg/dL (NEG-TRACE) Urine Glucose (UA) Negative mg/dL (NEG) Urine Ketones (Stick) Negative mg/dL (NEG) Urine Blood Negative (NEG) Urine Nitrite Negative (NEG) Urine Bilirubin Negative (NEG) Urine Urobilinogen Dipstick 0.2 mg/dL (0.2 mg/dL) Urine Leukocyte Esterase Small (NEG) Urine RBC Rare /HPF (0-2) Urine WBC 11-20 /HPF (0-4) Urine Squamous Epithelial Cells Mod /LPF Urine Amorphous Sediment Present /HPF Urine Bacteria 0 /HPF (0-FEW) Urine Hyaline Casts Occasional /HPF Urine Mucus Slight /LPF Urine Yeast Present /HPF Assessment and Plan Assessmemt and Plan Problems Medical Problems: (1) Advanced dementia Status: Acute (2) Chronic pain following surgery or procedure Status: Acute (3) Dementia, unspecified, with behavioral disturbance Status: Acute (4) Right leg pain Status: Acute Probable failure to thrive Progression of dementia CAD, HTN, NC, Hyperlipidemia Asthma, COPD, Pneumonia CVA, Dementia, Migraine, Periperal neuropathy Diverticulosis, GERD, Hemorrhoids, Irritable bowel disease, Othe Cancer Cirrhosis Anxiety, Depression Osteoarthritis Chronic renal failure Diabetes Cholecystectomy, , Hysterectomy Plan Basically she needs to go to fdc or long-term care For now continue home meds DVT prophylaxis Full code PT OT We will check a Covid test Encourage p.o. intake Trend labs Long-term prognosis guarded Comment Review of Relevant I have reviewed the following items tammie (where applicable) has been applied. Medications: Current Medications Medications (Trade) Dose Ordered Sig/Lashay Route PRN Reason Start Time Stop Time Status Last Admin Dose Admin Acetaminophen (Tylenol) 1,000 mg 1X ONCE PO 09/21/21 11:15 09/21/21 11:16 DC 09/21/21 12:12 Acetaminophen (Tylenol) 650 mg PRN Q4HRS PRN PO TEMP OVER 100.4F 09/21/21 19:15 09/22/21 03:16 Ascorbic Acid (Vitamin C) 1,000 mg DAILY PO 09/22/21 09:00 09/22/21 08:07 Aspirin (Ecotrin) 81 mg DAILYWBKFT PO 09/22/21 08:00 09/22/21 08:05 Atorvastatin Calcium (Lipitor) 40 mg HS PO 09/21/21 21:00 09/21/21 21:02 Clopidogrel Bisulfate (Plavix) 75 mg DAILYWBKFT PO 09/22/21 08:00 09/22/21 08:05 Gabapentin (Neurontin) 300 mg QHS PO 09/21/21 21:00 09/21/21 21:01 Lactobacillus Rhamnosus (Culturelle) 1 cap BID PO 09/21/21 21:00 09/22/21 08:09 Potassium Chloride (Klor-Con) 20 meq DAILY PO 09/22/21 09:00 09/22/21 08:06 Thiamine Mononitrate (Vitamin B-1) 100 mg DAILY PO 09/22/21 09:00 09/22/21 08:06 Trazodone HCl (Desyrel) 200 mg HS PO 09/21/21 21:00 09/21/21 21:02 Pantoprazole Sodium (Protonix) 40 mg DAILYAC PO 09/22/21 07:30 09/22/21 08:06 Justifications for Admission Other Justification Upper GI bleed IFTIKHAR FRANCO III DO Sep 22, 2021 10:59
--- NOTE | 2021-09-22 12:15 | NUR ---
Wound/Ostomy Care Wound Type/Assessment: Patient seen per wound care consult. See wound assessment. Patient has a wound vac on the right heel that she came in with prior to admission. It is unknown who is over seeing the care of this patient and her wound care. It is not the wound clinic and patient is very poor historian. The vac removed and patient has a DFU to the right heel. The wound is red minimal slough and some pale pink tissue, it does not appear that the wound vac is necessary at this time. patient also has a stage III pressure ulcer to coccyx which is also minimal. patient is very thin and states she sits alot at home, patient is also confused with dementia and it has definitely worsened since her last admission. Patient is very pleasant at this time. Wounds cleansed, assessed, measured, and pictured. The wound vac was turned off and canister thrown in trash, wound vac left in room and is the patient's responsibility, vac should be sent home with due to patient's mental status. Treatment Recommendations/Plan: Recommendations for skin prep to sumaya-wound and then Hydrofera Blue (left in room for next changes) to wound bed and cover with foam dressing. Change on Sunday. Then xeroform gauze and foam dressing to the sacrum wound also change on Sunday. Dressings applied and patient tolerated well. Patient requesting to go back to bed, however patient in chair for lunch, she will stay in chair for lunch. Education provided: Patient educated on wound care, dressing changes, and POC. Offloading surface/device: Bilateral heels floated at this time in chair, patient will need purple wedge for turning and heel medix for right heel to wear while in bed. wound care will order for patient. Recommended Referrals/Tests: N/A Discharge Recommendations for dressings: Dressing change instructions left in room. No other wounds noted. Hydrofera Blue left in baggie with instructions. Patient remains in chair and is set up for lunch. Alarm in place and call light in reach. Wound care will follow up on 09/29/21.
[2021-09-22] MEDS: PSYLLIUM HUSK (SUGAR FREE) 1 PKT PACKET PO SCH (18:25)
[2021-09-22] MEDS: ATORVASTATIN CALCIUM 40 MG TABLET. PO SCH (21:04)
[2021-09-22] MEDS: GABAPENTIN 300 MG CAPSULE. PO SCH (21:04)
[2021-09-22] MEDS: traZODone 100 MG TABLET. PO SCH (21:04)
[2021-09-23] VITALS (7 sets, daily range): BP systolic 98–122; BP diastolic 31–48
[2021-09-23] MEDS: POTASSIUM CHLORIDE 20 MEQ TABLET.ER. PO SCH (07:58)
[2021-09-23] MEDS: ASPIRIN ENTERIC COATED 81 MG TABLET.DR. PO SCH (07:58)
[2021-09-23] MEDS: CLOPIDOGREL BISULFATE 75 MG TABLET PO SCH (07:59)
[2021-09-23] MEDS: THIAMINE 100 MG TABLET. PO SCH (07:59)
[2021-09-23] MEDS: PANTOPRAZOLE 40 MG TABLET.DR. PO SCH (07:59)
[2021-09-23] MEDS: ASCORBIC ACID 1,000 MG TABLET PO SCH (07:59)
[2021-09-23] MEDS: LACTOBACILLUS RHAMNOSUS GG 1 CAPSULE. PO SCH ×2 (08:01→20:44)
--- NOTE | 2021-09-23 09:30 | PDOC ---
[employer] PROGRESS NOTE Date of Service DOS: DATE: 09/23/21 TIME: 09:28 Chief Complaint Chief Complaint Probable failure to thrive Progression of dementia CAD, HTN, OK, Hyperlipidemia Asthma, COPD, Pneumonia CVA, Dementia, Migraine, Periperal neuropathy Diverticulosis, GERD, Hemorrhoids, Irritable bowel disease, Othe Cancer Cirrhosis Anxiety, Depression Osteoarthritis Chronic renal failure Diabetes Cholecystectomy, , Hysterectomy History of Present Illness History of Present Illness 09/23/21 Patient seen and examined Remembered year and day of the week but did not remember any of us from yesterday Hoping to get into SNU soon pending Chart reviewed Discussed with RN Discussed with case management 09/22/2021 Patient seen and examined She seems to know what year it is but then she could not remember what I told her over and over again? Was yelling out help Chart review Discussed with RN Discussed with case management We hope to get her to a residential unit in a couple days Vitals/I&O Vitals/I&O: Vital Signs Date Time Temp Pulse Resp B/P (MAP) Pulse Ox O2 Delivery O2 Flow Rate FiO2 09/23/21 08:11 Room Air 09/23/21 07:00 97.8 74 16 122/40 (67) 96 97.8 I & O 09/22/21 09/22/21 09/23/21 15:00 23:00 07:00 Intake Total 120 ml Balance 120 ml Physical Exam General: Cooperative, mild distress, Other (Pleasantly confused) Lungs: Clear Extremities: No cyanosis Skin: No breakdown, Other (thigh wound) Assessment and Plan Assessmemt and Plan Problems Medical Problems: (1) Advanced dementia Status: Acute (2) Chronic pain following surgery or procedure Status: Acute (3) Dementia, unspecified, with behavioral disturbance Status: Acute (4) Right leg pain Status: Acute Assessment Probable failure to thrive Progression of dementia CAD, HTN, OK, Hyperlipidemia Asthma, COPD, Pneumonia CVA, Dementia, Migraine, Periperal neuropathy Diverticulosis, GERD, Hemorrhoids, Irritable bowel disease, Othe Cancer Cirrhosis Anxiety, Depression Osteoarthritis Chronic renal failure Diabetes Cholecystectomy, , Hysterectomy Plan Needs to go to residential or long-term care Continue home meds DVT prophylaxis Full code PT OT We will check a Covid test Encourage p.o. intake Trend labs Long-term prognosis guarded Comment Review of Relevant I have reviewed the following items tammie (where applicable) has been applied. Medications: Current Medications Medications (Trade) Dose Ordered Sig/Lashay Route PRN Reason Start Time Stop Time Status Last Admin Dose Admin Psyllium Hydrophilic Mucilloid (Metamucil Fiber Packet) 1 pkt DAILY16 PO 09/22/21 16:00 09/22/21 18:25 Justifications for Admission Other Justification Upper GI bleed IFTIKHAR FRANCO III DO Sep 23, 2021 09:29
--- NOTE | 2021-09-23 10:05 | NUR ---
PO following. Discussed with RN, therapy recommending SNF. RN advised PO to call pt's . PO left voicemail for pt's , Alexis (ph: [phone]). Awaiting return call. PO requested COVID for placement. PO will continue to follow. Addendum: 09/23/21 at 1018 by CORNELIUS FONTENOT Alexis contacted PO back, would like referral to [facility]. Referral phoned and faxed. Awaiting acceptance decision and negative COVID test. Addendum: 09/23/21 at 1339 by CORNELIUS FONTENOT Pt accepted at [facility] for SNF, discharge tomorrow (09/24/21). Dr. Pan notified. Transportation arranged by [facility] for [phone] via [employer]. Pt's notified. Discharge orders to be faxed tomorrow to [phone].
--- NOTE | 2021-09-23 10:24 | NUR ---
PCR covid swab sent to lab 1020 09/23/21
[2021-09-23] MEDS: ACETAMINOPHEN 325 MG TABLET. PO PRN ×2 (13:22→20:44)
[2021-09-23] MEDS: PSYLLIUM HUSK (SUGAR FREE) 1 PKT PACKET PO SCH (16:00)
[2021-09-23] MEDS: ATORVASTATIN CALCIUM 40 MG TABLET. PO SCH (20:44)
[2021-09-23] MEDS: GABAPENTIN 300 MG CAPSULE. PO SCH (20:44)
[2021-09-23] MEDS: traZODone 100 MG TABLET. PO SCH (20:44)
[2021-09-24 03:00] VITALS: BP 121/46
[2021-09-24 07:00] VITALS: BP 107/42
[2021-09-24] MEDS: CLOPIDOGREL BISULFATE 75 MG TABLET PO SCH (08:26)
[2021-09-24] MEDS: ASCORBIC ACID 1,000 MG TABLET PO SCH (08:26)
[2021-09-24] MEDS: POTASSIUM CHLORIDE 20 MEQ TABLET.ER. PO SCH (08:26)
[2021-09-24] MEDS: LACTOBACILLUS RHAMNOSUS GG 1 CAPSULE. PO SCH ×2 (08:26→21:21)
[2021-09-24] MEDS: THIAMINE 100 MG TABLET. PO SCH (08:26)
[2021-09-24] MEDS: ASPIRIN ENTERIC COATED 81 MG TABLET.DR. PO SCH (08:26)
[2021-09-24] MEDS: FAMOTIDINE 20 MG TABLET. PO SCH (08:26)
--- NOTE | 2021-09-24 10:59 | SNU/HH DC ---
DISCHARGE ORDERS DISCHARGE INFORMATION: DISCHARGE DATE: Sep 26, 2021 FINAL DIAGNOSIS Problems Medical Problems: (1) Advanced dementia Status: Acute (2) Chronic pain following surgery or procedure Status: Acute (3) Dementia, unspecified, with behavioral disturbance Status: Acute (4) Right leg pain Status: Acute CONDITION ON DISCHARGE: Stable CODE STATUS: Code Status: Full NURSING HOME: SNF STAY <30 DAYS: Yes POST DISCHARGE ORDERS: ACTIVITY ORDERS: Activity as tolerated WEIGHT BEARING STATUS: As tolerated BATHING ORDERS: Shower-keep dressing dry DIET AFTER DISCHARGE: Cardiac WOUND/INCISION CARE: No wound care needed CHECKS AFTER DISCHARGE: CHECKS AFTER DISCHARGE: Check blood press - daily, Check blood sugar, ac/hs FOLLOW-UP: LAB ORDERS FOR FOLLOW-UP: CBC, CMP weekly Additional Instructions: Recommendations for skin prep to sumaya-wound and then Hydrofera Blue to wound bed and cover with foam dressing. Change every other day. Xeroform gauze and foam dressing to the sacrum wound, change every other day. Offloading surface/device: Bilateral heels floated at this time in chair, patient will need purple wedge for turning and heel medix for right heel to wear while in bed. No heel weight bearing on right. 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 Sunday labs CBC/BUN/creatinine/CPK/ESR/CRP. Fax results to [phone] Follow up in 2 weeks: [facility] [id number], [address] [place] [address] P: F: Vascular Surgery Follow Up - Dr. Rohith Cabrales TREATMENT/EQUIPMENT ORDERS: ADAPTIVE EQUIPMENT NEEDED: None RESPIRATORY EQUIPMENT NEEDED: Oxygen Physical Therapy For: Evalulation/Treatment Occupational Therapy For: Evaluation/Treatment Speech Language Pathology For: Evaluation/Treatment DISCHARGE MEDICATIONS: Home Meds Active Scripts [cefTRIAXone IV Push] 2 GM VIAL No Conflict Check, 2 GM IVP Q24H for Osteomyelitis for 42 Days, #42 EACH Prov:AWAIS PLEITEZ MD 09/26/21 Daptomycin (Daptomycin) 350 Mg Vial, 310 MG IV DAILY for Osteomyelitis for 42 Days, #38 EACH Prov:AWAIS PLEITEZ MD 09/26/21 Aspirin (ASPIRIN EC) 81 Mg Tablet., 81 MG PO DAILYWBKFT for cad for 30 Days, #30 TAB.SR Prov:AWAIS WELLS MD 08/23/21 Clopidogrel Bisulfate (CLOPIDOGREL) 75 Mg Tablet, 75 MG PO DAILYWBKFT for cad for 30 Days, #30 TAB Prov:AWAIS WELLS MD 08/23/21 Ondansetron Hcl (ZOFRAN) 4 Mg Tablet, 4 MG PO PRN TID PRN for VOMITING, #20 EA nausea/vomiting Prov:JAEL CLEVELAND DO 05/26/21 Potassium Chloride (POTASSIUM CHLORIDE ) 20 Meq Tablet.er, 20 MEQ PO DAILY for SUPPLEMENT for 30 Days, #30 TAB.SR Prov:JOANNIAL K III DO 04/01/21 Gabapentin (GABAPENTIN) 300 Mg Capsule, 300 MG PO QHS for Neuropathy, #30 CAP 2 Refills Prov:RYAN AVILEZ MD 03/01/21 Ascorbic Acid (VITAMIN C) 1,000 Mg Tablet, 1000 MG PO TIDWMEALS for SUPPLEMENT for 30 Days, #90 TAB Prov:KELLI EMMANUEL MD 12/17/20 Thiamine Mononitrate (VITAMIN B-1) 100 Mg Tablet, 100 MG PO DAILY for SUPPLEMENT for 30 Days, #30 TAB Prov:KELLI EMMANUEL MD 12/17/20 Lactobacillus Rhamnosus Gg (CULTURELLE) 1 Each Cap.sprink, 1 CAP PO BID for SUPPLEMENT for 30 Days, #60 CAP Prov:KELLI EMMANUEL MD 12/17/20 Psyllium Husk/Aspartame (METAMUCIL FIBER SINGLES PACKET) 3.4 Gm Powd.pack, 1 PKT PO DAILY16 for STOOLS for 30 Days, #30 PKT Prov:KELLI EMMANUEL MD 05/04/20 Docusate Sodium (DOK) 100 Mg Capsule, 100 MG PO PRN BID PRN for HARD STOOLS for 30 Days, #60 CAP Prov:KELLI EMMANUEL MD 05/04/20 Acetaminophen (TYLENOL) 325 Mg Tablet, 650 MG PO PRN Q4HRS PRN for TEMP OVER 100.4F for 30 Days, #100 TAB Prov:KELLI EMMANUEL MD 05/04/20 Reported Medications Risperidone (RISPERIDONE) 0.5 Mg Tablet, 0.25 MG PO PRN QHS PRN for ANXIETY / AGITATION, TAB 11/29/20 Sertraline Hcl (ZOLOFT) 100 Mg Tablet, 100 MG PO DAILY for ANTI-DEPRESSANT, TAB 0 Refills 11/29/20 Esomeprazole Magnesium (NEXIUM CAPSULE) 40 Mg Capsule.dr, 40 MG PO DAILYAC for , #30 CAP 0 Refills 11/29/20 Atorvastatin Calcium (ATORVASTATIN CALCIUM) 40 Mg Tablet, 40 MG PO HS for FOR CHOLESTEROL, #30 TAB 0 Refills 02/28/14 Trazodone Hcl (TRAZODONE HCL) 100 Mg Tablet, 200 MG PO HS, TAB 02/28/14 AWAIS PLEITEZ MD Sep 24, 2021 10:59
[2021-09-24 11:00] VITALS: BP 103/46
[2021-09-24] MEDS ORDERED: HEPARIN PF 500 UNIT/5 ML DISP.SYRIN. IVP PRN (12:15)
--- NOTE | 2021-09-24 12:26 | PDOC ---
[employer] PROGRESS NOTE Date of Service DOS: DATE: 09/24/21 TIME: 12:12 Chief Complaint Chief Complaint Probable failure to thrive Progression of dementia Chronic right heel ulceration with abnormal MRI with possible rt heel OM with underlying PAD - Status post angioplasty 08/15/2021 and Status post I&D on August 19 2021 -Infectious disease has been following up patient on Invanz and daptomycin. 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 Q. Sunday labs CBC/BUN/creatinine/CPK/ESR/CRP. Fax results to [phone] Follow-up ID clinic Sep 06 at 3 pm PH [phone] Discussed with RN Discussed with case management History of Present Illness History of Present Illness Ms Bennett is a 76yo female with PMHx alzheimer dementia, HTN, COPD, DM2, PAD who comes to ED at the behest of her and PCP for worsening RLE pain and confusion at home. Was playing with her own feces. 09/22:She seems to know what year it is but then she could not remember what I told her over and over again. Was yelling out help 09/23: Remembered year and day of the week but did not remember any of us from yesterday. Hoping to get into SNU soon pending. 09/24: Seen bedside with . RUE extremity PICC line working well. Right heel wound wound VAC was removed on arrival and has been treated with wound care. Stage III sacral ulcer treated as well. No shortness of breath or chest pain. Vitals/I&O Vitals/I&O: Vital Signs Date Time Temp Pulse Resp B/P (MAP) Pulse Ox O2 Delivery O2 Flow Rate FiO2 09/24/21 11:00 97.9 67 16 103/46 (65) 94 Room Air 97.9 Physical Exam General: Cooperative, mild distress, Other (Pleasantly confused) Lungs: Clear Extremities: No cyanosis Skin: No breakdown, Other (thigh wound) Assessment and Plan Assessmemt and Plan Problems Medical Problems: (1) Advanced dementia Status: Acute (2) Chronic pain following surgery or procedure Status: Acute (3) Dementia, unspecified, with behavioral disturbance Status: Acute (4) Right leg pain Status: Acute Comment Review of Relevant I have reviewed the following items tammie (where applicable) has been applied. Medications: Current Medications Medications (Trade) Dose Ordered Sig/Lashay Route PRN Reason Start Time Stop Time Status Last Admin Dose Admin Famotidine (Pepcid) 20 mg DAILY PO 09/24/21 09:00 09/24/21 08:26 Justifications for Admission Other Justification Upper GI bleed AWAIS PLEITEZ MD Sep 24, 2021 12:26
[2021-09-24] MEDS: MEROPENEM 500 MG in IV NORMAL SALINE 50ML 50 ML IV SCH ×2 (14:00→21:21)
[2021-09-24] MEDS: DAPTOMYCIN IV SCH (14:35)
[2021-09-24] MEDS: NORMAL SALINE IV SCH (14:35)
[2021-09-24 15:00] VITALS: BP 112/48
--- NOTE | 2021-09-24 15:27 | PDOC ---
Infectious Disease Note Subjective: Subjective Ms. Bennett is well-known to our service from last admission See last ID consult from July 2021 for full details See last ID note for full details Patient was brought to the hospital with confusion. Diagnosis was that her dementia is worsening. Patient was getting IV antibiotics at home per at bedside. No missed doses. No PICC line issues. Patient was unable to keep outpatient clinic appointment on September 06 is scheduled due to inclement weather per at bedside. Today patient complains of some pain at the right heel but otherwise no other complaints. Per at bedside she is back to baseline. Patient was restarted on IV daptomycin and Invanz today. ID consultation has been requested for antibiotic management. ROS: ROS Limited but patient Denies fever, nausea, vomiting, shortness of breath, diarrhea, abdominal pain, rash Otherwise as above Vital Signs: Vital Signs Vital Signs Date Time Temp Pulse Resp B/P (MAP) Pulse Ox O2 Delivery O2 Flow Rate FiO2 09/24/21 11:00 97.9 67 16 103/46 (65) 94 Room Air 97.9 Physical Exam: PHYSICAL EXAM GENERAL: Alert, awake chronically debilitated patient somewhat confused, Questionable baseline lying in bed comfortably, in no acute distress., at bedside HEENT: Normocephalic, atraumatic. Anicteric. NECK: Supple. No JVD LUNGS: Clear bilaterally. No wheezing. HEART: S1, S2. No murmurs. ABDOMEN: Soft, nontender, nondistended. No rebound or guarding. Bowel sounds present EXTREMITIES: Right lower extremity wound taken down, no bone exposed, 1 to 1.2 cm posterior heel wound with thin layer of tissue over right calcaneus bone. No gross purulence. No surrounding erythema. No warmth. MUSCULOSKELETAL: No joint swelling. No decrease in range of motion. CENTRAL NERVOUS SYSTEM: Alert, awake, moves all 4 extremities, confusion appears to be from baseline dementia PSYCHIATRIC: Cooperative, calm. Right upper extremity PICC line clean Medications: Inpatient Meds: Medications reviewed. Objective: Assessment: Chronic nonhealing right posterior heel nonhealing ulcer with abnormal MRI with possible right heel osteomyelitis -status post debridement on August 26, 2020. No cultures available Peripheral arterial disease status post angioplasty with stent placement on August 15, 2021 Dementia Diabetes mellitus 2 Fecal occult blood positive History of aortic stenting in the past Generalized debility DJD Coronary artery disease status post PA Encephalopathy likely metabolic improved Asthma, COPD History of CVA, peripheral neuropathy History of cancer Anxiety and depression Cirrhosis CKD History of penicillin allergy, has tolerated Ancef and ceftriaxone well in the past Plan: Plan of Care Continue daptomycin and meropenem Patient missed 3 doses When ready for discharge transition to IV Invanz and daptomycin Wound/VAC care as directed by vascular team 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 difficile Probiotics Prescription in chart Social work to assist with discharge antibiotics Q. Sunday CBC/BUN/creatinine/CPK/ESR and CRP. Fax results to [phone] Follow-up with ID clinic in 2 weeks phone [phone] Discussed with PERFECTO HARE MD Sep 24, 2021 15:27
[2021-09-24] MEDS: PSYLLIUM HUSK (SUGAR FREE) 1 PKT PACKET PO SCH (15:34)
[2021-09-24 19:00] VITALS: BP 125/51
[2021-09-24] MEDS: ATORVASTATIN CALCIUM 40 MG TABLET. PO SCH (21:21)
[2021-09-24] MEDS: GABAPENTIN 300 MG CAPSULE. PO SCH (21:21)
[2021-09-24] MEDS: traZODone 100 MG TABLET. PO SCH (21:21)
[2021-09-24 23:00] VITALS: BP 154/68
[2021-09-25 03:00] VITALS: BP 115/49
[2021-09-25] MEDS: MEROPENEM 500 MG in IV NORMAL SALINE 50ML 50 ML IV SCH (05:38)
[2021-09-25 07:00] VITALS: BP 120/64
[2021-09-25 08:51] LABS: BASO # 0.1 x10^3/uL (0.0-0.2); BASO % 1 % (0-3); EOS # 0.2 x10^3/uL (0.0-0.7); EOS % 3 % (0-3); HEMATOCRIT 35.6 % (36.0-47.0); HEMOGLOBIN 11.2 g/dL (12.0-15.5); LYMPH # 1.2 x10^3/uL (1.0-4.8); LYMPH % 18 % (24-48); MEAN CORPUSCULAR HEMOGLOBIN 25 pg (25-35); MEAN CORPUSCULAR HGB CONC 31 g/dL (31-37); MEAN CORPUSCULAR VOLUME 81 fL (79-100); MONO # 0.4 x10^3/uL (0.0-1.1); MONO % 6 % (0-9); NEUT # 5.1 x10^3/uL (1.8-7.7); NEUT % 72 % (31-73); PLATELET COUNT 261 x10^3/uL (140-400); RED CELL DISTRIBUTION WIDTH 15.7 % (11.5-14.5)
--- NOTE | 2021-09-25 08:51 | PDOC2 ---
CONSULT Date of Service Date of Service DATE: 09/25/21 TIME: 08:43 Reason for Consult Reason for Consult: Right heel ulceration Referring Physician Referring Physician: Dr. Vicente Source Source: Caregiver, Chart review, Patient History of Present Illness Reason for Visit: 76 F well known to me s/p SMA stent and staged reconstruction of peripheral arterial disease of RLE with aortoiliac stenting and fem to [place] pop byass with artegraft on the right leg. She had heel ulceration debridement as well for a superficial ulceration of the right heel that did not extend down to bone. Preoperative MRI was concerning for possible calcaneal osteomyelitis. She continues on IV abx for this reason. She is admitted for worsening dementia with plans for facility placement. Hydrofera blue has been being applied to the wound Past Medical History Cardiovascular: CAD, HTN, [place], Hyperlipidemia Pulmonary: Asthma, COPD, Pneumonia CENTRAL NERVOUS SYSTEM: CVA, Dementia, Migraine, Periperal neuropathy GI: Diverticulosis, GERD, Hemorrhoids, Irritable bowel disease, Other Heme/Onc: Cancer Hepatobiliary: Cirrhosis Psych: Anxiety, Depression Musculoskeletal: Osteoarthritis Renal/: Chronic renal failure Endocrine: Diabetes Past Surgical History Past Surgical History aortoiliac stenting and right fem to ak pop bypass Past Surgical History: Cholecystectomy, , Hysterectomy Family History Family History: Chronic Bronchitis, Coronary Artery Disease, Heart Disease, Hypertension Social History ALCOHOL: none Drugs: None Lives: with Family Current Problem List Problem List Problems Medical Problems: (1) Advanced dementia Status: Acute (2) Chronic pain following surgery or procedure Status: Acute (3) Dementia, unspecified, with behavioral disturbance Status: Acute (4) Right leg pain Status: Acute Current Medications Current Medications Current Medications Acetaminophen (Tylenol) 1,000 mg 1X ONCE PO Last administered on 09/21/21at 12:12; Start 09/21/21 at 11:15; Stop 09/21/21 at 11:16; Status DC Acetaminophen (Tylenol) 650 mg PRN Q4HRS PRN PO TEMP OVER 100.4F Last administered on 09/23/21at 20:44; Start 09/21/21 at 19:15 Ascorbic Acid (Vitamin C) 1,000 mg DAILY PO Last administered on 09/24/21at 08:26; Start 09/22/21 at 09:00 Aspirin (Ecotrin) 81 mg DAILYWBKFT PO Last administered on 09/24/21at 08:26; Start 09/22/21 at 08:00 Atorvastatin Calcium (Lipitor) 40 mg HS PO Last administered on 09/24/21at 21:21; Start 09/21/21 at 21:00 Clopidogrel Bisulfate (Plavix) 75 mg DAILYWBKFT PO Last administered on 09/24/21at 08:26; Start 09/22/21 at 08:00 Docusate Sodium (Colace) 100 mg PRN BID PRN PO HARD STOOLS; Start 09/21/21 at 19:15 Gabapentin (Neurontin) 300 mg QHS PO Last administered on 09/24/21 21:21; Start 09/21/21 at 21:00 Lactobacillus Rhamnosus (Culturelle) 1 cap BID PO Last administered on 09/24/21at 21:21; Start 09/21/21 at 21:00 Potassium Chloride (Klor-Con) 20 meq DAILY PO Last administered on 09/24/21 08:26; Start 09/22/21 at 09:00 Psyllium Hydrophilic Mucilloid (Metamucil Fiber Packet) 1 pkt DAILY16 PO Last administered on 09/24/21at 15:34; Start 09/22/21 at 16:00 Thiamine Mononitrate (Vitamin B-1) 100 mg DAILY PO Last administered on 09/24/21at 08:26; Start 09/22/21 at 09:00 Trazodone HCl (Desyrel) 200 mg HS PO Last administered on 09/24/21at 21:21; Start 09/21/21 at 21:00 Pantoprazole Sodium (Protonix) 40 mg DAILYAC PO Last administered on 09/23/21at 07:59; Start 09/22/21 at 07:30; Stop 09/23/21 at 09:30; Status DC Info (FLU VACCINE SCREEN per RX) 1 each PRN DAILY PRN MC SEE COMMENTS; Start 09/22/21 at 00:00; Status Cancel Pharmacy Consult (C.diff Med Screen By Rx) 1 each 1X ONCE MC Last administered on 09/22/21at 00:00; Start 09/22/21 at 00:00; Stop 09/22/21 at 00:03; Status DC Famotidine (Pepcid) 20 mg DAILY PO Last administered on 09/24/21at 08:26; Start 09/24/21 at 09:00 Lorazepam (Ativan Inj) 1 mg PRN Q6HRS PRN IVP ANXIETY / AGITATION Last administered on 09/24/21at 19:00; Start 09/23/21 at 21:00 Meropenem 500 mg/ Sodium Chloride 50 ml @ 100 mls/hr Q8HRS IV Last administered on 09/25/21at 05:38; Start 09/24/21 at 14:00 Daptomycin 310 mg/ Sodium Chloride 50 ml @ 100 mls/hr Q24H IV Last administered on 09/24/21at 14:35; Start 09/24/21 at 13:00 Heparin Sodium (Porcine) (Hep Lock Adult) 500 unit PRN DAILY PRN IVP AFTER MEDS AND BLOOD DRAWS; Start 09/24/21 at 12:15 Active Scripts Active Aspirin Ec (Aspirin) 81 Mg Tablet.dr 81 Mg PO DAILYWBKFT 30 Days Clopidogrel (Clopidogrel Bisulfate) 75 Mg Tablet 75 Mg PO DAILYWBKFT 30 Days Zofran (Ondansetron Hcl) 4 Mg Tablet 4 Mg PO PRN TID PRN nausea/vomiting Potassium Chloride (Potassium Chloride) 20 Meq Tablet.er 20 Meq PO DAILY 30 Days Gabapentin 300 Mg Capsule 300 Mg PO QHS Vitamin C (Ascorbic Acid) 1,000 Mg Tablet 1,000 Mg PO TIDWMEALS 30 Days Vitamin B-1 (Thiamine Mononitrate) 100 Mg Tablet 100 Mg PO DAILY 30 Days Culturelle (Lactobacillus Rhamnosus Gg) 1 Each Cap.sprink 1 Cap PO BID 30 Days Metamucil Fiber Singles Packet (Psyllium Husk/Aspartame) 3.4 Gm Powd.pack 1 Pkt PO DAILY16 30 Days Dok (Docusate Sodium) 100 Mg Capsule 100 Mg PO PRN BID PRN 30 Days Tylenol (Acetaminophen) 325 Mg Tablet 650 Mg PO PRN Q4HRS PRN 30 Days Reported Risperidone 0.5 Mg Tablet 0.25 Mg PO PRN QHS PRN Zoloft (Sertraline Hcl) 100 Mg Tablet 100 Mg PO DAILY Nexium Capsule (Esomeprazole Magnesium) 40 Mg Capsule.dr 40 Mg PO DAILYAC Atorvastatin Calcium 40 Mg Tablet 40 Mg PO HS Trazodone Hcl 100 Mg Tablet 200 Mg PO HS Allergies Allergies: Coded Allergies: Penicillins (Verified Allergy, Intermediate, tolerates Ancef, Rocephin, 09/18/21) Sulfa (Sulfonamide Antibiotics) (Verified Allergy, Intermediate, 09/18/21) Physical Exam General: Alert, No acute distress HEENT: Atraumatic, EOMI Lungs: Normal air movement Heart: Regular rate, Other (2+ femoral pulses bilaterally. Right dp pulse 2+) Abdomen: Soft, No tenderness Extremities: Other (There is erythema on right heel. The heel ulceration appears to be healing with excellent granulation tissue. ) Skin: Other (The groin and thigh incisions are well healed on the right) Neuro: Normal speech, Other (Diffuse weakness) MUSCULOSKELETAL: No joint tenderness, No deformity Vitals VITALS Vital Signs Date Time Temp Pulse Resp B/P (MAP) Pulse Ox O2 Delivery O2 Flow Rate FiO2 09/25/21 07:45 Room Air 09/25/21 07:00 98.2 64 18 120/64 (82) 95 98.2 Labs Labs Laboratory Tests Test 09/23/21 10:20 Coronavirus (COVID-19)(PCR) Not detected (NOT DETECTD) Assessment/Plan Assessment/Plan 1. Peripheral arterial disease s/p aortoiliac stenting and right lower extremity fem to ak pop bypass with artegraft 2. S/p SMA stenting 3. Right heel ulceration- well healing Would continue offloading of right heel. Can weight bear on right forefoot only (however patient due to diffuse weakness unlikely to be able to perform this) Continue wound care per wound care recommendations- ok to be without wound vac at this point She has a palpable dp pulse on the right side with patent vascular reconstruction will schedule outpatient surveillance studies Continue asa/plavix and statin ELIZABETH PONCE MD Sep 25, 2021 08:51
[2021-09-25] MEDS: ASPIRIN ENTERIC COATED 81 MG TABLET.DR. PO SCH (09:23)
[2021-09-25] MEDS: CLOPIDOGREL BISULFATE 75 MG TABLET PO SCH (09:23)
[2021-09-25] MEDS: THIAMINE 100 MG TABLET. PO SCH (09:23)
[2021-09-25] MEDS: FAMOTIDINE 20 MG TABLET. PO SCH (09:23)
[2021-09-25] MEDS: ASCORBIC ACID 1,000 MG TABLET PO SCH (09:23)
[2021-09-25] MEDS: LACTOBACILLUS RHAMNOSUS GG 1 CAPSULE. PO SCH ×2 (09:23→21:05)
[2021-09-25] MEDS: POTASSIUM CHLORIDE 20 MEQ TABLET.ER. PO SCH (09:23)
[2021-09-25 10:06] LABS: ALBUMIN 3.1 g/dL (3.4-5.0); ALBUMIN/GLOBULIN RATIO 0.7 (1.0-1.7); CALCIUM 8.9 mg/dL (8.5-10.1); CREATININE 0.8 mg/dL (0.6-1.0); GFR 70.1; POTASSIUM 4.4 mmol/L (3.5-5.1); TOTAL BILIRUBIN 0.3 mg/dL (0.2-1.0); TOTAL PROTEIN 7.3 g/dL (6.4-8.2)
[2021-09-25 11:00] VITALS: BP 122/62
--- NOTE | 2021-09-25 11:18 | PDOC ---
[facility] PROGRESS NOTE Date of Service DOS: DATE: 09/25/21 TIME: 11:14 Chief Complaint Chief Complaint Probable failure to thrive Progression of dementia Chronic right heel ulceration with abnormal MRI with possible rt heel OM with underlying PAD - Status post angioplasty 08/15/2021 and Status post I&D on August 19 2021 -Infectious disease has been following up patient on Invanz and daptomycin. 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 Q. Sunday labs CBC/BUN/creatinine/CPK/ESR/CRP. Fax results to [phone] Follow-up ID clinic Sep 06 at 3 pm PH [phone] Discussed with RN Discussed with case management History of Present Illness History of Present Illness Ms Bennett is a 76yo female with PMHx alzheimer dementia, HTN, COPD, DM2, PAD who comes to ED at the behest of her and PCP for worsening RLE pain and confusion at home. Was playing with her own feces. 09/22:She seems to know what year it is but then she could not remember what I told her over and over again. Was yelling out help 09/23: Remembered year and day of the week but did not remember any of us from yesterday. Hoping to get into SNU soon pending. 09/24: Seen bedside with . RUE extremity PICC line working well. Right heel wound wound VAC was removed on arrival and has been treated with wound care. Stage III sacral ulcer treated as well. No shortness of breath or chest pain. 09/25: Restarted IV antibiotics ID and vascular surgery to see. Little more agitated. Vitals/I&O Vitals/I&O: Vital Signs Date Time Temp Pulse Resp B/P (MAP) Pulse Ox O2 Delivery O2 Flow Rate FiO2 09/25/21 07:45 Room Air 09/25/21 07:00 98.2 64 18 120/64 (82) 95 98.2 Physical Exam Physical Exam: GENERAL: Alert, awake chronically debilitated patient somewhat confused, Questionable baseline lying in bed comfortably, in no acute distress., at bedside HEENT: Normocephalic, atraumatic. Anicteric. NECK: Supple. No JVD LUNGS: Clear bilaterally. No wheezing. HEART: S1, S2. No murmurs. ABDOMEN: Soft, nontender, nondistended. No rebound or guarding. Bowel sounds present EXTREMITIES: Right lower extremity wound taken down, no bone exposed, 1 to 1.2 cm posterior heel wound with thin layer of tissue over right calcaneus bone. No gross purulence. No surrounding erythema. No warmth. MUSCULOSKELETAL: No joint swelling. No decrease in range of motion. CENTRAL NERVOUS SYSTEM: Alert, awake, moves all 4 extremities, confusion appears to be from baseline dementia PSYCHIATRIC: Cooperative, calm. Right upper extremity PICC line clean General: Alert, No acute distress Heart: Regular rate, Other (2+ femoral pulses bilaterally. Right dp pulse 2+) Lungs: Clear Abdomen: Soft, No tenderness Extremities: Other (There is erythema on right heel. The heel ulceration appears to be healing with excellent granulation tissue. ) Skin: Other (The groin and thigh incisions are well healed on the right) Labs Labs: Laboratory Tests Test 09/25/21 07:15 White Blood Count 7.0 x10^3/uL (4.0-11.0) Red Blood Count 4.40 x10^6/uL (3.50-5.40) Hemoglobin 11.2 g/dL (12.0-15.5) Hematocrit 35.6 % (36.0-47.0) Mean Corpuscular Volume 81 fL (79-100) Mean Corpuscular Hemoglobin 25 pg (25-35) Mean Corpuscular Hemoglobin Concent 31 g/dL (31-37) Red Cell Distribution Width 15.7 % (11.5-14.5) Platelet Count 261 x10^3/uL (140-400) Neutrophils (%) (Auto) 72 % (31-73) Lymphocytes (%) (Auto) 18 % (24-48) Monocytes (%) (Auto) 6 % (0-9) Eosinophils (%) (Auto) 3 % (0-3) Basophils (%) (Auto) 1 % (0-3) Neutrophils # (Auto) 5.1 x10^3/uL (1.8-7.7) Lymphocytes # (Auto) 1.2 x10^3/uL (1.0-4.8) Monocytes # (Auto) 0.4 x10^3/uL (0.0-1.1) Eosinophils # (Auto) 0.2 x10^3/uL (0.0-0.7) Basophils # (Auto) 0.1 x10^3/uL (0.0-0.2) Sodium Level 140 mmol/L (136-145) Potassium Level 4.4 mmol/L (3.5-5.1) Chloride Level 104 mmol/L (98-107) Carbon Dioxide Level 24 mmol/L (21-32) Anion Gap 12 (6-14) Blood Urea Nitrogen 25 mg/dL (7-20) Creatinine 0.8 mg/dL (0.6-1.0) Estimated GFR (Cockcroft-Gault) 70.1 BUN/Creatinine Ratio 31 (6-20) Glucose Level 177 mg/dL (70-99) Calcium Level 8.9 mg/dL (8.5-10.1) Total Bilirubin 0.3 mg/dL (0.2-1.0) Aspartate Amino Transf (AST/SGOT) 16 U/L (15-37) Alanine Aminotransferase (ALT/SGPT) 11 U/L (14-59) Alkaline Phosphatase 105 U/L (46-116) Creatine Kinase 12 U/L (26-192) Total Protein 7.3 g/dL (6.4-8.2) Albumin 3.1 g/dL (3.4-5.0) Albumin/Globulin Ratio 0.7 (1.0-1.7) Assessment and Plan Assessmemt and Plan Problems Medical Problems: (1) Advanced dementia Status: Acute (2) Chronic pain following surgery or procedure Status: Acute (3) Dementia, unspecified, with behavioral disturbance Status: Acute (4) Right leg pain Status: Acute Comment Review of Relevant I have reviewed the following items tammie (where applicable) has been applied. Medications: Current Medications Medications (Trade) Dose Ordered Sig/Lashay Route PRN Reason Start Time Stop Time Status Last Admin Dose Admin Meropenem 500 mg/ Sodium Chloride 50 ml @ 100 mls/hr Q8HRS IV 09/24/21 14:00 09/25/21 05:38 Daptomycin 310 mg/ Sodium Chloride 50 ml @ 100 mls/hr Q24H IV 09/24/21 13:00 09/24/21 14:35 Justifications for Admission Other Justification Upper GI bleed AWAIS PLEITEZ MD Sep 25, 2021 11:18
[2021-09-25] MEDS ORDERED: risperiDONE 0.25 MG TABLET. PO PRN (11:30)
[2021-09-25] MEDS: DAPTOMYCIN IV SCH (13:12)
[2021-09-25] MEDS: NORMAL SALINE IV SCH (13:12)
--- NOTE | 2021-09-25 13:41 | PDOC ---
Infectious Disease Note Subjective: Subjective Patient confused, agitated wants to " go to work" Vital Signs: Vital Signs Vital Signs Date Time Temp Pulse Resp B/P (MAP) Pulse Ox O2 Delivery O2 Flow Rate FiO2 09/25/21 11:00 98.4 61 16 122/62 (82) 98 Room Air 98.4 Physical Exam: PHYSICAL EXAM GENERAL: Alert, awake chronically debilitated patient somewhat confused, Questionable baseline lying in bed comfortably, in no acute distress HEENT: Normocephalic, atraumatic. Anicteric. NECK: Supple. No JVD LUNGS: Clear bilaterally. No wheezing. HEART: S1, S2. No murmurs. ABDOMEN: Soft, nontender, nondistended. No rebound or guarding. Bowel sounds present EXTREMITIES: Right lower extremity wound taken down, no bone exposed, 1 to 1.2 cm posterior heel wound with thin layer of tissue over right calcaneus bone. No gross purulence. No surrounding erythema. No warmth. MUSCULOSKELETAL: No joint swelling. No decrease in range of motion. CENTRAL NERVOUS SYSTEM: Alert, awake, moves all 4 extremities, confusion appears to be from baseline dementia PSYCHIATRIC: Cooperative, calm. Right upper extremity PICC line clean Medications: Inpatient Meds: Medications reviewed. Labs: Lab Laboratory Tests Test 09/25/21 07:15 White Blood Count 7.0 x10^3/uL (4.0-11.0) Red Blood Count 4.40 x10^6/uL (3.50-5.40) Hemoglobin 11.2 g/dL (12.0-15.5) Hematocrit 35.6 % (36.0-47.0) Mean Corpuscular Volume 81 fL (79-100) Mean Corpuscular Hemoglobin 25 pg (25-35) Mean Corpuscular Hemoglobin Concent 31 g/dL (31-37) Red Cell Distribution Width 15.7 % (11.5-14.5) Platelet Count 261 x10^3/uL (140-400) Neutrophils (%) (Auto) 72 % (31-73) Lymphocytes (%) (Auto) 18 % (24-48) Monocytes (%) (Auto) 6 % (0-9) Eosinophils (%) (Auto) 3 % (0-3) Basophils (%) (Auto) 1 % (0-3) Neutrophils # (Auto) 5.1 x10^3/uL (1.8-7.7) Lymphocytes # (Auto) 1.2 x10^3/uL (1.0-4.8) Monocytes # (Auto) 0.4 x10^3/uL (0.0-1.1) Eosinophils # (Auto) 0.2 x10^3/uL (0.0-0.7) Basophils # (Auto) 0.1 x10^3/uL (0.0-0.2) Sodium Level 140 mmol/L (136-145) Potassium Level 4.4 mmol/L (3.5-5.1) Chloride Level 104 mmol/L (98-107) Carbon Dioxide Level 24 mmol/L (21-32) Anion Gap 12 (6-14) Blood Urea Nitrogen 25 mg/dL (7-20) Creatinine 0.8 mg/dL (0.6-1.0) Estimated GFR (Cockcroft-Gault) 70.1 BUN/Creatinine Ratio 31 (6-20) Glucose Level 177 mg/dL (70-99) Calcium Level 8.9 mg/dL (8.5-10.1) Total Bilirubin 0.3 mg/dL (0.2-1.0) Aspartate Amino Transf (AST/SGOT) 16 U/L (15-37) Alanine Aminotransferase (ALT/SGPT) 11 U/L (14-59) Alkaline Phosphatase 105 U/L (46-116) Creatine Kinase 12 U/L (26-192) Total Protein 7.3 g/dL (6.4-8.2) Albumin 3.1 g/dL (3.4-5.0) Albumin/Globulin Ratio 0.7 (1.0-1.7) Objective: Assessment: Chronic nonhealing right posterior heel nonhealing ulcer with abnormal MRI with possible right heel osteomyelitis -status post debridement on August 26, 2020. No cultures available Peripheral arterial disease status post angioplasty with stent placement on August 15, 2021 Dementia Diabetes mellitus 2 Fecal occult blood positive History of aortic stenting in the past Generalized debility DJD Coronary artery disease status post NE Encephalopathy likely metabolic improved Asthma, COPD History of CVA, peripheral neuropathy History of cancer Anxiety and depression Cirrhosis CKD History of penicillin allergy, has tolerated Ancef and ceftriaxone well in the past Plan: Plan of Care Continue daptomycin change merrem to ceftriaxone Patient missed 3 doses of iv abx Continue local wound care as directed Offload Maintain PICC line Discussed with PERFECTO HARE MD Sep 25, 2021 13:41
[2021-09-25 15:00] VITALS: BP 113/68
[2021-09-25] MEDS: PSYLLIUM HUSK (SUGAR FREE) 1 PKT PACKET PO SCH (16:35)
[2021-09-25] MEDS: cefTRIAXone IV Push 2 GM VIAL. IVP SCH (16:35)
[2021-09-25 19:00] VITALS: BP 95/55
[2021-09-25] MEDS: ATORVASTATIN CALCIUM 40 MG TABLET. PO SCH (21:05)
[2021-09-25] MEDS: traZODone 100 MG TABLET. PO SCH (21:05)
[2021-09-25] MEDS: GABAPENTIN 300 MG CAPSULE. PO SCH (21:05)
[2021-09-25 23:00] VITALS: BP 119/54
[2021-09-26 03:00] VITALS: BP 100/54
[2021-09-26 07:15] VITALS: BP 120/50
[2021-09-26] MEDS: ASPIRIN ENTERIC COATED 81 MG TABLET.DR. PO SCH (09:37)
[2021-09-26] MEDS: ASCORBIC ACID 1,000 MG TABLET PO SCH (09:37)
[2021-09-26] MEDS: THIAMINE 100 MG TABLET. PO SCH (09:37)
[2021-09-26] MEDS: LACTOBACILLUS RHAMNOSUS GG 1 CAPSULE. PO SCH (09:37)
[2021-09-26] MEDS: FAMOTIDINE 20 MG TABLET. PO SCH (09:38)
[2021-09-26] MEDS: CLOPIDOGREL BISULFATE 75 MG TABLET PO SCH (09:38)
[2021-09-26] MEDS: POTASSIUM CHLORIDE 20 MEQ TABLET.ER. PO SCH (09:38)
[2021-09-26 10:54] VITALS: BP 118/64
[2021-09-26] MEDS ORDERED: DAPT350V IV (11:09)
--- NOTE | 2021-09-26 11:13 | PDOC ---
[facility] PROGRESS NOTE Date of Service DOS: DATE: 09/26/21 TIME: 11:11 Chief Complaint Chief Complaint Probable failure to thrive Progression of dementia Chronic right heel ulceration with abnormal MRI with possible rt heel OM with underlying PAD - Status post angioplasty 08/15/2021 and Status post I&D on August 19 2021 -Infectious disease has been following up patient on Invanz and daptomycin. 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 Dementia Diabetes mellitus 2 H/o aortic stenting in the past Generalized debility DJD History of coronary artery disease status post [place] Asthma COPD History of CVA peripheral neuropathy History of cancer Anxiety and depression Cirrhosis CKD Plan: Continue daptomycin and Rocephin 2g daily Recommendations for skin prep to sumaya-wound and then Hydrofera Blue to wound bed and cover with foam dressing. Change every other day. Xeroform gauze and foam dressing to the sacrum wound, change every other day. Offloading surface/device: Bilateral heels floated at this time in chair, patient will need purple wedge for turning and heel medix for right heel to wear while in bed. No heel weight bearing on right. 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 Sunday labs CBC/BUN/creatinine/CPK/ESR/CRP. Fax results to [phone] Follow up in 2 weeks: [facility] [address], [address] [place] [address] P: F: Vascular Surgery Follow Up - Dr. Rohith Cabrales Discussed with RN Discussed with case management History of Present Illness History of Present Illness Ms Bennett is a 76yo female with PMHx alzheimer dementia, HTN, COPD, DM2, PAD who comes to ED at the behest of her and PCP for worsening RLE pain and confusion at home. Was playing with her own feces. 09/22:She seems to know what year it is but then she could not remember what I told her over and over again. Was yelling out help 09/23: Remembered year and day of the week but did not remember any of us from yesterday. Hoping to get into SNU soon pending. 09/24: Seen bedside with . RUE extremity PICC line working well. Right heel wound wound VAC was removed on arrival and has been treated with wound care. Stage III sacral ulcer treated as well. No shortness of breath or chest pain. 09/25: Restarted IV antibiotics ID and vascular surgery to see. Little more agitated. Invanz changed to Rocephin continue daptomycin. 09/26: Little agitated improved with Zyprexa. Still pleasantly confused. Vitals/I&O Vitals/I&O: Vital Signs Date Time Temp Pulse Resp B/P (MAP) Pulse Ox O2 Delivery O2 Flow Rate FiO2 09/26/21 10:54 97.4 97 18 118/64 (82) 98 Room Air 97.4 Physical Exam Physical Exam: GENERAL: Alert, awake chronically debilitated patient somewhat confused, Questionable baseline lying in bed comfortably, in no acute distress HEENT: Normocephalic, atraumatic. Anicteric. NECK: Supple. No JVD LUNGS: Clear bilaterally. No wheezing. HEART: S1, S2. No murmurs. ABDOMEN: Soft, nontender, nondistended. No rebound or guarding. Bowel sounds present EXTREMITIES: Right lower extremity wound taken down, no bone exposed, 1 to 1.2 cm posterior heel wound with thin layer of tissue over right calcaneus bone. No gross purulence. No surrounding erythema. No warmth. MUSCULOSKELETAL: No joint swelling. No decrease in range of motion. CENTRAL NERVOUS SYSTEM: Alert, awake, moves all 4 extremities, confusion appears to be from baseline dementia PSYCHIATRIC: Cooperative, calm. Right upper extremity PICC line clean General: Alert, No acute distress Heart: Regular rate, Other (2+ femoral pulses bilaterally. Right dp pulse 2+) Lungs: Clear Abdomen: Soft, No tenderness Extremities: Other (There is erythema on right heel. The heel ulceration appears to be healing with excellent granulation tissue. ) Skin: Other (The groin and thigh incisions are well healed on the right) Assessment and Plan Assessmemt and Plan Problems Medical Problems: (1) Advanced dementia Status: Acute (2) Chronic pain following surgery or procedure Status: Acute (3) Dementia, unspecified, with behavioral disturbance Status: Acute (4) Right leg pain Status: Acute Comment Review of Relevant I have reviewed the following items tammie (where applicable) has been applied. Medications: Current Medications Medications (Trade) Dose Ordered Sig/Lashay Route PRN Reason Start Time Stop Time Status Last Admin Dose Admin Olanzapine (ZyPREXA ZYDIS) 5 mg PRN BID PRN PO ANXIETY / AGITATION 09/25/21 11:30 09/26/21 09:42 Risperidone (RisperDAL) 0.25 mg PRN QHS PRN PO ANXIETY / AGITATION 09/25/21 11:30 09/25/21 21:05 Ceftriaxone Sodium (Rocephin) 2 gm Q24H IVP 09/25/21 16:00 09/25/21 16:35 Justifications for Admission Other Justification Upper GI bleed AWAIS PLEITEZ MD Sep 26, 2021 11:13
[2021-09-26] MEDS ORDERED: CEFTRIAXONE SODIUM IVP (13:00)
--- NOTE | 2021-09-26 13:16 | SNU/HH DC ---
DISCHARGE WITH HOME HEALTH DISCHARGE INFORMATION: Discharge Date: Sep 26, 2021 Final Diagnosis: Problems Medical Problems: (1) Advanced dementia Status: Acute (2) Chronic pain following surgery or procedure Status: Acute (3) Dementia, unspecified, with behavioral disturbance Status: Acute (4) Right leg pain Status: Acute Condition on Discharge: Stable CODE STATUS: Code Status: Full HOME HEALTH: Face to Face: I certify this patient is under my care and that I, or a nurse practitioner or physician's assistant manager/embalmer working with me, had a face to face encounter that meets the physician face to face encounter requirements with this patient on 09/26/2021. Medical Complications: Dementia Usp For: IV Infusion Therapy, Medication Management, Pain Management, background investigator For Eval/Treatment: Yes Physical Therapy For: Evalulation/Treatment Occupational Therapy For: Evaluation/Treatment Pt Meets Homebound Status: Extreme weakness w/ amb. POST DISCHARGE ORDERS: Activity Instructions for Disc: Activity as tolerated Weight Bearing Status after Di: As tolerated (Right heel offload) Bathing Instructions: Shower-keep dressing dry DIET AFTER DISCHARGE: Cardiac Wound/Incision Care: Change dressing CHECKS AFTER DISCHARGE: Checks after discharge: Check blood press - daily, Check blood sugar, ac/hs FOLLOW-UP: DC TO SNF LABS: CBC, CMP weekly Additional Instructions: Continue daptomycin and Rocephin 2g daily Recommendations for skin prep to sumaya-wound and then Hydrofera Blue to wound bed and cover with foam dressing. Change every other day. Xeroform gauze and foam dressing to the sacrum wound, change every other day. Offloading surface/device: Bilateral heels floated at this time in chair, patient will need purple wedge for turning and heel medix for right heel to wear while in bed. No heel weight bearing on right. 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 Sunday labs CBC/BUN/creatinine/CPK/ESR/CRP. Fax results to [phone] Follow up in 2 weeks: [facility] [address], [address] [place], [place] [id number] P: F: Vascular Surgery Follow Up - Dr. Rohith Cabrales Discussed with RN Discussed with case management TREATMENT/EQUIPMENT ORDERS: Adaptive Equipment Issued: None Discharge Respiratory Equipmen: Oxygen CERTIFICATION STATEMENT: Certification Statement: Certification Statement: Based on the above finding, I certify that this patient is confined to the home and needs intermittent assisted care, physical therapy and/or speech therapy, or continues to need occupational therapy.~ This patient is under my care, and I have initiated the establishment of the plan of care.~ This patient will be followed by myself or a community physician who will periodically review the plan of care. Home Meds Active Scripts [cefTRIAXone IV Push] 2 GM VIAL No Conflict Check, 2 GM IVP Q24H for Osteomyelitis for 42 Days, #42 EACH Prov:AWAIS PLEITEZ MD 09/26/21 Daptomycin (Daptomycin) 350 Mg Vial, 310 MG IV DAILY for Osteomyelitis for 42 Days, #38 EACH Prov:AWAIS PLEITEZ MD 09/26/21 Aspirin (ASPIRIN EC) 81 Mg Tablet.dr, 81 MG PO DAILYWBKFT for cad for 30 Days, #30 TAB.SR Prov:AWAIS WELLS MD 08/23/21 Clopidogrel Bisulfate (CLOPIDOGREL) 75 Mg Tablet, 75 MG PO DAILYWBKFT for cad for 30 Days, #30 TAB Prov:AWAIS WELLS MD 08/23/21 Ondansetron Hcl (ZOFRAN) 4 Mg Tablet, 4 MG PO PRN TID PRN for VOMITING, #20 EA nausea/vomiting Prov:JAEL CLEVELAND DO 05/26/21 Potassium Chloride (POTASSIUM CHLORIDE ) 20 Meq Tablet.er, 20 MEQ PO DAILY for SUPPLEMENT for 30 Days, #30 TAB.SR Prov:IFTIKHAR FRANCO K III DO 04/01/21 Gabapentin (GABAPENTIN) 300 Mg Capsule, 300 MG PO QHS for Neuropathy, #30 CAP 2 Refills Prov:RYAN AVILEZ MD 03/01/21 Ascorbic Acid (VITAMIN C) 1,000 Mg Tablet, 1000 MG PO TIDWMEALS for SUPPLEMENT for 30 Days, #90 TAB Prov:KELLI EMMANUEL MD 12/17/20 Thiamine Mononitrate (VITAMIN B-1) 100 Mg Tablet, 100 MG PO DAILY for SUPPLEMENT for 30 Days, #30 TAB Prov:KELLI EMMANUEL MD 12/17/20 Lactobacillus Rhamnosus Gg (CULTURELLE) 1 Each Cap.sprink, 1 CAP PO BID for SUPPLEMENT for 30 Days, #60 CAP Prov:KELLI EMMANUEL MD 12/17/20 Psyllium Husk/Aspartame (METAMUCIL FIBER SINGLES PACKET) 3.4 Gm Powd.pack, 1 PKT PO DAILY16 for STOOLS for 30 Days, #30 PKT Prov:KELLI EMMANUEL MD 05/04/20 Docusate Sodium (DOK) 100 Mg Capsule, 100 MG PO PRN BID PRN for HARD STOOLS for 30 Days, #60 CAP Prov:KELLI EMMANUEL MD 05/04/20 Acetaminophen (TYLENOL) 325 Mg Tablet, 650 MG PO PRN Q4HRS PRN for TEMP OVER 100.4F for 30 Days, #100 TAB Prov:KELLI EMMANUEL MD 05/04/20 Reported Medications Risperidone (RISPERIDONE) 0.5 Mg Tablet, 0.25 MG PO PRN QHS PRN for ANXIETY / AGITATION, TAB 11/29/20 Sertraline Hcl (ZOLOFT) 100 Mg Tablet, 100 MG PO DAILY for ANTI-DEPRESSANT, TAB 0 Refills 11/29/20 Esomeprazole Magnesium (NEXIUM CAPSULE) 40 Mg Capsule.dr, 40 MG PO DAILYAC for , #30 CAP 0 Refills 11/29/20 Atorvastatin Calcium (ATORVASTATIN CALCIUM) 40 Mg Tablet, 40 MG PO HS for FOR CHOLESTEROL, #30 TAB 0 Refills 02/28/14 Trazodone Hcl (TRAZODONE HCL) 100 Mg Tablet, 200 MG PO HS, TAB 02/28/14 AWAIS PLEITEZ MD Sep 26, 2021 13:16
--- NOTE | 2021-09-26 13:20 | PDOC3 ---
Discharge Summary Visit Information Date of Admission: Sep 21, 2021 Date of Discharge: Sep 26, 2021 Admitting Diagnosis: Altered mental status, right heel osteomyelitis Final Diagnosis Problems Medical Problems: (1) Advanced dementia Status: Acute (2) Chronic pain following surgery or procedure Status: Acute (3) Dementia, unspecified, with behavioral disturbance Status: Acute (4) Right leg pain Status: Acute Brief Hospital Course Allergies Allergies Coded Allergies Type Severity Reaction Last Updated Verified Penicillins Allergy Intermediate tolerates Ancef, Rocephin 09/18/21 Yes Sulfa (Sulfonamide Antibiotics) Allergy Intermediate 09/18/21 Yes Vital Signs Vital Signs Date Time Temp Pulse Resp B/P (MAP) Pulse Ox O2 Delivery O2 Flow Rate FiO2 09/26/21 10:54 97.4 97 18 118/64 (82) 98 Room Air 97.4 Lab Results Laboratory Tests Test 09/25/21 07:15 White Blood Count 7.0 x10^3/uL (4.0-11.0) Red Blood Count 4.40 x10^6/uL (3.50-5.40) Hemoglobin 11.2 g/dL (12.0-15.5) Hematocrit 35.6 % (36.0-47.0) Mean Corpuscular Volume 81 fL (79-100) Mean Corpuscular Hemoglobin 25 pg (25-35) Mean Corpuscular Hemoglobin Concent 31 g/dL (31-37) Red Cell Distribution Width 15.7 % (11.5-14.5) Platelet Count 261 x10^3/uL (140-400) Neutrophils (%) (Auto) 72 % (31-73) Lymphocytes (%) (Auto) 18 % (24-48) Monocytes (%) (Auto) 6 % (0-9) Eosinophils (%) (Auto) 3 % (0-3) Basophils (%) (Auto) 1 % (0-3) Neutrophils # (Auto) 5.1 x10^3/uL (1.8-7.7) Lymphocytes # (Auto) 1.2 x10^3/uL (1.0-4.8) Monocytes # (Auto) 0.4 x10^3/uL (0.0-1.1) Eosinophils # (Auto) 0.2 x10^3/uL (0.0-0.7) Basophils # (Auto) 0.1 x10^3/uL (0.0-0.2) Sodium Level 140 mmol/L (136-145) Potassium Level 4.4 mmol/L (3.5-5.1) Chloride Level 104 mmol/L (98-107) Carbon Dioxide Level 24 mmol/L (21-32) Anion Gap 12 (6-14) Blood Urea Nitrogen 25 mg/dL (7-20) Creatinine 0.8 mg/dL (0.6-1.0) Estimated GFR (Cockcroft-Gault) 70.1 BUN/Creatinine Ratio 31 (6-20) Glucose Level 177 mg/dL (70-99) Calcium Level 8.9 mg/dL (8.5-10.1) Total Bilirubin 0.3 mg/dL (0.2-1.0) Aspartate Amino Transf (AST/SGOT) 16 U/L (15-37) Alanine Aminotransferase (ALT/SGPT) 11 U/L (14-59) Alkaline Phosphatase 105 U/L (46-116) Creatine Kinase 12 U/L (26-192) Total Protein 7.3 g/dL (6.4-8.2) Albumin 3.1 g/dL (3.4-5.0) Albumin/Globulin Ratio 0.7 (1.0-1.7) Brief Hospital Course Ms Bennett is a 76yo female with PMHx alzheimer dementia, HTN, COPD, DM2, PAD who comes to ED at the behest of her and PCP for worsening RLE pain and confusion at home. Was playing with her own feces. 09/22:She seems to know what year it is but then she could not remember what I told her over and over again. Was yelling out help 09/23: Remembered year and day of the week but did not remember any of us from yesterday. Hoping to get into SNU soon pending. 09/24: Seen bedside with . RUE extremity PICC line working well. Right heel wound wound VAC was removed on arrival and has been treated with wound care. Stage III sacral ulcer treated as well. No shortness of breath or chest pain. 09/25: Restarted IV antibiotics ID and vascular surgery to see. Little more agitated. Invanz changed to Rocephin continue daptomycin. 09/26: Little agitated improved with Zyprexa. Still pleasantly confused. Wound care locally. Consults: ID and Vascular surgery Problem list: Probable failure to thrive Progression of dementia Chronic right heel ulceration with abnormal MRI with possible rt heel OM with underlying PAD - Status post angioplasty 08/15/2021 and Status post I&D on August 19 2021 -Infectious disease has been following up patient on Invanz and daptomycin. 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 Dementia Diabetes mellitus 2 H/o aortic stenting in the past Generalized debility DJD History of coronary artery disease status post WA Asthma COPD History of CVA peripheral neuropathy History of cancer Anxiety and depression Cirrhosis CKD Plan: Continue daptomycin and Rocephin 2g daily Recommendations for skin prep to sumaya-wound and then Hydrofera Blue to wound bed and cover with foam dressing. Change every other day. Xeroform gauze and foam dressing to the sacrum wound, change every other day. Offloading surface/device: Bilateral heels floated at this time in chair, patient will need purple wedge for turning and heel medix for right heel to wear while in bed. No heel weight bearing on right. 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 Sunday labs CBC/BUN/creatinine/CPK/ESR/CRP. Fax results to [phone] Follow up in 2 weeks: [facility] [address], [address] [place] [address] P: F: Vascular Surgery Follow Up - Dr. Rohith Cabrales Discussed with RN Discussed with case management Greater than 30 minutes spent on d/c home with home health and infusions Discharge Information Condition at Discharge: Improved Follow Up: Weeks Disposition/Orders: D/C to Home w/ HH Scheduled Ascorbic Acid (Vitamin C) 1,000 Mg Tablet, 1,000 MG PO TIDWMEALS for SUPPLEMENT for 30 Days, #90 Prescribed by: KELLI EMMANUEL MD on 12/17/20 2491 Last Action: Continued on 09/21/21 1901 by MICHAEL RAY Aspirin (Aspirin Ec) 81 Mg Tablet.dr, 81 MG PO DAILYWBKFT for cad for 30 Days, #30 Prescribed by: AWAIS WELLS MD on 08/23/21 161 Last Action: Continued on 09/21/211903 by MICHAEL RAY Atorvastatin Calcium (Atorvastatin Calcium) 40 Mg Tablet, 40 MG PO HS for FOR CHOLESTEROL, #30 Ref 0 (Reported) Entered as Reported by: TOMMY ARRIOLA on 02/28/14 1356 Last Action: Continued on 09/21/211903 by MICHAEL RAY Clopidogrel Bisulfate (Clopidogrel) 75 Mg Tablet, 75 MG PO DAILYWBKFT for cad for 30 Days, #30 Prescribed by: AWAIS WELLS MD on 08/23/21 1610 Last Action: Continued on 09/21/211903 by MICHAEL RAY Daptomycin (Daptomycin) 350 Mg Vial, 310 MG IV DAILY for Osteomyelitis for 42 Days, #38 Prescribed by: AWAIS PLEITEZ MD on 09/26/21 1109 Esomeprazole Magnesium (Nexium Capsule) 40 Mg Capsule.dr, 40 MG PO DAILYAC for , #30 Ref 0 (Reported) Entered as Reported by: MYRIAM PETERSON RN on 11/29/20 2310 Last Action: Converted on 09/21/211903 by MICHAEL RAY Gabapentin (Gabapentin) 300 Mg Capsule, 300 MG PO QHS for Neuropathy, #30 Ref 2 Prescribed by: RYAN AVILEZ MD on 03/01/21 1103 Last Action: Continued on 09/21/211903 by MICHAEL RAY Lactobacillus Rhamnosus Gg (Culturelle) 1 Each Cap.sprink, 1 CAP PO BID for SUPPLEMENT for 30 Days, #60 Prescribed by: KELLI EMMANUEL MD on 12/17/20 1358 Last Action: Continued on 09/21/211903 by MICHAEL RAY Potassium Chloride (Potassium Chloride ) 20 Meq Tablet.er, 20 MEQ PO DAILY for SUPPLEMENT for 30 Days, #30 Prescribed by: IFTIKHAR FRANCO on 04/01/21 1315 Last Action: Continued on 09/21/211903 by MICHAEL RAY Psyllium Husk/Aspartame (Metamucil Fiber Singles Packet) 3.4 Gm Powd.pack, 1 PKT PO DAILY16 for STOOLS for 30 Days, #30 Prescribed by: KELLI EMMANUEL MD on 05/04/20 1042 Last Action: Continued on 09/21/211903 by MICHAEL RAY Sertraline Hcl (Zoloft) 100 Mg Tablet, 100 MG PO DAILY for ANTI-DEPRESSANT, Ref 0 (Reported) Entered as Reported by: MYRIAM PETERSON RN on 11/29/202309 Thiamine Mononitrate (Vitamin B-1) 100 Mg Tablet, 100 MG PO DAILY for SUPPLEMENT for 30 Days, #30 Prescribed by: KELLI EMMANUEL MD on 12/17/20 1358 Last Action: Continued on 09/21/211903 by MICHAEL RAY Trazodone Hcl (Trazodone Hcl) 100 Mg Tablet, 200 MG PO HS, (Reported) Entered as Reported by: TOMMY ARRIOLA on 02/28/14 1347 Last Action: Continued on 09/21/211903 by MICHAEL RAY [Ceftriaxone Sodium] 2 GM VIAL, 2 GM IVP Q24H for Osteomyelitis for 42 Days, #42 Prescribed by: AWAIS PLEITEZ MD on 09/26/21 1300 Scheduled PRN Acetaminophen (Tylenol) 325 Mg Tablet, 650 MG PO PRN Q4HRS PRN for TEMP OVER 100.4F for 30 Days, #100 Prescribed by: KELLI EMMANUEL MD on 05/04/20 1042 Last Action: Continued on 09/21/211903 by MICHAEL RAY Docusate Sodium (Dok) 100 Mg Capsule, 100 MG PO PRN BID PRN for HARD STOOLS for 30 Days, #60 Prescribed by: KELLI EMMANUEL MD on 05/04/20 1042 Last Action: Continued on 09/21/211903 by MICHAEL RAY Ondansetron Hcl (Zofran) 4 Mg Tablet, 4 MG PO PRN TID PRN for VOMITING, #20 nausea/vomiting Prescribed by: JAEL CLEVELAND DO on 05/26/21 2242 Risperidone (Risperidone) 0.5 Mg Tablet, 0.25 MG PO PRN QHS PRN for ANXIETY / AGITATION, (Reported) Entered as Reported by: MYRIAM PETERSON RN on 11/29/20 231 Last Action: Converted on 09/25/21 1119 by AWAIS PLEITEZ MD Justicifation of Admission Dx: Justifications for Admission: Justification of Admission Dx: Yes Acute Renal Failure: 75% Reduction in GFR Altered Mental Status: Altered Mental Status AWAIS PLETIEZ MD Sep 26, 2021 13:20
[2021-09-26] MEDS: DAPTOMYCIN IV SCH (13:27)
[2021-09-26] MEDS: NORMAL SALINE IV SCH (13:27)
[2021-09-26 14:55] VITALS: BP 112/38
[2021-09-26] MEDS: PSYLLIUM HUSK (SUGAR FREE) 1 PKT PACKET PO SCH (16:00)
[2021-09-26] MEDS: cefTRIAXone IV Push 2 GM VIAL. IVP SCH (16:25)
--- NOTE | 2021-09-26 19:48 | NUR ---
Discharge Note: ENRIKE CORNELIUS S [address] [place] [address] Discharge instructions and discharge home medications reviewed with Family Member and a copy given. All questions have been answered and understanding verbalized. The following instructions and handouts were given: Diet, activity, medication list and follow up instructions provided to patient's who is her primary caregiver via telephone. Paperwork sent with EMR transport for home and sent to home health. Discontinued lines and drains: PICC Line DL intact. Patient discharged to Home w/services with Ambulance Personnel via Stretcher
== END 2021-09-26 18:55 | disposition home health service (06) | DRG 637 ==
LOC: ER 10:42 → ED HOLD 12:48 → 4 NORTH 13:26
PROVIDERS: ADMIT Internal Medicine; ATTEND Internal Medicine
PROC: 05HY33Z Insertion of Infusion Device into Upper Vein, Percutaneous Approach (ICD-10-PCS; principal; 2021-09-21)
DX: E11.69 Type 2 diabetes mellitus with other specified complication (principal); L89.153 Pressure ulcer of sacral region, stage 3; J18.9 Pneumonia, unspecified organism; E43 Unspecified severe protein-calorie malnutrition; G93.41 Metabolic encephalopathy; F02.81 Dementia in other diseases classified elsewhere, unspecified severity, with behavioral disturbance; L97.419 Non-pressure chronic ulcer of right heel and midfoot with unspecified severity; M86.8X7 Other osteomyelitis, ankle and foot; Z68.1 Body mass index [BMI] 19.9 or less, adult; J44.0 Chronic obstructive pulmonary disease with (acute) lower respiratory infection; E11.22 Type 2 diabetes mellitus with diabetic chronic kidney disease; E11.51 Type 2 diabetes mellitus with diabetic peripheral angiopathy without gangrene; E78.5 Hyperlipidemia, unspecified; F32.A Depression, unspecified; F41.9 Anxiety disorder, unspecified; G30.9 Alzheimer's disease, unspecified; G43.909 Migraine, unspecified, not intractable, without status migrainosus; G47.00 Insomnia, unspecified; G62.9 Polyneuropathy, unspecified; G89.28 Other chronic postprocedural pain; I12.9 Hypertensive chronic kidney disease with stage 1 through stage 4 chronic kidney disease, or unspecified chronic kidney disease; I25.10 Atherosclerotic heart disease of native coronary artery without angina pectoris; I25.2 Old myocardial infarction; K21.9 Gastro-esophageal reflux disease without esophagitis; K57.90 Diverticulosis of intestine, part unspecified, without perforation or abscess without bleeding; K58.9 Irritable bowel syndrome, unspecified; K64.9 Unspecified hemorrhoids; K74.60 Unspecified cirrhosis of liver; M19.90 Unspecified osteoarthritis, unspecified site; N18.9 Chronic kidney disease, unspecified; R62.7 Adult failure to thrive; Z79.02 Long term (current) use of antithrombotics/antiplatelets; Z79.82 Long term (current) use of aspirin; Z82.49 Family history of ischemic heart disease and other diseases of the circulatory system; Z82.5 Family history of asthma and other chronic lower respiratory diseases; Z86.73 Personal history of transient ischemic attack (TIA), and cerebral infarction without residual deficits; Z87.891 Personal history of nicotine dependence; Z88.0 Allergy status to penicillin; Z90.710 Acquired absence of both cervix and uterus; Z88.2 Allergy status to sulfonamides; Z91.040 Latex allergy status; Z90.49 Acquired absence of other specified parts of digestive tract; J45.909 Unspecified asthma, uncomplicated
CPT/HCPCS: 36415; 70450; 71045; 72125; 72170; 73552; 80053; 81001; 82550; 85025; 87086; 93971; J0696; J0878; J2060; J2185; U0003; 97110-GP; 97530-GO; 97530-GP; 97535-GO; 99285-25; G0378